=== PATIENT | female | born 1970 | race Caucasian/White ===

== ENCOUNTER 2016-07-08 04:56 | Emergency (ER) | payer OTHER ==
[~2016-07-08 04:56] MED LIST: ABILIFY30 M1 PO; AMBIEN (MONOGRAP5 MG PO; AMMONIUM LACTATE 12% TOP; ANUSOL HC-HEMOR1 SUP RC; ASPIRIN EC325 M2 PO; BUSPIRONE HCL10 M1 PO; BUSPIRONE HCL10 MG PO; CARVEDILOL3.125 MG PO; CARVEDILOL6.25 M1 PO; CARVEDILOL6.25 MG PO; CELEBREX100 M1 PO; CELECOXIB100 MG PO; COLACE100 MG PO; COREG3.125 MG PO; CYCLOBENZAPRINE10 M1 PO; FERROUS SULFAT324 MG PO; FLEXERIL 5MG TAB5 MG PO; FLEXERIL10 MG PO; FLUOXETINE HCL20 M2 PO; FLUOXETINE10 MG PO; FUROSEMIDE40 M1 PO; IBUPROFEN800 M1 PO; ISOSORBIDE MONO30 M1 PO; KEPPRA1000 M1 PO; LEVETIRACETAM250 MG PO; LEVETIRACETAM500 M2 PO; LEVETIRACETAM500 MG PO; LEVOTHYROXINE75 MCG PO; LEVSIN0.125 M1 PO; LINZESS145 MC1 PO; LINZESS145 MCG PO; LISINOPRIL2.5 M1 PO; LOVASTATIN10 MG PO; LOVAZA1 G1 PO; LOVAZA1 GM PO; MECLIZINE HCL25 MG PO; METFORMIN HCL1000 M1 PO; METFORMIN HYD1000 MG PO; MOTRIN 600 MG600 MG PO; MULTI-DAY VITA1 EACH PO; NEXIUM 40MG40 MG PO; NITROGLYCERIN0.4 M1 SL; NYSTOP60 GM TOP; ORPHENADRINE C100 MG PO; PERCOCET 325 MG1 TA2 PO; PERCOCET 5-3251 EACH PO; PLAVIX75 M1 PO; PRAVASTATIN SOD10 M2 PO; PROAIR HFA8.5 GM INH; PROZAC10 MG PO; PYRIDIUM200 MG PO; QUINAPRIL HCL20 MG PO; TOPAMAX50 M1 PO; TRAMADOL50 MG PO; TRIHEXYPHENIDYL5 M2 PO; TYLENOL WITH C1 EACH PO; VESICARE5 M1 PO; VIBRAMYCIN 100100 MG PO; VITAMIN D2000 UNIT PO; VITAMIN D50000 IU PO; WELCHOL 625 MG625 MG PO; WELCHOL625 MG PO; ZOFRAN ODT4 M1 SL
--- NOTE | 2016-07-08 05:12 | ED PSYCHIATRIC COMPLAINT ---
History of Present Illness General Chief Complaint: Psychiatric Related Complaint Stated Complaint: "BIBA PER EMS DEPRESSED" Source: patient, EMS Exam Limitations: clinical condition, schizoaffective disorder Vital Signs & Intake/Output Vital Signs & Intake/Output Vital Signs Date Time Temp Pulse Resp B/P Pulse O2 O2 Flow FiO2 Ox Delivery Rate 07/08 0510 98.6 67 20 140/65 94 Room Air Allergies Coded Allergies: Penicillins (THROAT CLOSURE 11/02/15) ammonia (UNKNOWN 11/02/15) lindane (ALLERGIC TO KWELL SHAMPOO 11/02/15) lorazepam (THROAT CLOSURE 11/02/15) sodium hypochlorite solution (sodium hypochlorite) (ALLERGIC TO BLEACH (UNKNOWN REACTION) 11/02/15) Reconcile Medications Albuterol Sulfate (Proair Hfa) 8.5 GM HFA.AER.AD 1-2 PUFF INH 4 TIMES/DAY PRN WHEEZE (Reported) Aripiprazole (Abilify) 30 MG TABLET 1 TAB PO DAILY MENTAL HEALTH (Reported) Aspirin (Ecotrin*) 325 MG TABLET.DR 1 TAB PO DAILY HEART HEALTH (Reported) Buspirone HCl 10 MG TABLET 1 TAB PO BID MENTAL HEALTH (Reported) Carvedilol (Coreg) 3.125 MG TABLET 1 TAB PO BID HEART/BP (Reported) Cholecalciferol (Vitamin D3) (Vitamin D) 2,000 UNIT CAPSULE 1 CAP PO DAILY SUPPLEMENT (Reported) Clopidogrel Bisulfate (Plavix) 75 MG TABLET 75 MG PO DAILY heart health Colesevelam Hydrochloride (Welchol) 625 MG TABLET 1,875 MG PO QPM CHOLESTEROL (Reported) Docusate Sodium (Colace) 100 MG CAPSULE 1 CAP PO BID CONSTIPATION Ferrous Sulfate 324 MG TABLET.DR 1 TAB PO BID SUPPLEMENT (Reported) Fluoxetine HCl 20 MG CAPSULE 1 CAP PO DAILY MENTAL HEALTH (Reported) Furosemide 40 MG TABLET 1 TAB PO DAILY DIURETIC (Reported) Hyoscyamine (Levsin) 0.125 MG TABLET 1 TAB PO Q4 PRN GI UPSET (Reported) Ibuprofen 800 MG TABLET 1 TAB PO Q6H PRN MODERATE-SEVERE PAIN (Reported) Isosorbide Mononitrate (Isosorbide Mononitrate ER) 30 MG TAB.ER.24H 30 MG PO DAILY ANGINA (Reported) Levetiracetam (Keppra) 1,000 MG TABLET 1,250 MG PO BID SEIZURE DISORDER Levothyroxine Sodium 75 MCG TABLET 1 TAB PO DAILY AC THYROID (Reported) Linaclotide (Linzess) 145 MCG CAPSULE 1 CAP PO DAILY IBS (Reported) Lisinopril 2.5 MG TABLET 1 TAB PO DAILY heart (Reported) Meclizine HCl 25 MG TABLET 1 TAB PO TIDPRN PRN DIZZINESS Metformin HCl 1,000 MG TABLET 1 TAB PO BID DIABETES (Reported) Multivitamin (Multi-Day Vitamins) 1 EACH TABLET 1 TAB PO DAILY SUPPLEMENT ( Reported) Nitroglycerin 0.4 MG TAB.SUBL 1 TAB SL AD PRN CHEST PAIN (Reported) 1st sign of attack; may repeat every 5 minutes until relief; if pain persists after 3 tablets in 15 minutes, prompt medical att Nystatin (Nystop) 100,000 UNIT/GRAM POWDER 1 PILAR TOP BID PRN RASHES (Reported ) [place]-3 Acid Ethyl Esters (Lovaza) 1 GM CAPSULE 2 CAP PO BID SUPPLEMENT ( Reported) Ondansetron (Zofran Odt) 4 MG TAB.RAPDIS 1 TAB SL TID PRN NAUSEA Oxycodone HCl/Acetaminophen (Percocet 5-325 MG Tablet) 5 MG-325 MG TABLET 1 TAB PO 4XDP PRN PAIN TEN...[id number] Pravastatin (Pravastatin Sodium) 10 MG TAB 1 TAB PO DAILY HEART HEALTH ( Reported) Solifenacin Succinate (Vesicare) 5 MG TABLET 1 TAB PO QAM BLADDER HEALTH ( Reported) Topiramate (Topamax) 50 MG TABLET 4 TAB PO QPM MENTAL HEALTH (Reported) Triage Note: ARRIVED ER 15 VIA AMBULANCE FROM HOME, PT STATES SHE IS SCARED AND DEPRESSED DENIES SI OR HI Triage Nurses Notes Reviewed? yes : No Patient currently breastfeeds: No HPI: Patient presents for evaluation of severe and worsening anxiety and depression. Patient states that she is compliant with her medications but she is still feeling anxious and scared this evening. (ANAHI LARSON,KRISTY Lomas) Past History Travel History Traveled to [place] past 21 day No Medical History Any Pertinent Medical History? 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 No (ANAHI LARSON,KRISTY Lomas) Review of Systems Review of Systems Constitutional: Reports: no symptoms. EENTM: Reports: no symptoms. Respiratory: Reports: no symptoms. Cardiovascular: Reports: no symptoms. GI: Reports: no symptoms. Genitourinary: Reports: no symptoms. Musculoskeletal: Reports: no symptoms. Skin: Reports: no symptoms. Neurological/Psychological: Reports: see HPI. Hematologic/Endocrine: Reports: no symptoms. Immunologic/Allergic: Reports: no symptoms. All Other Systems: Reviewed and Negative (ANAHI LARSON,KRISTY Lomas) Physical Exam Physical Exam General Appearance: see below Neurological/Psychiatric: see below Comments: General: Alert, calm, cooperative, morbidly obesity Head: Normocephalic, atraumatic Eyes: Normal inspection, no nystagmus, EOMI Ears: Normal inspection Nose: Normal inspection Throat: Moist mucosa Neck: Supple, no goiter Heart: Regular rate and rhythm, no murmurs rubs or gallops Lungs: Clear to auscultation bilaterally with good air entry Abdomen: Soft nontender nondistended, normal bowel sounds Chest: Nontender Extremities: Normal range of motion grossly, mild tremors present, no cyanosis clubbing or edema of the upper extremities, examination of the feet reveals extensive callouses and corns Neurologic: cranial nerves II through XII grossly intact, speech clear, gait normal Psychiatric: No apparent delusions or hallucinations, no pressured speech or thought blocking Rectal examination: Anal fissure present, no active bleeding (ANAHI LARSON,KRISTY Lomas) SAD PERSONS SAD PERSONS Response Value Depression/Hopelessness? yes 2 Previous Attempts/Psych Care yes 1 Social Support? has no support 1 Total 4 SAD PERSONS Done? yes (KRISTY FELDMAN DO) Progress Differential Diagnosis: drug intoxication, schizoaffective disorder, anxiety, depression, medication noncompliance Plan of Care: Orders Procedure Date/time Status ED CRISIS PSYCH CONSULT 07/08 523 Active URINE DRUG SCREEN FOR ER ONLY 07/08 522 Complete ETHANOL 07/08 522 Complete CBC WITHOUT DIFFERENTIAL 07/08 522 Complete BASIC METABOLIC PANEL 07/08 522 Complete Current Medications Sig/Carla Start time Last Medication Dose Stop Time Status Admin Aripiprazole 30 MG ONCE ONE 07/08 1200 UNVr (Abilify) 07/08 120 Aspirin Buffered 325 MG ONCE ONE 07/08 1200 UNVr (Ecotrin) 07/08 1201 Buspirone HCl 10 MG ONCE ONE 07/08 1200 UNVr (Buspar) 07/08 1201 Carvedilol 3.125 MG ONCE ONE 07/08 1200 UNVr (Coreg) 07/08 1201 Clopidogrel Bisulfate 75 MG ONCE ONE 07/08 1200 UNVr (Plavix) 07/08 1201 Fluoxetine HCl 20 MG ONCE ONE 07/08 1200 UNVr (Prozac) 07/08 1201 Furosemide 20 MG ONCE ONE 07/08 1200 UNVr (Lasix) 07/08 1201 Isosorbide 30 MG ONCE ONE 07/08 1200 UNVr Mononitrate 07/08 1201 (Imdur) Levetiracetam 1,250 MG ONCE ONE 07/08 1200 UNVr (Keppra) 07/08 1201 Levothyroxine Sodium 0.075 MG ONCE ONE 07/08 1200 UNVr (Synthroid) 07/08 1201 Metformin HCl 1,000 MG ONCE ONE 07/08 1200 UNVr (Glucophage) 07/08 1201 Laboratory Tests 07/08/16 07: Serum Alcohol < 10.0 07/08/16 07: Anion Gap 10, Estimated GFR 60, BUN/Creatinine Ratio 18.0, Glucose 104 H, Calcium 9.1, CBC w Diff NO MAN DIFF REQ, RBC 4.40, MCV 87.7, MCH 29.8, RDW 15.7 H, MPV 8.5, Gran % 64.4, Lymphocytes % 26.7, Monocytes % 5.4, Eosinophils % 3.0, Basophils % 0.5, Absolute Granulocytes 4.5, Absolute Lymphocytes 1.9, Absolute Monocytes 0.4, Absolute Eosinophils 0.2, Absolute Basophils 0, PUBS MCHC 34.0, Urine Opiates Screen < 100.00, Methadone Screen < 40, Barbiturate Screen < 60, Ur Phencyclidine Scrn < 6.00, Amphetamines Screen < 100, U Benzodiazepines Scrn < 85, Urine Cocaine Screen < 50, Urine Cannabis Screen < 5.00 Crisis evaluation (ANAHI LARSON,KRISTY Lomas) Comments: PT SIGNED OUT TO DR FELDMAN. (ANAHI LARSON,KRISTY Lomas) Departure Departure Disposition: STILL A PATIENT Condition: Stable Clinical Impression Primary Impression: Schizoaffective disorder Qualifiers: Schizoaffective disorder type: unspecified Qualified Code: F25.9 - Schizoaffective disorder, unspecified Secondary Impressions: Anal fissure, Skin callus Referrals: FUAD MYERS APRN (PCP/Family) Referred to [facility] as new patient No Departure Forms: Customer Survey General Discharge Information (ANAHI LARSON,KRISTY Lomas) Departure Comments 07/08/16 The patient was signed out to me by Dr. pSear. She is pending disposition by crisis. 07/08/16 12 PM The patient has been seen and evaluated and cleared by crisis. Her morning meds were given. (KRISTY FELDMAN DO)
[2016-07-08 07:38] LABS: ABSOLUTE BASOPHIL COUNT 0 /CUMM (0.0-0.2); ABSOLUTE EOSINOPHIL COUNT 0.2 /CUMM (0.0-0.7); ABSOLUTE GRANULOCYTE CT 4.5 /CUMM (1.4-6.5); ABSOLUTE LYMPH COUNT 1.9 /CUMM (1.2-3.4); ABSOLUTE MONOCYTE COUNT 0.4 /CUMM (0.10-0.60); BASOPHIL % 0.5 % (0.0-2.0); GRANULOCYTE % 64.4 % (42.2-75.2); HEMATOCRIT 38.6 % (37-47); MEAN CORPUSCULAR HGB 29.8 PG (27.0-31.0); MEAN CORPUSCULAR VOLUME 87.7 FL (81.0-99.0); MEAN PLATELET VOLUME 8.5 FL (7.4-10.4); PLATELET COUNT 224 /CUMM (130-400); RBC DISTRIBUTION WIDTH 15.7 % (11.5-14.5)
--- NOTE | 2016-07-08 10:10 | ED PSYCH CRISIS CONSULTATION ---
Crisis Consult Basic Assessment Date of Consult: 07/08/16 Responsible Person/Accompanied By: Self Insurance Authorization: Insurance #1: Insurance name: [employer] HMO Phone number: Policy number: [id number] Group number: [id number] Authorization number: ED Provider: Patient's ED Provider: KRISTY CHRISTIAN MD Primary Care Physician: Patient's PCP: FUAD MYERS APRN PCP's Current Psychiatrist: Bhupinder Cruz MD Chief Complaint: Psychiatric Related Complaint Patient's Quote: "Depressed and really nervous, but I didn't feel like hurting myself" Present Illness: Pt is 46 year old single female BIBA. Pt called 911 and said she was feeling depressed and scared at home and the EMS brought her to the ED at 5am this morning. Pt reports "I feel better now". "I don't feel like hurting myself ". Pt's presentation anxious, (rocking back and forth during the interveiw), flat affect, cooperative attitude and talkative. Pt was alert making jokes and asking questions about the time of day. Pt denied SI/HI, no evidence of AH/VH. Pt reports that she is an active pt at [facility] and was last seen on 06/27/16 by Dana Mustafa APRN. No changes to her current medication regime at that time. Pt currently takes the following psychotropic medications: Abilify 30 mgs daily, Prozac 20 mgs daily, Buspar 10mgs 3x daily. Pt has a history of inpatient hospitalization, she was last hospitalized here at [facility] on 11/01-11/07/15, pt was admitted for AH and was discharged with the diagnosis of Schizoaffective Disorder. Pt was also admitted to [facility] on 12/14- for suicidal thoughts without a plan and AH with thoughts to hurting herself with a paperclip. Pt was diagnosed then with Schizoaffective Disorder and Mild Mental Retardation. According to previous hospital reports pt has a history of chronic medical problems including Diabetes, Scoliosis, Hypothyroidism, Hypertension, Seizure Disorder, COPD and CHF. Patient's Address: [address] [place] [address] Other Phone Number: Who Do You Live With? Patient/Self Family/Informants Interviewed: Press Manager left message for pt's aunt Makayla Spring . Allergies - Coded Allergies: Penicillins (THROAT CLOSURE 11/02/15) ammonia (UNKNOWN 11/02/15) lindane (ALLERGIC TO KWELL SHAMPOO 11/02/15) lorazepam (THROAT CLOSURE 11/02/15) sodium hypochlorite solution (sodium hypochlorite) (ALLERGIC TO BLEACH (UNKNOWN REACTION) 11/02/15) Current Medications - Scheduled Medications Aripiprazole (Abilify) 30 MG TABLET 1 TAB PO DAILY MENTAL HEALTH (Reported) Entered as Reported by AMANDO WILLAMS on 12/06/13 2342 Aspirin (Ecotrin*) 325 MG TABLET. 1 TAB PO DAILY HEART HEALTH (Reported) Entered as Reported by FEDERICO EARLY on 10/01/14 1505 Buspirone HCl 10 MG TABLET 1 TAB PO BID MENTAL HEALTH (Reported) Entered as Reported by SANTIAGO WHITMAN on 12/11/15 0258 Carvedilol (Coreg) 3.125 MG TABLET 1 TAB PO BID HEART/BP (Reported) Entered as Reported by FEDERICO EARLY on 04/14/16 2119 Cholecalciferol (Vitamin D3) (Vitamin D) 2,000 UNIT CAPSULE 1 CAP PO DAILY SUPPLEMENT (Reported) Entered as Reported by FEDERICO EARLY on 04/14/16 2112 Clopidogrel Bisulfate (Plavix) 75 MG TABLET 75 MG PO DAILY heart health 30 Days Prescribed by MYRNA GARCIA on 12/15/15 Colesevelam Hydrochloride (Welchol) 625 MG TABLET 1,875 MG PO QPM CHOLESTEROL (Reported) Entered as Reported by SANTIAGO WHITMAN on 12/11/15 0304 Docusate Sodium (Colace) 100 MG CAPSULE 1 CAP PO BID CONSTIPATION #60 CAP Prescribed by ELIDA RUGGIERO MD on 06/12/14 Ferrous Sulfate 324 MG TABLET. 1 TAB PO BID SUPPLEMENT (Reported) Entered as Reported by ZHENG MCDONOUGH on 02/21/16 1245 Fluoxetine HCl 20 MG CAPSULE 1 CAP PO DAILY MENTAL HEALTH (Reported) Entered as Reported by FEDERICO EARLY on 12/14/14 1634 Furosemide 40 MG TABLET 1 TAB PO DAILY DIURETIC (Reported) Entered as Reported by FEDERICO EARLY on 10/01/14 1506 Isosorbide Mononitrate (Isosorbide Mononitrate ER) 30 MG TAB.ER.24H 30 MG PO DAILY ANGINA (Reported) Entered as Reported by FEDERICO EARLY on 04/14/16 2101 Levetiracetam (Keppra) 1,000 MG TABLET 1,250 MG PO BID SEIZURE DISORDER 30 Days Prescribed by CHRISTOPHER ARNETT MD on 04/16/16 Levothyroxine Sodium 75 MCG TABLET 1 TAB PO DAILY AC THYROID #30 (Reported) Entered as Reported by FEDERICO EARLY on 10/01/14 1506 Linaclotide (Linzess) 145 MCG CAPSULE 1 CAP PO DAILY IBS #60 (Reported) Entered as Reported by ZHENG MCDONOUGH on 02/21/16 1240 Lisinopril 2.5 MG TABLET 1 TAB PO DAILY heart #30 (Reported) Entered as Reported by ZHENG MCDONOUGH on 02/21/16 1234 Metformin HCl 1,000 MG TABLET 1 TAB PO BID DIABETES (Reported) Entered as Reported by FEDERICO EARLY on 12/14/14 1631 Multivitamin (Multi-Day Vitamins) 1 EACH TABLET 1 TAB PO DAILY SUPPLEMENT ( Reported) Entered as Reported by FEDERICO EARLY on 04/14/16 2115 [place]-3 Acid Ethyl Esters (Lovaza) 1 GM CAPSULE 2 CAP PO BID SUPPLEMENT ( Reported) Entered as Reported by FEDERICO EARLY on 12/14/14 1653 Pravastatin (Pravastatin Sodium) 10 MG TAB 1 TAB PO DAILY HEART HEALTH #30 ( Reported) Entered as Reported by AMANDO WILLAMS on 12/06/13 2341 Solifenacin Succinate (Vesicare) 5 MG TABLET 1 TAB PO QAM BLADDER HEALTH ( Reported) Entered as Reported by AMANDO WILLAMS on 12/06/13 2343 Topiramate (Topamax) 50 MG TABLET 4 TAB PO QPM MENTAL HEALTH (Reported) Entered as Reported by AMANDO WILLAMS on 12/06/13 2353 Scheduled PRN Medications Albuterol Sulfate (Proair Hfa) 8.5 GM HFA.AER.AD 1-2 PUFF INH 4 TIMES/DAY PRN WHEEZE (Reported) Entered as Reported by FEDERICO EARLY on 10/01/14 1505 Hyoscyamine (Levsin) 0.125 MG TABLET 1 TAB PO Q4 PRN GI UPSET (Reported) Entered as Reported by FEDERICO EARLY on 04/14/16 2059 Ibuprofen 800 MG TABLET 1 TAB PO Q6H PRN MODERATE-SEVERE PAIN (Reported) Entered as Reported by FEDERICO EARLY on 04/14/16 2100 Meclizine HCl 25 MG TABLET 1 TAB PO TIDPRN PRN DIZZINESS #30 TAB Prescribed by DYLLAN MARIE PA-C on 05/09/16 Nitroglycerin 0.4 MG TAB.SUBL 1 TAB SL AD PRN CHEST PAIN (Reported) Entered as Reported by FEDERICO EARLY on 04/14/16 2106 Nystatin (Nystop) 100,000 UNIT/GRAM POWDER 1 PILAR TOP BID PRN RASHES #60 ( Reported) Entered as Reported by FEDERICO EARLY on 10/01/14 1507 Ondansetron (Zofran Odt) 4 MG TAB.RAPDIS 1 TAB SL TID PRN NAUSEA #10 TAB Prescribed by DYLLAN MARIE PA-C on 05/09/16 Oxycodone HCl/Acetaminophen (Percocet 5-325 MG Tablet) 5 MG-325 MG TABLET 1 TAB PO 4XDP PRN PAIN #10 TAB Prescribed by ELIDA RUGGIERO MD on 06/24/16 Laboratory Results: Laboratory Tests 07/08/16723: Serum Alcohol < 10.0 07/08/16 0724: Anion Gap 10, Estimated GFR 60, BUN/Creatinine Ratio 18.0, Glucose 104 H, Calcium 9.1, CBC w Diff NO MAN DIFF REQ, RBC 4.40, MCV 87.7, MCH 29.8, RDW 15.7 H, MPV 8.5, Gran % 64.4, Lymphocytes % 26.7, Monocytes % 5.4, Eosinophils % 3.0, Basophils % 0.5, Absolute Granulocytes 4.5, Absolute Lymphocytes 1.9, Absolute Monocytes 0.4, Absolute Eosinophils 0.2, Absolute Basophils 0, PUBS MCHC 34.0, Urine Opiates Screen < 100.00, Methadone Screen < 40, Barbiturate Screen < 60, Ur Phencyclidine Scrn < 6.00, Amphetamines Screen < 100, U Benzodiazepines Scrn < 85, Urine Cocaine Screen < 50, Urine Cannabis Screen < 5.00 Past History Past Medical History Neurological: seizure EENT: hearing loss Cardiovascular: CAD, CHF, hypertension, hyperlipidemia Respiratory: asthma, obstructive sleep apnea Gastrointestinal: constipation, GERD Hepatic: NONE Renal: NONE Musculoskeletal: SCOLIOSIS Psychiatric: anxiety, depression, schizo affective disorder Endocrine: diabetes, hypothyroidism, obesity Blood Disorders: anemia Cancer(s): endometrial cancer 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 Past Surgical History Surgical History: cholecystectomy, hysterectomy, TONSILLECTOMY, MYRINGOTOMY TUBES Spinal fusion Adan rods age 17 Psychosocial History Strengths/Capabilities: Engaged in outpatient tx, desire to feel better Physical Limitations (Interventions): unsteady on feet Psychiatric Treatment History Psych Treatment Psychiatric Treatment Yes Inpatient Treatment Yes Outpatient Treatment Yes Location of Treatment [facility] Reason for Treatment Schizoaffective Disorder Dates of Treatment October & November 2015 and December, Response to Treatment Pt remains compliant with medication treatment and engages in treatment at [facility] monthly, Pt was seen on 06/27/16 and has a follow up appointment on . Diagnosis by History: Schizoaffective disorder Substance Use/Abuse History Drug Use/Abuse Substances Used/Abused No First Use n/a Last Used n/a How much used/taken n/a How often n/a For how long n/a Route of use n/a Substance Abuse Treatment Substance Abuse Treatment Past Substance Abuse TX No Inpatient Treatment No Outpatient Treatment No Location of Treatment n/a Reason for Treatment n/a Dates of Treatment n/a Response to Treatment n/a Current Mental Status Mental Status Orientation: Current situation Affect: Anxious, Blunted, Depressed, Flat, Lonely Speech: WNL Neuro-vegetative: Concentration Poor, Energy Decreased, Sleep Disturbance Appearance Appearance- Dress/Hygiene: Disheveled, extremely maladorous, overweight, poor hygenie. Behaviors Thought Process: [place] Thought Content: Poverty of thoughts, only saying the same thing over and over again. Memory: Impaired Insight: Poor SI/HI Risk Assessment Past Suicidal Ideation/Attempts Yes Current Suicidal Ideation/Att No Past Homicidal Ideation/Att: No Current Homicidal Ideation/Attempts No Degree of Intent: None Danger To: N/A Gravely Disabled: Inability, Lack of Insight, Poor Judgment Risk Factors: chronic/serious med cond., high anxiety/distress, history of suicide atmpts, SA/MH hospitalized, isolate/no social support, lives alone, limited support Lethality Ratin (mild) PTSD Checklist PTSD Done? 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 Current GAF: 35 Departure Disposition Psych Medical Clearance Date: 07/08/16 Medically Cleared at: 0524 Time Started: 0855 Time Ended: 1015 Psychiatrist Consulted: Bhupinder Cruz MD Date Disposition Established: 07/08/16 Time Disposition Established: 1045 Plan for Disposition - Modality: Outpatient Facility: [facility] Follow-up Appt Date: 07/09/16 Follow-Up Appt Time: 0800 (Left message for [facility] 07/09) Contact: Isi Howard Rationale for Disposition: Pt denies SI/HI, No evidence of psychosis. Pt reports feeling depressed, but I don't want to hurt myself. Pt will be given her AM medication. Pt will be picked up by friend Arcelia , monitor pt for safety at home and will ensure pt see [facility] in the morning 07/09/16 for her medication treatment. Clinician left message with [facility] to reschedule pt's appointment that is scheduled for to an earlier appointment this week. Referrals FUAD MYERS APRN (PCP/Family)
[2016-07-08 12:17] VITALS: BP 157/78
== END 2016-07-08 13:22 ==
LOC: ERH 04:56
PROVIDERS: Emergency Medicine
DX: F25.9 Schizoaffective disorder, unspecified (principal); K60.2 Anal fissure, unspecified; L84 Corns and callosities; I10 Essential (primary) hypertension; I50.9 Heart failure, unspecified
CPT/HCPCS: 80307; G0463; G0480; J1953

== ENCOUNTER 2016-07-11 12:04 | Inpatient (IN) | payer OTHER ==
[~2016-07-11] VITALS: Ht 167.6 cm; Wt 136.1 kg
--- NOTE | 2016-07-11 12:24 | NUR ---
C/O CHEST PAIN X 45 MINUTES, SENT FROM DR. YAÑEZ'S OFFICE. STATES PAIN IS WORSE ON INSPIRATION. ALSO C/O CRAMPS IN ARMS AND LEGS. EKG DONE ON ARRIVAL.
[2016-07-11 14:22] LABS: ABSOLUTE BASOPHIL COUNT 0.1 /CUMM (0.0-0.2); ABSOLUTE EOSINOPHIL COUNT 0.2 /CUMM (0.0-0.7); ABSOLUTE GRANULOCYTE CT 5.1 /CUMM (1.4-6.5); ABSOLUTE LYMPH COUNT 2.1 /CUMM (1.2-3.4); ABSOLUTE MONOCYTE COUNT 0.4 /CUMM (0.10-0.60); BASOPHIL % 0.7 % (0.0-2.0); EOSINOPHIL % 3.1 % (0-5); GRANULOCYTE % 64.6 % (42.2-75.2); HEMATOCRIT 37.8 % (37-47); MEAN CORPUSCULAR HGB 29.6 PG (27.0-31.0); MEAN CORPUSCULAR HGB CONC 33.5 G/DL (33.0-37.0); MEAN CORPUSCULAR VOLUME 88.3 FL (81.0-99.0); MEAN PLATELET VOLUME 8.6 FL (7.4-10.4); PLATELET COUNT 233 /CUMM (130-400); RBC DISTRIBUTION WIDTH 16.3 % (11.5-14.5); RED BLOOD CELL CT 4.28 /CUMM (4.20-5.40); WHITE BLOOD CELL COUNT 7.9 /CUMM (4.8-10.8)
--- NOTE | 2016-07-11 14:56 | NUR ---
APPRECIATE TRIAGE NOTE. PT TO MATTHEW I VIA WHEELCHAIR. RESTING ON STRETCHER AT THIS TIME WITH NO COMPLAINTS.
--- NOTE | 2016-07-11 15:49 | ED CARDIAC/CP/PALPITATIONS ---
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 Exam Limitations: no limitations Vital Signs & Intake/Output Vital Signs & Intake/Output Vital Signs Date Time Temp Pulse Resp B/P Pulse O2 O2 Flow FiO2 Ox Delivery Rate 07/11 1221 99.1 78 18 110/70 100 Room Air Allergies Coded Allergies: Penicillins (THROAT CLOSURE 11/02/15) ammonia (UNKNOWN 11/02/15) lindane (ALLERGIC TO KWELL SHAMPOO 11/02/15) lorazepam (THROAT CLOSURE 11/02/15) sodium hypochlorite solution (sodium hypochlorite) (ALLERGIC TO BLEACH (UNKNOWN REACTION) 11/02/15) Reconcile Medications Albuterol Sulfate (Proair Hfa) 8.5 GM HFA.AER.AD 1-2 PUFF INH 4 TIMES/DAY PRN WHEEZE (Reported) Aripiprazole (Abilify) 30 MG TABLET 1 TAB PO DAILY MENTAL HEALTH (Reported) Aspirin (Ecotrin*) 325 MG TABLET.DR 1 TAB PO DAILY HEART HEALTH (Reported) Buspirone HCl 10 MG TABLET 1 TAB PO BID MENTAL HEALTH (Reported) Carvedilol (Coreg) 3.125 MG TABLET 1 TAB PO BID HEART/BP (Reported) Cholecalciferol (Vitamin D3) (Vitamin D) 2,000 UNIT CAPSULE 1 CAP PO DAILY SUPPLEMENT (Reported) Clopidogrel Bisulfate (Plavix) 75 MG TABLET 75 MG PO DAILY heart health Colesevelam Hydrochloride (Welchol) 625 MG TABLET 1,875 MG PO QPM CHOLESTEROL (Reported) Docusate Sodium (Colace) 100 MG CAPSULE 1 CAP PO BID CONSTIPATION Ferrous Sulfate 324 MG TABLET.DR 1 TAB PO BID SUPPLEMENT (Reported) Fluoxetine HCl 20 MG CAPSULE 1 CAP PO DAILY MENTAL HEALTH (Reported) Furosemide 40 MG TABLET 1 TAB PO DAILY DIURETIC (Reported) Hyoscyamine (Levsin) 0.125 MG TABLET 1 TAB PO Q4 PRN GI UPSET (Reported) Ibuprofen 800 MG TABLET 1 TAB PO Q6H PRN MODERATE-SEVERE PAIN (Reported) Isosorbide Mononitrate (Isosorbide Mononitrate ER) 30 MG TAB.ER.24H 30 MG PO DAILY ANGINA (Reported) Levetiracetam (Keppra) 1,000 MG TABLET 1,250 MG PO BID SEIZURE DISORDER Levothyroxine Sodium 75 MCG TABLET 1 TAB PO DAILY AC THYROID (Reported) Linaclotide (Linzess) 145 MCG CAPSULE 1 CAP PO DAILY IBS (Reported) Lisinopril 2.5 MG TABLET 1 TAB PO DAILY heart (Reported) Meclizine HCl 25 MG TABLET 1 TAB PO TIDPRN PRN DIZZINESS Metformin HCl 1,000 MG TABLET 1 TAB PO BID DIABETES (Reported) Multivitamin (Multi-Day Vitamins) 1 EACH TABLET 1 TAB PO DAILY SUPPLEMENT ( Reported) Nitroglycerin 0.4 MG TAB.SUBL 1 TAB SL AD PRN CHEST PAIN (Reported) 1st sign of attack; may repeat every 5 minutes until relief; if pain persists after 3 tablets in 15 minutes, prompt medical att Nystatin (Nystop) 100,000 UNIT/GRAM POWDER 1 PILAR TOP BID PRN RASHES (Reported ) [place]-3 Acid Ethyl Esters (Lovaza) 1 GM CAPSULE 2 CAP PO BID SUPPLEMENT ( Reported) Ondansetron (Zofran Odt) 4 MG TAB.RAPDIS 1 TAB SL TID PRN NAUSEA Oxycodone HCl/Acetaminophen (Percocet 5-325 MG Tablet) 5 MG-325 MG TABLET 1 TAB PO 4XDP PRN PAIN TEN...[id number] Pravastatin (Pravastatin Sodium) 10 MG TAB 1 TAB PO DAILY HEART HEALTH ( Reported) Solifenacin Succinate (Vesicare) 5 MG TABLET 1 TAB PO QAM BLADDER HEALTH ( Reported) Topiramate (Topamax) 50 MG TABLET 4 TAB PO QPM MENTAL HEALTH (Reported) Triage Note: C/O CHEST PAIN X 45 MINUTES, SENT FROM DR. YAÑEZ'S OFFICE. STATES PAIN IS WORSE ON INSPIRATION. ALSO C/O CRAMPS IN ARMS AND LEGS. EKG DONE ON ARRIVAL. Triage Nurses Notes Reviewed? yes : No Patient currently breastfeeds: No HPI: Patient presents for evaluation of an intermittent chest pain described as a sharp stabbing substernal pain that began at about 1120 this morning. Patient denies any exertion at that time. In addition she has and experiencing right forearm pain over the past few days but also seems to affect both her legs. Patient contacted her stake driver who asked her to be evaluated in the emergency department. Past History Travel History Traveled to [place] past 21 day No Medical History Any Pertinent Medical History? see below for history Neurological: seizure EENT: hearing loss Cardiovascular: CAD, CHF, hypertension, hyperlipidemia Respiratory: asthma, obstructive sleep apnea Gastrointestinal: constipation, GERD Hepatic: NONE Renal: NONE Musculoskeletal: SCOLIOSIS Psychiatric: anxiety, depression, schizo affective disorder Endocrine: diabetes, hypothyroidism, obesity Blood Disorders: anemia Cancer(s): endometrial cancer GRAPE PRUNER/Reproductive: NONE History of MRSA: No History of VRE: No History of CDIFF: No Surgical History Surgical History: cholecystectomy, hysterectomy, TONSILLECTOMY, MYRINGOTOMY TUBES Spinal fusion Adan rods age 17 Psychosocial History Who do you live with Patient/Self Services at Home Home Health Aide (5 days a week), Nursing (7 days a week), a nurse administers her medications daily insuring compliance What is your primary language Albanian Tobacco Use: Never used ETOH Use: denies use Family History Family History, If Any: MOTHER FH: cirrhosis Hepatitis C Relation not specified for: *No pertinent family history Hx Contributory? No Review of Systems Review of Systems Constitutional: Reports: no symptoms. EENTM: Reports: no symptoms. Respiratory: Reports: no symptoms. Cardiovascular: Reports: see HPI. GI: Reports: no symptoms. Genitourinary: Reports: no symptoms. Musculoskeletal: Reports: no symptoms. Skin: Reports: no symptoms. Neurological/Psychological: Reports: no symptoms. Hematologic/Endocrine: Reports: no symptoms. Immunologic/Allergic: Reports: no symptoms. All Other Systems: Reviewed and Negative Physical Exam Physical Exam Cardiovascular: SEE BELOW Comments: Gen.: Well-nourished, well-developed, no acute respiratory distress. Morbidly obese. Head: Normocephalic, atraumatic. Eyes: Normal inspection bilaterally Ears: Normal inspection bilaterally Nose: Normal inspection Throat/mouth : Moist mucosa Neck: Supple, full range of motion, no goiter Heart: Regular rate and rhythm, no murmurs rubs or gallops Lungs: Clear to auscultation bilaterally with normal air entry Chest: Central chest tenderness that reproduces the pain of the chief complaint Back: Normal range of motion Abdomen: Soft, nontender, nondistended, normal bowel sounds Extremities: Normal range of motion grossly, equal radial pulses, no cyanosis clubbing or edema, deep tendon reflexes normal, sensation intact to light touch, no soft tissue swelling or edema. Ovoid ecchymoses of right mid forearm. Neurologic: Cranial nerves grossly intact, speech is clear Skin: warm and dry Psychiatric: Calm, cooperative, no apparent delusions or hallucinations Core Measures ACS in differential dx? Yes Severe Sepsis Present: No Septic Shock Present: No Progress Differential Diagnosis: COSTOCHONDRITIS, CHEST WALL STRAIN, ANGINA/ACUTE CORONARY SYNDROME/mi, ACID REFLUX, ESOPHAGEAL SPASMS, dvt, MUSCLE STRAIN, cva, RADICULOPATHY Plan of Care: Orders Procedure Date/time Status Admit to inpatient 07/11 1913 Active XRY-PORTABLE CHEST XRAY 07/11 1912 Active Patient Data 07/11 1854 Active TROPONIN LEVEL 07/11 1800 Complete EKG 07/11 1800 Active TROPONIN LEVEL 07/11 1400 Complete COMPREHENSIVE METABOLIC PANEL 07/11 1400 Complete CBC WITHOUT DIFFERENTIAL 07/11 1400 Complete EKG 07/11 1206 Active Laboratory Tests 07/11/16 1733: Troponin I < 0.01 07/11/16 1411: Anion Gap 14, Estimated GFR > 60, BUN/Creatinine Ratio 20.0, Glucose 96, Calcium 9.4, Total Bilirubin 0.3, AST 36, ALT 65 H, Alkaline Phosphatase 93, Troponin I < 0.01, Total Protein 6.8, Albumin 4.1, Globulin 2.7, Albumin/Globulin Ratio 1.5 , CBC w Diff NO MAN DIFF REQ, RBC 4.28, MCV 88.3, MCH 29.6, RDW 16.3 H, MPV 8.6 , Gran % 64.6, Lymphocytes % 26.8, Monocytes % 4.8, Eosinophils % 3.1, Basophils % 0.7, Absolute Granulocytes 5.1, Absolute Lymphocytes 2.1, Absolute Monocytes 0.4, Absolute Eosinophils 0.2, Absolute Basophils 0.1, PUBS MCHC 33.5 Initial ED EKG: NSR, rate (75, lvh) Prior EKG: unchanged Repeat EKG: unchanged Comments: 07/11/2016 6:25:47 PM I updated Ayla on her test results after the first troponin. At that point she appeared comfortable. I've now updated her on her EKG. She states that her pain is a 7 out of 10 although she is currently coloring. I'm attempting to contact her stake driver. 07/11/2016 6:34:47 PM patient's repeat troponin is normal. She has not responded to a GI cocktail and ibuprofen. I will order morphine and reevaluate. Awaiting Cardiology. 07/11/2016 6:43:22 PM patient's case discussed with Dr. Dixon who feels patient should be admitted given the ischemia seen on a recent stress test. He suggests Heparin. Departure Departure Disposition: STILL A PATIENT Condition: Stable Clinical Impression Primary Impression: Acute coronary syndrome Referrals: FUAD MYERS APRN (PCP/Family) Departure Forms: Customer Survey General Discharge Information Admission Note Spoke With: MARSHA LARSON PhD,KRISHAN Langford Documentation of Exam: Documentation of any treatments & extenuating circumstances including Concerns Regarding Discharge (functional status, medication knowledge or non-compliance, living conditions, etc.) that warrant an admission rather than observation: pt has a known history of coronary artery disease and ischemic changes on pharmacologic stress testing. She presents with a chest pain syndrome and has persistent pain despite a GI cocktail and ibuprofen. She now requires IV narcotic pain relievers. Dr. Dixon has requested heparin anticoagulation as well. The patient will require continuous cardiac monitoring for the possibility of ischemia induced dysrhythmia serial troponin levels and EKGs and maximization of medical management. Repeat stress testing or cardiac catheterization should be considered. I feel that given the patient's persistent chest pain that she is a poor candidate for outpatient management of the circumstances and would likely return in worse clinical condition given the exertion of outpatient management. Critical Care Note Critical Care Note Critical Care Time: 30-74 min
--- NOTE | 2016-07-11 18:27 | NUR ---
PT MEDICATED PER EMAR. WHEN PT ASSISTED TO SITTING POSITION PT FACE CHANGED TO NOTICABLE GRIMACE AND PT CLUTCHED CHEST DESCRIBING SHARP 7/10 PAIN POINTING TO SUBSTERNAL CHEST. DR. CHRISTIAN TO BEDSIDE TO EVALUATE PT. PT SITTING UP AND COLORING AT THIS TIME BUT CONTINUES TO REPORT SHARP CHEST PAIN.
--- NOTE | 2016-07-11 19:23 | NUR ---
PT MOVED TO ROOM 20 FOR PCXY.
--- NOTE | 2016-07-11 19:41 | NUR ---
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
--- NOTE | 2016-07-11 19:58 | RADIOLOGY REPORT ---
EXAMINATION: XR PORTABLE CHEST CLINICAL INFORMATION: Chest pain. History of CHF. COMPARISON: Chest x-ray 04/14/2016. TECHNIQUE: Portable view of the chest was obtained. FINDINGS: The lungs are hypoinflated but otherwise clear without focal airspace consolidation. No pleural effusions or pneumothoraces are identified. Cardiomediastinal contours are stable. Soft tissues are unremarkable. Redemonstrated is scoliosis of the thoracic spine with mechanical hardware visualized along the thoracic spine. No acute osseous abnormality is identified. IMPRESSION: No acute pulmonary abnormality. No radiographic findings suggestive of congestive heart failure.
--- NOTE | 2016-07-11 20:01 | NUR ---
PT MEDICATED PER EMAR. PT REFUSING LOVENOX. EDUCATION PROVIDED ON IMPORTANCE OF TAKING MEDICATION AND PT CONTINUES TO REFUSE. DR. CHRISTIAN UPDATED, PT IS NOW ADMITTED TO THE TELEMETRY HOUSE STAFF AND AWAITING EVALUATION.
--- NOTE | 2016-07-11 20:14 | History & Physical ---
[address] 07/11/16 2014: General Information and HPI MD Statement: I have seen and personally examined AYLA GREEN and documented this H&P. The patient is a 46 year old F who presented with a patient stated chief complaint of [chest pain, arm and lower extremity cramping]. Source of Information: patient, old records Exam Limitations: no limitations History of Present Illness: Ms Green is a 46-year-old lady with a PMH of HTN, HLD, CAD, stage II diastolic dysfunction, seizure disorder, or say on nocturnal CPAP, asthma, anxiety, depression, schizoaffective disorder, DM, hypothyroidism, obesity and endometrial CA who presents today with complaints of new onset chest pain. She reports the preceding 3 day duration of nonspecific intermittent bilateral upper and lower extremity cramping sensation. She denies any recent changes to her medications, sick contacts or illnesses. During a regular follow-up visit with her desktop architect today she experienced sudden onset of nonradiating diffuse chest discomfort that she describes as a punching/sharp sensation starting around 11:20 AM and resolved after a few hours. She also endorses some shortness of breath earlier today. She denies any recent blurry vision, headache, palpitations, lower extremity swelling, symptoms mimicking orthopnea/PND. ROS: She denies any recent URI symptoms or sick contacts, changes in medication. Allergies/Medications Allergies: Coded Allergies: Penicillins (THROAT CLOSURE 11/02/15) ammonia (UNKNOWN 11/02/15) lindane (ALLERGIC TO KWELL SHAMPOO 11/02/15) lorazepam (THROAT CLOSURE 11/02/15) sodium hypochlorite solution (sodium hypochlorite) (ALLERGIC TO BLEACH (UNKNOWN REACTION) 11/02/15) Home Med list Albuterol Sulfate (Proair Hfa) 8.5 GM HFA.AER.AD 1-2 PUFF INH 4 TIMES/DAY PRN WHEEZE (Reported) Aripiprazole (Abilify) 30 MG TABLET 1 TAB PO DAILY MENTAL HEALTH (Reported) Aspirin (Ecotrin*) 325 MG TABLET.DR 1 TAB PO DAILY HEART HEALTH (Reported) Buspirone HCl 10 MG TABLET 1 TAB PO BID MENTAL HEALTH (Reported) Carvedilol (Coreg) 3.125 MG TABLET 1 TAB PO BID HEART/BP (Reported) Cholecalciferol (Vitamin D3) (Vitamin D) 2,000 UNIT CAPSULE 1 CAP PO DAILY SUPPLEMENT (Reported) Clopidogrel Bisulfate (Plavix) 75 MG TABLET 75 MG PO DAILY heart health Colesevelam Hydrochloride (Welchol) 625 MG TABLET 1,875 MG PO QPM CHOLESTEROL (Reported) Docusate Sodium (Colace) 100 MG CAPSULE 1 CAP PO BID CONSTIPATION Ferrous Sulfate 324 MG TABLET.DR 1 TAB PO BID SUPPLEMENT (Reported) Fluoxetine HCl 20 MG CAPSULE 1 CAP PO DAILY MENTAL HEALTH (Reported) Furosemide 40 MG TABLET 1 TAB PO DAILY DIURETIC (Reported) Hyoscyamine (Levsin) 0.125 MG TABLET 1 TAB PO Q4 PRN GI UPSET (Reported) Ibuprofen 800 MG TABLET 1 TAB PO Q6H PRN MODERATE-SEVERE PAIN (Reported) Isosorbide Mononitrate (Isosorbide Mononitrate ER) 30 MG TAB.ER.24H 30 MG PO DAILY ANGINA (Reported) Levetiracetam (Keppra) 1,000 MG TABLET 1,250 MG PO BID SEIZURE DISORDER Levothyroxine Sodium 75 MCG TABLET 1 TAB PO DAILY AC THYROID (Reported) Linaclotide (Linzess) 145 MCG CAPSULE 1 CAP PO DAILY IBS (Reported) Lisinopril 2.5 MG TABLET 1 TAB PO DAILY heart (Reported) Meclizine HCl 25 MG TABLET 1 TAB PO TIDPRN PRN DIZZINESS Metformin HCl 1,000 MG TABLET 1 TAB PO BID DIABETES (Reported) Multivitamin (Multi-Day Vitamins) 1 EACH TABLET 1 TAB PO DAILY SUPPLEMENT ( Reported) Nitroglycerin 0.4 MG TAB.SUBL 1 TAB SL AD PRN CHEST PAIN (Reported) 1st sign of attack; may repeat every 5 minutes until relief; if pain persists after 3 tablets in 15 minutes, prompt medical att Nystatin (Nystop) 100,000 UNIT/GRAM POWDER 1 PILAR TOP BID PRN RASHES (Reported ) Huntley-3 Acid Ethyl Esters (Lovaza) 1 GM CAPSULE 2 CAP PO BID SUPPLEMENT ( Reported) Ondansetron (Zofran Odt) 4 MG TAB.RAPDIS 1 TAB SL TID PRN NAUSEA Oxycodone HCl/Acetaminophen (Percocet 5-325 MG Tablet) 5 MG-325 MG TABLET 1 TAB PO 4XDP PRN PAIN TEN...[id number] Pravastatin (Pravastatin Sodium) 10 MG TAB 1 TAB PO DAILY HEART HEALTH ( Reported) Solifenacin Succinate (Vesicare) 5 MG TABLET 1 TAB PO QAM BLADDER HEALTH ( Reported) Topiramate (Topamax) 50 MG TABLET 4 TAB PO QPM MENTAL HEALTH (Reported) Past History Travel History Traveled to [place] past 21 day No Medical History Neurological: seizure EENT: hearing loss Cardiovascular: CAD, CHF, hypertension, hyperlipidemia Respiratory: asthma, obstructive sleep apnea Gastrointestinal: constipation, GERD Hepatic: NONE Renal: NONE Musculoskeletal: SCOLIOSIS Psychiatric: anxiety, depression, schizo affective disorder Endocrine: diabetes, hypothyroidism, obesity Blood Disorders: anemia Cancer(s): endometrial cancer HOSPITALITY COORDINATOR/Reproductive: NONE History of MRSA: No History of VRE: No History of CDIFF: No Surgical History Surgical History: cholecystectomy, hysterectomy, TONSILLECTOMY, MYRINGOTOMY TUBES Spinal fusion Adan rods age 17 Past Family/Social History Family History Relations & Conditions if any MOTHER FH: cirrhosis Hepatitis C Relation not specified for: *No pertinent family history Psychosocial History Who Do You Live With? self Services at Home: Home Health Aide (5 days a week), Nursing (7 days a week), a nurse administers her medications daily insuring compliance Primary Language: Polish ETOH Use: denies use Functional Ability ADLs Independent: dressing, eating, toileting, bathing. Ambulation: independent IADLs Independent: shopping, housework, finances, food prep, telephone, transportation , medication admin. Review of Systems Review of Systems Constitutional: Reports: see HPI. Cardiovascular: Reports: see HPI. Respiratory: Reports: see HPI. GI: Reports: constipation, bloody stool. Musculoskeletal: Reports: see HPI. Exam & Diagnostic Data Last 24 Hrs of Vital Signs/I&O Vital Signs Date Time Temp Pulse Resp B/P Pulse O2 O2 Flow FiO2 Ox Delivery Rate 07/11 1924 97.6 67 18 115/78 98 Room Air 07/11 1221 99.1 78 18 110/70 100 Room Air Intake & Output 07/11 1600 07/11 0800 07/11 0000 Intake Total Output Total Balance Patient 300 lb Weight Physical Exam General Appearance Alert, Oriented X3, Cooperative, No Acute Distress Skin No Breakdown HEENT EOMI, Mucous Membr. moist/pink Neck Unable to assess JVD asecondary to body habitus Cardiovascular Regular Rate, Normal S1, Normal S2, No Murmurs Lungs Normal Air Movement, Distant lung sound secondary to body habitus Abdomen Normal Bowel Sounds, Soft, No Tenderness Extremities No Cyanosis, No Edema, Normal Pulses Last 24 Hrs of Labs/Manuel: Laboratory Tests 07/11/16 1733: Troponin I < 0.01 07/11/16 1411: Anion Gap 14, Estimated GFR > 60, BUN/Creatinine Ratio 20.0, Glucose 96, Calcium 9.4, Total Bilirubin 0.3, AST 36, ALT 65 H, Alkaline Phosphatase 93, Troponin I < 0.01, Total Protein 6.8, Albumin 4.1, Globulin 2.7, Albumin/Globulin Ratio 1.5 , 25-OH Vitamin D Total 19.2 L, TSH Pending, Free T4 1.19, CBC w Diff NO MAN DIFF REQ, RBC 4.28, MCV 88.3, MCH 29.6, RDW 16.3 H, MPV 8.6, Gran % 64.6, Lymphocytes % 26.8, Monocytes % 4.8, Eosinophils % 3.1, Basophils % 0.7, Absolute Granulocytes 5.1, Absolute Lymphocytes 2.1, Absolute Monocytes 0.4, Absolute Eosinophils 0.2, Absolute Basophils 0.1, PUBS MCHC 33.5 Diagnostic Data EKG Results Sinus rhythm, HR 65. Nonspecific intraventricular conduction delay. SD interval 176. QTC 467 CXR Results No acute pulmonary abnormality. No radiographic findings suggestive of congestive heart failure. Assessment/Plan Assessment: 46-year-old lady with a PMH of HTN, HLD, CAD, stage II diastolic dysfunction, seizure disorder, or say on nocturnal CPAP, asthma, anxiety, depression, schizoaffective disorder, DM, hypothyroidism, obesity and endometrial CA who presents today with complaints of new onset chest pain. She reports the preceding 3 day duration of nonspecific intermittent bilateral upper and lower extremity cramping sensation. She denies any recent changes to her medications, sick contacts or illnesses. During a regular follow-up visit with her desktop architect today she experienced sudden onset of nonradiating diffuse chest discomfort that she describes as a punching/sharp sensation starting around 11:20 AM and resolved after a few hours. She also endorses some shortness of breath earlier today. VS: BP 110/70, HR 78, RR 18, SPO2 100% on RA, T 99.1 Pertinent labs: H&H 12.6/37.8, platelets 233, BUN/CR 18/0.9, potassium 3.8 Troponin: 0.012 Dipyridamole stress test (April 2016): No ischemic changes during the exam. Echocardiogram (April 2016): Mild concentric LVH. EF greater than 65%. Stage II diastolic dysfunction. Right ventricular systolic pressure 30 mmHg Problem list: 1. Angina: Rule out ACS 2. Exertional dyspnea 3. ??? Recent abnormal stress test 4. Stage II diastolic dysfunction 5. Hypothyroidism 6. Hyperlipidemia 7. Diabetes 8. MOISÉS 9. Daily cigar smoker Plan: * Admit to telemetry for continuous cardiac monitoring, serial EKGs and troponins * Per discussion with Dr. Dixon, we'll start the patient on heparin drip per ACS protocol. Close monitoring for H&H drop with her history of anal fissure * Follow-up TFTs and lipid panel in the a.m. * Dose adjustment of statin based on ASCVD score if warranted * We'll continue the patient with nocturnal CPAP with her home settings of 12 mmHg * AM team: With Dr. Felix for most recent stress test results * Accu-Cheks, initiate patient on low-dose sliding scale * Diabetic diet * Full code As Ranked By This Provider Problem List: 1. Angina pectoris 2. Abnormal stress test 3. Morbid obesity 4. Sleep apnea 5. Smoker 6. Obstructive sleep apnea 7. Hyperlipidemia 8. Hypothyroidism Core Measures/Miscellaneous Acute Coronary Syndrome ACS Diagnosis: No Cerebrovascular Accident CVA/TIA Diagnosis: No Congestive Heart Failure CHF Diagnosis: No Venous Thromboembolism VTE Risk Factors: Age > 40, Cancer/chemo/oth therapy VTE Prophylaxis Ordered Inpt: Pharm- Heparin No Mech VTE prophylaxis d/t: No contraindications No VTE Pharm Prophylaxis d/t: No contraindications VTE Diagnosis: No VTE Type: NONE VTE Confirmed by (Test): NONE Severe Sepsis Severe Sepsis Present: No Septic Shock Septic Shock Present: No Miscellaneous Documentation Attending Case Discussed With: MARSHA LARSON PhD,KRISHAN Langford Primary Care Physician: FUAD MYERS APRN Patient sees these Specialists Dr. Felix Level of Patient Care: Telemetry OTILIO LARSON,ELVIE Langford 07/12/16 1047: Attending Review Statement Attending Statement Attending Statement: examined this patient, discuss w/resident/PA/RESEARCH QUALITY ASSURANCE ANALYST, agreed w/resident/PA/RESEARCH QUALITY ASSURANCE ANALYST, discussed with family, reviewed EMR data (avail), discussed with nursing, discussed with case mgmt, reviewed images, amended to note Attending Assessment/Plan: Ms. Ayla Green is a 46-year-old female with a history of morbid obesity, former long-standing tobacco use, COPD, MOISÉS on CPAP, childhood asthma, hypertension, dyslipidemia, diabetes mellitus with neuropathy, seizure disorder, schizophrenia, a vague history of heart failure, and coronary artery disease who was seen in our office yesterday (07/11/2015) for routine visit and who at that time described complaints of chest discomfort. This was described as "burning" across her anterior chest of "7/10" intensity with some associated discomfort in her right arm and without any other associated symptoms. Of note is the fact that she had contacted our office on Friday (07/08/2015) and related the fact she had been experiencing some "cramping" in both her arms and legs for a couple of days. We recommended some blood work, but she was not able to get a ride to have any laboratory work performed. We then were able to get her set up for a home draw that was to be performed yesterday, but she wound up being able to get a ride for her office visit. She was previously hospitalized at for chest pain (12/10-12/15/2015) and had a pharmacologic stress test on 12/13/2015 that revealed a moderate size region of ischemia in the anterior wall and apex that ultimately led to cardiac catheterization at [facility] that revealed the following: LM-patent, LAD- luminal irregularities, long 50% proximal stenosis followed by aneurysmal dilatation and subsequent 50% mid vessel stenosis, LCx-proximal 50% OM stenosis with diffuse luminal irregularities, RCA-dominant and aneurysmal throughout most of its course with diffuse luminal irregularities and 2 tandem 95% areas of stenosis in the proximal and mid PDA and 60% distal posterolateral branch stenosis, LV gram-not done. She underwent PCI (PATTIE) of the 2 PDA areas of stenosis with 0% residual stenosis and SHANNAN-3 flow. She had further chest discomfort and was observed in the [facility] ED (03/09-2015) and ruled out for myocardial infarction by cardiac enzymes and had no acute electrocardiographic changes observed. She was seen in our office on 04/03/2016 and at that time she was asymptomatic, but we did set her up for a pharmacologic stress test with authorization obtained on 04/08/2016 but are calls were never returned and she never had the outpatient stress test performed. She was again admitted to (04/14-04/18/2016) for chest pain of one hours duration and had a repeat stress test performed on 04/16/2016 that revealed a large mild area of ischemia in the anteroapical, lateral wall segments extending into the posterior base. This led to repeat cardiac catheterization at [facility] on 05/08/2016 that revealed the following: LM-patent, LAD-diffuse luminal irregularities with long 50% proximal stenosis, followed by aneurysmal mid segment, followed by 50% mid stenosis, RI-diffuse luminal irregularities, LCx-50 % proximal marginal stenosis with diffuse luminal irregularities, RCA-large, dominant, aneurysmal vessel throughout most of its course with diffuse luminal irregularities and patency at prior stent sites in PDA, 50% very distal PDA stenosis without flow limitation, 60% distal PLV branch stenosis. Based on these findings it was not felt to be a need for PCI. Physical examination: Morbidly obese, middle-aged female in no acute distress with nasal oxygen in place. Vital signs: See above. HEENT: Normocephalic, atraumatic, EOMI, moist mucous membranes. Neck: No JVD, no bruits. Lungs: Clear to auscultation bilaterally. Heart: S1, S2 with grade 1/6 systolic murmur. PMI fifth ICS at [facility]. Abdomen: Soft, nontender, positive bowel sounds. Extremities: No edema. Peripheral pulses: Symmetrical/intact. Assessment: Prolonged episode of chest discomfort in this middle-aged female with known coronary artery disease, as well as, a risk equivalent and multiple risk factors for the same. Fortunately, there is no evidence of myocardial necrosis by serial troponin I determinations or evidence of acute electrocardiographic abnormalities. Recommendations: * Admit to telemetry, follow-up troponins, follow-up ECGs. * IV heparin has already been started. * Continue the rest of her outpatient cardiac regimen (statin, antiplatelets, long and short acting nitrates, beta josefina, HAMMAD inhibitor, diuretic, etc.). * Schedule for inpatient pharmacologic (dipyridamole) stress test. * I will discuss her history of present illness, initial hospital course, and recommendations for further evaluation/management with her conservator (Makayla Spring [phone]). * Avoid use of NSAID's. * DVT prophylaxis. Further recommendations will follow.
--- NOTE | 2016-07-11 20:45 | NUR ---
HOUSE STAFF TO BEDSIDE FOR EVAL.
--- NOTE | 2016-07-11 21:54 | NUR ---
PT SITTING UP EATING CHICKEN DINNER.
[2016-07-11 22:23] LABS: PT 10.5 SEC (9.4-12.5); PTT 31 SEC (25-37)
--- NOTE | 2016-07-11 23:23 | NUR ---
PT MEDICATED PER EMAR. HEPARIN DRIP INITIATED PER EMAR.
--- NOTE | 2016-07-12 03:55 | NUR ---
UP TO BR AT 0230 REFUSES VTE NO CO OF CP CO ONLY OF DISCOMFORT OF STRETCHER BEING UNCOMF, REMAINS ON HEPARIN GTT AT 20ML/HR. NO OVERT/COVERT S/S OF BLEEDING. WILL CONT TO MONITOR. REMAINS ON B\HOME BIPAP.
[2016-07-12 05:49] LABS: ABSOLUTE BASOPHIL COUNT 0 /CUMM (0.0-0.2); ABSOLUTE EOSINOPHIL COUNT 0.2 /CUMM (0.0-0.7); ABSOLUTE GRANULOCYTE CT 3.5 /CUMM (1.4-6.5); ABSOLUTE LYMPH COUNT 1.6 /CUMM (1.2-3.4); ABSOLUTE MONOCYTE COUNT 0.2 /CUMM (0.10-0.60); BASOPHIL % 0.5 % (0.0-2.0); GRANULOCYTE % 63.4 % (42.2-75.2); MEAN CORPUSCULAR HGB 30.2 PG (27.0-31.0); MEAN CORPUSCULAR HGB CONC 34.4 G/DL (33.0-37.0); MEAN CORPUSCULAR VOLUME 87.9 FL (81.0-99.0); MEAN PLATELET VOLUME 8.6 FL (7.4-10.4); PLATELET COUNT 225 /CUMM (130-400); RBC DISTRIBUTION WIDTH 16.3 % (11.5-14.5); RED BLOOD CELL CT 4.09 /CUMM (4.20-5.40); WHITE BLOOD CELL COUNT 5.6 /CUMM (4.8-10.8)
[2016-07-12 06:25] VITALS: BP 124/59
[2016-07-12 06:57] LABS: PTT 33 SEC (25-37)
--- NOTE | 2016-07-12 07:15 | PN- Housestaff ---
Subjective Follow-up For: 1. Angina: Ruled out ACS 2. Exertional dyspnea 3. Recent abnormal stress test 4. Stage II diastolic dysfunction Complaints: pain scale (0-10) Tele-Events Since Last Visit: no acute events Subjective: Patient was seen and examined this morning. She is alert, awake and oriented to time place and person. No acute events noticed overnight. She denied any kind of chest pain or pressure, racing of heart, shortness of breath at rest, fever or chills. She denied any nausea, vomiting, abdominal pain, change in bladder or bowel habits However she does report dyspnea on exertion. Vitals were stable. Afebrile. Heart rate 58, respiratory rate 22, blood pressure 124/59, saturating 96% on room air. She is nothing by mouth - waiting for her stress test this morning. Review of Systems Constitutional: Denies: see HPI. Objective Last 24 Hrs of Vital Signs/I&O Vital Signs Date Time Temp Pulse Resp B/P Pulse O2 O2 Flow FiO2 Ox Delivery Rate 07/12 1440 98.8 58 20 133/76 98 CPAP 07/12 1045 97.9 62 22 124/59 07/12 1045 97.9 62 22 124/59 07/12 1045 97.9 62 22 124/59 06 0625 97.9 58 22 124/59 96 CPAP 07/12 0502 59 96 07/12 0025 70 97 /05 2322 97.8 64 18 131/62 98 Room Air Room Air 07/11 2316 97.6 64 18 131/62 /05 2232 96 07/11 2230 96 07/11 1924 97.6 67 18 115/78 98 Room Air Physical Exam General Appearance: Alert, Oriented X3, Cooperative, No Acute Distress Skin: No Rashes, No Breakdown HEENT: Atraumatic, Mucous Membr. moist/pink Neck: Supple, No JVD Lymphatic: Cervical nl Cardiovascular: Normal S1, Normal S2, No Murmurs Lungs: Normal Air Movement Abdomen: Normal Bowel Sounds, Soft, No Tenderness Extremities: No Clubbing, No Cyanosis, No Edema Vascular: Normal Pulses Current Medications: Current Medications Sig/Carla Start time Last Medication Dose Route Stop Time Status Admin Acetaminophen 650 MG Q6P PRN 07/11 2114 AC PO Aripiprazole 30 MG DAILY 07/12 1000 AC 07/12 PO 1045 Aspirin Buffered 325 MG DAILY 07/12 1000 AC 07/12 PO 1045 Buspirone HCl 10 MG BID 07/11 2300 AC 07/12 PO 1045 Carvedilol 3.125 MG BID 07/11 2300 AC 07/12 PO 1045 Clopidogrel Bisulfate 75 MG DAILY 07/12 1000 AC 07/12 PO 1045 Dipyridamole 60 MG ONE ONE 07/12 1115 DC Dextrose/Water 28 ML IV 07/12 1514 Docusate Sodium 100 MG BID 07/11 220 AC 07/12 PO 1045 Enoxaparin Sodium 130 MG ONCE ONE 07/11 1845 DC SC 07/11 184 Ferrous Sulfate 325 MG BID 07/11 2300 AC 07/12 PO 1045 Fluoxetine HCl 20 MG DAILY 07/12 1000 AC 07/12 PO 1045 Furosemide 40 MG DAILY 07/12 1000 AC 07/12 PO 1045 Heparin Sodium 0 .STK-MED ONE 07/11 2249 DC (Porcine) .ROUTE Heparin Sodium 5,000 UNIT ONCE ONE 07/11 2199 DC 07/11 (Porcine) IV 07/11 2200 2316 Heparin Sodium 25,000 UNIT Q24H 07/11 2129 AC 07/11 (Porcine) IV 2316 Sodium Chloride 500 ML Hyoscyamine 0.125 MG Q4 HRS NEEDED PRN 07/11 2129 AC PO Ibuprofen 0 .STK-MED ONE 07/11 181 DC PO Ibuprofen 600 MG ONCE ONE 07/11 1730 DC 07/11 PO 07/11 1731 1817 Isosorbide 30 MG DAILY 07/12 1000 AC 07/12 Mononitrate PO 1045 Levetiracetam 1,250 MG BID 07/11 2250 AC 07/12 PO 1045 Levothyroxine Sodium 0.075 MG DAILY AC 07/12 0700 AC 07/12 PO 0800 Linaclotide 145 MCG DAILY 07/12 1000 AC PO Lisinopril 2.5 MG DAILY 07/12 1000 AC 07/12 PO 1045 Morphine Sulfate 0 .STK-MED ONE 07/11 195 DC .ROUTE Morphine Sulfate 4 MG ONCE ONE 07/11 1845 DC 07/11 IV 07/11 184 2000 Non-Formulary 0 SEE ADMIN CRITERIA 07/11 2129 CAN Medication ANY Nystatin 1 PILAR TID PRN 07/11 2129 AC TOP Iaaut-1-Hvtr Ethyl 2 GM BID 07/12 1000 AC 07/12 Esters PO 1045 Oxybutynin Chloride 5 MG DAILY 07/12 1000 AC 07/12 PO 1045 Oxycodone/ 1 TAB Q6P PRN 07/11 2114 AC Acetaminophen PO Oxycodone/ 2 TAB Q6P PRN 07/11 211 AC Acetaminophen PO Pravastatin Sodium 10 MG 1700 07/12 1700 AC PO Topiramate 200 MG QPM 07/11 2245 AC 07/11 PO 2316 Last 24 Hrs of Lab/Manuel Results Last 24 Hrs of Labs/Mics: Laboratory Tests 07/12/16 1511: APTT 30 07/12/16 0527: Anion Gap 12, Estimated GFR 54 L, BUN/Creatinine Ratio 18.2, Triglycerides 597 H, Cholesterol 235 H, LDL Cholesterol, Calc ND, HDL Cholesterol 34 L, Cholesterol/HDL Ratio 7 H, Lipase 494 H, PT 11.0, INR 1.05, APTT 33, CBC w Diff NO MAN DIFF REQ, RBC 4.09 L, MCV 87.9, MCH 30.2, RDW 16.3 H, MPV 8.6, Gran % 63.4, Lymphocytes % 29.0, Monocytes % 4.1, Eosinophils % 3.0, Basophils % 0.5, Absolute Granulocytes 3.5, Absolute Lymphocytes 1.6, Absolute Monocytes 0.2 , Absolute Eosinophils 0.2, Absolute Basophils 0, PUBS MCHC 34.4 07/12/16 0030: Troponin I < 0.01 07/11/16 1733: Phosphorus 4.2, Magnesium 1.8, Troponin I < 0.01 Assessment/Plan Assessment: 46-year-old lady with a PMH of HTN, HLD, CAD, stage II diastolic dysfunction, seizure disorder, MOISÉS on nocturnal CPAP, asthma, anxiety, depression, schizoaffective disorder, DM, hypothyroidism, obesity and endometrial CA who presents with complaints of new onset chest pain. She reports 3 day duration of nonspecific intermittent bilateral upper and lower extremity cramping sensation. She denies any recent changes to her medications, sick contacts or illnesses. During a regular follow-up visit with her earth observations chief scientist on 07/12/2015 she experienced sudden onset of nonradiating diffuse chest discomfort that she describes as a punching/sharp sensation starting around 11:20 AM and resolved after a few hours. She also endorses some shortness of breath earlier today. Advised to go to the ER. VS: BP 110/70, HR 78, RR 18, SPO2 100% on RA, T 99.1 Pertinent labs: H&H 12.6/37.8, platelets 233, BUN/CR 18/0.9, potassium 3.8 Troponin: 0.013 Dipyridamole stress test (April 2016): No ischemic changes during the exam.Hypokinetic apex. Echocardiogram (April 2016): Mild concentric LVH. EF greater than 65%. Stage II diastolic dysfunction. Right ventricular systolic pressure 30 mmHg. CXR- No acute pulmonary abnormality. No radiographic findings suggestive of congestive heart failure. Problem list: 1. Angina: Rule out ACS 2. Exertional dyspnea 3. ??? Recent abnormal stress test 4. Stage II diastolic dysfunction 5. Hypothyroidism 6. Hyperlipidemia 7. Diabetes 8. MOISÉS 9. Daily cigar smoker Chest pain/ruled out ACS Patient presented with diffuse chest pain, nonradiating, sharp, 8 out of 10. Associated with shortness of breath on exertion. Lasted for couple of hours. She was advised to come to the emergency department. * Admitted to telemetry floor for further monitoring * Monitor vitals every shift * Maintain oxygen saturations ABOVE 92% * Provide supplemental oxygen if necessary * Continuous facility maintenance manager for any arrhythmias or EKG changes * Serial EKGs and troponins were negative * Ruled out ACS * Sales Ledger Administrator on board * Patient was started on IV heparin drip in the emergency room * Continued aspirin 325 mg daily * Continue pravastatin 10 mg daily * Continue Imdur and Coreg * % Stress test was done this afternoon * Persentine stress test done this afternoon On this stress only study, the abnormality in the mid anterolateral wall appears more severe when compared to the previous study.This could be due to progressive reversible ischemia or a small infarction at this site. Subsequent rest images are recommended to further evaluate this region. Left ventricular wall motion and ejection fraction are normal. Hypertension Continue lisinopril home dose Hyperlipidemia Continue pravastatin Coronary artery disease Continue aspirin Continue Plavix Continue Coreg and Imdur Stage II diastolic congestive heart failure Continue Lasix 40 mg daily obstructive sleep apnea On CPAP Anxiety Continue buspirone Depression Continue fluoxetine Shizo affective disorder Continue aripiprazole Diabetes mellitus Metformin on hold Accu-Cheks NovoLog sliding scale Hypothyroidism Continue levothyroxine Irritable bowel syndrome Continue linzess Full code DVT prophylaxis-on IV heparin drip Pain pathway Tylenol and oxycodone diabetic diet Problem List: 1. Abnormal stress test 2. Back pain 3. Acute coronary syndrome 4. Chest pain 5. Dyspnea Pain Ratin Pain Location: none Pain Goal: Remain pain free Pain Plan: bart mayer Tomorrow's Labs & Rationales: BEP in the setting of raised creatinine
--- NOTE | 2016-07-12 08:29 | NUR ---
NURSING NOTE PTT CAME BACK AT 33. HEPARIN GTT IS AT MAX. GAVE HEPARIN BOLUS PER PROTICOL. NEXT PTT DUE TO BE DRAWN AT 1400.
--- NOTE | 2016-07-12 09:39 | NUR ---
PT SLEEPING AT THIS TIME.
--- NOTE | 2016-07-12 10:46 | NUR ---
PT MEDICATED WITH 10AM MEDS PER eMAR.
--- NOTE | 2016-07-12 10:56 | NUR ---
Pt refused MD Margy paged and notified
--- NOTE | 2016-07-12 10:57 | NUR ---
Pt medicated with 10am meds. Pt refused 10a Linzess dose, paged and aware.
--- NOTE | 2016-07-12 11:01 | NUR ---
PT AMBLITORY TO BR WITH SLOW AND STEADY GATE.
--- NOTE | 2016-07-12 13:59 | NUR ---
PT ASSIGNED ROOM 185 BED 2
--- NOTE | 2016-07-12 14:40 | NUR ---
PT RETURNED TO ROOM FROM STRESS TEST AND RE-CONNECTED TO CM AND HEPARIN DRIP. ALL V.S.S.
--- NOTE | 2016-07-12 14:52 | Patient Discharge Instructions ---
Discharge Instructions General Discharge Information You were seen/treated for: chest pain ruled out acs You had these procedures: dipyradamole stress test Watch for these problems: chest pain Special Instructions: 1.follow up with your primary care doctor in one week 2. plan is to have Ms. Green undergo rest nuclear imaging this coming Friday (07/15/2015) and will make further recommendations based on those findings . 3. If significant ischemia is found to be present or if any further episodes of chest discomfort, cardiac catheterization will be recommended. 4. Advised her to follow-up with rn relief charge Dr. Fleix, after the procedure within 1 week. Diet Recommended Diet: Heart Healthy Activity Full Activity/No Limits: Yes Acute Coronary Syndrome Inclusion Criteria At DC or during hospital stay patient has or had the following: ACS DIAGNOSIS No Discharge Core Measures Meds if any: Prescribed or Continued at Discharge Meds if any: NOT Prescribed or Continued at Discharge Congestive Heart Failure Inclusion Criteria At DC or during hospital stay patient has or had the following: CHF DIAGNOSIS No Discharge Core Measures Meds if any: Prescribed or Continued at Discharge Meds if any: NOT Prescribed or Continued at Discharge Cerebrovascular accident Inclusion Criteria At DC or during hospital stay patient has or had the following: CVA/TIA Diagnosis No Discharge Core Measures Meds if any: Prescribed or Continued at Discharge Meds if any: NOT Prescribed or Continued at Discharge Venous thromboembolism Inclusion Criteria VTE Diagnosis No VTE Type NONE VTE Confirmed by (Test) NONE Discharge Core Measures - Per Current guidelines, there needs to be overlap - treatment for the first 5 days of Warfarin therapy. - If discharged on Warfarin prior to 5 days of - overlap therapy, the patient will need to be - assessed for post discharge needs including - *Post discharge parental anticoagulation - *Warfarin and/or parental anticoagulation education - *Follow up date to check INR post discharge At least 5 days overlap therapy as Inpatient No Meds if any: Prescribed or Continued at Discharge Note: Overlap Therapy is Warfarin and Anticoagulant Meds if any: NOT Prescribed or Continued at Discharge
[2016-07-12 15:25] LABS: PTT 30 SEC (25-37)
--- NOTE | 2016-07-12 15:46 | NUCLEAR MEDICINE REPORT ---
PERSANTINE STRESS SPECT MYOCARDIAL PERFUSION IMAGING STUDY WITH GATED SPECT IMAGES: CLINICAL INDICATION: Coronary artery disease stage 2, diastolic heart disease. PROCEDURE: Regional myocardial perfusion was assessed using a 1 day protocol. Stress images were obtained on 07/12/2016 following the intravenous administration of 44.6 mCi Tc 99m Myoview. Stress consisted of 60 mg Persantine given intravenously. Following the sestamibi injection no aminophylline was given intravenously. Single photon emission tomographic (SPECT) images were obtained. SPECT images were acquired in a 64 x 64 matrix of 64 projections over 180 degrees. These were reconstructed into standard short axis, horizontal and vertical long axis cardiac projections. , FINDINGS: The post stress images show the left ventricular chamber to be normal in size. There is a small focus of moderately to markedly decreased activity present in the mid anterolateral wall.. The activity in the other berg appears normal. The images were obtained using a gated SPECT technique, which permits visualization of wall motion and calculation of the left ventricular ejection fraction. Left ventricular chamber is normal in size. No left ventricular wall motion abnormalities are present. The calculated left ventricular ejection fraction is 51% on the stress study. Compared to the previous study dated 04/16/2016, the abnormality in the mid anterolateral wall on the current study appears more severe on the current study, particularly on the short axis images. The other berg are not significantly changed. IMPRESSION: On this stress only study, the abnormality in the mid anterolateral wall appears more severe when compared to the previous study. This could be due to progressive reversible ischemia or a small infarction at this site. Subsequent rest images are recommended to further evaluate this region. Left ventricular wall motion and ejection fraction are normal. This Critical Result was discussed with Dr. Yfn Felix at 3:25 PM on 07/12/2016 and it was ascertained that the content and urgency of the report was understood at the time of direct communication.
--- NOTE | 2016-07-12 15:56 | NUR ---
BLOOD DRAWN BY [facility] FOR REPEAT PT/INR/PTT.
--- NOTE | 2016-07-12 16:05 | NUR ---
PT ADMITTED TO ROOM # 185-2. ORAL REPORT FARRUKH DOYLE RN ALL V.S.S. CLINICAL STATUS UNCHANGED. PT READY FOR TRANSFER.
--- NOTE | 2016-07-12 16:13 | NUR ---
DISTRIBUTION CALLED TO TRANSFER PT
[2016-07-12 16:54] VITALS: BP 112/60
--- NOTE | 2016-07-12 18:08 | PN- Cardiology ---
Subjective Subjective: No complaints and specifically denies any further chest discomfort. Objective Vital Signs and I&Os Vital Signs Date Time Temp Pulse Resp B/P Pulse O2 O2 Flow FiO2 Ox Delivery Rate 07/12 1654 98.2 58 20 112/60 96 Room Air 07/12 1440 98.8 58 20 133/76 98 CPAP 07/12 1045 97.9 62 22 124/59 / 1045 97.9 62 22 124/59 07/12 1045 97.9 62 22 124/59 07/12 0625 97.9 58 22 124/59 96 CPAP 07/12 0502 59 96 07/12 0025 70 97 / 2322 97.8 64 18 131/62 98 Room Air Room Air 07/11 2316 97.6 64 18 131/62 07/11 2232 96 07/11 2230 96 07/11 1924 97.6 67 18 115/78 98 Room Air Intake & Output 07/12 1600 07/12 0800 07/12 0000 07/11 1600 07/11 0800 07/11 0000 Intake Total Output Total Balance Patient 300 lb Weight Physical Exam: Morbidly obese, middle-aged female in no acute distress with nasal oxygen in place. Vital signs: See above. HEENT: Normocephalic, atraumatic, EOMI, moist mucous membranes. Neck: No JVD, no bruits. Lungs: Clear to auscultation bilaterally. Heart: S1, S2 with grade 1/6 systolic murmur. PMI fifth ICS at MCL. Abdomen: Soft, nontender, positive bowel sounds. Extremities: No edema. Peripheral pulses: Symmetrical/intact. Current Medications: Current Medications Sig/Carla Start time Last Medication Dose Route Stop Time Status Admin Acetaminophen 650 MG Q6P PRN 07/11 2114 AC PO Aripiprazole 30 MG DAILY 07/12 1000 AC 07/12 PO 1045 Aspirin Buffered 325 MG DAILY 07/12 1000 AC 07/12 PO 1045 Buspirone HCl 10 MG BID 07/11 2300 AC 07/12 PO 1045 Carvedilol 3.125 MG BID 07/11 2300 AC 07/12 PO 1045 Clopidogrel Bisulfate 75 MG DAILY 07/12 1000 AC 07/12 PO 1045 Dipyridamole 60 MG ONE ONE 07/12 1115 DC Dextrose/Water 28 ML IV 07/12 1514 Docusate Sodium 100 MG BID 07/11 220 AC 07/12 PO 1045 Enoxaparin Sodium 130 MG ONCE ONE 07/11 184 DC SC 07/11 184 Ferrous Sulfate 325 MG BID 07/11 2300 AC 07/12 PO 1045 Fluoxetine HCl 20 MG DAILY 07/12 1000 AC 07/12 PO 1045 Furosemide 40 MG DAILY 07/12 1000 AC 07/12 PO 1045 Heparin Sodium 0 .STK-MED ONE 07/11 224 DC (Porcine) .ROUTE Heparin Sodium 5,000 UNIT ONCE ONE 07/11 2199 DC 07/11 (Porcine) IV 07/11 2200 231 Heparin Sodium 25,000 UNIT Q24H 07/11 2129 AC 07/11 (Porcine) IV 231 Sodium Chloride 500 ML Hyoscyamine 0.125 MG Q4 HRS NEEDED PRN 07/11 2129 AC PO Isosorbide 30 MG DAILY 07/12 1000 AC 07/12 Mononitrate PO 104 Levetiracetam 1,250 MG BID 07/11 2250 AC 07/12 PO 1045 Levothyroxine Sodium 0.075 MG DAILY AC 07/12 0700 AC 07/12 PO 0800 Linaclotide 145 MCG DAILY 07/12 1000 AC PO Lisinopril 2.5 MG DAILY 07/12 1000 AC 07/12 PO 1045 Morphine Sulfate 0 .STK-MED ONE 07/11 1954 DC .ROUTE Morphine Sulfate 4 MG ONCE ONE 07/11 1844 DC 07/11 IV 07/11 1845 2000 Non-Formulary 0 SEE ADMIN CRITERIA 07/11 2129 CAN Medication ANY Nystatin 1 PILAR TID PRN 07/11 2129 AC TOP Qxtqs-6-Npyg Ethyl 2 GM BID 07/12 1000 AC 07/12 Esters PO 1045 Oxybutynin Chloride 5 MG DAILY 07/12 1000 AC 07/12 PO 1045 Oxycodone/ 1 TAB Q6P PRN 07/11 2114 AC Acetaminophen PO Oxycodone/ 2 TAB Q6P PRN 07/11 2114 AC Acetaminophen PO Pravastatin Sodium 10 MG 1700 07/12 1700 AC PO Topiramate 200 MG QPM 07/11 2245 AC 07/11 PO 2316 Results Last 48 Hrs of Labs/Mics: Laboratory Tests 07/12/16 1511: APTT 30 07/12/16 0527: Anion Gap 12, Estimated GFR 54 L, BUN/Creatinine Ratio 18.2, Triglycerides 597 H, Cholesterol 235 H, LDL Cholesterol, Calc ND, HDL Cholesterol 34 L, Cholesterol/HDL Ratio 7 H, Lipase 494 H, PT 11.0, INR 1.05, APTT 33, CBC w Diff NO MAN DIFF REQ, RBC 4.09 L, MCV 87.9, MCH 30.2, RDW 16.3 H, MPV 8.6, Gran % 63.4, Lymphocytes % 29.0, Monocytes % 4.1, Eosinophils % 3.0, Basophils % 0.5, Absolute Granulocytes 3.5, Absolute Lymphocytes 1.6, Absolute Monocytes 0.2 , Absolute Eosinophils 0.2, Absolute Basophils 0, PUBS MCHC 34.4 07/12/16 0030: Troponin I < 0.01 07/11/16 1733: Phosphorus 4.2, Magnesium 1.8, Troponin I < 0.01 07/11/16 1411: Anion Gap 14, Estimated GFR > 60, BUN/Creatinine Ratio 20.0, Glucose 96, Calcium 9.4, Total Bilirubin 0.3, AST 36, ALT 65 H, Alkaline Phosphatase 93, Troponin I < 0.01, Total Protein 6.8, Albumin 4.1, Globulin 2.7, Albumin/Globulin Ratio 1.5 , 25-OH Vitamin D Total 19.2 L, TSH 1.990, Free T4 1.19, PT 10.5, INR 1.00, APTT 31, CBC w Diff NO MAN DIFF REQ, RBC 4.28, MCV 88.3, MCH 29.6, RDW 16.3 H, MPV 8.6, Gran % 64.6, Lymphocytes % 26.8, Monocytes % 4.8, Eosinophils % 3.1, Basophils % 0.7, Absolute Granulocytes 5.1, Absolute Lymphocytes 2.1, Absolute Monocytes 0.4, Absolute Eosinophils 0.2, Absolute Basophils 0.1, PUBS MCHC 33.5 Recent Imaging Studies: Nuclear stress test (07/12/2015) On this stress only study, the abnormality in the mid anterolateral wall appears more severe when compared to the previous study. This could be due to progressive reversible ischemia or a small infarction at this site. Subsequent rest images are recommended to further evaluate this region. Left ventricular wall motion and ejection fraction are normal. This Critical Result was discussed with Dr. Yfn Felix at 3:25 PM on 07/12/2016 and it was ascertained that the content and urgency of the report was understood at the time of direct communication. Assessment/Plan Assessment/Plan Prolonged episode of chest discomfort in this middle-aged female with known coronary artery disease, as well as, a risk equivalent and multiple risk factors for the same. Fortunately, there is no evidence of myocardial necrosis by serial troponin I determinations or evidence of acute electrocardiographic abnormalities. Of concern, however, were the results of her stress images that were discussed in detail with Jp Colunga M.D. She has had no further chest discomfort since admission. We will discontinue the IV heparin, ambulate her, and plan for discharge in the morning if she remains asymptomatic. Additionally, we will plan to have Ms. Green undergo rest nuclear imaging this coming Friday (07/15/2015) and make further recommendations based on those findings if she remains asymptomatic. If significant ischemia is found to be present or if she has further episodes of chest discomfort, cardiac catheterization will be recommended. On the other hand, if the area in question appears mainly fixed we may decide to continue with medical management. Naturally, all further evaluation/management decisions will be discussed with her aunt/conservator (Makayla Spring [phone]) prior to proceeding. We will also continue her on the rest of her present cardiac regimen and DVT prophylaxis. Continue telemetry? Yes
--- NOTE | 2016-07-12 18:39 | Discharge Summary ---
Visit Information Visit Dates Admission Date: 07/11/16 Discharge Date: 07/13/16 Hospital Course Course Attending Physician: MARSHA LARSON PhD,KRISHAN Langford Primary Care Physician: FUAD MYERS APRN Other Care Providers: dr. melia munroe Consulting Request: Consulting Specialty: Cardiology Hospital Course: 46-year-old lady with a PMH of HTN, HLD, CAD, stage II diastolic dysfunction, seizure disorder, MOISÉS on nocturnal CPAP, asthma, anxiety, depression, schizoaffective disorder, DM, hypothyroidism, obesity and endometrial CA who presented with complaints of new onset chest pain. She reported 3 day duration of nonspecific intermittent bilateral upper and lower extremity cramping sensation. She denied any recent changes to her medications, sick contacts or illnesses. During a regular follow-up visit with her vice president industrial relations on 07/11/2015 she experienced sudden onset of nonradiating diffuse chest discomfort that she describes as a punching/sharp sensation starting around 11:20 AM and resolved after a few hours. She also endorses some shortness of breath. Advised to go to the ER. VS: BP 110/70, HR 78, RR 18, SPO2 100% on RA, T 99.1 Pertinent labs: H&H 12.6/37.8, platelets 233, BUN/CR 18/0.9, potassium 3.8 Troponin: 0.013 Dipyridamole stress test (April 2016): No ischemic changes during the exam.Hypokinetic apex. Echocardiogram (April 2016): Mild concentric LVH. EF greater than 65%. Stage II diastolic dysfunction. Right ventricular systolic pressure 30 mmHg. CXR- No acute pulmonary abnormality. No radiographic findings suggestive of congestive heart failure. Chest pain/ruled out ACS Patient presented with diffuse chest pain, nonradiating, sharp, 8 out of 10. Associated with shortness of breath on exertion. Lasted for couple of hours. She was advised to come to the emergency department. Admitted to telemetry floor for further monitoring. Serial EKGs and troponins were negative. Ruled out ACS. Utilities Service Investigator Dr.mark munroe on board. Patient was started on IV heparin drip in the emergency room. Continued aspirin 325 mg daily , pravastatin 10 mg daily, Imdur and Coreg. Persentine stress test done - the abnormality in the mid anterolateral wall appears more severe when compared to the previous study.This could be due to progressive reversible ischemia or a small infarction at this site. Subsequent rest images are recommended to further evaluate this region. Left ventricular wall motion and ejection fraction are normal. The plan will be to have Ms. Green undergo rest nuclear imaging this coming Friday (07/15/2015) and make further recommendations based on those findings. Advised to follow-up with Dr. ludwig cárdenas, Utilities Service Investigator after the rest nuclear imaging in his office. If significant ischemia is found to be present, cardiac catheterization will be recommended. Hypertension Continued lisinopril home dose Hyperlipidemia Continued pravastatin Coronary artery disease Continued aspirin Continued Plavix Continued Coreg and Imdur Stage II diastolic congestive heart failure Continued Lasix 40 mg daily obstructive sleep apnea On CPAP Anxiety Continued buspirone Depression Continued fluoxetine Shizo affective disorder Continued aripiprazole Diabetes mellitus Metformin on hold. Accu-Cheks and NovoLog sliding scale. Hypothyroidism Continued levothyroxine Irritable bowel syndrome Continued linzess Full code DVT prophylaxis-on IV heparin drip Pain pathway Tylenol and oxycodone diabetic diet Complications: none Allergies: Coded Allergies: Penicillins (THROAT CLOSURE 11/02/15) ammonia (UNKNOWN 11/02/15) lindane (ALLERGIC TO KWELL SHAMPOO 11/02/15) lorazepam (THROAT CLOSURE 11/02/15) sodium hypochlorite solution (sodium hypochlorite) (ALLERGIC TO BLEACH (UNKNOWN REACTION) 11/02/15) Significant Procedures: PERSANTINE STRESS SPECT MYOCARDIAL PERFUSION IMAGING STUDY WITH GATED SPECT IMAGES: PROCEDURE: Regional myocardial perfusion was assessed using a 1 day protocol. Stress images were obtained on 07/12/2016 following the intravenous administration of 44.6 mCi Tc 99m Myoview. Stress consisted of 60 mg Persantine given intravenously. Following the sestamibi injection no aminophylline was given intravenously. Single photon emission tomographic (SPECT) images were obtained. SPECT images were acquired in a 64 x 64 matrix of 64 projections over 180 degrees. These were reconstructed into standard short axis, horizontal and vertical long axis cardiac projections. , FINDINGS: The post stress images show the left ventricular chamber to be normal in size. There is a small focus of moderately to markedly decreased activity present in the mid anterolateral wall.. The activity in the other ebrg appears normal. The images were obtained using a gated SPECT technique, which permits visualization of wall motion and calculation of the left ventricular ejection fraction. Left ventricular chamber is normal in size. No left ventricular wall motion abnormalities are present. The calculated left ventricular ejection fraction is 51% on the stress study. Compared to the previous study dated 04/16/2016, the abnormality in the mid anterolateral wall on the current study appears more severe on the current study, particularly on the short axis images. The other berg are not significantly changed. IMPRESSION: On this stress only study, the abnormality in the mid anterolateral wall appears more severe when compared to the previous study. This could be due to progressive reversible ischemia or a small infarction at this site. Subsequent rest images are recommended to further evaluate this region. Left ventricular wall motion and ejection fraction are normal Pertinent Lab Results: cxr No acute pulmonary abnormality. No radiographic findings suggestive of congestive heart failure. Disposition Summary Disposition Principal Diagnosis: 1. Angina: Ruled out ACS 2. Exertional dyspnea 3. abnormal stress test 4. Stage II diastolic dysfunction Additional Diagnosis: none Discharge Disposition: home or self care Discharge Instructions General Discharge Information Code Status: Full Code Patient's Diet: As tolerated Patient's Activity: As tolerated Follow-Up Instructions/Appts: 1. Follow-up with primary care doctor in 1 week 2. The plan is to have Ms. Green undergo rest nuclear imaging this coming Friday (07/15/2015) and make further recommendations based on those findings. Advised to follow-up Dr. Ludwig Cárdenas vice president industrial relations after the second part of stress test for further recommendations Medications at Discharge Discharge Medications: Continue taking these medications: Pravastatin (Pravastatin Sodium) 10 MG TAB 1 Tablet ORAL DAILY Qty = 30 Comments: PER [facility] Aripiprazole (Abilify) 30 MG TABLET 1 Tablet ORAL DAILY Comments: Last Taken: 07/13/15 Time: 9AM Solifenacin Succinate (Vesicare) 5 MG TABLET 1 Tablet ORAL Every Morning Comments: PER [facility] Topiramate (Topamax) 50 MG TABLET 4 Tablet ORAL Every night Comments: Last Taken:07/12/15 Time:10PM Docusate Sodium (Colace) 100 MG CAPSULE 1 Capsule ORAL TWICE DAILY Qty = 60 Comments: PREVIOUSLY DOCUMENTED BY CMR Aspirin (Ecotrin*) 325 MG TABLET. 1 Tablet ORAL DAILY Comments: Last Taken:07/13/15 Time:9AM Albuterol Sulfate (Proair Hfa) 8.5 GM HFA.AER.AD 1-2 PUFF Inhale through mouth 4 TIMES A DAY as needed for WHEEZE Comments: PER MED LIST FROM [facility] Furosemide (Furosemide) 40 MG TABLET 1 Tablet ORAL DAILY Comments: Last Taken: 07/13/15 Time: 9AM Levothyroxine Sodium (Levothyroxine Sodium) 75 MCG TABLET 1 Tablet ORAL DAILY BEFORE BREAKFAST Qty = 30 Comments: CONFIRMED BY [facility] Nystatin (Nystop) 100,000 UNIT/GRAM POWDER 1 Application On the skin TWICE DAILY as needed for RASHES Qty = 60 Comments: PER [facility] Metformin HCl (Metformin HCl) 1,000 MG TABLET 1 Tablet ORAL TWICE DAILY Comments: GIVEN INSULIN COVERAGE DURING STATY Fluoxetine HCl (Fluoxetine HCl) 20 MG CAPSULE 1 Capsule ORAL DAILY Comments: Last Taken: 07/13/15 Time: 9AM [place]-3 Acid Ethyl Esters (Lovaza) 1 GM CAPSULE 2 Capsule ORAL TWICE DAILY Comments: Last Taken:07/13/15 Time:9AM Buspirone HCl (Buspirone HCl) 10 MG TABLET 1 Tablet ORAL TWICE DAILY Comments: Last Taken: 07/13/15 Time: 9AM Colesevelam Hydrochloride (Welchol) 625 MG TABLET 1,875 Milligram ORAL Every night Comments: NOT TAKEN Clopidogrel Bisulfate (Plavix) 75 MG TABLET 75 Milligram ORAL DAILY Days = 30 Comments: Last Taken: 07/13/15 Time: 9AM Lisinopril (Lisinopril) 2.5 MG TABLET 1 Tablet ORAL DAILY Qty = 30 Comments: Last Taken:07/13/15 Time:9AM Linaclotide (Linzess) 145 MCG CAPSULE 1 Capsule ORAL DAILY Qty = 60 Comments: NOT TAKEN Ferrous Sulfate (Ferrous Sulfate) 324 MG TABLET.DR 1 Tablet ORAL TWICE DAILY Comments: Last Taken:07/13/15 Time:9AM Hyoscyamine (Levsin) 0.125 MG TABLET 1 Tablet ORAL Every 4 hours as needed for GI UPSET Comments: NOT TAKEN Ibuprofen (Ibuprofen) 800 MG TABLET 1 Tablet ORAL Q6H as needed for MODERATE-SEVERE PAIN Comments: NOT TAKEN Isosorbide Mononitrate (Isosorbide Mononitrate ER) 30 MG TAB.ER.24H 30 Milligram ORAL DAILY Comments: Last Taken:07/13/15 Time:9AM Nitroglycerin (Nitroglycerin) 0.4 MG TAB.SUBL 1 Tablet SUBLINGUAL As Directed as needed for CHEST PAIN Instructions: 1st sign of attack; may repeat every 5 minutes until relief; if pain persists after 3 tablets in 15 minutes, prompt medical att Comments: NOT TAKEN Cholecalciferol (Vitamin D3) (Vitamin D) 2,000 UNIT CAPSULE 1 Capsule ORAL DAILY Comments: NOT TAKEN Multivitamin (Multi-Day Vitamins) 1 EACH TABLET 1 Tablet ORAL DAILY Comments: NOT TAKEN Carvedilol (Coreg) 3.125 MG TABLET 1 Tablet ORAL TWICE DAILY Comments: Last Taken:07/13/15 Time:9AM Levetiracetam (Keppra) 1,000 MG TABLET 1,250 Milligram ORAL TWICE DAILY Days = 30 Comments: Last Taken:07/13/15 Time:9AM Ondansetron (Zofran Odt) 4 MG TAB.RAPDIS 1 Tablet SUBLINGUAL THREE TIMES DAILY as needed for NAUSEA Qty = 10 Meclizine HCl (Meclizine HCl) 25 MG TABLET 1 Tablet ORAL THREE TIMES A DAY NEEDED as needed for DIZZINESS Qty = 30 Oxycodone HCl/Acetaminophen (Percocet 5-325 MG Tablet) 5 MG-325 MG TABLET 1 Tablet ORAL 4 times daily as needed as needed for PAIN Qty = 10 Instructions: BISI...[id number] Copies To: FUAD MYERS APRN
--- NOTE | 2016-07-12 20:24 | NUR ---
PT TRANSFERRED FROM ER AT APPROX 1700, ACCOMPANIED BY TONIO AZEVEDO ON DESIGN ENGINEERING TECHNICIAN WITH HEPARIN GTTS RUNNING. PT ORIENTED TO ROOM, AMBULATED INDEPENDENTLY TO BED, TELE MONITOR PLACED AND VITAL SIGNS TAKEN. PT HAS NO FURTHER QUESITONS OR CONCERNS AT THIS TIME, WILL CONTINUE TO MONITOR.
[2016-07-13 00:16] VITALS: BP 98/60
[2016-07-13 08:19] VITALS: BP 124/78
[2016-07-13 08:51] VITALS: BP 124/78
--- NOTE | 2016-07-13 09:58 | PN- Cardiology ---
Subjective Subjective: The patient is feeling well. She has been ambulatory. She has no complaints of chest pain. Her exercise nuclear scan was abnormal but her rest scan has not yet been done. This is being planned for outpatient. Objective Vital Signs and I&Os Vital Signs Date Time Temp Pulse Resp B/P Pulse O2 O2 Flow FiO2 Ox Delivery Rate 07/13 0751 64 124/78 07/13 0850 64 124/78 07/13 0848 64 124/78 07/13 0819 98.0 64 20 124/78 96 Room Air 07/13 0025 64 94 07/13 0016 97.7 62 20 98/60 95 CPAP 07/13 0000 95 CPAP 07/12 2212 74 / 1654 98.2 58 20 112/60 96 Room Air 07/12 1440 98.8 58 20 133/76 98 CPAP 07/12 1045 97.9 62 22 124/59 07/12 1045 97.9 62 22 124/59 07/12 1045 97.9 62 22 124/59 Intake & Output 07/13 1600 07/13 0800 07/13 0000 07/12 1600 07/12 0800 07/12 0000 Intake Total 480 Output Total Balance 480 Intake, Oral 480 Physical Exam: HEENT exam is normal Chest is clear Heart reveals regular rhythm. Current Medications: Current Medications Sig/Carla Start time Last Medication Dose Route Stop Time Status Admin Acetaminophen 650 MG .STK-MED ONE 07/13 0139 DC PO 07/13 0140 Acetaminophen 650 MG Q6P PRN 07/11 2115 AC 07/13 PO 0141 Aripiprazole 30 MG DAILY 07/12 1000 AC 07/13 PO 0846 Aspirin Buffered 325 MG DAILY 07/12 1000 AC 07/13 PO 0850 Buspirone HCl 10 MG BID 07/11 2300 AC 07/13 PO 0850 Carvedilol 3.125 MG BID 07/11 2300 AC 07/13 PO 0850 Clopidogrel Bisulfate 75 MG DAILY 07/12 1000 AC 07/13 PO 0853 Dipyridamole 60 MG ONE ONE 07/12 1115 DC Dextrose/Water 28 ML IV 07/12 1514 Docusate Sodium 100 MG BID 07/110 AC 07/13 PO 0850 Ferrous Sulfate 325 MG BID 07/11 2300 AC 07/13 PO 0851 Fluoxetine HCl 20 MG DAILY 07/12 1000 AC 07/13 PO 0847 Furosemide 40 MG DAILY 07/12 1000 AC 07/13 PO 0847 Heparin Sodium 25,000 UNIT Q24H 07/11 213 DC 07/11 (Porcine) IV 2316 Sodium Chloride 500 ML Hyoscyamine 0.125 MG Q4 HRS NEEDED PRN 07/11 213 AC PO Isosorbide 30 MG DAILY 07/12 1000 AC 07/13 Mononitrate PO 0848 Levetiracetam 1,250 MG BID 07/11 2250 AC 07/13 PO 0848 Levothyroxine Sodium 0.075 MG DAILY AC 07/12 0700 AC 07/13 PO 0741 Linaclotide 145 MCG DAILY 07/12 1000 AC PO Lisinopril 2.5 MG DAILY 07/12 1000 AC 07/13 PO 0851 Nystatin 1 PILAR TID PRN 07/11 2129 AC TOP Allzs-5-Cdwn Ethyl 2 GM BID 07/12 1000 AC 07/13 Esters PO 0846 Oxybutynin Chloride 5 MG DAILY 07/12 1000 AC 07/13 PO 0847 Oxycodone/ 1 TAB Q6P PRN 07/11 2114 AC Acetaminophen PO Oxycodone/ 2 TAB Q6P PRN 07/11 211 AC Acetaminophen PO Pravastatin Sodium 10 MG 1700 07/12 1700 AC 07/12 PO 1916 Topiramate 200 MG QPM 07/11 2245 AC 07/12 PO 2210 Results Last 48 Hrs of Labs/Mics: Laboratory Tests 07/13/16 0615: Anion Gap 13, Estimated GFR 60, BUN/Creatinine Ratio 18.0 07/12/16 1511: APTT 30 07/12/16 0527: Anion Gap 12, Estimated GFR 54 L, BUN/Creatinine Ratio 18.2, Triglycerides 597 H, Cholesterol 235 H, LDL Cholesterol, Calc ND, HDL Cholesterol 34 L, Cholesterol/HDL Ratio 7 H, Lipase 494 H, PT 11.0, INR 1.05, APTT 33, CBC w Diff NO MAN DIFF REQ, RBC 4.09 L, MCV 87.9, MCH 30.2, RDW 16.3 H, MPV 8.6, Gran % 63.4, Lymphocytes % 29.0, Monocytes % 4.1, Eosinophils % 3.0, Basophils % 0.5, Absolute Granulocytes 3.5, Absolute Lymphocytes 1.6, Absolute Monocytes 0.2 , Absolute Eosinophils 0.2, Absolute Basophils 0, PUBS MCHC 34.4 07/12/16 0030: Troponin I < 0.01 07/11/16 1733: Phosphorus 4.2, Magnesium 1.8, Troponin I < 0.01 07/11/16 1411: Anion Gap 14, Estimated GFR > 60, BUN/Creatinine Ratio 20.0, Glucose 96, Calcium 9.4, Total Bilirubin 0.3, AST 36, ALT 65 H, Alkaline Phosphatase 93, Troponin I < 0.01, Total Protein 6.8, Albumin 4.1, Globulin 2.7, Albumin/Globulin Ratio 1.5 , 25-OH Vitamin D Total 19.2 L, TSH 1.990, Free T4 1.19, PT 10.5, INR 1.00, APTT 31, CBC w Diff NO MAN DIFF REQ, RBC 4.28, MCV 88.3, MCH 29.6, RDW 16.3 H, MPV 8.6, Gran % 64.6, Lymphocytes % 26.8, Monocytes % 4.8, Eosinophils % 3.1, Basophils % 0.7, Absolute Granulocytes 5.1, Absolute Lymphocytes 2.1, Absolute Monocytes 0.4, Absolute Eosinophils 0.2, Absolute Basophils 0.1, PUBS MCHC 33.5 Recent Imaging Studies: PATIENT: DAKOTA ESCOBEDO PRESENT AGE: 46 PATIENT ACCOUNT NO: [id number] : 71 LOCATION: [facility] [place] ORDERING PHYSICIAN: ELVIE YAÑEZ MD SERVICE DATE: 07/12/16 EXAM TYPE: NUC - MYOCARDIAL PERFUSION IMAGING PERSANTINE STRESS SPECT MYOCARDIAL PERFUSION IMAGING STUDY WITH GATED SPECT IMAGES: CLINICAL INDICATION: Coronary artery disease stage 2, diastolic heart disease. PROCEDURE: Regional myocardial perfusion was assessed using a 1 day protocol. Stress images were obtained on 07/12/2016 following the intravenous administration of 44.6 mCi Tc 99m Myoview. Stress consisted of 60 mg Persantine given intravenously. Following the sestamibi injection no aminophylline was given intravenously. Single photon emission tomographic (SPECT) images were obtained. SPECT images were acquired in a 64 x 64 matrix of 64 projections over 180 degrees. These were reconstructed into standard short axis, horizontal and vertical long axis cardiac projections. , FINDINGS: The post stress images show the left ventricular chamber to be normal in size. There is a small focus of moderately to markedly decreased activity present in the mid anterolateral wall.. The activity in the other berg appears normal. The images were obtained using a gated SPECT technique, which permits visualization of wall motion and calculation of the left ventricular ejection fraction. Left ventricular chamber is normal in size. No left ventricular wall motion abnormalities are present. The calculated left ventricular ejection fraction is 51% on the stress study. Compared to the previous study dated 04/16/2016, the abnormality in the mid anterolateral wall on the current study appears more severe on the current study, particularly on the short axis images. The other berg are not significantly changed. IMPRESSION: On this stress only study, the abnormality in the mid anterolateral wall appears more severe when compared to the previous study. This could be due to progressive reversible ischemia or a small infarction at this site. Subsequent rest images are recommended to further evaluate this region. Left ventricular wall motion and ejection fraction are normal. This Critical Result was discussed with Dr. Elvie Yañez at 3:25 PM on 07/12/2016 and it was ascertained that the content and urgency of the report was understood at the time of direct communication. DICTATED BY: SHERI TURNER MD DATE/TIME DICTATED:07/12/161448 PROFESSOR OF VEGETABLE SCIENCE:DAVID DATE/TIME TRANSCRIBED:07/12/161448 CONFIDENTIAL, DO NOT COPY WITHOUT APPROPRIATE AUTHORIZATION. <Electronically signed in Other Vendor System> SIGNED BY: SHERI TURNER MD 1546 Assessment/Plan Assessment/Plan The patient is stable clinically. Her enzymes are negative. Her exercise nuclear scan was abnormal but her rest scan has not yet been done. This is going to be done as an outpatient. Since the patient is clinically stable and asymptomatic she can be discharged to have the scan done as an outpatient. Continue telemetry? Not applicable
--- NOTE | 2016-07-15 10:34 | IV DIPYRIDAMOLE NUCLEAR STRESS ---
Clinical Diagnosis: Chest Pain Referring Physician: Yfn Felix M.D. Show Girl: Mino Pearce Date of Service: 07/12/16 IV DIPYRIDAMOLE INFUSED: 60 mg IV AMINOPHYLLINE INFUSED: 0 mg PATIENT WEIGHT: 297 lbs INTERPRETATION: The patient's baseline EKG revealed sinus rhythm, vertical axis, and minor non diagnostic right precordial T wave abnormalities at 53 BPM. Baseline B/P 120/ 74 mm Hg. The patient received 60 mg of dipyridamole infused intravenously over a 4 minute period. TC-99M or Myoview was injected after dipyridamole infusion. The patient tolerated the infusion well. There were no EKG changes seen following pharmacologic infusion. Arrhythmias: None IMPRESSION: The test was supervised by the interpreting Specialty Finishing Utility Person, who was in attendance during the entire test. No EKG evidence of stress induced myocardial ischemia. See separately dictated Nuclear Report.
== END 2016-07-13 11:35 | DRG 303 ==
LOC: ERH 12:04 → 1NO 19:14 → ERHI 19:14 → 1NO 19:14 → ERHI 20:02 → 1NO 07-12 16:32
PROVIDERS: Emergency Medicine; Internal Medicine; ADMIT Internal Medicine Interventional Cardiology
DX: I25.119 Atherosclerotic heart disease of native coronary artery with unspecified angina pectoris (principal); I11.0 Hypertensive heart disease with heart failure; I50.9 Heart failure, unspecified; R56.9 Unspecified convulsions; E66.01 Morbid (severe) obesity due to excess calories; F25.9 Schizoaffective disorder, unspecified; E78.5 Hyperlipidemia, unspecified; J45.909 Unspecified asthma, uncomplicated; F41.9 Anxiety disorder, unspecified; F32.9 Major depressive disorder, single episode, unspecified; E03.9 Hypothyroidism, unspecified; Z85.89 Personal history of malignant neoplasm of other organs and systems
CPT/HCPCS: 1NSP; ERO; 78452; 82436; 93005; 93010; 93016; 93017; 96374; 99291; A9502; J1245; J1644; J1650

== ENCOUNTER 2016-07-24 10:33 | Emergency (ER) | payer OTHER ==
[~2016-07-24] VITALS: Ht 195.6 cm; Wt 135.6 kg
[2016-07-24 11:09] VITALS: BP 129/84
--- NOTE | 2016-07-24 11:52 | ED UPPER/LOWER EXTREMITY COMPL ---
History of Present Illness General Chief Complaint: Lower Extremity Problems Stated Complaint: R FOOT PAIN RAIDIATING UP LEG X 2 DAYS Source: patient Exam Limitations: no limitations Vital Signs & Intake/Output Vital Signs & Intake/Output Vital Signs Date Time Temp Pulse Resp B/P Pulse O2 O2 Flow FiO2 Ox Delivery Rate 07/24 1109 97.2 78 20 129/84 99 Room Air Allergies Coded Allergies: Penicillins (THROAT CLOSURE 11/02/15) ammonia (UNKNOWN 11/02/15) lindane (ALLERGIC TO [place]WELL SHAMPOO 11/02/15) lorazepam (THROAT CLOSURE 11/02/15) sodium hypochlorite solution (sodium hypochlorite) (ALLERGIC TO BLEACH (UNKNOWN REACTION) 11/02/15) Reconcile Medications Albuterol Sulfate (Proair Hfa) 8.5 GM HFA.AER.AD 1-2 PUFF INH 4 TIMES/DAY PRN WHEEZE (Reported) Aripiprazole (Abilify) 30 MG TABLET 1 TAB PO DAILY MENTAL HEALTH (Reported) Aspirin (Ecotrin*) 325 MG TABLET.DR 1 TAB PO DAILY HEART HEALTH (Reported) Buspirone HCl 10 MG TABLET 1 TAB PO BID MENTAL HEALTH (Reported) Carvedilol (Coreg) 3.125 MG TABLET 1 TAB PO BID HEART/BP (Reported) Cholecalciferol (Vitamin D3) (Vitamin D) 2,000 UNIT CAPSULE 1 CAP PO DAILY SUPPLEMENT (Reported) Clopidogrel Bisulfate (Plavix) 75 MG TABLET 75 MG PO DAILY heart health Colesevelam Hydrochloride (Welchol) 625 MG TABLET 1,875 MG PO QPM CHOLESTEROL (Reported) Docusate Sodium (Colace) 100 MG CAPSULE 1 CAP PO BID CONSTIPATION Ferrous Sulfate 324 MG TABLET.DR 1 TAB PO BID SUPPLEMENT (Reported) Fluoxetine HCl 20 MG CAPSULE 1 CAP PO DAILY MENTAL HEALTH (Reported) Furosemide 40 MG TABLET 1 TAB PO DAILY DIURETIC (Reported) Hyoscyamine (Levsin) 0.125 MG TABLET 1 TAB PO Q4 PRN GI UPSET (Reported) Ibuprofen 800 MG TABLET 1 TAB PO Q6H PRN MODERATE-SEVERE PAIN (Reported) Isosorbide Mononitrate (Isosorbide Mononitrate ER) 30 MG TAB.ER.24H 30 MG PO DAILY ANGINA (Reported) Levetiracetam (Keppra) 1,000 MG TABLET 1,250 MG PO BID SEIZURE DISORDER Levothyroxine Sodium 75 MCG TABLET 1 TAB PO DAILY AC THYROID (Reported) Linaclotide (Linzess) 145 MCG CAPSULE 1 CAP PO DAILY IBS (Reported) Lisinopril 2.5 MG TABLET 1 TAB PO DAILY heart (Reported) Meclizine HCl 25 MG TABLET 1 TAB PO TIDPRN PRN DIZZINESS Metformin HCl 1,000 MG TABLET 1 TAB PO BID DIABETES (Reported) Multivitamin (Multi-Day Vitamins) 1 EACH TABLET 1 TAB PO DAILY SUPPLEMENT ( Reported) Nitroglycerin 0.4 MG TAB.SUBL 1 TAB SL AD PRN CHEST PAIN (Reported) 1st sign of attack; may repeat every 5 minutes until relief; if pain persists after 3 tablets in 15 minutes, prompt medical att Nystatin (Nystop) 100,000 UNIT/GRAM POWDER 1 PILAR TOP BID PRN RASHES (Reported ) [place]-3 Acid Ethyl Esters (Lovaza) 1 GM CAPSULE 2 CAP PO BID SUPPLEMENT ( Reported) Ondansetron (Zofran Odt) 4 MG TAB.RAPDIS 1 TAB SL TID PRN NAUSEA Oxycodone HCl/Acetaminophen (Percocet 5-325 MG Tablet) 5 MG-325 MG TABLET 1 TAB PO 4XDP PRN PAIN TEN...[id number] Pravastatin (Pravastatin Sodium) 10 MG TAB 1 TAB PO DAILY HEART HEALTH ( Reported) Solifenacin Succinate (Vesicare) 5 MG TABLET 1 TAB PO QAM BLADDER HEALTH ( Reported) Topiramate (Topamax) 50 MG TABLET 4 TAB PO QPM MENTAL HEALTH (Reported) Tramadol HCl 50 MG TABLET 1 TAB PO BIDP PRN PAIN Triage Note: C/O PAIN IN R FOOT RADIATING TO MID TIBIAL, CALF AREA X 2 DAYS, DENIES FALL OR INJURY. PAIN IS INTERMITTATN AND WORSE BEARING WEIGHT. Triage Nurses Notes Reviewed? yes : No Patient currently breastfeeds: No HPI: This patient is a 46-year-old female who presented to the emergency department today for evaluation of pain in her left lower leg. She reported the pain began approximately 2 days ago and gets up to a 10 out of 10 with weightbearing. It is a 7 out of 10 when she is resting still. The pain is sharp and throbbing. The pain starts in her left ankle and goes up to her mid calf. The patient reported she noticed some swelling in the area. She denied any numbness or tingling in her lower extremity. She denied any trauma or falls. No knee or hip pain. The patient denied any fevers, chills, chest pain, shortness of breath, or abdominal pain. (KEYSHA SONI PA-C) Past History Travel History Traveled to [place] past 21 day No Medical History Any Pertinent Medical History? see below for history Neurological: seizure EENT: hearing loss Cardiovascular: CAD, CHF, hypertension, hyperlipidemia Respiratory: asthma, obstructive sleep apnea Gastrointestinal: constipation, GERD Hepatic: NONE Renal: NONE Musculoskeletal: SCOLIOSIS Psychiatric: anxiety, depression, schizo affective disorder Endocrine: diabetes, hypothyroidism, obesity Blood Disorders: anemia Cancer(s): endometrial cancer WHOLESALE REPRESENTATIVE/Reproductive: NONE History of MRSA: No History of VRE: No History of CDIFF: No Surgical History Surgical History: cholecystectomy, hysterectomy, TONSILLECTOMY, MYRINGOTOMY TUBES Spinal fusion Adan rods age 17 Psychosocial History Who do you live with Patient/Self Services at Home Home Health Aide (5 days a week), Nursing (7 days a week), a nurse administers her medications daily insuring compliance What is your primary language Citizen [place] Tobacco Use: Never used ETOH Use: denies use Family History Family History, If Any: MOTHER FH: cirrhosis Hepatitis C Relation not specified for: *No pertinent family history Hx Contributory? No (KEYSHA SONI PA-C) Review of Systems Review of Systems Constitutional: Reports: no symptoms. EENTM: Reports: no symptoms. Respiratory: Reports: no symptoms. Cardiovascular: Reports: no symptoms. Gastrointestinal/Abdominal: Reports: no symptoms. Genitourinary: Reports: no symptoms. Musculoskeletal: Reports: see HPI. Skin: Reports: no symptoms. Neurological/Psychological: Reports: no symptoms. All Other Systems: Reviewed and Negative (KEYSHA SONI PA-C) Physical Exam Physical Exam General Appearance: well developed/nourished, no apparent distress, alert, awake Comments: Well-developed well-nourished person in no acute distress HEENT: Head normocephalic, moist mucous membranes Neck: Supple, no lymphadenopathy Back: Antalgic gait Respiratory: No respiratory distress. Speaking in full sentences Left lower extremity: No effusions or overlying erythema or ecchymosis to the joint spaces. Mild nonpitting edema to the calf. No erythema. Full range of motion at the ankle and knee. Tenderness to palpation over the calf. Negative Homans sign. Dorsalis pedis and posterior tibialis pulses 2+ and strong. Capillary refill less than 2 seconds Neuro: Alert and oriented x3 Psych: Mood affect normal, normal memory normal judgment. Skin: Warm and dry, no rash on exposed skin (NAE [place],KEYSHA) Progress Differential Diagnosis: arterial insufficiency, cellulitis, CHF, compartment syndrome, contusion, dislocation, DVT, fracture, gout, septic arthritis, sprain, tendon injury Plan of Care: Current Medications Sig/Carla Start time Last Medication Dose Stop Time Status Admin Ibuprofen 600 MG ONCE ONE 07/24 1314 UNVr (Motrin) 07/24 1315 Diagnostic Imaging: Viewed by Me: Radiology Read, Ultrasound. Discussed w/RAD: Radiology Read, Ultrasound. Radiology Impression: PATIENT: DAKOTA ESCOBEDO PRESENT AGE: 46 PATIENT ACCOUNT NO: [id number] : 71 LOCATION: [facility] ORDERING PHYSICIAN: KEYSHA SONI PA-C SERVICE DATE: 07/24/16 EXAM TYPE: RAD - XRY-ANKLE 3 OR MORE VIEWS R EXAMINATION: XR ANKLE, RIGHT CLINICAL INFORMATION: Pain. COMPARISON: None TECHNIQUE: AP, lateral, and mortise views of the right ankle. FINDINGS: No visible acute fracture or dislocation seen. Mild soft tissue swelling lateral malleolus. The ankle mortise and subtalar joints are normal. A small calcaneal and a moderate-sized retrocalcaneal spurs are seen. IMPRESSION: Mild soft tissue swelling lateral malleolus. No visible acute fracture or dislocation seen. Small calcaneal and a moderate-sized retrocalcaneal spurs are noted. DICTATED BY: CONRADO NEGRON MD DATE/TIME DICTATED: 07/24/161219 MARINE SERVICE [employer]ATION ATTENDANT:DAVID DATE/TIME TRANSCRIBED:07/24/161219 CONFIDENTIAL, DO NOT COPY WITHOUT APPROPRIATE AUTHORIZATION. <Electronically signed in Other Vendor System> SIGNED BY: CONRADO NEGRON MD 07/24/161229, PATIENT: DAKOTA ESCOBEDO PRESENT AGE: 46 PATIENT ACCOUNT NO: [id number] : 71 LOCATION: [facility] ORDERING PHYSICIAN: KEYSHA SONI PA-C SERVICE DATE: 07/24/16 EXAM TYPE: US - US-UNILATERAL VENOUS DOPPLER EXAMINATION: US TRIPLEX LOWER EXTREMITY, RIGHT CLINICAL INFORMATION: Right lower extremity pain. COMPARISON: None. TECHNIQUE: Color-flow triplex imaging with spectral analysis and compression Doppler were performed on the right lower extremity. FINDINGS: Respiratory variation, normal compression and augmented flow are noted throughout the lower extremity. The visualized common femoral vein, proximal greater saphenous vein, femoral vein, profunda femoral vein, popliteal vein and visualized mid calf venous segments show no evidence of deep venous thrombosis. There is no Perez's cyst. IMPRESSION: Normal triplex scan without evidence of deep venous thrombosis involving the right lower extremity. DICTATED BY: KARYN HO MD DATE/TIME DICTATED:07/24/161311 MARINE SERVICE STATION ATTENDANT:DAVID DATE/TIME TRANSCRIBED:07/24/161311 CONFIDENTIAL, DO NOT COPY WITHOUT APPROPRIATE AUTHORIZATION. <Electronically signed in Other Vendor System> SIGNED BY: KARYN HO MD 07/24/16 1323 Comments: 07/24/2016 1:26:45 PM: I updated the patient on the results of her imaging. Bone spurs likely cause of this shooting pain. This patient will be given an orthopedist to follow-up with as well as outpatient pain management. Stable for discharge home at this time. (KEYSHA SONI PA-C) Departure Departure Disposition: HOME OR SELF CARE Condition: Stable Clinical Impression Primary Impression: Bone spur Referrals: FUAD MYERS APRN (PCP/Family) ROSIO ARREDONDO MD Additional Instructions: Take medication for pain as prescribed. Please call the orthopedic physician whose information has been provided to you in this packet. Weightbearing as tolerated. Return to the emergency department for any worsening symptoms or concerns. Departure Forms: Customer Survey General Discharge Information Prescriptions: Current Visit Scripts Tramadol HCl 1 TAB PO BIDP PRN PAIN #10 TAB (KEYSHA SONI PA-C) PA/POLICE SUPERINTENDENT Co-Sign Statement Statement: ED Attending supervision documentation- [] I saw and evaluated the patient. I have also reviewed all the pertinent lab results and diagnostic results. I agree with the findings and the plan of care as documented in the PA's/POLICE SUPERINTENDENT's documentation. x I have reviewed the ED Record and agree with the PA's/POLICE SUPERINTENDENT's documentation. [] Additions or exceptions (if any) to the PAs/POLICE SUPERINTENDENT's note and plan are summarized below: [] (LEILA LARSON,LILLIAN)
--- NOTE | 2016-07-24 12:30 | RADIOLOGY REPORT ---
EXAMINATION: XR ANKLE, RIGHT CLINICAL INFORMATION: Pain. COMPARISON: None TECHNIQUE: AP, lateral, and mortise views of the right ankle. FINDINGS: No visible acute fracture or dislocation seen. Mild soft tissue swelling lateral malleolus. The ankle mortise and subtalar joints are normal. A small calcaneal and a moderate-sized retrocalcaneal spurs are seen. IMPRESSION: Mild soft tissue swelling lateral malleolus. No visible acute fracture or dislocation seen. Small calcaneal and a moderate-sized retrocalcaneal spurs are noted.
--- NOTE | 2016-07-24 13:23 | ULTRASOUND REPORT ---
EXAMINATION: US TRIPLEX LOWER EXTREMITY, RIGHT CLINICAL INFORMATION: Right lower extremity pain. COMPARISON: None. TECHNIQUE: Color-flow triplex imaging with spectral analysis and compression Doppler were performed on the right lower extremity. FINDINGS: Respiratory variation, normal compression and augmented flow are noted throughout the lower extremity. The visualized common femoral vein, proximal greater saphenous vein, femoral vein, profunda femoral vein, popliteal vein and visualized mid calf venous segments show no evidence of deep venous thrombosis. There is no Perez's cyst. IMPRESSION: Normal triplex scan without evidence of deep venous thrombosis involving the right lower extremity.
[2016-07-24] MEDS ORDERED: TRAMADOL HCL50 M1 PO (13:28)
== END 2016-07-24 13:42 ==
LOC: ERH 10:33
DX: M77.32 Calcaneal spur, left foot (principal)
CPT/HCPCS: 73610-RT; J1885

== ENCOUNTER 2016-08-12 11:36 | Emergency (ER) | payer OTHER ==
[~2016-08-12 11:36] MED LIST changes: +TRAMADOL HCL50 M1 PO
--- NOTE | 2016-08-12 11:47 | ED GENERAL ADULT ---
History of Present Illness General Chief Complaint: Psychiatric Related Complaint Stated Complaint: +AH Source: patient Exam Limitations: clinical condition, poor historian, physical impairment Vital Signs & Intake/Output Vital Signs & Intake/Output Vital Signs Date Time Temp Pulse Resp B/P Pulse O2 O2 Flow FiO2 Ox Delivery Rate 08/12 1739 96.4 70 16 132/61 91 Room Air 08/12 1551 98.5 70 18 127/74 95 Room Air 08/12 1341 Room Air 08/12 1137 98.2 79 16 119/61 92 Room Air Allergies Coded Allergies: Penicillins (THROAT CLOSURE 11/02/15) ammonia (UNKNOWN 11/02/15) lindane (ALLERGIC TO KWELL SHAMPOO 11/02/15) lorazepam (THROAT CLOSURE 11/02/15) sodium hypochlorite solution (sodium hypochlorite) (ALLERGIC TO BLEACH (UNKNOWN REACTION) 11/02/15) Reconcile Medications Albuterol Sulfate (Proair Hfa) 8.5 GM HFA.AER.AD 1-2 PUFF INH 4 TIMES/DAY PRN WHEEZE (Reported) Aripiprazole (Abilify) 30 MG TABLET 1 TAB PO DAILY MENTAL HEALTH (Reported) Aspirin (Ecotrin*) 325 MG TABLET.DR 1 TAB PO DAILY HEART HEALTH (Reported) Buspirone HCl 10 MG TABLET 1 TAB PO BID MENTAL HEALTH (Reported) Carvedilol (Coreg) 3.125 MG TABLET 1 TAB PO BID HEART/BP (Reported) Cholecalciferol (Vitamin D3) (Vitamin D) 2,000 UNIT CAPSULE 1 CAP PO DAILY SUPPLEMENT (Reported) Clopidogrel Bisulfate (Plavix) 75 MG TABLET 75 MG PO DAILY heart health Colesevelam Hydrochloride (Welchol) 625 MG TABLET 1,875 MG PO QPM CHOLESTEROL (Reported) Docusate Sodium (Colace) 100 MG CAPSULE 1 CAP PO BID CONSTIPATION Ferrous Sulfate 324 MG TABLET.DR 1 TAB PO BID SUPPLEMENT (Reported) Fluoxetine HCl 20 MG CAPSULE 1 CAP PO DAILY MENTAL HEALTH (Reported) Furosemide 40 MG TABLET 1 TAB PO DAILY DIURETIC (Reported) Ibuprofen 800 MG TABLET 1 TAB PO Q6H PRN MODERATE-SEVERE PAIN (Reported) Isosorbide Dinitrate 30 MG TABLET 1 TAB PO BID ANGINA (Reported) Levetiracetam (Keppra) 250 MG TABLET 250 MG PO BID SEIZURES (Reported) Levetiracetam (Keppra) 1,000 MG TABLET 1,000 MG PO BID SEIZURES (Reported) Levothyroxine Sodium 75 MCG TABLET 1 TAB PO DAILY AC THYROID (Reported) Linaclotide (Linzess) 145 MCG CAPSULE 1 CAP PO DAILY IBS (Reported) Lisinopril 2.5 MG TABLET 1 TAB PO DAILY heart (Reported) Metformin HCl 1,000 MG TABLET 1 TAB PO BID DIABETES (Reported) Multivitamin (Multi-Day Vitamins) 1 EACH TABLET 1 TAB PO DAILY SUPPLEMENT ( Reported) Nitroglycerin 0.4 MG TAB.SUBL 1 TAB SL AD PRN CHEST PAIN (Reported) 1st sign of attack; may repeat every 5 minutes until relief; if pain persists after 3 tablets in 15 minutes, prompt medical att Nystatin (Nystop) 100,000 UNIT/GRAM POWDER 1 PILAR TOP BID PRN RASHES (Reported ) [place]-3 Acid Ethyl Esters (Lovaza) 1 GM CAPSULE 2 CAP PO BID SUPPLEMENT ( Reported) Pravastatin Sodium 10 MG TABLET 1 TAB PO QPM CHOLESTEROL (Reported) Solifenacin Succinate (Vesicare) 5 MG TABLET 1 TAB PO QAM BLADDER HEALTH ( Reported) Topiramate (Topamax) 200 MG TABLET 1 TAB PO QPM MENTAL HEALTH (Reported) Triage Nurses Notes Reviewed? yes Onset: Abrupt Duration: unknown duration Timing: unknown HPI: 08/12/16 This is a 46-year-old female presents to the emergency department for hallucinations. The patient was referred here from behavioral health today. She has a history of schizophrenia. She says that she's having auditory hallucinations. She also admits to some mild depression but denies suicidal ideation. The patient is essentially minimally verbal on my interview. She denies significant complaints other than the auditory hallucinations at this time. The onset of the symptoms were unclear, the duration is unclear, the severity is significant; the patient is an extremely poor historian. Labs have been ordered the patient was placed on a close monitor and a crisis consultation was requested. Past History Medical History Any Pertinent Medical History? 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 No Review of Systems Review of Systems Constitutional: Denies: fever. EENTM: Denies: visual changes. Respiratory: Denies: short of breath. Cardiovascular: Denies: chest pain. GI: Denies: abdominal pain. Genitourinary: Reports: no symptoms. Musculoskeletal: Reports: no symptoms. Skin: Reports: no symptoms. Neurological/Psychological: Reports: no symptoms. Hematologic/Endocrine: Reports: no symptoms. Physical Exam Physical Exam General Appearance: alert, awake, anxious, mild distress Head: atraumatic, normal appearance Eyes: Bilateral: normal appearance, PERRL, EOMI. Ears, Nose, Throat: normal pharynx, normal ENT inspection Neck: normal inspection, supple Respiratory: normal breath sounds, chest non-tender, no respiratory distress Cardiovascular: regular rate/rhythm Peripheral Pulses: 4+ radial (R), 4+ radial (L) Gastrointestinal: non-tender Back: decreased range of motion Extremities: pedal edema Neurologic/Psych: awake, oriented x 3 Skin: intact Core Measures ACS in differential dx? No CVA/TIA Diagnosis: No Severe Sepsis Present: No Septic Shock Present: No Progress Differential Diagnoses I considered the following diagnoses in my evaluation of the patient: [ Schizoaffective disorder, depression,] Plan of Care: Orders Procedure Date/time Status Continuous Observation Monitor 08/12 120 Active URINE DRUG SCREEN FOR ER ONLY 08/12 120 Active ETHANOL 08/12 1203 Complete COMPREHENSIVE METABOLIC PANEL 08/12 1203 Complete CBC WITHOUT DIFFERENTIAL 08/12 1203 Complete ED CRISIS PSYCH CONSULT 08/12 120 Active Laboratory Tests 08/12/16 1505: Anion Gap 8, Estimated GFR 60, BUN/Creatinine Ratio 13.0, Glucose 95, Calcium 9.1, Total Bilirubin 0.2, AST 30, ALT 66 H, Alkaline Phosphatase 95, Total Protein 6.2 L, Albumin 3.7, Globulin 2.5, Albumin/Globulin Ratio 1.5, CBC w Diff NO MAN DIFF REQ, RBC 3.96 L, MCV 88.5, MCH 29.7, RDW 16.7 H, MPV 8.5, Gran % 66.4, Lymphocytes % 25.8, Monocytes % 4.2, Eosinophils % 3.1, Basophils % 0.5, Absolute Granulocytes 5.0, Absolute Lymphocytes 1.9, Absolute Monocytes 0.3 , Absolute Eosinophils 0.2, Absolute Basophils 0, PUBS MCHC 33.6, Serum Alcohol < 10.0 Initial ED EKG: none Departure Departure Disposition: HOME OR SELF CARE Condition: Stable Clinical Impression Primary Impression: Schizoaffective disorder Referrals: FUAD MYERS APRN (PCP/Family) Departure Forms: Customer Survey General Discharge Information Comments 08/12/16 6:11 pm The patient was seen evaluated and cleared by crisis. On reevaluation she is awake alert oriented 3 and has no complaints. She was comfortable with the plan and will follow-up as instructed by crisis. Critical Care Note Critical Care Note Critical Care Time: 30-74 min
--- NOTE | 2016-08-12 14:17 | ED PSY CRISIS COLLATERAL NOTE ---
Collateral Note Collateral Note Family/Inform/Kat Contacts: Natty from care referred the patient to ER stating pt at baseline struggles with voices, but while meeting today patient could not use coping skills to manage or decrease severity of voices, and their intensity. And chose to come to ER for evaluation. Contact Care reagrding disposition.
[2016-08-12 15:19] LABS: ABSOLUTE BASOPHIL COUNT 0 /CUMM (0.0-0.2); ABSOLUTE EOSINOPHIL COUNT 0.2 /CUMM (0.0-0.7); ABSOLUTE LYMPH COUNT 1.9 /CUMM (1.2-3.4); ABSOLUTE MONOCYTE COUNT 0.3 /CUMM (0.10-0.60); BASOPHIL % 0.5 % (0.0-2.0); EOSINOPHIL % 3.1 % (0-5); GRANULOCYTE % 66.4 % (42.2-75.2); MEAN CORPUSCULAR HGB 29.7 PG (27.0-31.0); MEAN CORPUSCULAR HGB CONC 33.6 G/DL (33.0-37.0); MEAN CORPUSCULAR VOLUME 88.5 FL (81.0-99.0); MEAN PLATELET VOLUME 8.5 FL (7.4-10.4); PLATELET COUNT 221 /CUMM (130-400); RBC DISTRIBUTION WIDTH 16.7 % (11.5-14.5); RED BLOOD CELL CT 3.96 /CUMM (4.20-5.40); WHITE BLOOD CELL COUNT 7.5 /CUMM (4.8-10.8)
[2016-08-12] MEDS ORDERED: TOPAMAX200 M1 PO (16:47)
[2016-08-12] MEDS ORDERED: KEPPRA250 M1 PO (16:52)
[2016-08-12] MEDS ORDERED: KEPPRA1000 M1 PO (16:53)
[2016-08-12] MEDS ORDERED: ISOSORBIDE DINI30 M1 PO (16:56)
--- NOTE | 2016-08-12 17:16 | ED PSYCH CRISIS CONSULTATION ---
Crisis Consult Basic Assessment Date of Consult: 08/12/16 Responsible Person/Accompanied By: Self Insurance Authorization: Insurance #1: Insurance name: FR[employer]Y FREGOSO HMO Phone number: Policy number: [id number] Group number: [id number] Authorization number: ED Provider: Patient's ED Provider: KRISTY FELDMAN DO Primary Care Physician: Patient's PCP: FUAD MYERS APRN PCP's Current Psychiatrist: Dr. John Rai Chief Complaint: Psychiatric Related Complaint Patient's Quote: "Nothing Now. The voices stopped." Present Illness: The patient is a 46 year old single female BIBA to ED with a complaint of command auditory hallucinations telling her to hurt herself. The patient presented as alert, oriented, maintained eye contact and rocked back and forth at times during the assessment. The patient reports she was hearing a male voice telling her to hurt herself this morning and that the voice had stopped now. She states she had told her tire trimmer hand at care of the voice and was sent to the ED for this assessment. The patient denies current SI, HI and visual hallucinations. She denies any history of prior suicide attempts. She states that she has scratched herself in the past. She reports normal energy, mood and appetite. She reports that she sleeps too much being over 8 hours per day. She reports a history of depression and anxiety, but reports not currently feeling depressed or anxious. The patient reports a history of multiple inpatient hospitalizations, with her most recent being at [facility] in November 2015. She reports currently being under the care of [facility], seeing Selina 1x per week and Natty for crisis. She reports having a visiting nurse administer her medication daily. The patient denies any substance or alcohol use. The patient reports the voice telling her to hurt herself this morning has stopped. The patient reports feeling safe and that she just wants to go home. This report prepared by NAZARIO Dykes Materials And Processes Manager and signed off by Chip Patterson LCSW Patient's Address: [address] [place] [address] Other Phone Number: Who Do You Live With? Patient/Self Family/Informants Interviewed: Natty from [facility]- Allergies - Coded Allergies: Penicillins (THROAT CLOSURE 11/02/15) ammonia (UNKNOWN 11/02/15) lindane (ALLERGIC TO KWELL SHAMPOO 11/02/15) lorazepam (THROAT CLOSURE 11/02/15) sodium hypochlorite solution (sodium hypochlorite) (ALLERGIC TO BLEACH (UNKNOWN REACTION) 11/02/15) Current Medications - Scheduled Medications Aripiprazole (Abilify) 30 MG TABLET 1 TAB PO DAILY MENTAL HEALTH (Reported) Entered as Reported by AMANDO WILLAMS on 12/06/13 2342 Aspirin (Ecotrin*) 325 MG TABLET. 1 TAB PO DAILY HEART HEALTH (Reported) Entered as Reported by FEDERICO EARLY on 10/01/14 1505 Buspirone HCl 10 MG TABLET 1 TAB PO BID MENTAL HEALTH (Reported) Entered as Reported by SANTIAGO HWITMAN on 12/11/15 0258 Carvedilol (Coreg) 3.125 MG TABLET 1 TAB PO BID HEART/BP (Reported) Entered as Reported by FEDERICO EARLY on 04/14/16 2119 Cholecalciferol (Vitamin D3) (Vitamin D) 2,000 UNIT CAPSULE 1 CAP PO DAILY SUPPLEMENT (Reported) Entered as Reported by FEDERICO EARLY on 04/14/16 2112 Clopidogrel Bisulfate (Plavix) 75 MG TABLET 75 MG PO DAILY heart health 30 Days Prescribed by MYRNA GARCIA on 12/15/15 Colesevelam Hydrochloride (Welchol) 625 MG TABLET 1,875 MG PO QPM CHOLESTEROL (Reported) Entered as Reported by SANTIAGO WHITMAN on 12/11/15 0304 Docusate Sodium (Colace) 100 MG CAPSULE 1 CAP PO BID CONSTIPATION #60 CAP Prescribed by ELIDA RUGGIERO MD on 06/12/14 Ferrous Sulfate 324 MG TABLET. 1 TAB PO BID SUPPLEMENT (Reported) Entered as Reported by ZHENG MCDONOUGH on 02/21/16 1245 Fluoxetine HCl 20 MG CAPSULE 1 CAP PO DAILY MENTAL HEALTH (Reported) Entered as Reported by FEDERICO EARLY on 12/14/14 1634 Furosemide 40 MG TABLET 1 TAB PO DAILY DIURETIC (Reported) Entered as Reported by FEDERICO EARLY on 10/01/14 1506 Isosorbide Dinitrate 30 MG TABLET 1 TAB PO BID ANGINA (Reported) Entered as Reported by FEDERICO EARLY on 08/12/16 1656 Levetiracetam (Keppra) 250 MG TABLET 250 MG PO BID SEIZURES (Reported) Entered as Reported by FEDERICO EARLY on 08/12/16 1652 Levetiracetam (Keppra) 1,000 MG TABLET 1,000 MG PO BID SEIZURES (Reported) Entered as Reported by FEDERICO EARLY on 08/12/16 1653 Levothyroxine Sodium 75 MCG TABLET 1 TAB PO DAILY AC THYROID #30 (Reported) Entered as Reported by FEDERICO EARLY on 10/01/14 1506 Linaclotide (Linzess) 145 MCG CAPSULE 1 CAP PO DAILY IBS #60 (Reported) Entered as Reported by ZHENG MCDONOUGH on 02/21/16 1240 Lisinopril 2.5 MG TABLET 1 TAB PO DAILY heart #30 (Reported) Entered as Reported by ZHENG MCDONOUGH on 02/21/16 1234 Metformin HCl 1,000 MG TABLET 1 TAB PO BID DIABETES (Reported) Entered as Reported by FEDERICO EARLY on 12/14/14 1631 Multivitamin (Multi-Day Vitamins) 1 EACH TABLET 1 TAB PO DAILY SUPPLEMENT ( Reported) Entered as Reported by FEDERICO EARLY on 04/14/16 2115 [place]-3 Acid Ethyl Esters (Lovaza) 1 GM CAPSULE 2 CAP PO BID SUPPLEMENT ( Reported) Entered as Reported by FEDERICO EARLY on 12/14/14 1653 Pravastatin Sodium 10 MG TABLET 1 TAB PO QPM CHOLESTEROL (Reported) Entered as Reported by AMANDO WILLAMS on 12/06/13 2341 Solifenacin Succinate (Vesicare) 5 MG TABLET 1 TAB PO QAM BLADDER HEALTH ( Reported) Entered as Reported by AMANDO WILLAMS on 12/06/13 2343 Topiramate (Topamax) 200 MG TABLET 1 TAB PO QPM MENTAL HEALTH (Reported) Entered as Reported by FEDERICO EARLY on 08/12/16 1647 Scheduled PRN Medications Albuterol Sulfate (Proair Hfa) 8.5 GM HFA.AER.AD 1-2 PUFF INH 4 TIMES/DAY PRN WHEEZE (Reported) Entered as Reported by FEDERICO EARLY on 10/01/14 1505 Ibuprofen 800 MG TABLET 1 TAB PO Q6H PRN MODERATE-SEVERE PAIN (Reported) Entered as Reported by FEDERICO EARLY on 04/14/16 2100 Nitroglycerin 0.4 MG TAB.SUBL 1 TAB SL AD PRN CHEST PAIN (Reported) Entered as Reported by FEDERICO EARLY on 04/14/162105 Nystatin (Nystop) 100,000 UNIT/GRAM POWDER 1 PILAR TOP BID PRN RASHES #60 ( Reported) Entered as Reported by FEDERICO EARLY on 10/01/14 1507 Laboratory Results: Laboratory Tests 08/12/16 1505: Anion Gap 8, Estimated GFR 60, BUN/Creatinine Ratio 13.0, Glucose 95, Calcium 9.1, Total Bilirubin 0.2, AST 30, ALT 66 H, Alkaline Phosphatase 95, Total Protein 6.2 L, Albumin 3.7, Globulin 2.5, Albumin/Globulin Ratio 1.5, CBC w Diff NO MAN DIFF REQ, RBC 3.96 L, MCV 88.5, MCH 29.7, RDW 16.7 H, MPV 8.5, Gran % 66.4, Lymphocytes % 25.8, Monocytes % 4.2, Eosinophils % 3.1, Basophils % 0.5, Absolute Granulocytes 5.0, Absolute Lymphocytes 1.9, Absolute Monocytes 0.3 , Absolute Eosinophils 0.2, Absolute Basophils 0, PUBS MCHC 33.6, Serum Alcohol < 10.0 Past History Past Medical History Neurological: seizure EENT: hearing loss Cardiovascular: CAD, CHF, hypertension, hyperlipidemia Respiratory: asthma, obstructive sleep apnea Gastrointestinal: constipation, GERD Hepatic: NONE Renal: NONE Musculoskeletal: SCOLIOSIS Psychiatric: anxiety, depression, schizo affective disorder Endocrine: diabetes, hypothyroidism, obesity Blood Disorders: anemia Cancer(s): endometrial cancer 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 Past Surgical History Surgical History: cholecystectomy, hysterectomy, TONSILLECTOMY, MYRINGOTOMY TUBES Spinal fusion Adan rods age 17 Psychosocial History Strengths/Capabilities: Engaged in outpatient tx, desire to feel better Physical Limitations (Interventions): unsteady on feet Psychiatric Treatment History Psych Treatment Psychiatric Treatment Yes Inpatient Treatment Yes Outpatient Treatment Yes Location of Treatment [facility]11/2105 & [facility] Reason for Treatment Schizoaffective Disorder Dates of [place]; [facility]-Current Response to Treatment Patient has weekly appointment with [facility] andf has visiting nurse administer medication daily. Patient reports thet command voice occurs at times. Diagnosis by History: Schizoaffective disorder Substance Use/Abuse History Drug Use/Abuse Substances Used/Abused No First Use N/A Last Used N/A How much used/taken N/A How often N/A For how long N/A Route of use N/A Substance Abuse Treatment Substance Abuse Treatment Past Substance Abuse [place] No Inpatient Treatment No Outpatient Treatment No Location of Treatment N/A Reason for Treatment N/A Dates of Treatment N/A Response to Treatment N/A Comments: None Current Mental Status Mental Status Orientation: Person, Place, Situation Affect: Appropriate, Flat Speech: WNL Neuro-vegetative: Hypersomnia Appearance Appearance- Dress/Hygiene: Patient was dressed in hospital scrubs and hygenic. Patient maintained eye contact thoughout assessment and rocked back and forth at times. Behaviors Thought Process: WNL Thought Content: Auditory Hallucinations Memory: WNL Insight: WNL SI/HI Risk Assessment Past Suicidal Ideation/Attempts Yes Current Suicidal Ideation/Att No Past Homicidal Ideation/Att: No Current Homicidal Ideation/Attempts No Degree of Intent: None Danger To: N/A Gravely Disabled: N/A Risk Factors: chronic/serious med cond., SA/MH hospitalized, lives alone Lethality Ratin (mild) PTSD Checklist PTSD Done? patient declined ED Management Sitter: Yes Restraints: No DSM5/PS Stressors/Medical Prob Diagnosis' (DSM 5, Stressors, Medical): F25.1 Schizoaffective Disorder Current GAF: 35 Comments: None Departure Disposition Psych Medical Clearance Date: 08/12/16 Medically Cleared at: 1600 Time Started: 1600 Time Ended: 1630 Psychiatrist Consulted: Dr. John Rai Date Disposition Established: 08/12/16 Time Disposition Established: 1630 Plan for Disposition - Modality: Outpatient Facility: [facility] Follow-up Appt Date: 08/13/16 Contact: Ana Salguero Rationale for Disposition: patient reports that the voice that was telling her to hurt herself has stopped. the patient reports she feels safe and :just wants windy go home". Dr. Rai agreed the patient does not pose a danger to herself or others. The patient is monitored weekly by [facility] and has a visiting nurse medicate her daily. Additional Instructions: None Referrals FUAD MYERS APRN (PCP/Family)
[2016-08-12 17:39] VITALS: BP 132/61
== END 2016-08-12 18:10 ==
LOC: ERH 11:36
PROVIDERS: Emergency Medicine
DX: F25.9 Schizoaffective disorder, unspecified (principal)
CPT/HCPCS: 80307; G0463; G0480

== ENCOUNTER 2016-09-06 13:21 | Emergency (ER) | payer OTHER ==
[~2016-09-06] VITALS: Ht 167.6 cm; Wt 137.4 kg
[~2016-09-06 13:21] MED LIST changes: +ISOSORBIDE DINI30 M1 PO; +KEPPRA250 M1 PO; +TOPAMAX200 M1 PO
--- NOTE | 2016-09-06 13:31 | NUR ---
46 YEAR OLD FEMALE WITH HISTORY OF SEIZURES STATES THAT SHE WAS AT [facility] WHEN SHE STARTED TO GET A HEADACHE , PAIN IS ON THE TOP OF HER HEAD AND CONSTANT, PT ALSO STATES THAT HER BILATERAL EYES ARE TWITCHING AND SHE IS AFRAID SHE IS GOING TO HAVE A SEIZURE . PT TAKES KEPRA BID AND STATES THAT SHE TAKES IT PRESCRIBED. PT ALERT AND ORIENTED AT THIS TIME. SEIZURE PADS PLACED.
--- NOTE | 2016-09-06 13:49 | ED HEADACHE COMPLAINT ---
History of Present Illness General Chief Complaint: Headache Stated Complaint: BIBA WITH A HEADACHE Source: patient Exam Limitations: poor historian Vital Signs & Intake/Output Vital Signs & Intake/Output Vital Signs Date Time Temp Pulse Resp B/P Pulse O2 O2 Flow FiO2 Ox Delivery Rate 09/06 1326 97.6 86 18 144/67 95 Room Air Allergies Coded Allergies: Penicillins (THROAT CLOSURE 11/02/15) ammonia (UNKNOWN 11/02/15) lindane (ALLERGIC TO KWELL SHAMPOO 11/02/15) lorazepam (THROAT CLOSURE 11/02/15) sodium hypochlorite solution (sodium hypochlorite) (ALLERGIC TO BLEACH (UNKNOWN REACTION) 11/02/15) Reconcile Medications Albuterol Sulfate (Proair Hfa) 8.5 GM HFA.AER.AD 1-2 PUFF INH 4 TIMES/DAY PRN WHEEZE (Reported) Aripiprazole (Abilify) 30 MG TABLET 1 TAB PO DAILY MENTAL HEALTH (Reported) Aspirin (Ecotrin*) 325 MG TABLET.DR 1 TAB PO DAILY HEART HEALTH (Reported) Buspirone HCl 10 MG TABLET 1 TAB PO BID MENTAL HEALTH (Reported) Carvedilol (Coreg) 3.125 MG TABLET 1 TAB PO BID HEART/BP (Reported) Cholecalciferol (Vitamin D3) (Vitamin D) 2,000 UNIT CAPSULE 1 CAP PO DAILY SUPPLEMENT (Reported) Clopidogrel Bisulfate (Plavix) 75 MG TABLET 75 MG PO DAILY heart health Colesevelam Hydrochloride (Welchol) 625 MG TABLET 1,875 MG PO QPM CHOLESTEROL (Reported) Docusate Sodium (Colace) 100 MG CAPSULE 1 CAP PO BID CONSTIPATION Ferrous Sulfate 324 MG TABLET.DR 1 TAB PO BID SUPPLEMENT (Reported) Fluoxetine HCl 20 MG CAPSULE 1 CAP PO DAILY MENTAL HEALTH (Reported) Furosemide 40 MG TABLET 1 TAB PO DAILY DIURETIC (Reported) Ibuprofen 800 MG TABLET 1 TAB PO Q6H PRN MODERATE-SEVERE PAIN (Reported) Isosorbide Dinitrate 30 MG TABLET 1 TAB PO BID ANGINA (Reported) Levetiracetam (Keppra) 250 MG TABLET 250 MG PO BID SEIZURES (Reported) Levetiracetam (Keppra) 1,000 MG TABLET 1,000 MG PO BID SEIZURES (Reported) Levothyroxine Sodium 75 MCG TABLET 1 TAB PO DAILY AC THYROID (Reported) Linaclotide (Linzess) 145 MCG CAPSULE 1 CAP PO DAILY IBS (Reported) Lisinopril 2.5 MG TABLET 1 TAB PO DAILY heart (Reported) Metformin HCl 1,000 MG TABLET 1 TAB PO BID DIABETES (Reported) Multivitamin (Multi-Day Vitamins) 1 EACH TABLET 1 TAB PO DAILY SUPPLEMENT ( Reported) Nitroglycerin 0.4 MG TAB.SUBL 1 TAB SL AD PRN CHEST PAIN (Reported) 1st sign of attack; may repeat every 5 minutes until relief; if pain persists after 3 tablets in 15 minutes, prompt medical att Nystatin (Nystop) 100,000 UNIT/GRAM POWDER 1 PILAR TOP BID PRN RASHES (Reported ) [place]-3 Acid Ethyl Esters (Lovaza) 1 GM CAPSULE 2 CAP PO BID SUPPLEMENT ( Reported) Pravastatin Sodium 10 MG TABLET 1 TAB PO QPM CHOLESTEROL (Reported) Solifenacin Succinate (Vesicare) 5 MG TABLET 1 TAB PO QAM BLADDER HEALTH ( Reported) Topiramate (Topamax) 200 MG TABLET 1 TAB PO QPM MENTAL HEALTH (Reported) Triage Note: 46 YEAR OLD FEMALE WITH HISTORY OF SEIZURES STATES THAT SHE WAS AT [facility] WHEN SHE STARTED TO GET A HEADACHE , PAIN IS ON THE TOP OF HER HEAD AND CONSTANT, PT ALSO STATES THAT HER BILATERAL EYES ARE TWITCHING AND SHE IS AFRAID SHE IS GOING TO HAVE A SEIZURE . PT TAKES KEPRA BID AND STATES THAT SHE TAKES IT PRESCRIBED. PT ALERT AND ORIENTED AT THIS TIME. SEIZURE PADS PLACED. Triage Nurses Notes Reviewed? yes : No Patient currently breastfeeds: No HPI: This is a 46-year-old female with past medical history significant for seizure disorder, diabetes, CHF, MOISÉS on CPAP, depression, anxiety, uterine cancer, the chief complaint of headache, eye twitching and fear of having a seizure. Patient states the headache is a 7 out of 10 in the occipital area. She states that her last seizure was in April. Per patient she normally has Seizures That Last Anywhere from 2-4 Minutes. Her Usual Aura Consists of Headache and Eye Twitches Which She Endorses at This Moment. Pt states she takes Keppra and is compliant with her regimen. She Does Smoke Half Pack of Filtered Cigars a Day but denies Alcohol or Drug Use. Review of Systems positive for headache, eye twitches, shortness of breath when laying flat, but denies any change in vision, change in hearing, chest pain, shortness of breath, abdominal pain, nausea, vomiting, fever, chills, (JACKSON LARSON,DALIA) Past History Travel History Traveled to [place] past 21 day No Medical History Any Pertinent Medical History? 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 History of MRSA: No History of VRE: No History of CDIFF: No Isolation History: Standard Surgical History Surgical History: cholecystectomy, hysterectomy, TONSILLECTOMY, MYRINGOTOMY TUBES Spinal fusion Adan rods age 17 Psychosocial History Who do you live with Patient/Self Services at Home Home Health Aide (5 days a week), Nursing (7 days a week), a nurse administers her medications daily insuring compliance What is your primary language Wolof Tobacco Use: Current Daily Use Daily Tobacco Use Amount/Type: => 5 Cigarettes daily ETOH Use: denies use Illicit Drug Use: denies illicit drug use Family History Family History, If Any: MOTHER FH: cirrhosis Hepatitis C Relation not specified for: *No pertinent family history Hx Contributory? No (JACKSON LARSON,DALIA) Review of Systems Review of Systems Constitutional: Denies: chills, diaphoresis, fever, malaise, weakness. Eyes: Denies: blurred vision, decreased acuity, pain, tunnel vision, vision change. Ears, Nose, Throat, Mouth: Denies: no symptoms. Respiratory: Denies: orthopnea, short of breath. Cardiovascular: Denies: chest pain, palpitations, peripheral edema, syncope. Gastrointestinal/Abdominal: Denies: abdominal pain, constipation, diarrhea, nausea, vomiting. Genitourinary: Reports: no symptoms. Musculoskeletal: Reports: back pain, muscle pain. Skin: Reports: no symptoms. Neurological/Psychological: Denies: anxiety, depressed, headache. (JACKSON LARSON,DALIA) Physical Exam Physical Exam General Appearance: well developed/nourished, no apparent distress, comfortable Head: atraumatic, normal appearance Eyes: Bilateral: normal appearance, PERRL, EOMI. Ears, Nose, Throat: normal pharynx Neck: supple, full range of motion Respiratory: normal breath sounds, chest non-tender Cardiovascular: regular rate/rhythm, distant heart sounds Gastrointestinal: normal bowel sounds, soft, non-tender Cranial Nerves: normal hearing, normal speech, PERRL Core Measures Severe Sepsis Present: No Septic Shock Present: No (DALIA PAZ MD) Progress Differential Diagnosis: cluster AGUILAR, migraine AGUILAR, subarach. Hem. (DALIA PAZ MD) Plan of Care: Orders Procedure Date/time Status COMPREHENSIVE METABOLIC PANEL 09/06 1353 Complete Intake & Output 09/06 1325 Active Current Medications Sig/Carla Start time Last Medication Dose Stop Time Status Admin Levetiracetam 1,000 MG ONCE ONE 09/06 1415 CAN (Keppra) 09/06 1800 Levetiracetam 1,000 MG ONCE ONE 09/06 1415 CAN (Keppra) 09/06 1800 Laboratory Tests 09/06/16 1409: Anion Gap 9, Estimated GFR 60, BUN/Creatinine Ratio 16.0, Glucose 164 H, Calcium 9.4, Total Bilirubin 0.3, AST 39 H, ALT 60 H, Alkaline Phosphatase 84, Total Protein 6.2 L, Albumin 3.6, Globulin 2.6, Albumin/Globulin Ratio 1.4 Per patient, she was seen by her regular neurologist at [facility], Dr. Chaparro, yesterday and had a Keppra level drawn. I called her neurologist and spoke directly with him, informing him of his patient's visit to [place] ED. Per neurologist, he is aware of pt's history of complex partial seizures and stated that he was concerned that patient's dose may not be adequate for her BMI. The Keppra level drawn yesterday at patient's visit was still pending. also endorses that patient is a poor historian and her symptoms often seem vague and nondescript. He suggested a 1 g dose of Keppra by mouth at this time. If patient continued to feel her seizure aura then we could add 1-2 mg of Ativan to her treatment. At this time, we will continue to monitor patient after her dose of Keppra. We will not redraw a Keppra level. And stated that she is feeling much better after her dose of Keppra. She was resting comfortably when I saw her. I informed her that she could follow-up with her outpatient neurologist regarding her Keppra dosing. He is in agreement with plan. If her symptoms were to worsen or if she were to have a witnessed seizure, she is aware that she should return to ED. (DALIA PAZ MD) Departure Departure Disposition: HOME OR SELF CARE Condition: Stable Clinical Impression Primary Impression: Headache Referrals: FUAD MYERS APRN (PCP/Family) Additional Instructions: Follow-up with your neurologist, Dr. Chaparro regarding your Keppra dosing with the next one week. If your symptoms return or have witnessed seizure return to ED. Departure Forms: Customer Survey General Discharge Information (DALIA PAZ MD) Resident Co-Sign Statement Statement: ED Attending supervision documentation- [X] I saw and evaluated the patient. I have also reviewed all the pertinent lab results and diagnostic results. I agree with the findings and the plan of care as documented in the Resident's documentation. [X] I have reviewed the ED Record and agree with the Resident's documentation. [] Additions or exceptions (if any) to the Resident's note and plan are summarized below: [] (ARIANNA LARSON,SE)
--- NOTE | 2016-09-06 14:17 | NUR ---
BLOOD DRAWN AND SENT TO THE LAB. (1 SST,1 LAV)
--- NOTE | 2016-09-06 14:42 | NUR ---
MED WITH KEPPRA 1,000MG PO, TOLERATED WELL, LIGHTS OFF. PT NAPPING AT THIS TIME.
[2016-09-06 16:20] VITALS: BP 108/60
--- NOTE | 2016-09-06 16:21 | NUR ---
PT SLEPT WELL, PT DENIES HEADACHE, "NO MORE PAIN". DC HOME, PT VERBALIZES UNDERSTANDING OF DC INSTRUCTIONS.
== END 2016-09-06 16:24 ==
LOC: ERH 13:21 → ERHI 14:08 → ERH 14:16 → ERHI 14:16 → ERH 16:24
DX: R51 Headache (principal)

== ENCOUNTER 2016-09-15 22:18 | Emergency (ER) | payer OTHER ==
[~2016-09-15] VITALS: Ht 167.6 cm; Wt 136.1 kg
--- NOTE | 2016-09-15 22:21 | ED MVC/FALL/TRAUMA COMPLAINT ---
History of Present Illness General Chief Complaint: Fall Stated Complaint: BIBA FOR R BACK/KNEE/FOOT PAIN S/P FALL Source: patient Exam Limitations: no limitations Vital Signs & Intake/Output Vital Signs & Intake/Output Vital Signs Date Time Temp Pulse Resp B/P Pulse O2 O2 Flow FiO2 Ox Delivery Rate 09/152 97.2 72 18 137/84 99 Room Air ED Intake and Output 09/16 0000 09/15 1200 Intake Total Output Total Balance Patient 300 lb Weight Allergies Coded Allergies: Penicillins (THROAT CLOSURE 11/02/15) ammonia (UNKNOWN 11/02/15) lindane (ALLERGIC TO KWELL SHAMPOO 11/02/15) lorazepam (THROAT CLOSURE 11/02/15) sodium hypochlorite solution (sodium hypochlorite) (ALLERGIC TO BLEACH (UNKNOWN REACTION) 11/02/15) Reconcile Medications Albuterol Sulfate (Proair Hfa) 8.5 GM HFA.AER.AD 1-2 PUFF INH 4 TIMES/DAY PRN WHEEZE (Reported) Aripiprazole (Abilify) 30 MG TABLET 1 TAB PO DAILY MENTAL HEALTH (Reported) Aspirin (Ecotrin*) 325 MG TABLET.DR 1 TAB PO DAILY HEART HEALTH (Reported) Buspirone HCl 10 MG TABLET 1 TAB PO BID MENTAL HEALTH (Reported) Carvedilol (Coreg) 3.125 MG TABLET 1 TAB PO BID HEART/BP (Reported) Cholecalciferol (Vitamin D3) (Vitamin D) 2,000 UNIT CAPSULE 1 CAP PO DAILY SUPPLEMENT (Reported) Clopidogrel Bisulfate (Plavix) 75 MG TABLET 75 MG PO DAILY heart health Colesevelam Hydrochloride (Welchol) 625 MG TABLET 1,875 MG PO QPM CHOLESTEROL (Reported) Docusate Sodium (Colace) 100 MG CAPSULE 1 CAP PO BID CONSTIPATION Ferrous Sulfate 324 MG TABLET.DR 1 TAB PO BID SUPPLEMENT (Reported) Fluoxetine HCl 20 MG CAPSULE 1 CAP PO DAILY MENTAL HEALTH (Reported) Furosemide 40 MG TABLET 1 TAB PO DAILY DIURETIC (Reported) Ibuprofen 800 MG TABLET 1 TAB PO Q6H PRN MODERATE-SEVERE PAIN (Reported) Ibuprofen 600 MG TABLET 1 TAB PO TID PRN PAIN with food Isosorbide Dinitrate 30 MG TABLET 1 TAB PO BID ANGINA (Reported) Levetiracetam (Keppra) 250 MG TABLET 250 MG PO BID SEIZURES (Reported) Levetiracetam (Keppra) 1,000 MG TABLET 1,000 MG PO BID SEIZURES (Reported) Levothyroxine Sodium 75 MCG TABLET 1 TAB PO DAILY AC THYROID (Reported) Linaclotide (Linzess) 145 MCG CAPSULE 1 CAP PO DAILY IBS (Reported) Lisinopril 2.5 MG TABLET 1 TAB PO DAILY heart (Reported) Metformin HCl 1,000 MG TABLET 1 TAB PO BID DIABETES (Reported) Multivitamin (Multi-Day Vitamins) 1 EACH TABLET 1 TAB PO DAILY SUPPLEMENT ( Reported) Nitroglycerin 0.4 MG TAB.SUBL 1 TAB SL AD PRN CHEST PAIN (Reported) 1st sign of attack; may repeat every 5 minutes until relief; if pain persists after 3 tablets in 15 minutes, prompt medical att Nystatin (Nystop) 100,000 UNIT/GRAM POWDER 1 PILAR TOP BID PRN RASHES (Reported ) [place]-3 Acid Ethyl Esters (Lovaza) 1 GM CAPSULE 2 CAP PO BID SUPPLEMENT ( Reported) Pravastatin Sodium 10 MG TABLET 1 TAB PO QPM CHOLESTEROL (Reported) Solifenacin Succinate (Vesicare) 5 MG TABLET 1 TAB PO QAM BLADDER HEALTH ( Reported) Topiramate (Topamax) 200 MG TABLET 1 TAB PO QPM MENTAL HEALTH (Reported) Triage Nurses Notes Reviewed? yes Onset: Abrupt Duration: minute(s): Timing: single episode today Severity: mild, moderate Injuries/Fall Location: lower extremity Method of Injury: fall Loss of Consciousness: no loss of consciousness Modifying Factors: Improves With: rest. Worsens With: movement, palpation. Associated Symptoms: right ankle swelling HPI: 46 yo woman presents after a fall. She shares that she was walking to the bathroom when she tripped. She states, "I rolled my ankle." She notes also that she has foot and knee and lower back pain. She is able to bear weight. She notes no other injury. She had no sacral symptoms. She is otherwise well and is normal concerns. Past History Travel History Traveled to [place] past 21 day No Medical History Any Pertinent Medical History? 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 No Review of Systems Review of Systems Constitutional: Reports: no symptoms. Eyes: Reports: no symptoms. Ears, Nose, Throat, Mouth: Reports: no symptoms. Respiratory: Reports: no symptoms. Cardiovascular: Reports: no symptoms. Gastrointestinal/Abdominal: Reports: no symptoms. Genitourinary: Reports: no symptoms. Musculoskeletal: Reports: no symptoms. Skin: Reports: no symptoms. Neurological/Psychological: Reports: no symptoms. All Other Systems: Reviewed and Negative Physical Exam Physical Exam General Appearance: well developed/nourished, mild distress Head: atraumatic, normal appearance Eyes: Bilateral: normal appearance. Ears, Nose, Throat, Mouth: hearing grossly normal Neck: normal inspection, supple, full range of motion, normal alignment Respiratory: normal breath sounds, chest non-tender, no respiratory distress, quiet respiration, lungs clear Cardiovascular: regular rate/rhythm Gastrointestinal: normal bowel sounds, soft, non-tender, no organomegaly Back: normal inspection, muscle spasm, no vertebral tenderness Extremities: right knee with diffuse tenderness. ligaments intact, no significant effusion, right ankle with diffuse tenderness around right lateral malleolus, mild. no deformity... light touch, distal pulses are intact. Core Measures ACS in differential dx? No Severe Sepsis Present: No Septic Shock Present: No Progress Differential Diagnosis: C/T/L spine injury Plan of Care: ibuprofen given.... advocated supportive measures. close follow up advised. Diagnostic Imaging: Viewed by Me: Radiology Read. Discussed w/RAD: Radiology Read. Radiology Impression: FULL REPORTS BELOW ls xray... no fx, right knee/ankle/ foot... no fx... Hand-Off Endorsed To: LILLIAN DEE MD Comments: PATIENT: DAKOTA ESCOBEDO PRESENT AGE: 46 PATIENT ACCOUNT NO: [id number] : 71 LOCATION: [facility] ORDERING PHYSICIAN: GUSTAVO RUGGIERO MD SERVICE DATE: 09/15/16 EXAM TYPE: RAD - XRY-ANKLE 3 OR MORE VIEWS R; XRY-FOOT COMPLETE, R; XRY-KNEE COMPLETE RIGHT EXAMINATION: XR KNEE, RIGHT XR ANKLE, RIGHT XR FOOT, RIGHT CLINICAL INFORMATION: Pain, fall. COMPARISON: Right ankle radiographs 07/24/2016 TECHNIQUE: Four views of the right knee. 3 views of the right ankle. 3 views of the right foot. FINDINGS: Right knee: No acute fracture or subluxation. Small tricompartmental marginal osteophytes are present. No joint effusion. The soft tissues are unremarkable. Right ankle: No acute fracture or dislocation. The ankle mortise is maintained. Mild diffuse soft tissue swelling. No ankle joint effusion. Hypertrophic spurring of the plantar aponeurosis and Achilles insertion to the calcaneus. Right foot: No acute fracture or dislocation. Hallux valgus with mild degenerative changes at the first metatarsophalangeal joint. There is joint space narrowing with small osteophytes. The soft tissues are unremarkable. IMPRESSION: No acute fracture or malalignment. Mild degenerative changes at the knee and foot. Prominent heel spurs. DICTATED BY: DELPHINE CHANEY MD DATE/TIME DICTATED:09/15/162299 FUEL TANK SEALER AND TESTER:DAVID DATE/TIME TRANSCRIBED:09/15/162299 CONFIDENTIAL, DO NOT COPY WITHOUT APPROPRIATE AUTHORIZATION. <Electronically signed in Other Vendor System> SIGNED BY: DELPHINE CHANEY MD 09/15 PATIENT: DAKOTA ESCOBEDO PRESENT AGE: 46 PATIENT ACCOUNT NO: [id number] : 71 LOCATION: [facility] ORDERING PHYSICIAN: GUSTAVO RUGGIERO MD SERVICE DATE: 09/15/16 EXAM TYPE: RAD - XRY-LUMBOSACRAL SPINE AP & LAT EXAMINATION: XR LUMBOSACRAL SPINE CLINICAL INFORMATION: Pain, fall. COMPARISON: CT from 06/24/2016 TECHNIQUE: AP and lateral views of the lumbosacral spine were obtained. FINDINGS: Partial visualization of posterior fusion hardware extending to the level of L3. The visualized hardware is intact. 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 No acute fracture or subluxation. Vertebral bodies and posterior elements are anatomically aligned. Vertebral body heights are maintained. Disc spaces are otherwise maintained. Small endplate osteophytes at L3-L4, L4-L5, and L5-S1. The sacroiliac joints are intact. The visualized sacrum is intact. The bowel gas pattern is unremarkable. IMPRESSION: No acute fracture or malalignment. The visualized portion of the fusion hardware appears intact. Mild degenerative changes. DICTATED BY: DELPHINE CHANEY MD DATE/TIME DICTATED:09/15/162303 FUEL TANK SEALER AND TESTER:DAVID DATE/TIME TRANSCRIBED:09/15/162303 CONFIDENTIAL, DO NOT COPY WITHOUT APPROPRIATE AUTHORIZATION. <Electronically signed in Other Vendor System> SIGNED BY: DELPHINE CHANEY MD 09/15 Departure Departure Disposition: HOME OR SELF CARE Condition: Stable Clinical Impression Primary Impression: Right ankle sprain Secondary Impressions: Contusion Referrals: FUAD MYERS APRN (PCP/Family) Departure Forms: Customer Survey General Discharge Information Prescriptions: Current Visit Scripts Ibuprofen 1 TAB PO TID PRN PAIN #30 TAB with food Comments right ankle sprain silke wrapped by nursing team.... pt with benign xrays... pt is stable for discharge. ... home with [employer].
[2016-09-15] MEDS ORDERED: IBUPROFEN600 M1 PO (22:22)
--- NOTE | 2016-09-15 23:07 | RADIOLOGY REPORT ---
EXAMINATION: XR KNEE, RIGHT XR ANKLE, RIGHT XR FOOT, RIGHT CLINICAL INFORMATION: Pain, fall. COMPARISON: Right ankle radiographs 07/24/2016 TECHNIQUE: Four views of the right knee. 3 views of the right ankle. 3 views of the right foot. FINDINGS: Right knee: No acute fracture or subluxation. Small tricompartmental marginal osteophytes are present. No joint effusion. The soft tissues are unremarkable. Right ankle: No acute fracture or dislocation. The ankle mortise is maintained. Mild diffuse soft tissue swelling. No ankle joint effusion. Hypertrophic spurring of the plantar aponeurosis and Achilles insertion to the calcaneus. Right foot: No acute fracture or dislocation. Hallux valgus with mild degenerative changes at the first metatarsophalangeal joint. There is joint space narrowing with small osteophytes. The soft tissues are unremarkable. IMPRESSION: No acute fracture or malalignment. Mild degenerative changes at the knee and foot. Prominent heel spurs.
--- NOTE | 2016-09-15 23:08 | RADIOLOGY REPORT ---
EXAMINATION: XR LUMBOSACRAL SPINE CLINICAL INFORMATION: Pain, fall. COMPARISON: CT from 06/24/2016 TECHNIQUE: AP and lateral views of the lumbosacral spine were obtained. FINDINGS: Partial visualization of posterior fusion hardware extending to the level of L3. The visualized hardware is intact. 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 No acute fracture or subluxation. Vertebral bodies and posterior elements are anatomically aligned. Vertebral body heights are maintained. Disc spaces are otherwise maintained. Small endplate osteophytes at L3-L4, L4-L5, and L5-S1. The sacroiliac joints are intact. The visualized sacrum is intact. The bowel gas pattern is unremarkable. IMPRESSION: No acute fracture or malalignment. The visualized portion of the fusion hardware appears intact. Mild degenerative changes.
[2016-09-16 05:38] VITALS: BP 129/66
== END 2016-09-16 05:52 ==
LOC: ERH 22:18
DX: S93.401A Sprain of unspecified ligament of right ankle, initial encounter (principal); T14.8 Other injury of unspecified body region; M25.561 Pain in right knee; W18.09XA Striking against other object with subsequent fall, initial encounter; Y93.01 Activity, walking, marching and hiking; Y92.89 Other specified places as the place of occurrence of the external cause
CPT/HCPCS: 72100; 73562-RT; 73610-RT; 73630-RT

== ENCOUNTER 2016-09-28 22:03 | Emergency (ER) | payer OTHER ==
[~2016-09-28] VITALS: Ht 160 cm; Wt 147.4 kg
[~2016-09-28 22:03] MED LIST changes: +IBUPROFEN600 M1 PO
--- NOTE | 2016-09-28 22:52 | ED CARDIAC/CP/PALPITATIONS ---
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 Exam Limitations: no limitations Vital Signs & Intake/Output Vital Signs & Intake/Output Vital Signs Date Time Temp Pulse Resp B/P Pulse O2 O2 Flow FiO2 Ox Delivery Rate 09/29 0246 96.6 60 16 110/58 98 Nasal 2.0L Cannula 09/287 99.3 76 16 149/71 99 Nasal 2.0L Cannula ED Intake and Output 09/29 0000 09/28 1200 Intake Total Output Total Balance Patient 325 lb Weight Allergies Coded Allergies: Penicillins (THROAT CLOSURE 11/02/15) ammonia (UNKNOWN 11/02/15) lindane (ALLERGIC TO KWELL SHAMPOO 11/02/15) lorazepam (THROAT CLOSURE 11/02/15) sodium hypochlorite solution (sodium hypochlorite) (ALLERGIC TO BLEACH (UNKNOWN REACTION) 11/02/15) Reconcile Medications Albuterol Sulfate (Proair Hfa) 8.5 GM HFA.AER.AD 1-2 PUFF INH 4 TIMES/DAY PRN WHEEZE (Reported) Aripiprazole (Abilify) 30 MG TABLET 1 TAB PO DAILY MENTAL HEALTH (Reported) Aspirin (Ecotrin*) 325 MG TABLET.DR 1 TAB PO DAILY HEART HEALTH (Reported) Buspirone HCl 10 MG TABLET 1 TAB PO BID MENTAL HEALTH (Reported) Carvedilol (Coreg) 3.125 MG TABLET 1 TAB PO BID HEART/BP (Reported) Cholecalciferol (Vitamin D3) (Vitamin D) 2,000 UNIT CAPSULE 1 CAP PO DAILY SUPPLEMENT (Reported) Clopidogrel Bisulfate (Plavix) 75 MG TABLET 75 MG PO DAILY heart health Colesevelam Hydrochloride (Welchol) 625 MG TABLET 1,875 MG PO QPM CHOLESTEROL (Reported) Docusate Sodium (Colace) 100 MG CAPSULE 1 CAP PO BID CONSTIPATION Ferrous Sulfate 324 MG TABLET.DR 1 TAB PO BID SUPPLEMENT (Reported) Fluoxetine HCl 20 MG CAPSULE 1 CAP PO DAILY MENTAL HEALTH (Reported) Furosemide 40 MG TABLET 1 TAB PO DAILY DIURETIC (Reported) Ibuprofen 800 MG TABLET 1 TAB PO Q6H PRN MODERATE-SEVERE PAIN (Reported) Ibuprofen 600 MG TABLET 1 TAB PO TID PRN PAIN with food Isosorbide Dinitrate 30 MG TABLET 1 TAB PO BID ANGINA (Reported) Levetiracetam (Keppra) 250 MG TABLET 250 MG PO BID SEIZURES (Reported) Levetiracetam (Keppra) 1,000 MG TABLET 1,000 MG PO BID SEIZURES (Reported) Levothyroxine Sodium 75 MCG TABLET 1 TAB PO DAILY AC THYROID (Reported) Linaclotide (Linzess) 145 MCG CAPSULE 1 CAP PO DAILY IBS (Reported) Lisinopril 2.5 MG TABLET 1 TAB PO DAILY heart (Reported) Metformin HCl 1,000 MG TABLET 1 TAB PO BID DIABETES (Reported) Multivitamin (Multi-Day Vitamins) 1 EACH TABLET 1 TAB PO DAILY SUPPLEMENT ( Reported) Nitroglycerin 0.4 MG TAB.SUBL 1 TAB SL AD PRN CHEST PAIN (Reported) 1st sign of attack; may repeat every 5 minutes until relief; if pain persists after 3 tablets in 15 minutes, prompt medical att Nystatin (Nystop) 100,000 UNIT/GRAM POWDER 1 PILAR TOP BID PRN RASHES (Reported ) [place]-3 Acid Ethyl Esters (Lovaza) 1 GM CAPSULE 2 CAP PO BID SUPPLEMENT ( Reported) Pravastatin Sodium 10 MG TABLET 1 TAB PO QPM CHOLESTEROL (Reported) Solifenacin Succinate (Vesicare) 5 MG TABLET 1 TAB PO QAM BLADDER HEALTH ( Reported) Topiramate (Topamax) 200 MG TABLET 1 TAB PO QPM MENTAL HEALTH (Reported) Core Measure Meds Pre-Hospital aspirin Triage Note: PT BIBA C/O CHEST PAIN THAT RADIATES TO LEFT BREAST, BACK, AND DOWN LEFT ARM. PT HAS HX OF TN, PER EMS PT STATED PAIN WAS SIMILAR TO [place] PAIN. PT REFUSED IV BY EMS, PT RECIEVED 324MG ASPIRIN AND TOOK 2 NITRO'S AT HOME. Triage Nurses Notes Reviewed? yes Onset: Just prior to arrival Duration: minute(s):, constant, continues in ED Timing: recent history Quality/Severity: moderate, pressure Location: central Radiation: back Activities at Onset: rest Prior Chest Pain/Card Workup: cardiac cath, echocardiography, heart attack, stress test Modifying Factors: Improves With: nitroglycerin, rest. Nitro Today/Relief: 0.4 mg x 2, provided at home Aspirin Today: 325 mg x 1, provided by EMS Associated Symptoms: shortness of breath, anxiety LMP (ages 10-50): unknown : No Patient currently breastfeeds: No HPI: One hour prior to admission while at rest patient complains of substernal chest pain described as heavy moderate to severe radiating to her back associated with shortness of breath and anxiety constant similar to [place] pain in February. She took 2 sublingual nitroglycerin and was given 325 mg of aspirin. She has fever chills nausea vomiting diarrhea abdominal pain headache dysuria rash bleeding. Past History Travel History Traveled to [place] past 21 day No Medical History Any Pertinent Medical History? see below for history Neurological: seizure EENT: hearing loss Cardiovascular: CAD, CHF, hypertension, hyperlipidemia Respiratory: asthma, obstructive sleep apnea Gastrointestinal: constipation, GERD Hepatic: NONE Renal: NONE Musculoskeletal: SCOLIOSIS Psychiatric: anxiety, depression, schizo affective disorder Endocrine: diabetes, hypothyroidism, obesity Blood Disorders: anemia Cancer(s): endometrial cancer RN ANESTHESIOLOGY/Reproductive: NONE History of MRSA: No History of VRE: No History of CDIFF: No Surgical History Surgical History: cholecystectomy, hysterectomy, TONSILLECTOMY, MYRINGOTOMY TUBES Spinal fusion Adan rods age 17 Psychosocial History Who do you live with Patient/Self Services at Home Home Health Aide (5 days a week), Nursing (7 days a week), a nurse administers her medications daily insuring compliance What is your primary language Yi Tobacco Use: Current Not Daily Family History Family History, If Any: MOTHER FH: cirrhosis Hepatitis C Relation not specified for: *No pertinent family history Hx Contributory? No Review of Systems Review of Systems Constitutional: Reports: no symptoms. EENTM: Reports: no symptoms. Respiratory: Reports: see HPI, short of breath. Cardiovascular: Reports: see HPI, chest pain. GI: Reports: no symptoms. Genitourinary: Reports: no symptoms. Musculoskeletal: Reports: no symptoms. Skin: Reports: no symptoms. Neurological/Psychological: Reports: see HPI, anxiety. Hematologic/Endocrine: Reports: no symptoms. Immunologic/Allergic: Reports: no symptoms. All Other Systems: Reviewed and Negative Physical Exam Physical Exam General Appearance: well developed/nourished, alert, awake, anxious, mild distress, obese Head: atraumatic, normal appearance Eyes: Bilateral: normal appearance, PERRL, EOMI. Ears, Nose, Throat: normal pharynx, normal ENT inspection, moist mucus membranes Neck: normal inspection, supple, full range of motion, no midline tenderness Respiratory: normal breath sounds, chest non-tender, no respiratory distress, quiet respiration, lungs clear Cardiovascular: regular rate/rhythm, normal peripheral pulses, norml femoral pulses equa Peripheral Pulses: 4+ carotid (R), 4+ carotid (L) Gastrointestinal: normal bowel sounds, soft, non-tender, no organomegaly Back: normal inspection, normal range of motion Extremities: normal inspection, normal capillary refill, normal range of motion, no edema Neurologic/Psych: no motor/sensory deficits, awake, alert, oriented x 3, 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 Skin: intact, normal color, warm/dry Lymphatic: no anterior cervical krissy Core Measures ACS in differential dx? Yes ASA ordered for poss ACS? No-other contraindication (already given) Severe Sepsis Present: No Septic Shock Present: No Progress Differential Diagnosis: AMI, CHF/pulm edema, hyperkalemia, hypovolemia, pneumonia Plan of Care: Orders Procedure Date/time Status TROPONIN LEVEL 09/29 0240 Complete TROPONIN LEVEL 09/28 2222 Complete MAGNESIUM 09/28 2222 Complete COMPREHENSIVE METABOLIC PANEL 09/28 222 Complete CBC WITHOUT DIFFERENTIAL 09/28 2221 Complete EKG 09/28 222 Active Laboratory Tests 09/29/16 0237: Troponin I < 0.01 09/28/16 2240: Anion Gap 11, Estimated GFR 54 L, BUN/Creatinine Ratio 18.2, Glucose 115 H, Calcium 9.7, Magnesium 1.9, Total Bilirubin 0.3, AST 24, ALT 62 H, Alkaline Phosphatase 87, Troponin I < 0.01, Total Protein 6.6, Albumin 4.1, Globulin 2.5, Albumin/Globulin Ratio 1.6, CBC w Diff NO MAN DIFF REQ, RBC 4.19 L, MCV 88.7, MCH 29.5, RDW 16.8 H, MPV 8.7, Gran % 64.0, Lymphocytes % 27.2, Monocytes % 5.2 , Eosinophils % 3.2, Basophils % 0.4, Absolute Granulocytes 5.9, Absolute Lymphocytes 2.5, Absolute Monocytes 0.5, Absolute Eosinophils 0.3, Absolute Basophils 0, PUBS MCHC 33.3 Diagnostic Imaging: Viewed by Me: Radiology Read. Discussed w/RAD: Radiology Read. Initial ED EKG: normal axis, normal intervals, normal p-waves, normal QRS complex, normal sinus rhythm, nonspecific ST T wave chg Prior EKG: unchanged Rhythm Strip: normal sinus rhythm Departure Departure Time of Disposition: 328 Disposition: HOME OR SELF CARE Condition: Stable Clinical Impression Primary Impression: Chest pain syndrome Referrals: FUAD MYERS APRN (PCP/Family) OTILIO LARSON,ELVIE Langford Departure Forms: Customer Survey General Discharge Information Critical Care Note Critical Care Note Critical Care Time: non-applicable
[2016-09-28 23:06] LABS: ABSOLUTE BASOPHIL COUNT 0 /CUMM (0.0-0.2); ABSOLUTE EOSINOPHIL COUNT 0.3 /CUMM (0.0-0.7); ABSOLUTE GRANULOCYTE CT 5.9 /CUMM (1.4-6.5); ABSOLUTE LYMPH COUNT 2.5 /CUMM (1.2-3.4); ABSOLUTE MONOCYTE COUNT 0.5 /CUMM (0.10-0.60); BASOPHIL % 0.4 % (0.0-2.0); EOSINOPHIL % 3.2 % (0-5); HEMATOCRIT 37.1 % (37-47); MEAN CORPUSCULAR HGB 29.5 PG (27.0-31.0); MEAN CORPUSCULAR HGB CONC 33.3 G/DL (33.0-37.0); MEAN CORPUSCULAR VOLUME 88.7 FL (81.0-99.0); MEAN PLATELET VOLUME 8.7 FL (7.4-10.4); PLATELET COUNT 237 /CUMM (130-400); RBC DISTRIBUTION WIDTH 16.8 % (11.5-14.5); RED BLOOD CELL CT 4.19 /CUMM (4.20-5.40); WHITE BLOOD CELL COUNT 9.2 /CUMM (4.8-10.8)
--- NOTE | 2016-09-28 23:48 | RADIOLOGY REPORT ---
EXAMINATION: XR PORTABLE CHEST CLINICAL INFORMATION: Chest pain. COMPARISON: Portable chest x-ray 07/11/2016. TECHNIQUE: Portable AP view of the chest was obtained. FINDINGS: The lungs are well-expanded and clear without focal airspace consolidation. No pleural effusions or pneumothoraces are identified. Cardiomediastinal contours are stable. Soft tissues are unremarkable. No acute osseous abnormality is identified. Redemonstrated is dextroscoliosis of the imaged thoracic spine. Bilateral longitudinal rods are identified along the thoracic spine. IMPRESSION: No acute pulmonary process.
[2016-09-29 06:31] VITALS: BP 109/55
== END 2016-09-29 06:53 ==
LOC: ERH 22:03
PROVIDERS: Emergency Medicine
DX: R07.2 Precordial pain (principal)
CPT/HCPCS: 93005; 93010

== ENCOUNTER 2016-09-30 12:21 | Inpatient (IN) | payer OTHER ==
[~2016-09-30] VITALS: Ht 165.1 cm; Wt 158.8 kg
--- NOTE | 2016-09-30 12:31 | NUR ---
PT TO [facility] FROM CARE FOR +SI. HX OF ANXIETY,DEPRESSION,SCHIZO AFFECTIVE DISORDER,HTN,CHF,CAD,DIABETES,SEIZURES,GERD. PT ARRIVED AAOx3, PT ADMITS SHE WANT TO HURT HERSELF AND HAS A PLAN, BUT NOT GOING TO TELL ANYONE ABOUT SI PLAN. DENEIS HI, DENIES ETOH, DENIES ILLICIT DRUG USE. VSS.
--- NOTE | 2016-09-30 12:47 | NUR ---
PT WANDED BY SECURITY, CHANGED INTO BLUE SCRUBS, 1 BELONGINGS BAG IN CLOSET, 1 VALUABLES BAG IN ER SAFE.
--- NOTE | 2016-09-30 14:11 | NUR ---
PT AWARE OF URINE SAPMLE, UNABLE TO PROVIDE ONE AT THIS TIME. WILL TRY LATER.
--- NOTE | 2016-09-30 15:02 | NUR ---
FOOD TRAY ORDERED
--- NOTE | 2016-09-30 15:08 | ED PSYCHIATRIC COMPLAINT ---
See Addendum History of Present Illness General Chief Complaint: Psychiatric Related Complaint Stated Complaint: +SI Source: patient, old records Exam Limitations: SCHIZOAFFECTIVE DISORDER Vital Signs & Intake/Output Vital Signs & Intake/Output Vital Signs Date Time Temp Pulse Resp B/P Pulse O2 O2 Flow FiO2 Ox Delivery Rate 09/30 2002 97.6 64 20 125/60 98 09/30 1231 97.8 72 18 151/76 96 Room Air Allergies Coded Allergies: Penicillins (THROAT CLOSURE 11/02/15) ammonia (UNKNOWN 11/02/15) lindane (ALLERGIC TO KWELL SHAMPOO 11/02/15) lorazepam (THROAT CLOSURE 11/02/15) sodium hypochlorite solution (sodium hypochlorite) (ALLERGIC TO BLEACH (UNKNOWN REACTION) 11/02/15) Reconcile Medications Albuterol Sulfate (Proair Hfa) 8.5 GM HFA.AER.AD 1-2 PUFF INH 4 TIMES/DAY PRN WHEEZE (Reported) Aripiprazole (Abilify) 30 MG TABLET 1 TAB PO DAILY MENTAL HEALTH (Reported) Aspirin (Ecotrin*) 325 MG TABLET.DR 1 TAB PO DAILY HEART HEALTH (Reported) Buspirone HCl 10 MG TABLET 1 TAB PO BID MENTAL HEALTH (Reported) Carvedilol (Coreg) 3.125 MG TABLET 1 TAB PO BID HEART/BP (Reported) Cholecalciferol (Vitamin D3) (Vitamin D) 2,000 UNIT CAPSULE 1 CAP PO DAILY SUPPLEMENT (Reported) Clopidogrel Bisulfate (Plavix) 75 MG TABLET 75 MG PO DAILY heart health Colesevelam Hydrochloride (Welchol) 625 MG TABLET 1,875 MG PO QPM CHOLESTEROL (Reported) Ferrous Sulfate 324 MG TABLET.DR 1 TAB PO BID SUPPLEMENT (Reported) Fluoxetine HCl 20 MG CAPSULE 1 CAP PO DAILY MENTAL HEALTH (Reported) Furosemide 40 MG TABLET 1 TAB PO DAILY DIURETIC (Reported) Ibuprofen 600 MG TABLET 1 TAB PO TID PRN PAIN with food Isosorbide Dinitrate 30 MG TABLET 1 TAB PO BID ANGINA (Reported) Levetiracetam (Keppra) 250 MG TABLET 250 MG PO BID SEIZURES (Reported) Levetiracetam (Keppra) 1,000 MG TABLET 1,000 MG PO BID SEIZURES (Reported) Levothyroxine Sodium 75 MCG TABLET 1 TAB PO DAILY AC THYROID (Reported) Linaclotide (Linzess) 145 MCG CAPSULE 1 CAP PO DAILY IBS (Reported) Lisinopril 2.5 MG TABLET 1 TAB PO DAILY heart (Reported) Metformin HCl 1,000 MG TABLET 1 TAB PO BID DIABETES (Reported) Multivitamin (Multi-Day Vitamins) 1 EACH TABLET 1 TAB PO DAILY SUPPLEMENT ( Reported) Nitroglycerin 0.4 MG TAB.SUBL 1 TAB SL AD PRN CHEST PAIN (Reported) 1st sign of attack; may repeat every 5 minutes until relief; if pain persists after 3 tablets in 15 minutes, prompt medical att Nystatin (Nystop) 100,000 UNIT/GRAM POWDER 1 PILAR TOP BID PRN RASHES (Reported ) [place]-3 Acid Ethyl Esters (Lovaza) 1 GM CAPSULE 2 CAP PO BID SUPPLEMENT ( Reported) Pravastatin Sodium 10 MG TABLET 1 TAB PO QPM CHOLESTEROL (Reported) Solifenacin Succinate (Vesicare) 5 MG TABLET 1 TAB PO QAM BLADDER HEALTH ( Reported) Topiramate (Topamax) 200 MG TABLET 1 TAB PO QPM MENTAL HEALTH (Reported) Triage Note: PT TO [facility] FROM CARE FOR +SI. HX OF ANXIETY,DEPRESSION,SCHIZO AFFECTIVE DISORDER,HTN,CHF,CAD,DIABETES,SEIZURES,GERD. PT ARRIVED AAOx3, PT ADMITS SHE WANT TO HURT HERSELF AND HAS A PLAN, BUT NOT GOING TO TELL ANYONE ABOUT SI PLAN. DENEIS HI, DENIES ETOH, DENIES ILLICIT DRUG USE. VSS. Triage Nurses Notes Reviewed? yes : No Patient currently breastfeeds: No HPI: Patient presents for evaluation of worsening suicide ideation. Patient states she has felt suicidal for "a while" but it seems to have gotten worse over the past 24 hours or so. She denies any associated alcohol or drug use. She states she has tried to cut herself in the past but denies having done this currently. She was recently evaluated here in the emergency department for chest pains. Past History Travel History Traveled to [place] past 21 day No Medical History Any Pertinent Medical History? 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 History of MRSA: No History of VRE: No History of CDIFF: No Surgical History Surgical History: cholecystectomy, hysterectomy, TONSILLECTOMY, MYRINGOTOMY TUBES Spinal fusion Adan rods age 17 Psychosocial History Who do you live with Patient/Self Services at Home Home Health Aide (5 days a week), Nursing (7 days a week), a nurse administers her medications daily insuring compliance What is your primary language [place] Citizen Tobacco Use: Current Daily Use Daily Tobacco Use Amount/Type: => 5 Cigarettes daily Family History Family History, If Any: MOTHER FH: cirrhosis Hepatitis C Relation not specified for: *No pertinent family history Hx Contributory? No Review of Systems Review of Systems Constitutional: Reports: no symptoms. EENTM: Reports: no symptoms. Respiratory: Reports: no symptoms. Cardiovascular: Reports: no symptoms. GI: Reports: no symptoms. Genitourinary: Reports: no symptoms. Musculoskeletal: Reports: no symptoms. Skin: Reports: no symptoms. Neurological/Psychological: Reports: see HPI. Hematologic/Endocrine: Reports: no symptoms. Immunologic/Allergic: Reports: no symptoms. All Other Systems: Reviewed and Negative Physical Exam Physical Exam General Appearance: SEE BELOW Neurological/Psychiatric: SEE BELOW Comments: General: Alert, calm, cooperative Head: Normocephalic, atraumatic Eyes: Normal inspection, no nystagmus, EOMI Ears: Normal inspection Nose: Normal inspection Throat: Moist mucosa Neck: Supple, no goiter Heart: Regular rate and rhythm, no murmurs rubs or gallops Lungs: Clear to auscultation bilaterally with good air entry Abdomen: Soft nontender nondistended, normal bowel sounds Chest: Nontender Extremities: Normal range of motion grossly, no tremors present, no cyanosis clubbing or edema of the upper extremities Neurologic: cranial nerves II through XII grossly intact, speech clear, gait normal Psychiatric: No apparent delusions or hallucinations, no pressured speech or thought blocking SAD PERSONS Done? deferred to crisis Progress Differential Diagnosis: DEPRESSION, ANXIETY, SCHIZOAFFECTIVE DISORDER, BIPOLAR DISORDER Plan of Care: Orders Procedure Date/time Status CBC WITHOUT DIFFERENTIAL 09/30 1733 Complete BASIC METABOLIC PANEL 09/30 1734 Active ED CRISIS PSYCH CONSULT 09/30 1508 Active URINE DRUG SCREEN FOR ER ONLY 09/30 1507 Complete Laboratory Tests 09/30/16 1948: Sodium Pending, Potassium Pending, Chloride Pending, Carbon Dioxide Pending, Anion Gap Pending, BUN Pending, Creatinine Pending, BUN/Creatinine Ratio Pending , Glucose Pending, Calcium Pending, CBC w Diff NO MAN DIFF REQ, RBC 4.41, MCV 89.6, MCH 29.5, RDW 16.4 H, MPV 8.7, Gran % 62.8, Lymphocytes % 29.1, Monocytes % 4.6, Eosinophils % 3.1, Basophils % 0.4, Absolute Granulocytes 4.2, Absolute Lymphocytes 1.9, Absolute Monocytes 0.3, Absolute Eosinophils 0.2, Absolute Basophils 0, PUBS MCHC 32.9 L 09/30/16 1620: Urine Opiates Screen < 100.00, Methadone Screen < 40, Barbiturate Screen < 60, Ur Phencyclidine Scrn < 6.00, Amphetamines Screen < 100, U Benzodiazepines Scrn < 85, Urine Cocaine Screen < 50, Urine Cannabis Screen < 5.00 Hand-Off Endorsed To: TRENTON LARSON,FABY Díaz Endorsed Time: 2014 Pending: consult (crisis) Departure Departure Disposition: STILL A PATIENT Condition: Stable Clinical Impression Primary Impression: Schizoaffective disorder Qualifiers: Schizoaffective disorder type: unspecified Qualified Code: F25.9 - Schizoaffective disorder, unspecified Referrals: FUAD MYERS APRN (PCP/Family) Departure Forms: Customer Survey General Discharge Information
--- NOTE | 2016-09-30 16:22 | NUR ---
PT AWAKEN FOR URINE SAMPLE, URINE TRIO COLLECTED AND SENT TO LAB. PT DENIES COMPLAINTS OR NEEDS AT THIS TIME. SITTER AT BEDSIDE.
--- NOTE | 2016-09-30 16:46 | NUR ---
PT URINE SENT TO THE LAB TRIO
--- NOTE | 2016-09-30 19:10 | ED PSYCH CRISIS CONSULTATION ---
See Addendum Crisis Consult Basic Assessment Date of Consult: 09/30/16 Responsible Person/Accompanied By: Brought in by ambulance Insurance Authorization: Insurance #1: Insurance name: [employer] HMO Phone number: Policy number: [id number] Group number: [id number] Authorization number: ED Provider: Patient's ED Provider: KRISTY CHRISTIAN MD Primary Care Physician: Patient's PCP: FUAD MYERS APRN PCP's Current Psychiatrist: Dana Mustafa APRN, BC at [facility] in [place], [place] Chief Complaint: Psychiatric (Suicidal ideation / depression) Patient's Quote: "I'm the crazy person in hell...I wanna ..I'm a waste of space." Present Illness: Patient is a 45 year old woman who presents to the emergency department today by ambulance from a psychiatry appointment at the suggestion of her CUSTOMER SERVICES COORDINATOR at [facility] who was concerned about her expressed suicidal ideation w/ plan. Patient endorsed current suicidal ideation to this newswriter but did not specify the exact plan. Patient states she is experiencing auditory hallucinations of her father's voice telling her she is "a waste of space." Patient has been evaluated at the emergency department 3 times previously this month for somatic complaints. Her last crisis evaluation was in Aug 2016. Patient has long-standing mental health concerns including several inpatient psychiatric admissions. Patient was admitted to [facility]'s psychiatric unit [facility] in December 2008, February 2009, September 2009, September 2011, December 2012, March 2014, December 2014, and October 2015. Patient was also admitted to [facility], [facility], and [facility]. Patient's historical diagnosis is schizoaffective disorder. Patient indicates she recently was started on a new antipsychotic medication (Seroquel) which has not been effective at managing her hallucinations. On a scale of 1-10, patient reports she is ~7 with regards to likelihood to harm herself if discharged from the emergency department. Patient cites hallucinations, declining health of her father, and her own recent medical issues (chest pain, headaches) as triggers to her depressive thoughts. Patient has support of a best friend and her aunt who lives in [place] (*see collateral note below.) Patient lives independently by herself with the support of a visiting nurse through [facility]. Patient also has a case fitter through [facility]. Patient's toxicology screening is negative for all substances (several UA tests over the past years have consistently shown negative results.) Patient denies using any substances in the past. Patient presents with depressed mood and flat affect. Patient's speech is articulate and there is no observed significant indication of psychosis in her overall presentation. Patient's Address: [address] [place] [address] Other Phone Number: Who Do You Live With? Patient/Self Family/Informants Interviewed: Aunt - Makayla Spring [phone] Best - Friend Hoa Fox Allergies - Coded Allergies: Penicillins (THROAT CLOSURE 11/02/15) ammonia (UNKNOWN 11/02/15) lindane (ALLERGIC TO KWELL SHAMPOO 11/02/15) lorazepam (THROAT CLOSURE 11/02/15) sodium hypochlorite solution (sodium hypochlorite) (ALLERGIC TO BLEACH (UNKNOWN REACTION) 11/02/15) Current Medications - Scheduled Medications Aripiprazole (Abilify) 30 MG TABLET 1 TAB PO DAILY MENTAL HEALTH (Reported) Entered as Reported by AMANDO WILLAMS on 12/06/13 2342 Aspirin (Ecotrin*) 325 MG TABLET.DR 1 TAB PO DAILY HEART HEALTH (Reported) Entered as Reported by FEDERICO EARLY on 10/01/14 1505 Buspirone HCl 10 MG TABLET 1 TAB PO BID MENTAL HEALTH (Reported) Entered as Reported by SANTIAGO WHITMAN on 12/11/15 0258 Carvedilol (Coreg) 3.125 MG TABLET 1 TAB PO BID HEART/BP (Reported) Entered as Reported by FEDERICO EARLY on 04/14/162118 Cholecalciferol (Vitamin D3) (Vitamin D) 2,000 UNIT CAPSULE 1 CAP PO DAILY SUPPLEMENT (Reported) Entered as Reported by FEDERICO EARLY on 04/14/16 211 Clopidogrel Bisulfate (Plavix) 75 MG TABLET 75 MG PO DAILY heart health 30 Days Prescribed by MYRNA GARCIA on 12/15/15 Colesevelam Hydrochloride (Welchol) 625 MG TABLET 1,875 MG PO QPM CHOLESTEROL (Reported) Entered as Reported by SANTIAGO WHITMAN on 12/11/15 0304 Ferrous Sulfate 324 MG TABLET.DR 1 TAB PO BID SUPPLEMENT (Reported) Entered as Reported by ZHENG MCDONOUGH on 02/21/16 1245 Fluoxetine HCl 20 MG CAPSULE 1 CAP PO DAILY MENTAL HEALTH (Reported) Entered as Reported by FEDERICO EARLY on 12/14/14 1634 Furosemide 40 MG TABLET 1 TAB PO DAILY DIURETIC (Reported) Entered as Reported by FEDERICO EARLY on 10/01/14 1506 Isosorbide Dinitrate 30 MG TABLET 1 TAB PO BID ANGINA (Reported) Entered as Reported by FEDERICO EARLY on 08/12/16 1656 Levetiracetam (Keppra) 250 MG TABLET 250 MG PO BID SEIZURES (Reported) Entered as Reported by FEDERICO EARLY on 08/12/16 1652 Levetiracetam (Keppra) 1,000 MG TABLET 1,000 MG PO BID SEIZURES (Reported) Entered as Reported by FEDERICO EARLY on 08/12/16 1653 Levothyroxine Sodium 75 MCG TABLET 1 TAB PO DAILY AC THYROID (Reported) Entered as Reported by FEDERICO EARLY on 10/01/14 1506 Linaclotide (Linzess) 145 MCG CAPSULE 1 CAP PO DAILY IBS #60 (Reported) Entered as Reported by ZHENG MCDONOUGH on 02/21/16 1240 Lisinopril 2.5 MG TABLET 1 TAB PO DAILY heart #30 (Reported) Entered as Reported by ZHENG MCDONOUGH on 02/21/16 1234 Metformin HCl 1,000 MG TABLET 1 TAB PO BID DIABETES (Reported) Entered as Reported by FEDERICO EARLY on 12/14/14 1631 Multivitamin (Multi-Day Vitamins) 1 EACH TABLET 1 TAB PO DAILY SUPPLEMENT ( Reported) Entered as Reported by FEDERICO EARLY on 04/14/16 2115 [place]-3 Acid Ethyl Esters (Lovaza) 1 GM CAPSULE 2 CAP PO BID SUPPLEMENT ( Reported) Entered as Reported by FEDERICO EARLY on 12/14/14 1653 Pravastatin Sodium 10 MG TABLET 1 TAB PO QPM CHOLESTEROL (Reported) Entered as Reported by AMANDO WILLAMS on 12/06/13 2341 Solifenacin Succinate (Vesicare) 5 MG TABLET 1 TAB PO QAM BLADDER HEALTH ( Reported) Entered as Reported by AMANDO WILLAMS on 12/06/13 2343 Topiramate (Topamax) 200 MG TABLET 1 TAB PO QPM MENTAL HEALTH (Reported) Entered as Reported by FEDERICO EARLY on 08/12/16 1647 Scheduled PRN Medications Albuterol Sulfate (Proair Hfa) 8.5 GM HFA.AER.AD 1-2 PUFF INH 4 TIMES/DAY PRN WHEEZE (Reported) Entered as Reported by FEDERICO EARLY on 10/01/14 1505 Ibuprofen 600 MG TABLET 1 TAB PO TID PRN PAIN #30 TAB Prescribed by ELIDA RUGGIERO MD on 09/15/16 Nitroglycerin 0.4 MG TAB.SUBL 1 TAB SL AD PRN CHEST PAIN (Reported) Entered as Reported by FEDERICO EARLY on 04/14/16 2106 Nystatin (Nystop) 100,000 UNIT/GRAM POWDER 1 PILAR TOP BID PRN RASHES (Reported ) Entered as Reported by FEDERICO EARLY on 10/01/14 1507 Laboratory Results: Laboratory Tests 09/30/16 1620: Urine Opiates Screen < 100.00, Methadone Screen < 40, Barbiturate Screen < 60, Ur Phencyclidine Scrn < 6.00, Amphetamines Screen < 100, U Benzodiazepines Scrn < 85, Urine Cocaine Screen < 50, Urine Cannabis Screen < 5.00 Past History Past Medical History Any Pertinent Medical History? unobtainable Neurological: seizure EENT: hearing loss Cardiovascular: CAD, CHF, hypertension, hyperlipidemia Respiratory: asthma, obstructive sleep apnea Gastrointestinal: constipation, GERD Hepatic: NONE Renal: NONE Musculoskeletal: SCOLIOSIS Psychiatric: anxiety, depression, schizo affective disorder Endocrine: diabetes, hypothyroidism, obesity Blood Disorders: anemia Cancer(s): endometrial cancer PLACEMENT SPECIALIST/Reproductive: NONE Past Surgical History Surgical History: cholecystectomy, hysterectomy, TONSILLECTOMY, MYRINGOTOMY TUBES Spinal fusion Adan rods age 17 Psychosocial History Strengths/Capabilities: Engaged in outpatient tx, desire to feel better Physical Limitations (Interventions): unsteady on feet Psychiatric Treatment History Psych Treatment Psychiatric Treatment Yes Inpatient Treatment Yes Outpatient Treatment Yes Location of Treatment [facility] in [place], [place] / [facility] Reason for Treatment Schizoaffective Disorder Dates of Treatment 2008, 2009, 2011, 2012, 2013, 2015, 2016 Response to Treatment varied Diagnosis by History: Schizoaffective disorder Substance Use/Abuse History Drug Use/Abuse Substances Used/Abused No First Use Denies Last Used Denies How much used/taken - How often - For how long - Route of use - Substance Abuse Treatment Substance Abuse Treatment Past Substance Abuse TX No Inpatient Treatment No Outpatient Treatment No Location of Treatment - Reason for Treatment - Dates of Treatment - Response to Treatment - Comments: - Current Mental Status Mental Status Orientation: Person, Place, Situation Affect: Depressed, Flat, Sad Speech: Mumbled, Soft Neuro-vegetative: Anhedonia, Loss of Interest Appearance Appearance- Dress/Hygiene: Patient is dressed in hospital attire. She is obese. No other remarkable features. Behaviors Thought Process: WNL Thought Content: Auditory Hallucinations Memory: WNL Insight: Poor SI/HI Risk Assessment Past Suicidal Ideation/Attempts Yes (Past attempts) Current Suicidal Ideation/Att Yes (Patient reports SI w/ plan) Past Homicidal Ideation/Att: No (Patient denies) Current Homicidal Ideation/Attempts No (Patient denies) Degree of Intent: Plan, States Intent Danger To: Self Gravely Disabled: Lack of Insight Risk Factors: access to lethal means, chronic/serious med cond., high anxiety/ distress, history of suicide atmpts, SA/MH hospitalized, lives alone, limited support Lethality Ratin PTSD Checklist PTSD Done? patient declined ED Management Sitter: Yes (Patient is calm & cooperative) Restraints: No (Not required) DSM5/PS Stressors/Medical Prob Diagnosis' (DSM 5, Stressors, Medical): F25.1 Schizoaffective disorder, Depressive type Current GAF: 30 Comments: Limited family support Departure Disposition Psych Medical Clearance Date: 09/30/16 Medically Cleared at: 1830 Time Started: 1829 Time Ended: 1929 Psychiatrist Consulted: Kevin LARSON,Edward Date Disposition Established: 09/30/16 Time Disposition Established: 1929 Plan for Disposition - Modality: Hold - over for reevaluation in the AM Rationale for Disposition: Patient is assessed with current suicidal ideation, intent and plan (unspecified ). Patient has recent stressors which include chronic medical conditions, anxiety of parent's declining health, and active auditory hallucinations. Although collateral information is obtained from an aunt and a friend, it would be helpful to further observe patient overnight, receive collateral information from patient's CUSTOMER SERVICES COORDINATOR at [facility] and re-assess patient's mental status in the morning. Patient to be held-overnight in the emergency department. Referrals FUAD MYERS APRN (PCP/Family)
[2016-09-30 20:03] LABS: ABSOLUTE BASOPHIL COUNT 0 /CUMM (0.0-0.2); ABSOLUTE EOSINOPHIL COUNT 0.2 /CUMM (0.0-0.7); ABSOLUTE GRANULOCYTE CT 4.2 /CUMM (1.4-6.5); ABSOLUTE LYMPH COUNT 1.9 /CUMM (1.2-3.4); ABSOLUTE MONOCYTE COUNT 0.3 /CUMM (0.10-0.60); BASOPHIL % 0.4 % (0.0-2.0); EOSINOPHIL % 3.1 % (0-5); GRANULOCYTE % 62.8 % (42.2-75.2); HEMATOCRIT 39.5 % (37-47); MEAN CORPUSCULAR HGB 29.5 PG (27.0-31.0); MEAN CORPUSCULAR HGB CONC 32.9 G/DL (33.0-37.0); MEAN CORPUSCULAR VOLUME 89.6 FL (81.0-99.0); MEAN PLATELET VOLUME 8.7 FL (7.4-10.4); PLATELET COUNT 217 /CUMM (130-400); RBC DISTRIBUTION WIDTH 16.4 % (11.5-14.5); RED BLOOD CELL CT 4.41 /CUMM (4.20-5.40); WHITE BLOOD CELL COUNT 6.7 /CUMM (4.8-10.8)
--- NOTE | 2016-09-30 20:04 | NUR ---
LABS SENT BY THIS [facility].
--- NOTE | 2016-09-30 20:10 | NUR ---
Patient's crisis evaluation completed. Consultation reviewed with on-call psychiatrist Dr. Brown. Patient will be held over-night for further observation and re-evaluated in the morning by crisis for final disposition.
--- NOTE | 2016-09-30 20:10 | ED PSY CRISIS COLLATERAL NOTE ---
Collateral Note Collateral Note Family/Inform/Kat Contacts: Dana Mustafa APRN, BC at [facility] [phone] Patient's psychiatric medication management provider was not able to be contacted at 19:00 as it was past the agency's business hours. Aunt Cindy Spring [phone] or Cell # [phone] Aunt resides in [place] - Patient's aunt last spoke with her yesterday and observed patient's tone to be somewhat depressed. Aunt assessed patient as "not feeling the greatest." Aunt believes patient is depressed over her father's deteriorating health although he is currently in fair condition. Aunt is supportive of patient and talks by phone frequently. Pt.'s aunt intends to visit her next month which patient is looking forward to. Aunt believes patient's new hospice case manager who took over 6 months ago has not been as effecting in managing patient's needs. Aunt also is concerned about patient's report of her recent health issues such as chest pains and believes this may be another trigger to depressed mood. Aunt would like to be updated on patient's disposition and contacted by phone. Friend - Hoa Fox This handbook writer answered a phone call in the [place] phone line from patient's friend. Ms. Fox reports she is patient's "best-friend" and is calling because she was concerned patient missed an invitation to dinner tonight. Friend took care of patient's pet cat and requested this handbook writer convey a message to patient that the pet is taken care of and that the friend would like to speak with her. Patient indicated she would contact this friend later in the evening.
--- NOTE | 2016-09-30 22:24 | NUR ---
PT MOVED TO HALLWAY, REMAINS ASLEEP AT THIS TIME. REGULAR AND EQUAL RESPIRATIONS NOTED. SITTER REMAINS IN PLACE FOR SAFETY. OFFERING NO COMPLAINTS AT THIS TIME. WILL CTM.
--- NOTE | 2016-10-01 00:08 | NUR ---
PT REMAINS ASLEEP AT THIS TIME. EQUAL AND REGULAR RESPIRATIONS NOTED. NO COMPLAINTS AT THIS TIME. SITTER IN PLACE FOR SAFETY. WILL CTM.
--- NOTE | 2016-10-01 01:56 | NUR ---
PT REMAINS ASLEEP AT THIS TIME, REGULAR RESPIRATIONS NOTED, NAD. SITTER IN PLACE FOR SAFETY, WILL CTM.
--- NOTE | 2016-10-01 03:59 | NUR ---
PT REMAINS ASLEEP AT THIS TIME W/ RR NOTED AND NAD. SITTER IN PLACE FOR SAFETY, WILL CTM.
--- NOTE | 2016-10-01 05:16 | NUR ---
PT REMAINS ASLEEP AT THIS TIME. BILATERAL CHEST RISE AND FALL NOTED, NAD. OFFERING NO COMPLAINTS AT THIS TIME. SITTER IN PLACE FOR SAFETY, WILL CTM.
--- NOTE | 2016-10-01 07:24 | NUR ---
ASSUMED PRIMARY CARE OF PT. PT SLEEPING SOUNDLY, EVEN NONLABORED RESPIRATIONS NOTED. SITTER IN HALLWAY TO MONITOR.
--- NOTE | 2016-10-01 07:45 | NUR ---
finger food tray ordered for pt
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
--- NOTE | 2016-10-01 11:19 | NUR ---
RESTING COMFORTABLY ON STRETCHER, OFFERS NO COMPLAINTS AT THIS TIME.
--- NOTE | 2016-10-01 12:10 | NUR ---
SITTING UP ON STRETCHER EATCHING LUNCH TRAY. INFORMED WAITING REGARDING ADMISSION PROCESS PROVIDED. PT AGREEABLE TO POC, OFFERS NO COMPLAINTS
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
--- NOTE | 2016-10-01 13:32 | NUR ---
REPORT TO CPS RN
--- NOTE | 2016-10-01 13:54 | NUR ---
CALL AUNT СЕРГЕЙ [phone] WITH ANY UPDATES.
[2016-10-01 14:12] VITALS: BP 130/80
[2016-10-01 16:05] VITALS: BP 130/80
[2016-10-01 19:29] VITALS: BP 147/83
[2016-10-01] MEDS ORDERED: PLAVIX75 M1 PO (20:05)
[2016-10-01] MEDS ORDERED: SEROQUEL50 M1 PO (20:07)
[2016-10-01] MEDS ORDERED: COLACE100 M1 PO (20:07)
--- NOTE | 2016-10-01 20:15 | NUR ---
admitted from ED on voluntary for schizoaffective d/o +AH +SI. Patient reports voices telling her she is a waste of space in her fathers voice. Medical hx of HTN, GERD, hypothyroid, hypercholesterolemia, obstructive sleep apnea. Uses a CPAP at home at night. Med reconciliation done based on limited ability of patient and faxed med list from [facility] that administers her meds. Patient also had shorter list from [facility] that she claims to have written a week ago. Both lists will be in outside documents tab of paper chart.
--- NOTE | 2016-10-02 05:41 | NUR ---
HOSPITAL CPAP PUT IN PLACE FOR PATIENT. SHE APPEARED MUCH CALMER AFTER THAT. PT APPEARED TO SLEEP WELL.
[2016-10-02 09:53] VITALS: BP 145/79
--- NOTE | 2016-10-02 11:02 | SOCIAL WORKER PROG NOTE PSYCH ---
Social Work Progress Note Progress Note Ayla was looking upset sitting out in the community. Tried to engage her in conversation. She said she was "fine". I clearly pointed out the discrepancy between what she was saying and what her body language was saying. She then reported that she didn't want to be here. "I want to go home", "I don't belong here". I informed her of her right to sign a 3 day paper to terminate voluntary status and explained that we would have until Friday to decide if she signed it today. She chose not to sign it. I asked if she was feeling depressed at home? She initially denied it. I asked why [facility] sent her in? She then disclosed that she was feeling depressed and made a statement to Janet Huitron APRN that she wanted to . She denied feeling suicidal though and stated she really doesn't want to . She sees Araceli Ellis (therapist) and Selina for a residential case manager. She is hoping Selina will visit her. She receives visiting nurse services and a home health aid from [facility]. She also disclosed that she has a conservator- her Aunt Makayla who lives in [place]. She gave me her cell number [phone]. I will need to confirm the details and see if I can get a decree. Encouraged Ayla to go to group. Talked about her humor that I remembered from the last time she was here. She was able to crack some jokes with me. Called her Aunt (Makayla Spring) she confirmed conservator of person and will be faxing the decree from court. She said she hasn't been able to talk to Ayla in a couple of days and that her and Ayla usually talk 2x's a day. She thought it would be good for her to know that she is planning to visit Ayla in October. Ayla saw me later and seemed to be in brighter spirits. She gave me a colored picture.
--- NOTE | 2016-10-02 11:06 | SOCIAL WORKER TX PLAN PSYCH ---
Treatment Plan - Please Document: - Evidence that there is ongoing collaboration between - the patient and the interdisciplinary team, - including the patient's active participation and - responsibility for engaging in the treatment regimen, - and that the treatment plan is individualized and - relevant to the patient's conditions. - Treatment plan should reflect documentation indicating - that all active therapeutic efforts are included. Strengths/Capabilities: Engaged in outpatient tx, desire to feel better Physical Limitations (Interventions): unsteady on feet Patient Identified Trmt Goals: "I want to go home" Discharge Plan: Return to [facility] and home Problem/Goals #1 Problem #1: depression Goal (Short Term): Patient will explore medication changes to help with her depressive symptoms. Goal (Milk Driver): Patient will identify strengths and resources to make life worth living. Interventions: Patient will be offered medication management with the psychiatrist. Patient will be offered groups on symptom management, coping skills, art therapy, goals group, focus group and other therapeutic activities to engage in. Contract Manager will help patient identify ways to feel less lonely in her apartment. Contract Manager will coordinate with family and clinical provider and assist with aftercare plan. DSM5/PS Stressors/Medical Prob Diagnosis' (DSM 5, Stressors, Medical): F25.1 Schizoaffective disorder, Depressive type Current GAF: 25 Treatment Team - Responsibilities of members of the treatment team include: - Medication Management- MD or COREROOM FOUNDRY LABORER - Medication Administration and Monitoring- Nurse - Group Therapy- Occupational Therapist - 1:1 Therapy,Disch Planning,family involvement-Contract Manager
--- NOTE | 2016-10-02 11:32 | Cons- Medical ---
General Information and HPI Consulting Request Date of Consult: 10/01/16 Requested By: ANNIE SERRANO MD Reason for Consult: Medical H&P Source of Information: patient, old records History of Present Illness: 46-year-old female multiple medical problems including obesity, COPD, obstructive sleep apnea, diabetes, coronary artery disease, severe hyperlipidemia and hypertriglyceridemia and psychiatric disorder schizoaffective disorder. She is here for suicidality and psychotic symptoms. She is not a very reliable informant. She tells me that she needs her Linzess to have bowel movements. She denies chest pain shortness of breath cough or sputum. She says her back is bothering her but that's chronic and she takes Motrin at home for it. No other complaints. Allergies/Medications Allergies: Coded Allergies: Penicillins (THROAT CLOSURE 11/02/15) ammonia (UNKNOWN 11/02/15) lindane (ALLERGIC TO KWELL SHAMPOO 11/02/15) lorazepam (THROAT CLOSURE 11/02/15) sodium hypochlorite solution (sodium hypochlorite) (ALLERGIC TO BLEACH (UNKNOWN REACTION) 11/02/15) Home Med List: Albuterol Sulfate (Proair Hfa) 8.5 GM HFA.AER.AD 1-2 PUFF INH 4 TIMES/DAY PRN WHEEZE (Reported) Aripiprazole (Abilify) 30 MG TABLET 1 TAB PO DAILY MENTAL HEALTH (Reported) Aspirin (Ecotrin*) 325 MG TABLET.DR 1 TAB PO DAILY HEART HEALTH (Reported) Buspirone HCl 10 MG TABLET 1 TAB PO BID MENTAL HEALTH (Reported) Carvedilol (Coreg) 3.125 MG TABLET 1 TAB PO BID HEART/BP (Reported) Cholecalciferol (Vitamin D3) (Vitamin D) 2,000 UNIT CAPSULE 1 CAP PO DAILY SUPPLEMENT (Reported) Clopidogrel Bisulfate (Plavix) 75 MG TABLET 1 TAB PO DAILY heart health ( Reported) Colesevelam Hydrochloride (Welchol) 625 MG TABLET 1,875 MG PO QPM CHOLESTEROL (Reported) Docusate Sodium (Colace) 100 MG CAPSULE 1 CAP PO BID bowel (Reported) Ferrous Sulfate 324 MG TABLET.DR 1 TAB PO BID SUPPLEMENT (Reported) Fluoxetine HCl 20 MG CAPSULE 1 CAP PO DAILY MENTAL HEALTH (Reported) Furosemide 40 MG TABLET 1 TAB PO DAILY DIURETIC (Reported) Ibuprofen 600 MG TABLET 1 TAB PO TID PRN PAIN with food Isosorbide Dinitrate 30 MG TABLET 1 TAB PO BID ANGINA (Reported) Levetiracetam (Keppra) 250 MG TABLET 500 MG PO BID SEIZURES (Reported) Levetiracetam (Keppra) 1,000 MG TABLET 1,000 MG PO BID SEIZURES (Reported) Levothyroxine Sodium 75 MCG TABLET 1 TAB PO DAILY AC THYROID (Reported) Lisinopril 2.5 MG TABLET 1 TAB PO DAILY heart (Reported) Metformin HCl 1,000 MG TABLET 1 TAB PO BID DIABETES (Reported) Nystatin (Nystop) 100,000 UNIT/GRAM POWDER 1 PILAR TOP BID PRN RASHES (Reported ) Sandy-3 Acid Ethyl Esters (Lovaza) 1 GM CAPSULE 2 CAP PO BID SUPPLEMENT ( Reported) Pravastatin Sodium 10 MG TABLET 1 TAB PO QPM CHOLESTEROL (Reported) Solifenacin Succinate (Vesicare) 5 MG TABLET 1 TAB PO QAM BLADDER HEALTH ( Reported) Topiramate (Topamax) 200 MG TABLET 1 TAB PO QPM MENTAL HEALTH (Reported) Current Medications: Current Medications Sig/Carla Start time Last Medication Dose Route Stop Time Status Admin Albuterol Sulfate 2 PUF 4 TIMES/DAY PRN 10/01 2030 AC INH Aripiprazole 30 MG DAILY 10/02 1000 AC PO Aspirin Buffered 325 MG DAILY 10/02 1000 AC PO Buspirone HCl 10 MG BID 10/01 2200 AC 10/01 PO 2250 Fish Oil 2,100 MG BID 10/01 2200 AC 10/01 PO 2252 Fluoxetine HCl 20 MG DAILY 10/02 1000 AC PO Levetiracetam 1,500 MG BID 10/01 2200 AC 10/01 PO 2252 Levetiracetam 500 MG BID 10/01 2200 CAN PO Levothyroxine Sodium 0.075 MG DAILY AC 10/02 0700 AC 10/02 PO 0655 Lisinopril 2.5 MG DAILY 10/02 1000 AC PO Metformin HCl 1,000 MG BID 10/01 2200 AC 10/01 PO 2251 Nicotine 14 MG DAILY 10/02 1000 AC TOP Nicotine 2 MG Q2P PRN 10/01 2130 AC PO Nystatin 1 PILAR BID PRN 10/01 2045 AC TOP Oxybutynin Chloride 5 MG QAM 10/02 1000 AC PO Pravastatin Sodium 10 MG QPM 10/01 2200 AC 10/01 PO 2253 Topiramate 200 MG QPM 10/01 220 AC 10/01 PO 2253 Review of Systems Review of Systems Constitutional: Denies: no symptoms, chills, diaphoresis, fever. Cardiovascular: Denies: no symptoms, chest pain, edema, orthopena. Respiratory: Denies: no symptoms, cough, hemoptysis, orthopnea. GI: Reports: no symptoms, bloating, constipation. Genitourinary: Denies: no symptoms, discharge, dysuria. 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 Home Who Do You Live With? self Services at Home: Home Health Aide (5 days a week), Nursing (7 days a week), a nurse administers her medications daily insuring compliance Primary Language: Persian Smoking Status: Current Everyday Smoker ETOH Use: denies use Illicit Drug Use: denies illicit drug use Other Social History: He lives in an apartment by herself. She is unemployed and on Social Security. Functional Ability ADLs Independent: dressing, eating, toileting, bathing. Ambulation: independent IADLs Independent: shopping, housework, finances, food prep, telephone, transportation , medication admin. Employment History Employment: Disability Exam & Diagnostic Data Last 24 Hrs of Vital Signs/I&O Vital Signs Date Time Temp Pulse Resp B/P Pulse O2 O2 Flow FiO2 Ox Delivery Rate 10/02 0953 97.9 62 145/79 10/02 0011 58 95 10/01 1929 98.1 73 147/83 10/01 1605 64 130/80 10/01 1412 64 130/80 Physical Exam General Appearance: well developed/nourished, no apparent distress, alert, awake Head: atraumatic, normal appearance Eyes: Bilateral: normal appearance, PERRL, EOMI. Ears, Nose, Throat: normal pharynx, normal ENT inspection Neck: normal inspection, supple Respiratory: decreased breath sounds Cardiovascular: regular rate/rhythm Gastrointestinal: normal bowel sounds, soft, non-tender, no organomegaly Neurologic/Psych: no motor/sensory deficits, awake, alert, oriented x 3, normal gait, structural rigger II-XII nml as tested Other Physical Findings: She has severe obesity, and appears to have some virilization of her facial features. Last 24 Hrs of Labs/Manuel: Laboratory Tests 10/01 1620 Chemistry Sodium (137 - 145 mmol/L) 142 Potassium (3.5 - 5.1 mmol/L) 4.0 Chloride (98 - 107 mmol/L) 106 Carbon Dioxide (22 - 30 mmol/L) 28 Anion Gap (5 - 16) 9 BUN (7 - 17 mg/dL) 22 H Creatinine (0.5 - 1.0 mg/dL) 1.1 H Estimated GFR (>60 ml/min) 54 L BUN/Creatinine Ratio (7 - 25 %) 20.0 Glucose (65 - 99 mg/dL) 97 Calcium (8.4 - 10.2 mg/dL) 9.7 TSH (0.270 - 4.200 uIU/mL) Pending Free T4 (0.64 - 1.79 ng/dL) Cancelled Pending Thyroxine (T4) (4.5 - 10.9 ug/dL) Pending Hematology CBC w Diff NO MAN DIFF REQ WBC (4.8 - 10.8 /CUMM) 6.7 RBC (4.20 - 5.40 /CUMM) 4.41 Hgb (12.0 - 16.0 G/DL) 13.0 Hct (37 - 47 %) 39.5 MCV (81.0 - 99.0 FL) 89.6 MCH (27.0 - 31.0 PG) 29.5 RDW (11.5 - 14.5 %) 16.4 H Plt Count (130 - 400 /CUMM) 217 MPV (7.4 - 10.4 FL) 8.7 Gran % (42.2 - 75.2 %) 62.8 Lymphocytes % (20.5 - 51.1 %) 29.1 Monocytes % (1.7 - 9.3 %) 4.6 Eosinophils % (0 - 5 %) 3.1 Basophils % (0.0 - 2.0 %) 0.4 Absolute Granulocytes (1.4 - 6.5 /CUMM) 4.2 Absolute Lymphocytes (1.2 - 3.4 /CUMM) 1.9 Absolute Monocytes (0.10 - 0.60 /CUMM) 0.3 Absolute Eosinophils (0.0 - 0.7 /CUMM) 0.2 Absolute Basophils (0.0 - 0.2 /CUMM) 0 PUBS MCHC (33.0 - 37.0 G/DL) 32.9 L Toxicology Urine Opiates Screen (>2000 NG/ML) < 100.00 Methadone Screen (>300 NG/ML) < 40 Barbiturate Screen (>200 NG/ML) < 60 Ur Phencyclidine Scrn (>25 NG/ML) < 6.00 Amphetamines Screen (>1000 NG/ML) < 100 U Benzodiazepines Scrn (>200 NG/ML) < 85 Urine Cocaine Screen (>300 NG/ML) < 50 Urine Cannabis Screen (>50 NG/ML) < 5.00 Laboratory Tests 10/01/16 2045: Free T4 Cancelled Assessment/Plan Assessment/Plan This is a 46-year-old she has quite a lot of chronic medical problems including diabetes, COPD and obstructive sleep apnea, active tobacco use, severe obesity with hypertriglyceridemia and coronary artery disease and she is on multiple medications. It's hard to get the most accurate list of her medications. I restarted her beta josefina with her nitrate and her HAMMAD inhibitor and her Lasix. She is on her metformin. She is on a statin ,aspirin and Plavix. The linzess is nonformulary as is the WelChol and I will have to talk to pharmacy for suitable alternatives. The labs are all essentially okay so I'm giving her a low dose NSAID for her back pain and will follow closely. Problem List: 1. COPD 2. Diabetes mellitus 3. History of - hypertension 4. Morbid obesity 5. Sleep apnea 6. Smoker Consult Acknowledgment - Thank you for your consult request.
[2016-10-02 12:44] VITALS: BP 148/84
--- NOTE | 2016-10-02 13:26 | NUR ---
PT HAS BEEN ABSENT FROM ALL GROUPS THIS MORNING. SPENDS MOST TIME IN BED. WHEN PT IS IN THE [place] SHE TALKS TO STAFF/ FIELD HAND. NOT ALWAYS COMPLIANT WHEN VITALS ARE NEEDED, OR FOOD ARRIVES. TAKES SOME ENCOURAGEMENT TO GET HER GOING AND PARTICIPATE WITH DAILY TASKS. PT HAS SOME DISORGANIZATION WITH SPEECH AND FOLLOWING THOUGHT PROCESS. PT DENIES SI AT THIS TIME.
[2016-10-02 16:27] VITALS: BP 141/78
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
[2016-10-02 19:50] VITALS: BP 142/81
--- NOTE | 2016-10-02 22:00 | NUR ---
PT IS VISIBLE ON UNIT, MOSTLY COLORING IN KITCHEN AND SOCIALIZING WITH PEERS. PLEASANT AND COOPERATIVE WITH STAFF. ATTENDED WRAP UP MEETING BUT WAS PASSIVE WHEN SHARING. NO COMPLAINTS OR SI REPORTED. PT HAS A STABLE MOOD AND CONSTRICTED AFFECT.
--- NOTE | 2016-10-03 05:52 | NUR ---
PATIENT SLEPT ALL NIGHT.
[2016-10-03 07:52] VITALS: BP 129/68
--- NOTE | 2016-10-03 11:03 | SOCIAL WORKER PROG NOTE PSYCH ---
Social Work Progress Note Progress Note Ayla presented nicely dressed, but somewhat odorous today. She was sitting in her room and not in group. She talked about being upset last night that her bracelet was too tight on her wrist and she ripped it off. She doesn't believe that she is a fall risk and doesn't feel she needs the bracelet. She got upset with one of the nursing staff about the incident. We talked about her schedule when she is home and what she does during the week. She seemed to indicate that she felt a little lonely. She is usually involved with Bingo at [facility] on Fridays, but stated she hadn't been going. She said she can also go to Bingo on Tuesdays there and that there is Bingo on Wednesdays at a [facility]olic. She really enjoys [employer]. She also has a relaxation group on Mondays at [facility] she can go to. she usually sees her nurse case manager and does some housework. I asked her if there was anything else she would like to be doing? She couldn't say. She shared with me that she is not thinking of hurting herself anymore. I asked if it was okay for me to schedule a phone conference with her Aunt? She said yes. She said that she was able to talk to her yesterday for a few minutes. I encouraged her to go to group today. She said that she has had enough groups over 14 years. Cloth Cutting Machine Operator Selina from [facility] came by today to visit Ayla. Insurance review done with [employer]. Authorized through 10/09/16.
--- NOTE | 2016-10-03 13:53 | NUR ---
PT IS ISOLATIVE AND REFUSING GROUPS.WHEN ASKED WHY SHE IS NOT ATTENDING GROUPS SHE STATED "I'VE BEEN GOING TO GROUPS FOR 15 YEARS AND I AM SICK OF THEM" PT DENIES ANY THOUGHTS OF SUICIDE OR SELF HARM AND SHE IS TAKING HER MEDS
[2016-10-03 15:56] VITALS: BP 132/67
--- NOTE | 2016-10-03 16:34 | CP SOUTH PROGRESS NOTE PSYCH ---
Psych (Inpt) Progress Note Progress Note Include the following elements, when applicable: Involvement in the active treatment of the patient with behavioral observations of the patient and the patient's response to the treatment. Review of the ongoing treatment process in the context of the treatment plan. Indication of how multi-disciplinary staff members are carrying out the treatment plan. Plans for future interventions and recommendations for revision of the treatment plan. Liaison with other physicians/providers. Progress Note: PSYCHIATRIST NOTE, 10/03/2016: I discussed this patient's progress thus far, current mental status, treatment and discharge planning with staff team today in the daily morning ITTM and met with her again myself in individual session. Patient reported feeling "much better" today, no longer depressed and denied any "voices" bothering her since we met together yesterday. She also asserted she had slept well last night and was enjoying visiting with patients and staff in the milieu today but feels she is "well enough to go home." I noted that the parkinsonian-like resting tremor of her left arm was significantly better today (just a day after starting on Cogentin, 0.5mg 2x/day) and spasmodic left leg movement is also much reduced; patient noticed this herself as well and appreciates the improvement. Current dose of Abilify of 30mg/night is as high as I would titrate that medication; I have left a low dose PRN of Seroquel for any recrudescence of auditory hallucinations; patient might in future be switched over from Abilify to Seroquel but the risks vs. benefits ratio of each must be evaluated. Patient is tolerating the 50% increase in Prozac well with no resurgence of hallucinosis /agitation and wishes to continue on the high dose (30mg/day).
[2016-10-03 19:34] VITALS: BP 135/77
--- NOTE | 2016-10-03 21:40 | NUR ---
PT IS VISIBLE ON UNIT, COLORING IN KITCHEN AND MOSTLY STAYING TO HERSELF. REFUSED WRAP UP MEETING THIS EVENING. NOT VERY SOCIAL BUT WILL INTERACT ON OCCASSION. NO COMPLAINTS OR SI REPORTED. PT HAS A STABLE MOOD AND FULL RANGE AFFECT.
--- NOTE | 2016-10-04 04:45 | NUR ---
SLEPT WELL OVERNIGHT, WITH CPAP IN USE. C/O ANXIETY X1 BECAUSE SHE MAY GO HOME TODAY..ENC TO GO BACK TO SLEEP AND SHE DID.
[2016-10-04 08:04] VITALS: BP 146/80
--- NOTE | 2016-10-04 10:50 | SOCIAL WORKER PROG NOTE PSYCH ---
Social Work Progress Note Progress Note Talked to Ana Velazquez at [facility] and got Ayla's follow up appt.'s. She will see her clinician Araceli Ellis on 10/10 at 10:00am and Janet Huitron APRN on 10/07 12:30pm. Called [facility] and let them know that Ayla will need to resume services this evening for med administration. Called and left a message with Makayla Aguila's conservator stating she was discharging today. Dr. Brown and I met with Ayla. Ayla was smiling and making jokes. Encouraged her to get out and go to [facility]. Reminded her of her appt. Friday with Janet Huitron APRN. Ayla called her friend Calli to come and pick her up.
--- NOTE | 2016-10-04 11:19 | NUR ---
PT IS SCHEDUL[place] [facility] [place] SHE REPORTS AND DEMONSTRATES IMPROVEMENT IN HER MOOD AND ABILITY TO FUNCTION. SHE DENIES ANY THOUGHTS OF SUICIDE OR SELF HARM. SHE DENIES AH. SHE IS LOOKING FORWARD TO GOING HOME. SHE HAS VISITING NURSES TO ASSIST WITH MED MANAGEMENT AND AGREES TO FOLLOW UP WITH CARE. 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
[2016-10-04] MEDS ORDERED: NICOTINE PATCH1 EAC2 TOP (12:02)
[2016-10-04] MEDS ORDERED: NICORELIEF2 MG PO (12:02)
[2016-10-04] MEDS ORDERED: BENZTROPINE ME0.5 M1 PO (12:02)
[2016-10-04] MEDS ORDERED: ABILIFY30 M1 PO (12:02)
[2016-10-04] MEDS ORDERED: FLUOXETINE HCL10 M2 PO ×2 (12:02→13:12)
[2016-10-04] MEDS ORDERED: ABILIFY15 M1 PO (12:02)
[2016-10-04 12:24] VITALS: BP 134/68
[2016-10-04] MEDS ORDERED: KEPPRA500 M1 PO (13:50)
--- NOTE | 2016-10-04 15:59 | CP SOUTH PROGRESS NOTE PSYCH ---
Psych (Inpt) Progress Note Progress Note Include the following elements, when applicable: Involvement in the active treatment of the patient with behavioral observations of the patient and the patient's response to the treatment. Review of the ongoing treatment process in the context of the treatment plan. Indication of how multi-disciplinary staff members are carrying out the treatment plan. Plans for future interventions and recommendations for revision of the treatment plan. Liaison with other physicians/providers. Progress Note: PSYCHIATRIST NOTE (DISCHARGE), 10/04/2016: I discussed this patient's rapid progress to date, current mental status, treatment and discharge planning with staff team today in the daily morning ITTM and also met with her again along with Elaine Kirkland LCSW, prior to discharging her to resume her nursing home ongoing outpatient treatment with [facility] in [facility], where she will see prescriber, Lana Aragon APRN, next on 10/07/2016 at 2:30pm and her therapist, Araceli Ellis LCSW, on 10/10/2016 at 10am and will continue having daily home visits from the visiting nurses of [facility], beginning on afternoon of discharge, 10/04/2016, as well as frequent contacts with her case advocate Selina (who visited patient here on [facility] yesterday). Patient was in good spirits, happy to be going home but clearly not hypomanic and without evidence of psychotic features, suicidal or homicidal ideation, plans, intent or impulses at this time. 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 Dose of Prozac was increased from 20mg to 30mg/day during this admission without evidence of hypomanic surging, overactivation, etc., but again, the risk/benefit ratio of increase in SSRI needs to be considered going forward. I have called into [facility] in [facility], on day of discharge for pick-up by the nurse from [facility] prior to initial home visit in the late afternoon: Prozac, 10mg; i daily in AM to be taken with 20mg Prozac tab (total of 30mg/day) ; #14, no refill; patient has a supply of 20mg Prozac at home (anti-depressant) Cogentin, 0.5mg: i 2x/day (1mg daily); #28 with no refill (reduce parkinsonian symptoms) patient has also been urged to utilize the nicotine patch or nicotine gum both available at her pharmacy without prescription (to aid with smoking cessation) and given an appointment card for the next [facility] on 10/09/2016 at 4pm, facilitated by Lana Castelan LCSW Patient is also taking: Abilify, 30mg/day (improve clarity of thinking) BuSpar, 10mg 2x/day (reduce anxiety) and: metformin, 1,000mg 2x/day (manage diabetes) levothyroxine, 75mcg/day (manage hypothyroism) lisinopril, 2.5mg/day (manage hypertension) carvedilol, 3.125mg 2x/day (manage hypertension) furosemide, 40mg/day (diuretic) clopidogrel bisulfate, 75mg/day (cardiovascular health) oxybutynin, 5mg/day (improve urinary flow) aspirin (enteric coated), 325mg/day (heart health) pravastatin, 10mg/night (manage lipids) fish oil, 2,100mg 2x/day (heart health) levetiracetam (Keppra), 1,500mg 2x/day (seizure control) Albuterol sulfate, 2 puffs 4x/day (improve breathing) isosorbide monitrate, 30mg/day (heart health) docusate sodium, 100mg 2x/day (improve constipation)
--- NOTE | 2016-10-04 16:00 | DISCHARGE SUMMARY REPORT-PSYCH ---
Visit Information Visit Dates/Diagnosis' Admission Date: 10/01/16 Discharge Date: 10/04/16 Reason for Admission: "I'm the crazy person in [place]...I wanna ...I'm a waste of space." Psy Discharge Primary Diag: schizoaffective Disorder with psychotic features ( including auditory type hallucinations) Hospital Course Significant Lab Findings: glucose = 115; BUN = 20, creatinine = 1.1, GFR = 54; ALT = 62; WBC = 6.7; urine for drugs of abuse--negative (for further details of all normal range laboratory data from this admission, see the electronic medical record) Course Complications: none Consultations: patient was seen for an admission medical H&P by Ivone Rick M.D., and followed medically throughout this admission by the hospitalist staff/[facility] medical attending physicians Allergies: Coded Allergies: Penicillins (THROAT CLOSURE 11/02/15) ammonia (UNKNOWN 11/02/15) lindane (ALLERGIC TO KWELL SHAMPOO 11/02/15) lorazepam (THROAT CLOSURE 11/02/15) sodium hypochlorite solution (sodium hypochlorite) (ALLERGIC TO BLEACH (UNKNOWN REACTION) 11/02/15) Hospital Course/TX Response: (see also detailed daily M.D., RN DIABETES and FILM MAKER progress notes in the electronic medical record) Patient appeared to be experiencing a depressive shift in mood despite recent onset of auditory hallucinations (which may be depressive in origin). We made a slight increase in SSRI dose, contacting patient's conservator to discuss this proposed change. We maintained current dose of anti-psychotic medication. Patient's mental status rapidly improved; she became less labile, less depressed and was able to joke more (telling jokes being one of her usual most pleasurable pastimes). Elaine Kirkland, FILM MAKER, and I made together with patient prior to discharging her to resume her ongoing longtime outpatient treatment with [facility]. At that time, patient was in good spirits, happy to be going home but clearly not hypomanic and without evidence of destin psychotic features, suicidal or homicidal ideation, plans, intent or impulses and was well aware of her safety plan should she in future come to believe herself at risk to harm herself or others. Patient had a prominent parkinsonian tremor of left arm upon presentation; low dose Cogentin was started and within 24 hours there was clear improvement in tremor; the value, risks vs. benefits of continuing the Cogentin going forward will have to be assessed over time. Discharge HBIPS - Tobacco Use Treatment Offered Post DC Medications Offered: Script Given-See Med List Post DC Tobacco Treatment Plan: [facility] Appt Date: 10/09/16 - EtOH/Drug Use D/O Treatment Offered Post DC Medications Offered: NA-No EtOH/Drug Use D/O Post DC EtOH/SubAbuse TX Plan: NA-No EtOH/Drug Use D/O Metabolic Screening - Screen if on a Neuroleptic Medication - Metabolic screening should include: - Blood Pressure, BMI, Glucose or Hgb A1c, & a - Lipid profile from within the past 365 days. Metabolic Screening () Not Applicable, patient not on a neuroleptic. OR ([X]) Patient on a neuroleptic(s) . Enter below results for Glucose or Hemoglobin A1C, and lipid panel if obtained during the last 365 days. BMI: 58.200 Blood Pressure: 134/68 Laboratory Results (If applicable): glucose = 115 (on 09/28/2016) glycos hgb A1c = 6.1 (on 09/30/2016) cholesterol = 203 (all drawn 09/30/2016) triglycerides = 460 HDL = 29 LDL = 92 (direct LDL = 124.06) Discharge Instructions General Discharge Information Discharge Medications: Discharge Medications (dose, route, frequency, indications): I have called into [facility] in [place], [place] on day of discharge for pick-up by the nurse from [facility] prior to initial home visit in the late afternoon: Prozac, 10mg; i daily in AM to be taken with 20mg Prozac tab (total of 30mg/day) ; #14, no refill; patient has a supply of 20mg Prozac at home (anti-depressant) Cogentin, 0.5mg: i 2x/day (1mg daily); #28 with no refill (reduce parkinsonian symptoms) patient has also been urged to utilize the nicotine patch or nicotine gum both available at her pharmacy without prescription (to aid with smoking cessation) and given an appointment card for the next [facility] on 10/09/2016 at 4pm, facilitated by Lana Castelan LCSW Patient is also taking: Abilify, 30mg/day (improve clarity of thinking) BuSpar, 10mg 2x/day (reduce anxiety) and: metformin, 1,000mg 2x/day (manage diabetes) levothyroxine, 75mcg/day (manage hypothyroism) lisinopril, 2.5mg/day (manage hypertension) carvedilol, 3.125mg 2x/day (manage hypertension) furosemide, 40mg/day (diuretic) clopidogrel bisulfate, 75mg/day (cardiovascular health) oxybutynin, 5mg/day (improve urinary flow) aspirin (enteric coated), 325mg/day (heart health) pravastatin, 10mg/night (manage lipids) fish oil, 2,100mg 2x/day (heart health) levetiracetam (Keppra), 1,500mg 2x/day (seizure control) Albuterol sulfate, 2 puffs 4x/day (improve breathing) isosorbide monitrate, 30mg/day (heart health) docusate sodium, 100mg 2x/day (improve constipation) Multiple Neuroleptics: ([X]) Not Applicable OR Document below three failed attempts at monotherapy, or a plan to taper to monotherapy, or augmentation of Clozapine. () Patient's Diet: consistent carbohydrates #3 Patient's Activity: without restrictions DC Disposition: to home Recommendations: I would advise close monitoring of patient's mental status on currently increased dose of Prozac, particularly for any re-emergence of auditory hallucinations. I would also recommend ongoing evaluation of the benefits of current Cogentin trial going forward; while addition of Cogentin to the medication regimen was associated with marked improvement/diminution in left arm tremor the potential side effects and alf risks of Cogentin should also be considered. Referred To: Patient was referred to resume her ongoing longstanding outpatient treatment with [facility] in [place], [place] where she will meet with her prescriber, Lana Huitron APRN, next on 10/07/2016 at 2:30pm and her clinician Araceli Ellis LCSW, on 10/10/2016 at 10am and will continue to have frequent contact with her rn case manager, Selina, who visited her during this admission as well. Patient will continue to have daily home visits from the nurses of [facility] , beginning on the afternoon of discharge. She was also given an appointment card for the [facility] scheduled to meet next on 10/09/2016 at 4pm, which is facilitated by Lana Castelan LCSW. Copies To: KARIN BYRD APRN
== END 2016-10-04 15:49 | DRG 885 ==
LOC: ERH 12:21 → CP SOUTH 10-01 10:18 → ERHI 10-01 10:18 → ENTRNSPT 10-01 13:36 → EDTRNSPTSTS 10-01 14:01 → EDTRNSPT 10-01 14:01 → CP SOUTH 10-01 14:14 → CMPTRNSPT 10-01 14:36 → CP SOUTH 10-03 11:20
PROVIDERS: Emergency Medicine; ADMIT Psychiatry & Neurology Addiction Medicine
DX: F25.8 Other schizoaffective disorders (principal)
CPT/HCPCS: 80307; G0463; J1953; J3490

== ENCOUNTER 2016-12-17 12:03 | Emergency (ER) | payer OTHER ==
[~2016-12-17] VITALS: Ht 167.6 cm; Wt 113.4 kg
[~2016-12-17 12:03] MED LIST changes: +ABILIFY15 M1 PO; +BENZTROPINE ME0.5 M1 PO; +COLACE100 M1 PO; +FLUOXETINE HCL10 M2 PO; +KEPPRA500 M1 PO; +NICORELIEF2 MG PO; +NICOTINE PATCH1 EAC2 TOP; +SEROQUEL50 M1 PO
--- NOTE | 2016-12-17 12:31 | ED NECK/BACK PAIN COMPLAINT ---
History of Present Illness General Chief Complaint: General Adult Stated Complaint: LEG PAIN Source: patient Exam Limitations: no limitations Vital Signs & Intake/Output Vital Signs & Intake/Output Vital Signs Date Time Temp Pulse Resp B/P B/P Pulse O2 O2 Flow FiO2 Mean Ox Delivery Rate 12/17 1423 97.3 61 20 107/62 98 Room Air 12/17 1216 98.4 74 18 150/76 100 Room Air Allergies Coded Allergies: Penicillins (THROAT CLOSURE 11/02/15) ammonia (UNKNOWN 11/02/15) lindane (ALLERGIC TO KWELL SHAMPOO 11/02/15) lorazepam (THROAT CLOSURE 11/02/15) sodium hypochlorite solution (sodium hypochlorite) (ALLERGIC TO BLEACH (UNKNOWN REACTION) 11/02/15) Reconcile Medications Albuterol Sulfate (Proair Hfa) 8.5 GM HFA.AER.AD 1-2 PUFF INH 4 TIMES/DAY PRN WHEEZE (Reported) Aripiprazole (Abilify) 15 MG TABLET 30 MG PO DAILY reduce/control hallucinations Aspirin (Ecotrin*) 325 MG TABLET.DR 1 TAB PO DAILY HEART HEALTH (Reported) Benztropine Mesylate 0.5 MG TABLET 0.5 MG PO 0800,2200 parkinsonian symptoms Buspirone HCl 10 MG TABLET 1 TAB PO BID MENTAL HEALTH (Reported) Carvedilol (Coreg) 3.125 MG TABLET 1 TAB PO BID HEART/BP (Reported) Cholecalciferol (Vitamin D3) (Vitamin D) 2,000 UNIT CAPSULE 1 CAP PO DAILY SUPPLEMENT (Reported) Clopidogrel Bisulfate (Plavix) 75 MG TABLET 1 TAB PO DAILY heart health ( Reported) Colesevelam Hydrochloride (Welchol) 625 MG TABLET 1,875 MG PO QPM CHOLESTEROL (Reported) Docusate Sodium (Colace) 100 MG CAPSULE 1 CAP PO BID bowel (Reported) Ferrous Sulfate 324 MG TABLET.DR 1 TAB PO BID SUPPLEMENT (Reported) Fluoxetine HCl 10 MG CAPSULE 10 MG PO DAILY anti-depressant Fluoxetine HCl 10 MG CAPSULE 30 MG PO DAILY anti-depressant Furosemide 40 MG TABLET 1 TAB PO DAILY DIURETIC (Reported) Isosorbide Dinitrate 30 MG TABLET 1 TAB PO BID ANGINA (Reported) Levetiracetam (Keppra) 500 MG TABLET 1,500 MG PO BID seizure control Levothyroxine Sodium 75 MCG TABLET 1 TAB PO DAILY AC THYROID (Reported) Lisinopril 2.5 MG TABLET 1 TAB PO DAILY heart (Reported) Metformin HCl 1,000 MG TABLET 1 TAB PO BID DIABETES (Reported) Methylprednisolone. (Medrol) 4 MG TAB.DS.PK 1 DP PO AD BACK PAIN 6 on day 1 then reduce by one tablet daily until gone Nicotine (Nicotine Patch) 14 MG/24 HOUR PATCH.TD24 14 MG TOP DAILY smoking cessation Nicotine (Nicorelief) 2 MG GUM 2 MG PO Q2P PRN SMOKING CESSATION Nystatin (Nystop) 100,000 UNIT/GRAM POWDER 1 PILAR TOP BID PRN RASHES (Reported ) [place]-3 Acid Ethyl Esters (Lovaza) 1 GM CAPSULE 2 CAP PO BID SUPPLEMENT ( Reported) Oxycodone HCl/Acetaminophen (Percocet 5-325 MG Tablet) 5 MG-325 MG TABLET 1 TAB PO BID pain Pravastatin Sodium 10 MG TABLET 1 TAB PO QPM CHOLESTEROL (Reported) Solifenacin Succinate (Vesicare) 5 MG TABLET 1 TAB PO QAM BLADDER HEALTH ( Reported) Topiramate (Topamax) 200 MG TABLET 1 TAB PO QPM MENTAL HEALTH (Reported) Triage Note: SNOWA FROM [facility], C/O BILATERAL HIP, LEG AND LEFT ELBOW PAIN X 4 DAYS. DENIES RECENT FALL OR INJURY, SMALL BRUISE NOTED N LEFT UPPER ARM, R CHEST. Triage Nurses Notes Reviewed? yes Onset: Abrupt Duration: day(s):, constant, continues in ED Timing: recent history Location: lumbar spine Radiation: none Loss of Consciousness: no loss of consciousness : No Patient currently breastfeeds: No HPI: 46-year-old female comes into emergency room with complaints of low back pain that radiates down both legs. History of back pain with chronic back issues. Pain is sharp. Continuous. Patient denies any chest pain shortness of breath abdominal pain. Denies any fever or chills or recent falls or trauma. Denies any other associated symptoms. (FERMIN SAENZ) Past History Travel History Traveled to [place] past 21 day No Medical History Any Pertinent Medical History? see below for history Neurological: restless leg syndrome, seizure EENT: hearing loss Cardiovascular: CAD, CHF, hypertension, hyperlipidemia Respiratory: asthma, COPD, obstructive sleep apnea Gastrointestinal: constipation, GERD Hepatic: NONE Renal: NONE Musculoskeletal: SCOLIOSIS Psychiatric: anxiety, depression, schizo affective disorder Endocrine: diabetes, hypothyroidism, obesity Blood Disorders: anemia Cancer(s): endometrial cancer FERN CUTTER/Reproductive: NONE History of MRSA: No History of VRE: No History of CDIFF: No Surgical History Surgical History: cholecystectomy, hysterectomy, TONSILLECTOMY, MYRINGOTOMY TUBES Spinal fusion Adan rods age 17 Psychosocial History Who do you live with Patient/Self Services at Home Home Health Aide (5 days a week), Nursing (7 days a week), a nurse administers her medications daily insuring compliance What is your primary language Spanish Tobacco Use: Never used ETOH Use: denies use Family History Family History, If Any: MOTHER FH: cirrhosis Hepatitis C Relation not specified for: *No pertinent family history Hx Contributory? No (FERMIN SAENZ) Review of Systems Review of Systems Constitutional: Reports: no symptoms. Eyes: Reports: no symptoms. Ears, Nose, Throat, Mouth: Reports: no symptoms. Respiratory: Reports: no symptoms. Cardiovascular: Reports: no symptoms. Gastrointestinal/Abdominal: Reports: no symptoms. Musculoskeletal: Reports: see HPI. Skin: Reports: no symptoms. Neurological/Psychological: Reports: no symptoms. All Other Systems: Reviewed and Negative (FERMIN SAENZ) Physical Exam Physical Exam General Appearance: well developed/nourished, mild distress Head: atraumatic Eyes: Bilateral: normal appearance. Ears, Nose, Throat, Mouth: hearing grossly normal, moist mucous membrane Neck: normal inspection Respiratory: no respiratory distress Cardiovascular: regular rate/rhythm Back: normal inspection, pARASPINAL TENDERNESS Extremities: normal range of motion Motor: Deficit L4 Right: No Deficit L4 Left: No Deficit L5 Right: No Deficit L5 Left: No Deficit S1 Right: No Deficit S1 Right: No Neurologic/Psych: no motor/sensory deficits, awake, alert, oriented x 3, normal mood/affect, ABLE TO AMBULATE WITH NO DIFFICULTY Skin: intact, normal color, warm/dry (FERMIN SAENZ) Progress Differential Diagnosis: aortic dissection, carotid dissection, cauda equina syn, herniated disc, myofascial strain, pyelo/UTI, sciatica, spinal cord inj, thoracic outlet syn, T/L spine injury, ureterolithiasis Plan of Care: Orders Procedure Date/time Status XRY-LUMBOSACRAL SPINE 4 VIEWS 12/17 1232 Active Current Medications Sig/Carla Start time Last Medication Dose Stop Time Status Admin Oxycodone/ 2 TAB ONCE ONE 12/17 1245 UNVr Acetaminophen 12/17 1246 (Percocet) Diagnostic Imaging: Viewed by Me: Radiology Read. Discussed w/RAD: Radiology Read. Radiology Impression: SERVICE DATE: 12/17/16 EXAM TYPE: RAD - XRY- LUMBOSACRAL SPINE 4 VIEWS EXAMINATION: XR LUMBOSACRAL SPINE CLINICAL INFORMATION : Lower back pain. COMPARISON: 09/15/2016 TECHNIQUE: 4 views of the lumbosacral spine FINDINGS: There is posterior karey fixation hardware extending from the thoracic spine and terminating at the level of L3 posterior elements. The visualized portion of the hardware appears intact. There is no evidence of acute fracture or subluxation. Vertebral body height and alignment is maintained. There is disc space narrowing at L5-S1. Endplate osteophyte formation is seen at L3-L4, L4-L5, and L5-S1. The sacroiliac joints are intact. The sacrum is intact. IMPRESSION: Visualized spinal hardware appears intact. Mild degenerative changes at the lower lumbar spine. DICTATED BY: SHIV LARSON,DELPHINE DATE/TIME DICTATED :12/17/161306 CONSULTING UTILITY FORESTER:DAVID (FERMIN SAENZ) Departure Departure Disposition: HOME OR SELF CARE Condition: Stable Clinical Impression Primary Impression: Acute exacerbation of chronic low back pain Referrals: FUDA MYERS APRN (PCP/Family) Additional Instructions: Take Percocet and Medrol Dosepak as prescribed. Follow-up with primary care doctor. Return if any concerns worsening symptoms. Please go over all results of today's visit with your primary care doctor. Contact your primary care doctor to let them know you were here in the emergency room. There may be nonspecific findings which may not be related to your visit today here in the emergency room but may require further evaluation and chronic monitoring by your primary care doctor. If you had a laceration today the chance of foreign body always remains. You should follow-up with your primary care doctor for recheck in 3-5 days for a wound check. If you had an x-ray done there is a chance that a fracture could have been missed on initial read and you should follow-up with your primary care doctor for repeat x-rays if symptoms persist. If your blood pressure was elevated here in the emergency room please have rechecked by her primary care doctor within the next 48 hours by your primary care doctor. If you were prescribed a narcotic here in the emergency room or any type of controlled substances you're not allowed to drive while taking this medication or operate any type of heavy machinery. Narcotics can make you feel lightheaded dizziness nausea and can cause constipation. You may need to pick up attendant a stool softener. Thank you for choosing [facility] emergency room. Please return to the emergency room immediately if you have any other concerns worsening of symptoms. Departure Forms: Customer Survey General Discharge Information Prescriptions: Current Visit Scripts Methylprednisolone. (Medrol) 1 DP PO AD #1 DP 6 on day 1 then reduce by one tablet daily until gone Oxycodone HCl/Acetaminophen (Percocet 5-325 MG Tablet) 1 TAB PO BID #10 TAB Comments 12/17/2016 2:47:34 PM Patient clinically looks well. In no apparent distress. Nontoxic appearing. Resting comfortably in room. Follow-up with primary care doctor. Return if any concerns worsening symptoms. Understands and agrees with plan of care. (FERMIN SAENZ) PA/RESEARCH ADMINISTRATOR Co-Sign Statement Statement: ED Attending supervision documentation- [] I saw and evaluated the patient. I have also reviewed all the pertinent lab results and diagnostic results. I agree with the findings and the plan of care as documented in the PA's/RESEARCH ADMINISTRATOR's documentation. [X] I have reviewed the ED Record and agree with the PA's/RESEARCH ADMINISTRATOR's documentation. [] Additions or exceptions (if any) to the PAs/RESEARCH ADMINISTRATOR's note and plan are summarized below: [] (ARIANNA LARSON,SE)
--- NOTE | 2016-12-17 13:15 | RADIOLOGY REPORT ---
EXAMINATION: XR LUMBOSACRAL SPINE CLINICAL INFORMATION: Lower back pain. COMPARISON: 09/15/2016 TECHNIQUE: 4 views of the lumbosacral spine FINDINGS: There is posterior karey fixation hardware extending from the thoracic spine and terminating at the level of L3 posterior elements. The visualized portion of the hardware appears intact. There is no evidence of acute fracture or subluxation. Vertebral body height and alignment is maintained. There is disc space narrowing at L5-S1. Endplate osteophyte formation is seen at L3-L4, L4-L5, and L5-S1. The sacroiliac joints are intact. The sacrum is intact. IMPRESSION: Visualized spinal hardware appears intact. Mild degenerative changes at the lower lumbar spine.
[2016-12-17 14:23] VITALS: BP 107/62
[2016-12-17] MEDS ORDERED: MEDROL4 M2 PO (14:41)
[2016-12-17] MEDS ORDERED: PERCOCET 5-3251 EACH PO (14:41)
== END 2016-12-17 15:00 ==
LOC: ERH 12:03
DX: M54.5 Low back pain (principal)
CPT/HCPCS: 72110

== ENCOUNTER 2017-08-20 14:17 | Inpatient (IN) | payer OTHER ==
[~2017-08-20] VITALS: Ht 162.6 cm; Wt 124.5 kg
[~2017-08-20 14:17] MED LIST changes: +ATORVASTATIN CA40 M1 PO; -BUSPIRONE HCL10 M1 PO; +BUSPIRONE HCL15 M1 PO; +GEMFIBROZIL600 M1 PO; +HYDROXYZINE HCL50 M1 PO; +LEVOCETIRIZINE D5 M1 PO; +MEDROL4 M2 PO; +NAPROXEN500 M2 PO; +PERMETHRIN60 GM TOP; +POLYETHYLENE G255 GM PO
[2017-08-20 14:40] LABS: ABSOLUTE BASOPHIL COUNT 0 /CUMM (0.0-0.2); ABSOLUTE EOSINOPHIL COUNT 0.3 /CUMM (0.0-0.7); ABSOLUTE GRANULOCYTE CT 4.6 /CUMM (1.4-6.5); ABSOLUTE LYMPH COUNT 2.3 /CUMM (1.2-3.4); ABSOLUTE MONOCYTE COUNT 0.4 /CUMM (0.10-0.60); BASOPHIL % 0.6 % (0.0-2.0); EOSINOPHIL % 3.9 % (0-5); GRANULOCYTE % 59.6 % (42.2-75.2); HEMATOCRIT 33.4 % (37-47); MEAN CORPUSCULAR HGB 29.1 PG (27.0-31.0); MEAN CORPUSCULAR HGB CONC 33.1 G/DL (33.0-37.0); MEAN CORPUSCULAR VOLUME 87.9 FL (81.0-99.0); MEAN PLATELET VOLUME 8.7 FL (7.4-10.4); PLATELET COUNT 270 /CUMM (130-400); RBC DISTRIBUTION WIDTH 16.7 % (11.5-14.5); WHITE BLOOD CELL COUNT 7.7 /CUMM (4.8-10.8)
--- NOTE | 2017-08-20 15:01 | ED PSYCHIATRIC COMPLAINT ---
See Addendum History of Present Illness General Chief Complaint: Psychiatric Related Complaint Stated Complaint: + SI Source: patient, old records Exam Limitations: no limitations Vital Signs & Intake/Output Vital Signs & Intake/Output Vital Signs Date Time Temp Pulse Resp B/P B/P Pulse O2 O2 Flow FiO2 Mean Ox Delivery Rate 08/20 1653 Room Air 08/20 1423 99.0 77 20 123/75 98 Room Air Allergies Coded Allergies: santoro (Intermediate, RASH 03/31/17) Penicillins (THROAT CLOSURE 03/31/17) ammonia (UNKNOWN 03/31/17) lindane (ALLERGIC TO KWELL SHAMPOO 03/31/17) lorazepam (THROAT CLOSURE 03/31/17) sodium hypochlorite solution (sodium hypochlorite) (ALLERGIC TO BLEACH (UNKNOWN REACTION) 03/31/17) Reconcile Medications Albuterol Sulfate (Proair Hfa) 8.5 GM HFA.AER.AD 1-2 PUFF INH 4 TIMES/DAY PRN WHEEZE (Reported) Aripiprazole (Abilify) 15 MG TABLET 30 MG PO DAILY reduce/control hallucinations Aspirin (Ecotrin*) 325 MG TABLET.DR 1 TAB PO DAILY HEART HEALTH (Reported) Atorvastatin Calcium 40 MG TABLET 1 TAB PO DAILY CHOLESTEROL (Reported) Benztropine Mesylate 0.5 MG TABLET 0.5 MG PO 0800,2200 parkinsonian symptoms Buspirone HCl 15 MG TABLET 1 TAB PO BID MENTAL HEALTH (Reported) Carvedilol (Coreg) 3.125 MG TABLET 1 TAB PO BID HEART/BP (Reported) Cholecalciferol (Vitamin D3) (Vitamin D) 2,000 UNIT CAPSULE 1 CAP PO DAILY SUPPLEMENT (Reported) Clopidogrel Bisulfate (Plavix) 75 MG TABLET 1 TAB PO DAILY heart health ( Reported) Colesevelam Hydrochloride (Welchol) 625 MG TABLET 1,875 MG PO QPM CHOLESTEROL (Reported) Docusate Sodium (Colace) 100 MG CAPSULE 1 CAP PO BID bowel (Reported) Ferrous Sulfate 324 MG TABLET.DR 1 TAB PO BID SUPPLEMENT (Reported) Fluoxetine HCl 10 MG CAPSULE 10 MG PO DAILY anti-depressant Fluoxetine HCl 10 MG CAPSULE 30 MG PO DAILY anti-depressant Furosemide 40 MG TABLET 1 TAB PO DAILY DIURETIC (Reported) Gemfibrozil 600 MG TABLET 1 TAB PO BID CHOLESTEROL (Reported) Hydroxyzine Hydrochloride (Atarax) 50 MG TAB 1 TAB PO TID ITCHING Ibuprofen 600 MG TABLET 1 TAB PO TID PRN HEADACHE with food Isosorbide Dinitrate 30 MG TABLET 1 TAB PO BID ANGINA (Reported) Levetiracetam (Keppra) 500 MG TABLET 1,500 MG PO BID seizure control Levocetirizine Dihydrochloride 5 MG TABLET 1 TAB PO DAILY ALLERGIES (Reported ) Levothyroxine Sodium 75 MCG TABLET 1 TAB PO DAILY AC THYROID (Reported) Lisinopril 2.5 MG TABLET 1 TAB PO DAILY heart (Reported) Metformin HCl 1,000 MG TABLET 1 TAB PO BID DIABETES (Reported) Methylprednisolone. (Medrol) 4 MG TAB.DS.PK 1 DP PO AD BACK PAIN 6 on day 1 then reduce by one tablet daily until gone Naproxen 500 MG TABLET 1 TAB PO BID PAIN Nicotine (Nicotine Patch) 14 MG/24 HOUR PATCH.TD24 14 MG TOP DAILY smoking cessation Nicotine (Nicorelief) 2 MG GUM 2 MG PO Q2P PRN SMOKING CESSATION Nystatin (Nystop) 100,000 UNIT/GRAM POWDER 1 PILAR TOP BID PRN RASHES (Reported ) [place]-3 Acid Ethyl Esters (Lovaza) 1 GM CAPSULE 2 CAP PO BID SUPPLEMENT ( Reported) Oxycodone HCl/Acetaminophen (Percocet 5-325 MG Tablet) 5 MG-325 MG TABLET 1 TAB PO BID pain Permethrin 5 % CREAM..G. 1 PILAR TOP ONCE RASH massage into skin from head to soles of feet one time, leave on for 8-14 hours then remove by thorough washing Polyethylene Glycol 3350 17 GRAM/DOSE POWDER 17 GM PO DAILY GI (Reported) Pravastatin Sodium 10 MG TABLET 1 TAB PO QPM CHOLESTEROL (Reported) Solifenacin Succinate (Vesicare) 5 MG TABLET 1 TAB PO QAM BLADDER HEALTH ( Reported) Topiramate (Topamax) 200 MG TABLET 1 TAB PO QPM MENTAL HEALTH (Reported) Triage Note: PT BIBA TO ED FROM CARE FOR +SI. "I JUST WANT TO ". 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 H/O SI ATTEMPTS IN THE PAST PER PT. DENIES HI. DENIES ETOH OR DRUG USE. PT VOLUNTARILY HERE. CALM/COOPERATIVE/FLAT AFFECT. Triage Nurses Notes Reviewed? yes Onset: Abrupt Duration: day(s): (2), constant, continues in ED Timing: single episode today Severity: moderate, severe Severity Numbers: 8 Associated Symptoms: suicidal ideation LMP (ages 10-50): unknown : No Patient currently breastfeeds: No HPI: 47-year-old female past medical history of anxiety, depression, coronary artery disease, hypertension presents for evaluation of suicidal ideation. Patient states that over the past 1-2 days she's been having suicidal thoughts. She states that she's had these multiple times in the past. She states that she hears voices in her head telling her to find the glass to cut herself with. She states she denies actually act on these thoughts. She denies any drug or alcohol use. She denies any chest pain shortness of breath nausea vomiting diarrhea. No visual hallucinations. Patient HAS BEEN HERE multiple times with similar symptoms. (Harry Payton) Past History Travel History Traveled to [place] past 21 day No Medical History Any Pertinent Medical History? see below for history Neurological: restless leg syndrome, seizure EENT: hearing loss Cardiovascular: CAD, CHF, hypertension, hyperlipidemia Respiratory: asthma, COPD, obstructive sleep apnea Gastrointestinal: constipation, GERD Hepatic: NONE Renal: NONE Musculoskeletal: SCOLIOSIS Psychiatric: anxiety, depression, schizo affective disorder Endocrine: diabetes, hypothyroidism, obesity Blood Disorders: anemia Cancer(s): endometrial cancer BOX OFFICE AGENT/Reproductive: NONE History of MRSA: No History of VRE: No History of CDIFF: No Surgical History Surgical History: cholecystectomy, hysterectomy Psychosocial History Who do you live with Patient/Self Services at Home Home Health Aide (5 days a week), Nursing (7 days a week), a nurse administers her medications daily insuring compliance What is your primary language Afghan Tobacco Use: Current Daily Use Daily Tobacco Use Amount/Type: => 5 Cigarettes daily ETOH Use: denies use Illicit Drug Use: denies illicit drug use Family History Family History, If Any: MOTHER FH: cirrhosis Hepatitis C Relation not specified for: *No pertinent family history Hx Contributory? No (Harry Payton) Review of Systems Review of Systems Constitutional: Reports: no symptoms. EENTM: Reports: no symptoms. Respiratory: Reports: no symptoms. Cardiovascular: Reports: no symptoms. GI: Reports: no symptoms. Genitourinary: Reports: no symptoms. Musculoskeletal: Reports: no symptoms. Skin: Reports: no symptoms. Neurological/Psychological: Reports: see HPI (AUDITORY HALLUCINATIONS), depressed, emotional problems. Hematologic/Endocrine: Reports: no symptoms. Immunologic/Allergic: Reports: no symptoms. All Other Systems: Reviewed and Negative (Harry Payton) Physical Exam Physical Exam General Appearance: well developed/nourished, no apparent distress, alert, awake , anxious, obese Head: atraumatic, normal appearance Eyes: Bilateral: normal appearance, PERRL, EOMI. Ears, Nose, Throat: normal pharynx, normal ENT inspection, hearing grossly normal Neck: normal inspection, supple, full range of motion Respiratory: normal breath sounds, chest non-tender, no respiratory distress, lungs clear Cardiovascular: regular rate/rhythm, normal peripheral pulses Gastrointestinal: normal bowel sounds, soft, non-tender, no organomegaly Extremities: normal range of motion Neurological/Psychiatric: no motor/sensory deficits, awake, alert, normal mood/ affect, calm Appearance/Memory/Insight: appropriate appearance Behavoir/Eye Contact/Speech: cooperative, normal speech, good eye contact Thoughts/Hallucinations: auditory hallucinations Skin: intact, normal color, warm/dry Cleared? (statement below) Yes SAD PERSONS SAD PERSONS Response Value Age <19 or >45 years? yes 1 Depression/Hopelessness? yes 2 Previous Attempts/Psych Care yes 1 Rational Thinking Loss? yes 2 Single//? yes 1 Organized/Serious Attempt yes 2 Social Support? has no support 1 Stated Future Intent? yes 2 Total 12 SAD PERSONS Done? yes (Harry Payton) Progress Differential Diagnosis: dementia, drug intoxication, drug overdose, drug withdrawal, electrolyte abnormality Plan of Care: Orders Procedure Date/time Status Regular Diet 08/21 B Active Admit to inpatient psych 08/20 2012 Active Lab Misc 08/20 2002 Active Add-on Test (ER Only) 08/20 2000 Active URINALYSIS 08/20 1459 Complete Continuous Observation Monitor 08/20 1433 Active URINE DRUG SCREEN FOR ER ONLY 08/20 1433 Complete TSH REFLEX 08/20 1433 Active ED CRISIS PSYCH CONSULT 08/20 1433 Active ETHANOL 08/20 1432 Active COMPREHENSIVE METABOLIC PANEL 08/20 1432 Active CBC WITHOUT DIFFERENTIAL 08/20 1432 Complete Laboratory Tests 08/20/17 1811: Urine Opiates Screen < 100.00, Methadone Screen < 40, Barbiturate Screen < 60, Ur Phencyclidine Scrn < 6.00, Amphetamines Screen < 100, U Benzodiazepines Scrn < 85, Urine Cocaine Screen < 50, Urine Cannabis Screen < 5.00, Urine Color YEL, Urine Clarity CLEAR, Urine pH 6.0, Ur Specific [place] 1.020, Urine Protein NEG, Urine Ketones NEG, Urine Nitrite NEG, Urine Bilirubin NEG, Urine Urobilinogen 0.2, Ur Leukocyte Esterase NEG, Ur Microscopic EXAM NOT REQUIRED, Urine Hemoglobin NEG, Urine Glucose NEG 08/20/17 1433: Anion Gap 12, Estimated GFR 53 L, BUN/Creatinine Ratio 16.4, Glucose 110 H, Calcium 9.6, Total Bilirubin 0.2, AST 49 H, ALT 61 H, Alkaline Phosphatase 84, Total Protein 6.8, Albumin 4.3, Globulin 2.5, Albumin/Globulin Ratio 1.7, TSH & T3 &Free T4 Intrp Pending, CBC w Diff NO MAN DIFF REQ, RBC 3.80 L, MCV 87.9, MCH 29.1, MCHC 33.1, RDW 16.7 H, MPV 8.7, Gran % 59.6, Lymphocytes % 30.2, Monocytes % 5.7, Eosinophils % 3.9, Basophils % 0.6, Absolute Granulocytes 4.6, Absolute Lymphocytes 2.3, Absolute Monocytes 0.4, Absolute Eosinophils 0.3, Absolute Basophils 0, Serum Alcohol < 10.0 Patient seen and evaluated. She reports auditory hallucinations telling her to cut herself with glass. She's been seen here before. We'll check basic labs patient WILL SEE crisis. All blood work is unchanged. Patient cleared to see crisis. Patient signout to Dr. Garcia pending crisis evaluation. Hand-Off Endorsed To: Joesph Garcia MD Endorsed Time: 1931 Pending: consult (CRISIS) (Harry Patyon) Departure Departure Disposition: STILL A PATIENT Condition: Stable Clinical Impression Primary Impression: Auditory hallucinations Referrals: Milly Ortega APRN (PCP/Family) Departure Forms: Customer Survey General Discharge Information (Harry Payton) Psych Admission Note Psychiatric Admission: I have seen and evaluated DAKOTA ESCOBEDO. I have also reviewed all the pertinent lab results and diagnostic results. DAKOTA ESCOBEDO will be admitted to our inpatient Psychiatric unit for treatment and care. PA/HULL GRINDER Co-Sign Statement Statement: ED Attending supervision documentation- [X] I saw and evaluated the patient. I have also reviewed all the pertinent lab results and diagnostic results. I agree with the findings and the plan of care as documented in the PA's/HULL GRINDER's documentation. [X] I have reviewed the ED Record and agree with the PA's/HULL GRINDER's documentation. [] Additions or exceptions (if any) to the PAs/HULL GRINDER's note and plan are summarized below: [] (Radha LARSON,Joesph Díaz)
[2017-08-20] MEDS ORDERED: ABILIFY30 M1 PO (20:17)
[2017-08-20] MEDS ORDERED: BUSPIRONE HCL10 M1 PO (20:18)
[2017-08-20] MEDS ORDERED: BENZTROPINE ME0.5 M1 PO (20:18)
[2017-08-20] MEDS ORDERED: IBUPROFEN800 M1 PO (20:20)
[2017-08-20] MEDS ORDERED: METFORMIN HCL500 M3 PO (20:25)
[2017-08-20] MEDS ORDERED: LINZESS145 MC1 PO (20:25)
[2017-08-20] MEDS ORDERED: MULTIVITAMINS1 EAC9 PO (20:26)
[2017-08-20] MEDS ORDERED: NITROGLYCERIN0.4 M1 SL (20:27)
[2017-08-20] MEDS ORDERED: VESICARE10 MG PO (20:28)
--- NOTE | 2017-08-20 20:33 | ED PSYCH CRISIS CONSULTATION ---
See Addendum Crisis Consult Basic Assessment Date of Consult: 08/20/17 Responsible Person/Accompanied By: Referred by [facility]/ alone Insurance Authorization: Insurance #1: Insurance name: FREDY FREGOSO HMO Phone number: Policy number: [id number] Group number: [id number] Authorization number: ED Provider: Patient's ED Provider: Harry Payton Primary Care Physician: Patient's PCP: Milly Ortega APRN PCP's Current Psychiatrist: Janet Palacios Chief Complaint: Psychiatric Related Complaint Patient's Quote: "i got sick" Present Illness: Pt is a 47 year old female arriving to ER by recommendation of the long haul truck driver Natty at [facility], pt states "I got sick, the voices started telling me to grab a piece of glass and cut myself". Pt is child like in her demeanor, she states she has been hiding her feelings and pretending to be happy when she sees her visiting nurse, through [facility] [place]. She lives alone with her cat, and plays game on her phone and chats with friends she has a supportive network and this past weekend spent time with friend in [place] so they could attend the [facility]. She has be admitted since 2008 to [facility] 1 or 2 times per year, she reports only comfortable with [facility]. Pt is seen at [facility] ( please see med list) her prescriber is Janet Steven, and she is med compliant, per pts recall, there has;t been any med changes recently. She is also seen at [facility] She states most of the time the voices are invasive or entirely not there, today they startled her and she doesn't feel safe at this time. Pt states as she becomes tearful, "I just want to lately". Pt can not tolerate a lengthy conversation, and offers "i think I need to come in to the hospital", she sleeps with a CPAP machine, and has several medical conditions see further notes). Pt denies drug and etoh use, and will sign in voluntarily. Patient's Address: [address] [place] [address] Other Phone Number: Who Do You Live With? Patient/Self Family/Informants Interviewed: [facility] sent pt in for evaluation "not a baseline " Allergies - Coded Allergies: santoro (Intermediate, RASH 03/31/17) Penicillins (THROAT CLOSURE 03/31/17) ammonia (UNKNOWN 03/31/17) lindane (ALLERGIC TO KWELL SHAMPOO 03/31/17) lorazepam (THROAT CLOSURE 03/31/17) sodium hypochlorite solution (sodium hypochlorite) (ALLERGIC TO BLEACH (UNKNOWN REACTION) 03/31/17) Current Medications - Scheduled Medications Aripiprazole (Abilify) 30 MG TABLET 1 TAB PO QAM MENTAL HEALTH (Reported) Entered as Reported by Gina Black on 08/20/17 2017 Aspirin (Ecotrin*) 325 MG TABLET. 1 TAB PO DAILY HEART HEALTH (Reported) Entered as Reported by Gina Black on 10/01/14 1505 Atorvastatin Calcium 40 MG TABLET 1 TAB PO DAILY CHOLESTEROL #90 (Reported) Entered as Reported by Ari Arriola on 03/31/17 1513 Buspirone HCl 10 MG TABLET 1 TAB PO BID MENTAL HEALTH (Reported) Entered as Reported by Gina Black on 08/20/17 2018 Carvedilol (Coreg) 3.125 MG TABLET 1 TAB PO BID HEART/BP (Reported) Entered as Reported by Gina Black on 04/14/162118 Cholecalciferol (Vitamin D3) (Vitamin D) 2,000 UNIT CAPSULE 1 CAP PO DAILY SUPPLEMENT (Reported) Entered as Reported by Gina Black on 04/14/16 211 Clopidogrel Bisulfate (Plavix) 75 MG TABLET 1 TAB PO DAILY heart health ( Reported) Entered as Reported by Jong Sanchez on 10/01/162004 Colesevelam Hydrochloride (Welchol) 625 MG TABLET 1,875 MG PO QPM CHOLESTEROL (Reported) Entered as Reported by SANTIAGO WHITMAN on 12/11/15 0304 Docusate Sodium (Colace) 100 MG CAPSULE 1 CAP PO BID bowel (Reported) Entered as Reported by Jong Sanchez on 10/01/16 2007 Ferrous Sulfate 324 MG TABLET. 1 TAB PO BID SUPPLEMENT (Reported) Entered as Reported by Ari Arriola on 02/21/16 1245 Fluoxetine HCl 10 MG CAPSULE 30 MG PO DAILY anti-depressant #42 TAB Prescribed by Jong Brown MD on 10/04/16 Furosemide 40 MG TABLET 1 TAB PO DAILY DIURETIC (Reported) Entered as Reported by Gina Black on 10/01/14 1506 Gemfibrozil 600 MG TABLET 1 TAB PO BID CHOLESTEROL #60 (Reported) Entered as Reported by Ari Arriola on 03/31/17 1513 Isosorbide Dinitrate 30 MG TABLET 1 TAB PO DAILY ANGINA (Reported) Entered as Reported by Gina Black on 08/12/16 1656 Levocetirizine Dihydrochloride 5 MG TABLET 1 TAB PO QHS ALLERGIES #30 ( Reported) Entered as Reported by Ari Arriola on 03/31/17 1515 Levothyroxine Sodium 75 MCG TABLET 1 TAB PO DAILY AC THYROID (Reported) Entered as Reported by Gina Black on 10/01/14 1506 Lisinopril 2.5 MG TABLET 1 TAB PO DAILY heart #30 (Reported) Entered as Reported by Ari Arriola on 02/21/16 1234 Metformin HCl 500 MG TABLET 1 TAB PO BID DM (Reported) Entered as Reported by Gina Black on 08/20/172024 Multiple Vitamin (Multivitamins) 1 EACH TABLET 1 TAB PO DAILY SUPPLEMENT ( Reported) Entered as Reported by Gina Black on 08/20/172025 Solifenacin Succinate (Vesicare) 10 MG TABLET 1 TAB PO DAILY BLADDER ( Reported) Entered as Reported by Gina Black on 08/20/172027 Topiramate (Topamax) 200 MG TABLET 1 TAB PO QPM MENTAL HEALTH (Reported) Entered as Reported by Gina Black on 08/12/16 1647 Scheduled PRN Medications Albuterol Sulfate (Proair Hfa) 8.5 GM HFA.AER.AD 1-2 PUFF INH 4 TIMES/DAY PRN WHEEZE (Reported) Entered as Reported by Gina Black on 10/01/14 1505 Benztropine Mesylate 0.5 MG TABLET 1 TAB PO BID PRN EPS (Reported) Entered as Reported by Gina Black on 08/20/172017 Ibuprofen 800 MG TABLET 1 TAB PO 4XDAILY PRN PAIN/INFLAMMATION (Reported) Entered as Reported by Gina Black on 08/20/172019 Linaclotide (Linzess) 145 MCG CAPSULE 1 CAP PO DAILY PRN CONSTIPATION ( Reported) Entered as Reported by Gina Black on 08/20/172024 Nitroglycerin 0.4 MG TAB.SUBL 1 TAB SL AD PRN CHEST PAIN (Reported) Entered as Reported by Gina Black on 08/20/172026 Nystatin (Nystop) 100,000 UNIT/GRAM POWDER 1 PILAR TOP BID PRN RASHES (Reported ) Entered as Reported by Gina Black on 10/01/14 1507 Polyethylene Glycol 3350 17 GRAM/DOSE POWDER 17 GM PO PRN CONSTIPATION #527 ( Reported) Entered as Reported by Ari Arriola on 03/31/17 1516 Laboratory Results: Laboratory Tests 08/20/17 1811: Urine Opiates Screen < 100.00, Methadone Screen < 40, Barbiturate Screen < 60, Ur Phencyclidine Scrn < 6.00, Amphetamines Screen < 100, U Benzodiazepines Scrn < 85, Urine Cocaine Screen < 50, Urine Cannabis Screen < 5.00, Urine Color YEL, Urine Clarity CLEAR, Urine pH 6.0, Ur Specific [place] 1.020, Urine Protein NEG, Urine Ketones NEG, Urine Nitrite NEG, Urine Bilirubin NEG, Urine Urobilinogen 0.2, Ur Leukocyte Esterase NEG, Ur Microscopic EXAM NOT REQUIRED, Urine Hemoglobin NEG, Urine Glucose NEG 08/20/17 1433: Anion Gap 12, Estimated GFR 53 L, BUN/Creatinine Ratio 16.4, Glucose 110 H, Calcium 9.6, Total Bilirubin 0.2, AST 49 H, ALT 61 H, Alkaline Phosphatase 84, Total Protein 6.8, Albumin 4.3, Globulin 2.5, Albumin/Globulin Ratio 1.7, TSH & T3 &Free T4 Intrp Pending, CBC w Diff NO MAN DIFF REQ, RBC 3.80 L, MCV 87.9, MCH 29.1, MCHC 33.1, RDW 16.7 H, MPV 8.7, Gran % 59.6, Lymphocytes % 30.2, Monocytes % 5.7, Eosinophils % 3.9, Basophils % 0.6, Absolute Granulocytes 4.6, Absolute Lymphocytes 2.3, Absolute Monocytes 0.4, Absolute Eosinophils 0.3, Absolute Basophils 0, Serum Alcohol < 10.0 Past History Past Medical History Neurological: restless leg syndrome, seizure EENT: hearing loss Cardiovascular: CAD, CHF, hypertension, hyperlipidemia Respiratory: asthma, COPD, obstructive sleep apnea Gastrointestinal: constipation, GERD Hepatic: NONE Renal: NONE Musculoskeletal: SCOLIOSIS Psychiatric: anxiety, depression, schizo affective disorder Endocrine: diabetes, hypothyroidism, obesity Blood Disorders: anemia Cancer(s): endometrial cancer PUTTY MIXER/Reproductive: NONE Past Surgical History Surgical History: cholecystectomy, hysterectomy Psychosocial History Strengths/Capabilities: Engaged in outpatient tx, desire to feel better Physical Limitations (Interventions): unsteady on feet Psychiatric Treatment History Psych Treatment Psychiatric Treatment Yes Inpatient Treatment Yes Outpatient Treatment Yes Location of Treatment [facility] CARE Reason for Treatment Schizoaffective D/O Dates of Treatment 2008-current Response to Treatment does well, and is compliant [facility] treatment Diagnosis by History: Schizoaffective disorder Substance Use/Abuse History Drug Use/Abuse Substances Used/Abused No Substance Abuse Treatment Substance Abuse Treatment Past Substance Abuse [place] No Current Mental Status Mental Status Orientation: Person, Place, Situation Affect: Sad Speech: Mumbled Neuro-vegetative: Energy Increased, Sleep Disturbance Appearance Appearance- Dress/Hygiene: Unkempt/obese Behaviors Thought Process: Disorganized Thought Content: Auditory Hallucinations, Somatic Memory: Short term memory Insight: Fair SI/HI Risk Assessment Past Suicidal Ideation/Attempts Yes Current Suicidal Ideation/Att Yes Past Homicidal Ideation/Att: No Current Homicidal Ideation/Attempts No Degree of Intent: Thoughts/No Intent Danger To: Self Gravely Disabled: Lack of Insight Risk Factors: chronic/serious med cond., history of suicide atmpts, SA/MH hospitalized, poor impulse control, lives alone Lethality Ratin PTSD Checklist PTSD Done? patient declined ED Management Sitter: Yes Restraints: No DSM5/PS Stressors/Medical Prob Diagnosis' (DSM 5, Stressors, Medical): Schizoaffective D/O F25.9 seizure hearing loss CAD, CHF, hypertension, hyperlipidemia asthma, obstructive sleep apnea constipation, GERD SCOLIOSIS diabetes, hypothyroidism, obesity anemia endometrial cancer lack of family support Current GAF: 28 Departure Disposition Psych Medical Clearance Date: 08/20/17 Medically Cleared at: 193 Time Started: 1930 Time Ended: 2030 Psychiatrist Consulted: Gillian Date Disposition Established: 08/20/17 Time Disposition Established: 2030 Plan for Disposition - Modality: Inpatient Psychiatry Facility: [facility] Follow-up Appt Date: 08/20/17 Follow-Up Appt Time: 2030 Contact: CPS Telephone: [phone] Rationale for Disposition: Pt is not feeling safe, and hearing voices urging her to hurt herself. Dr. French to admit pt to [facility]PS Type of IP Admission: Voluntary Referrals Milly Ortega APRN (PCP/Family) Contact: CPS Telephone: [phone] Rationale for Disposition: Pt is not feeling safe, and hearing voices urging her to hurt herself. Dr. French to admit pt to [facility]PS Type of IP Admission: Voluntary Referrals Milly Ortega APRN (PCP/Family)
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
[2017-08-20 22:52] VITALS: BP 121/74
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
--- NOTE | 2017-08-21 11:29 | History & Physical ---
General Information and HPI MD Statement: I have seen and personally examined DAKOTA ESCOBEDO and documented this H&P. The patient is a 47 year old F who presented with a patient stated chief complaint of ""I just want to ". "I got sick"]. Source of Information: patient, old records Exam Limitations: unable to give history History of Present Illness: 47-year-old white obese female with many comorbidities stated that for the last day or 2 has had suicidal thoughts, hearing voices telling her to get glass and cut herself and also telling her that she is a bad person patient has been seen in the hospital multiple times with similar symptoms urine he was brought in by ambulance to the emergency room from [facility] Allergies/Medications Allergies: Coded Allergies: santoro (Intermediate, RASH 03/31/17) Penicillins (THROAT CLOSURE 03/31/17) ammonia (UNKNOWN 03/31/17) lindane (ALLERGIC TO KWELL SHAMPOO 03/31/17) lorazepam (THROAT CLOSURE 03/31/17) sodium hypochlorite solution (sodium hypochlorite) (ALLERGIC TO BLEACH (UNKNOWN REACTION) 03/31/17) Home Med list Albuterol Sulfate (Proair Hfa) 8.5 GM HFA.AER.AD 1-2 PUFF INH 4 TIMES/DAY PRN WHEEZE (Reported) Aripiprazole (Abilify) 30 MG TABLET 1 TAB PO QAM MENTAL HEALTH (Reported) Aspirin (Ecotrin*) 325 MG TABLET.DR 1 TAB PO DAILY HEART HEALTH (Reported) Atorvastatin Calcium 40 MG TABLET 1 TAB PO DAILY CHOLESTEROL (Reported) Benztropine Mesylate 0.5 MG TABLET 1 TAB PO BID PRN EPS (Reported) Buspirone HCl 10 MG TABLET 1 TAB PO BID MENTAL HEALTH (Reported) Carvedilol (Coreg) 3.125 MG TABLET 1 TAB PO BID HEART/BP (Reported) Cholecalciferol (Vitamin D3) (Vitamin D) 2,000 UNIT CAPSULE 1 CAP PO DAILY SUPPLEMENT (Reported) Clopidogrel Bisulfate (Plavix) 75 MG TABLET 1 TAB PO DAILY heart health ( Reported) Colesevelam Hydrochloride (Welchol) 625 MG TABLET 1,875 MG PO QPM CHOLESTEROL (Reported) Docusate Sodium (Colace) 100 MG CAPSULE 1 CAP PO BID bowel (Reported) Ferrous Sulfate 324 MG TABLET.DR 1 TAB PO BID SUPPLEMENT (Reported) Fluoxetine HCl 10 MG CAPSULE 30 MG PO DAILY anti-depressant Furosemide 40 MG TABLET 1 TAB PO DAILY DIURETIC (Reported) Gemfibrozil 600 MG TABLET 1 TAB PO BID CHOLESTEROL (Reported) Ibuprofen 800 MG TABLET 1 TAB PO 4XDAILY PRN PAIN/INFLAMMATION (Reported) Isosorbide Dinitrate 30 MG TABLET 1 TAB PO DAILY ANGINA (Reported) Levocetirizine Dihydrochloride 5 MG TABLET 1 TAB PO QHS ALLERGIES (Reported) Levothyroxine Sodium 75 MCG TABLET 1 TAB PO DAILY AC THYROID (Reported) Linaclotide (Linzess) 145 MCG CAPSULE 1 CAP PO DAILY PRN CONSTIPATION ( Reported) Lisinopril 2.5 MG TABLET 1 TAB PO DAILY heart (Reported) Metformin HCl 500 MG TABLET 1 TAB PO BID DM (Reported) Multiple Vitamin (Multivitamins) 1 EACH TABLET 1 TAB PO DAILY SUPPLEMENT ( Reported) Nitroglycerin 0.4 MG TAB.SUBL 1 TAB SL AD PRN CHEST PAIN (Reported) 1st sign of attack; may repeat every 5 minutes until relief; if pain persists after 3 tablets in 15 minutes, prompt medical att Nystatin (Nystop) 100,000 UNIT/GRAM POWDER 1 PILAR TOP BID PRN RASHES (Reported ) Polyethylene Glycol 3350 17 GRAM/DOSE POWDER 17 GM PO PRN CONSTIPATION ( Reported) Solifenacin Succinate (Vesicare) 10 MG TABLET 1 TAB PO DAILY BLADDER ( Reported) Topiramate (Topamax) 200 MG TABLET 1 TAB PO QPM MENTAL HEALTH (Reported) Compliance With Home Meds: UNKNOWN Past History Travel History Traveled to [place] past 21 day No Medical History Neurological: restless leg syndrome, seizure EENT: hearing loss Cardiovascular: CAD, CHF, hypertension, hyperlipidemia Respiratory: asthma, COPD, obstructive sleep apnea Gastrointestinal: constipation, GERD Hepatic: NONE Renal: NONE Musculoskeletal: SCOLIOSIS Psychiatric: anxiety, depression, schizo affective disorder Endocrine: diabetes, hypothyroidism, obesity Blood Disorders: anemia Cancer(s): endometrial cancer EP TECHNOLOGIST/Reproductive: NONE History of MRSA: No History of VRE: No History of CDIFF: No Isolation History: Standard Surgical History Surgical History: cholecystectomy, hysterectomy Past Family/Social History Family History Relations & Conditions if any MOTHER FH: cirrhosis Hepatitis C Relation not specified for: *No pertinent family history Psychosocial History Who Do You Live With? self Services at Home: Home Health Aide (5 days a week), Nursing (7 days a week), a nurse administers her medications daily insuring compliance Primary Language: Pashto ETOH Use: denies use Illicit Drug Use: denies illicit drug use Functional Ability ADLs Independent: dressing, eating, toileting, bathing. Ambulation: independent IADLs Independent: shopping, housework, finances, food prep, telephone, transportation , medication admin. Review of Systems Review of Systems Constitutional: Reports: see HPI. Exam & Diagnostic Data Last 24 Hrs of Vital Signs/I&O Vital Signs Date Time Temp Pulse Resp B/P B/P Pulse O2 O2 Flow FiO2 Mean Ox Delivery Rate 08/21 1107 97.0 79 18 12174 08/21 0939 97.0 79 18 08/21 0939 97.0 79 18 08/21 0008 79 99 08/20 2303 68 98 08/20 2252 97.0 69 12174 08/20 2030 96.1 65 18 134/63 98 Room Air 08/20 1653 Room Air 08/20 1423 99.0 77 20 123/75 98 Room Air Intake & Output 08/21 1600 08/21 0800 08/21 0000 Intake Total 240 Output Total Balance 240 Intake, Oral 240 Patient 274 lb Weight Physical Exam General Appearance Alert, Oriented X3, Cooperative, No Acute Distress Skin No Rashes HEENT PERRLA, EOMI Neck Supple, No JVD Lymphatic Axillary nl, Cervical nl Cardiovascular Regular Rate, No Murmurs Lungs decreased breath sounds Abdomen obese, soft, nontender, no apparent organomegaly. Neurological Exam Findings: Normal Gait, Normal Speech, Strength at 5/5 X4 Ext, Normal Tone, Sensation Intact, Cranial Nerves 3-12 NL, Reflexes 2+ Cranial Nerves II through XII: Intact Extremities No Edema Vascular decreased pulses Last 24 Hrs of Labs/Manuel: Laboratory Tests 08/20/172026: Levetiracetam Pending 08/20/17 181: Urine Opiates Screen < 100.00, Methadone Screen < 40, Barbiturate Screen < 60, Ur Phencyclidine Scrn < 6.00, Amphetamines Screen < 100, U Benzodiazepines Scrn < 85, Urine Cocaine Screen < 50, Urine Cannabis Screen < 5.00, Urine Color YEL, Urine Clarity CLEAR, Urine pH 6.0, Ur Specific [place] 1.020, Urine Protein NEG, Urine Ketones NEG, Urine Nitrite NEG, Urine Bilirubin NEG, Urine Urobilinogen 0.2, Ur Leukocyte Esterase NEG, Ur Microscopic EXAM NOT REQUIRED, Urine Hemoglobin NEG, Urine Glucose NEG 08/20/17 1433: Anion Gap 12, Estimated GFR 53 L, BUN/Creatinine Ratio 16.4, Glucose 110 H, Calcium 9.6, Total Bilirubin 0.2, AST 49 H, ALT 61 H, Alkaline Phosphatase 84, Total Protein 6.8, Albumin 4.3, Globulin 2.5, Albumin/Globulin Ratio 1.7, TSH & T3 &Free T4 Intrp 2.380, CBC w Diff NO MAN DIFF REQ, RBC 3.80 L, MCV 87.9, MCH 29.1, MCHC 33.1, RDW 16.7 H, MPV 8.7, Gran % 59.6, Lymphocytes % 30.2, Monocytes % 5.7, Eosinophils % 3.9, Basophils % 0.6, Absolute Granulocytes 4.6, Absolute Lymphocytes 2.3, Absolute Monocytes 0.4, Absolute Eosinophils 0.3, Absolute Basophils 0, Serum Alcohol < 10.0 Diagnostic Data ITS Data Unobtainable at this time Assessment/Plan As Ranked By This Provider Problem List: 1. Auditory hallucinations 2. Schizoaffective disorder Miscellaneous Miscellaneous Documentation Attending Case Discussed With: Mer Blair MD Primary Care Physician: Milly Ortega APRN Patient sees these Specialists Psychiatry Level of Patient Care: [facility] Consults Needed: Consulting Specialty: Psychiatry Consulting Physician: LIDIA Hinton Reason for Consult: SCHIZOAFFECTIVE DISORDER SUICIDAL IDEATIONS
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
[2017-08-21 12:01] VITALS: BP 118/69
--- NOTE | 2017-08-21 12:05 | SOCIAL WORKER PROG NOTE PSYCH ---
Social Work Progress Note Progress Note The patient was sitting in the chair, in hospital attire, disheveled and somewhat unkempt. She presents somewhat childlike and answered " I don't know," to the majority of the questions asked. She states that she is not sure how her mood is. She continues to have auditory hallucinations telling her to "bead picker glass off the street and cut herself." She continues to state that she would harm herself and answers " I don't know," when I ask her is if she can be safe on the unit (ARNAUD Paniagua notified). She denies any thoughts to harm anyone else and states that she is not having any visual hallucinations. She is not able to state what her stressors are, or what brought her to the ED. She is on disability and does have a conservator. She is already connected to a visiting nurse agency and [facility] and plans to return to those services, upon discharge.
[2017-08-21 16:09] VITALS: BP 125/59
[2017-08-21 19:50] VITALS: BP 137/65
[2017-08-22 07:57] VITALS: BP 114/43
--- NOTE | 2017-08-22 09:00 | CP SOUTH PROGRESS NOTE PSYCH ---
Psych (Inpt) Progress Note Progress Note Vital Signs Date Time Temp Pulse Resp B/P Pulse FiO2 Ox 08/22 0806 97.6 64 18 114/43 08/22 0805 97.6 64 18 114/43 08/22 0805 97.6 64 18 114/43 16 0757 97.6 64 114/43 08/21 2200 60 97 08/21 2136 98.5 75 18 137/65 08/21 1950 98.5 75 137/65 08/21 1609 73 125/59 08/21 1201 67 118/69 08/21 1107 97.0 79 18 121/74 08/21 0939 97.0 79 18 121/74 Mental Status Examination Independently mobile, steady gait Morbidly obese She was calm and cooperative, Normal psychomotor activity, some rocking movements noted She was engaged in long conversations today, she did not mind providing detailed history Constricted affect Reported feeling "much better"/asking about discharge Denied thoughts of suicide /denied command to cut self denied homicidal ideation denied hallucinations in the past 24 hours Denied feeling paranoid, there were no delusions during the interview Some difficulties with thought organization Improved insight and judgment, Oriented to place and person mild intellectual impairment No impairment in short-term memory Impression and Plan: 47-year-old single white female with mildly rigid intellectual impairment and schizoaffective disorder comes to the inpatient psychiatric unit because of auditory hallucinations telling her to break a glass and cut herself with DSM 5 Diagnosis(es): Schizoaffective disorder Mild intellectual impairment in Seizure disorder Treatment Plan: Add provigil 100 mg QAM (she says she sleeps too much and has been for several months despite CPAP) Inpatient psychiatric care Safety checks every 15 minutes Milieu therapy and group therapy Continue Abilify 20 mg daily Continue Prozac 40 mg daily Nursing assessments vital signs and nurse's nursing education by the nursing staff to Aftercare planning collateral information by social work The psychiatrist will evaluate the patient's mental status and medications daily
[2017-08-22 11:47] VITALS: BP 117/63
[2017-08-22 15:38] VITALS: BP 125/62
--- NOTE | 2017-08-22 18:08 | SOCIAL WORKER PROG NOTE PSYCH ---
Social Work Progress Note Progress Note 1:25pm This mortgage underwriter met with patient. She stated that she had been hearing her ( ) mother's voice commanding her to "break a glass and cut myself with it " leading her to the current inpatient admission. Patient identified this voice as scarey and distressing. Patient denied any SI/AH today. She denied VH/HI. Patient stated that she had been attending group therapy, case management and medication management through [facility], where she would like to return. Patient was unable to identify any supports who could attend a family meeting. Patient informed this mortgage underwriter that her aunt, Cindy Spring, is her conservator. This mortgage underwriter contacted her aunt, by phone. She was unable to provide a decree regarding conservatorship and stated that it is out of the [place] court. Court will be contacted on Friday to request the decree. Cindy provided a cell phone number where she can be reached if needed: [phone]. Her home number is listed in the patient's contact list in the electronic medical record. This information was relayed to nursing, Dr. Rai, Dr. Cruz and Echo Moreno all of [facility].
--- NOTE | 2017-08-22 18:15 | SOCIAL WORKER PROG NOTE PSYCH ---
Social Work Progress Note Progress Note This rewriter left with clinical for Leonor ([phone]) at 1:57pm requesting continued authorization for inpatient stay.
[2017-08-22 19:54] VITALS: BP 135/73
[2017-08-23 08:22] VITALS: BP 127/69
--- NOTE | 2017-08-23 11:18 | CP SOUTH PROGRESS NOTE PSYCH ---
Psych (Inpt) Progress Note Progress Note Include the following elements, when applicable: Involvement in the active treatment of the patient with behavioral observations of the patient and the patient's response to the treatment. Review of the ongoing treatment process in the context of the treatment plan. Indication of how multi-disciplinary staff members are carrying out the treatment plan. Plans for future interventions and recommendations for revision of the treatment plan. Liaison with other physicians/providers. Progress Note: Pt reports that still struggling with AHs especially that are distrubing. She is trying to cope via distraction and has been coloring. She notes good sleep with increased wakefulness since starting modafinil. In the past took trilafon with good effect. AMenable to restarting and tapering abilify. Pt denies SI or HI. Very interactive and jovial at times. Current Medications Sig/Carla Start time Last Medication Dose Route Stop Time Status Admin Albuterol Sulfate 2 PUF Q4P PRN 08/21 0130 AC 08/22 INH 2216 Aripiprazole 20 MG DAILY 08/22 1000 AC 08/23 PO 0822 Aspirin Buffered 325 MG DAILY 08/21 1000 AC 08/23 PO 0824 Atorvastatin Calcium 40 MG 1700 08/21 1700 AC 08/22 PO 1641 Carvedilol 3.125 MG BID 08/21 1000 AC 08/23 PO 0824 Cholecalciferol 2,000 IU DAILY 08/21 1000 AC 08/23 PO 0825 Clopidogrel Bisulfate 75 MG DAILY 08/21 1000 AC 08/23 PO 0824 Docusate Sodium 100 MG BID 08/21 1000 AC 08/23 PO 0823 Ferrous Sulfate 325 MG BID 08/21 1000 AC 08/23 PO 0824 Fluoxetine HCl 40 MG DAILY 08/21 1000 AC 08/23 PO 0825 Furosemide 40 MG DAILY 08/21 1000 AC 08/23 PO 0824 Gemfibrozil 600 MG BID 08/21 1000 AC 08/23 PO 0824 Isosorbide 30 MG DAILY 08/21 1000 AC 08/23 Mononitrate PO 0823 Levothyroxine Sodium 0.075 MG DAILY AC 08/21 0700 AC 08/23 PO 0648 Lisinopril 2.5 MG DAILY 08/21 1000 AC 08/23 PO 0824 Metformin HCl 500 MG 0800,1700 08/21 0800 AC 08/23 PO 0821 Modafinil 100 MG 8AM 08/23 0800 AC 08/23 PO 0822 Multivitamins 1 TAB DAILY 08/21 1000 AC 08/23 PO 0825 Nicotine 14 MG DAILY 08/22 1700 AC 08/23 TOP 0824 Nystatin 1 PILAR TID 08/23 1109 UNVr TOP Perphenazine 4 MG BID 08/23 1110 UNVr PO Polyethylene Glycol 17 GM DAILY 08/21 1000 AC 08/23 PO 0824 Solifenacin 10 MG DAILY 08/21 1000 AC 08/23 PO 0827 Topiramate 100 MG BID 08/21 1314 AC 08/23 PO 0825 Zinc Oxide 1 PILAR Q8P PRN 08/21 0845 AC TOP Laboratory Tests 08/20 181 Toxicology Urine Opiates Screen (>2000 NG/ML) < 100.00 Methadone Screen (>300 NG/ML) < 40 Barbiturate Screen (>200 NG/ML) < 60 Levetiracetam Pending Ur Phencyclidine Scrn (>25 NG/ML) < 6.00 Amphetamines Screen (>1000 NG/ML) < 100 U Benzodiazepines Scrn (>200 NG/ML) < 85 Urine Cocaine Screen (>300 NG/ML) < 50 Urine Cannabis Screen (>50 NG/ML) < 5.00 Urines Urine Color (YEL,AMB,STR) YEL Urine Clarity (CLEAR) CLEAR Urine pH (5.0 - 8.0) 6.0 Ur Specific [place] (1.001 - 1.035) 1.020 Urine Protein (NEG,<30 MG/DL) NEG Urine Ketones (NEG) NEG Urine Nitrite (NEG) NEG Urine Bilirubin (NEG) NEG Urine Urobilinogen (0.1 - 1.0 EU/dl) 0.2 Ur Leukocyte Esterase (NEG) NEG Ur Microscopic EXAM NOT REQUIRED Urine Hemoglobin (NEG) NEG Urine Glucose (N MG/DL) NEG 08/20 1433 Chemistry Sodium (137 - 145 mmol/L) 143 Potassium (3.5 - 5.1 mmol/L) 4.1 Chloride (98 - 107 mmol/L) 106 Carbon Dioxide (22 - 30 mmol/L) 25 Anion Gap (5 - 16) 12 BUN (7 - 17 mg/dL) 18 H Creatinine (0.5 - 1.0 mg/dL) 1.1 H Estimated GFR (>60 ml/min) 53 L BUN/Creatinine Ratio (7 - 25 %) 16.4 Glucose (65 - 99 mg/dL) 110 H Calcium (8.4 - 10.2 mg/dL) 9.6 Total Bilirubin (0.2 - 1.3 mg/dL) 0.2 AST (14 - 36 U/L) 49 H ALT (9 - 52 U/L) 61 H Alkaline Phosphatase (<127 U/L) 84 Total Protein (6.3 - 8.2 g/dL) 6.8 Albumin (3.5 - 5.0 g/dL) 4.3 Globulin (1.9 - 4.2 gm/dL) 2.5 Albumin/Globulin Ratio (1.1 - 2.2 %) 1.7 TSH &T3 &Free T4 Intrp (0.270 - 4.20 uIU/mL) 2.380 Hematology CBC w Diff NO MAN DIFF REQ WBC (4.8 - 10.8 /CUMM) 7.7 RBC (4.20 - 5.40 /CUMM) 3.80 L Hgb (12.0 - 16.0 G/DL) 11.1 L Hct (37 - 47 %) 33.4 L MCV (81.0 - 99.0 FL) 87.9 MCH (27.0 - 31.0 PG) 29.1 MCHC (33.0 - 37.0 G/DL) 33.1 RDW (11.5 - 14.5 %) 16.7 H Plt Count (130 - 400 /CUMM) 270 MPV (7.4 - 10.4 FL) 8.7 Gran % (42.2 - 75.2 %) 59.6 Lymphocytes % (20.5 - 51.1 %) 30.2 Monocytes % (1.7 - 9.3 %) 5.7 Eosinophils % (0 - 5 %) 3.9 Basophils % (0.0 - 2.0 %) 0.6 Absolute Granulocytes (1.4 - 6.5 /CUMM) 4.6 Absolute Lymphocytes (1.2 - 3.4 /CUMM) 2.3 Absolute Monocytes (0.10 - 0.60 /CUMM) 0.4 Absolute Eosinophils (0.0 - 0.7 /CUMM) 0.3 Absolute Basophils (0.0 - 0.2 /CUMM) 0 Toxicology Serum Alcohol (<10 MG/DL) < 10.0 Vital Signs Date Time Temp Pulse Resp B/P B/P Pulse O2 O2 Flow FiO2 Mean Ox Delivery Rate 08/23 823 59 127/69 08/23 823 59 127/69 08/23 822 59 127/69 08/23 821 97.0 59 127/69 08/22 2134 98.5 69 18 135/73 08/22 1954 98.5 69 135/73 08/22 1538 70 125/62 08/22 1147 69 117/63 MSE General appearance: fair hygiene and grooming, obese; Attitude: cooperative; Eye contact: appropriate; Movement: no psychomotor agitation or slowing; Speech: nl fluency, nl rate/rhythm, nl volume, nl prosody; Mood: "OK" Affect: jovail but irritable, flat, appropriate, constricted, non-labile, congruent; Thought process: linear and goal-directed; Thought content: denied SI or HI, no paranoid ideation; Perception: ++ hallucinations- auditory,does not appear to be responding to internal stimuli; I/J: limited A/P: Pt wiht schizoaffective disorder with continued AHs that are distressing. - Start trialfon 4mg BID - Continue abilify today, to initate taper tomorrow - Start nystatin powder -Continue current medication regimen -Encourage integration into the milieu
[2017-08-23 12:15] VITALS: BP 126/60
[2017-08-23 15:38] VITALS: BP 149/75
[2017-08-23 19:36] VITALS: BP 142/71
[2017-08-24 08:39] VITALS: BP 133/61
[2017-08-24 12:05] VITALS: BP 128/65
--- NOTE | 2017-08-24 13:11 | CP SOUTH PROGRESS NOTE PSYCH ---
Psych (Inpt) Progress Note Progress Note Include the following elements, when applicable: Involvement in the active treatment of the patient with behavioral observations of the patient and the patient's response to the treatment. Review of the ongoing treatment process in the context of the treatment plan. Indication of how multi-disciplinary staff members are carrying out the treatment plan. Plans for future interventions and recommendations for revision of the treatment plan. Liaison with other physicians/providers. Progress Note: Pt notes that she slept well but still difficulty with sedation at AM. She notes that AHs have decreased to "Whispers" but last night was very paranoid around meds but did end up taking them. Told a lot jokes and was quite interactive and funny. Denies SI or HI. Current Medications Sig/Carla Start time Last Medication Dose Route Stop Time Status Admin Albuterol Sulfate 2 PUF Q4P PRN 08/21 0130 AC 08/22 INH 2216 Aripiprazole 15 MG DAILY 08/25 1000 AC PO Aripiprazole 20 MG DAILY 08/22 1000 DC 08/24 PO 0920 Aspirin Buffered 325 MG DAILY 08/21 1000 AC 08/24 PO 0920 Atorvastatin Calcium 40 MG 1700 08/21 1700 AC 08/23 PO 1704 Carvedilol 3.125 MG BID 08/21 1000 AC 08/24 PO 0920 Cholecalciferol 2,000 IU DAILY 08/21 1000 AC 08/24 PO 0919 Clopidogrel Bisulfate 75 MG DAILY 08/21 1000 AC 08/24 PO 0920 Docusate Sodium 100 MG BID 08/21 1000 AC 08/24 PO 0920 Ferrous Sulfate 325 MG BID 08/21 1000 AC 08/24 PO 0919 Fluoxetine HCl 40 MG DAILY 08/21 1000 AC 08/24 PO 0920 Furosemide 40 MG DAILY 08/21 1000 AC 08/24 PO 0919 Gemfibrozil 600 MG BID 08/21 1000 AC 08/24 PO 0919 Isosorbide 30 MG DAILY 08/21 1000 AC 08/24 Mononitrate PO 0921 Levothyroxine Sodium 0.075 MG DAILY AC 08/21 0700 AC 08/24 PO 0638 Lisinopril 2.5 MG DAILY 08/21 1000 AC 08/24 PO 0919 Metformin HCl 500 MG 0800,1700 08/21 0800 AC 08/24 PO 0920 Modafinil 100 MG 8AM 08/23 0800 AC 02/18 PO 0920 Multivitamins 1 TAB DAILY 08/21 1000 AC 08/24 PO 0920 Nicotine 14 MG DAILY 08/22 1700 AC 08/24 TOP 0924 Nystatin 1 PILAR TID 08/23 1109 AC 08/23 TOP 2203 Perphenazine 4 MG DAILY 08/25 1000 AC PO Perphenazine 8 MG AT BEDTIME 08/24 2200 AC PO Perphenazine 4 MG BID 08/23 1110 DC 08/24 PO 0926 Polyethylene Glycol 17 GM DAILY 08/21 1000 AC 08/24 PO 0919 Solifenacin 10 MG DAILY 08/21 1000 AC 08/24 PO 0921 Topiramate 100 MG BID 08/21 1314 AC 08/24 PO 0926 Zinc Oxide 1 PILAR Q8P PRN 08/21 0845 AC TOP Vital Signs Date Time Temp Pulse Resp B/P B/P Pulse O2 O2 Flow FiO2 Mean Ox Delivery Rate 08/24 1205 73 128/65 08/24 0921 66 133/61 08/24 0920 66 133/61 08/24 0919 66 133/61 08/24 0839 96.9 66 133/61 08/23 2312 87 97 08/23 2203 99.2 70 18 142/71 08/23 1936 99.2 70 142/71 08/23 1538 72 149/75 MSE General appearance: fair hygiene and grooming, obese; Attitude: cooperative; Eye contact: appropriate; Movement: no psychomotor agitation or slowing; Speech: nl fluency, nl rate/rhythm, nl volume, nl prosody; Mood: "OK" Affect: jovail but irritable, flat, appropriate, constricted, non-labile, congruent; Thought process: linear and goal-directed; Thought content: denied SI or HI, + paranoid ideation last PM around meds; Perception: ++ hallucinations- auditory, though now whispers,does not appear to be responding to internal stimuli; I/J: limited A/P: Pt wiht schizoaffective disorder with continued AHs that are distressing with some relief from trilafon. - Increase trialfon 4mg BID to 4mg in the AM and 8pm qhs -Continue current medication regimen -Encourage integration into the milieu
[2017-08-24 15:38] VITALS: BP 134/66
[2017-08-24 20:05] VITALS: BP 133/70
[2017-08-25 08:16] VITALS: BP 123/70
[2017-08-25 11:54] VITALS: BP 121/62
--- NOTE | 2017-08-25 13:31 | CP SOUTH PROGRESS NOTE PSYCH ---
Psych (Inpt) Progress Note Progress Note Vital Signs Date Time Temp Pulse Resp B/P B/P Pulse O2 O2 Flow FiO2 Mean Ox Delivery Rate 08/25 1154 70 121/62 08/25 0843 96.9 62 18 123/70 08/25 0842 96.9 62 18 123/70 08/25 0842 96.9 62 18 123/70 08/25 0816 96.9 62 123/70 08/25 0017 72 94 08/24 2225 57 97 08/249 68 131/68 08/24 2004 99.3 71 133/70 08/24 1538 81 134/66 I reviewed the notes of Dr. Gant for the weekend I listen to the morning reports which included nursing staff, and social work staff, group therapy staff, and psychiatrist Ayla was started on Trilafon over the weekend Mental Status Examination Ayla was in good spirits today, her gait was steady, she is morbidly obese; she was calm and cooperative, normal psychomotor activity, some rocking movements noted She was engaged in long conversations today, she did not mind providing detailed history She reported feeling "much better she had AH on Friday but not since Denied thoughts of suicide /denied command to cut self, denied homicidal ideation denied hallucinations in the past 24 hours, Denied feeling paranoid, there were no delusions during the interview , some difficulties with thought organization, oriented to place and person, mild intellectual impairment, No impairment in short-term memory Impression and Plan: 47-year-old single white female with mildly rigid intellectual impairment and schizoaffective disorder comes to the inpatient psychiatric unit because of auditory hallucinations telling her to break a glass and cut herself with DSM 5 Diagnosis(es): Schizoaffective disorder Mild intellectual impairment in Seizure disorder Treatment Plan: Increase Provigil to 200 mg QAM (daytime somnolence despite CPAP) Inpatient psychiatric care Safety checks every 15 minutes Milieu therapy and group therapy Reduce Abilify to 15 mg daily Reduce Trilafon to 8mg at bedtime Continue Prozac 40 mg daily Nursing assessments vital signs and nurse's nursing education by the nursing staff to Aftercare planning collateral information by social work The psychiatrist will evaluate the patient's mental status and medications daily
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
[2017-08-25 15:49] VITALS: BP 122/58
--- NOTE | 2017-08-25 16:43 | SOCIAL WORKER PROG NOTE PSYCH ---
Social Work Progress Note Progress Note 4:30pm This typewriter assembly and parts inspector and patient contacted Cindy Clementine, patient's aunt and conservator. Treatment was reviewed, including MARK's for [facility] and [facility]. Ana Spring gave verbal permission for this typewriter assembly and parts inspector to contact [facility] and [facility] regarding treatment and discharge plans. Patient and Cindy were informed that a vm was left by Selina at [facility] case management in interest of meeting with the patient tomorrow. Both were agreeable to this typewriter assembly and parts inspector contacting Selina to schedule this. Cindy inquired about patient's interest in discharging on and was informed that patient had expressed this interest to this typewriter assembly and parts inspector as well. 4:34pm This typewriter assembly and parts inspector left vm for Selina at [facility] with call back number ([phone]).
[2017-08-25 19:53] VITALS: BP 127/70
[2017-08-26 08:39] VITALS: BP 109/69
[2017-08-26 11:53] VITALS: BP 101/50
--- NOTE | 2017-08-26 13:28 | CP SOUTH PROGRESS NOTE PSYCH ---
Psych (Inpt) Progress Note Progress Note Vital Signs Date Time Temp Pulse Resp B/P Pulse O2 Flow FiO2 Ox Rate 08/26 1153 72 101/50 08/26 0841 98.5 65 18 127/70 08/26 0840 98.5 65 18 127/70 08/26 0839 98.5 65 18 127/70 08/26 0839 96.4 67 109/69 08/25 2245 65 98 08/25 2142 98.5 72 18 [id number] nursing staff, social work staff, group therapy staff, and psychiatrist reviewed Ayla's progress and treatment plan. Mental Status Examination Ayla was alert & oriented to place and person. She was in good spirits, calm, and cooperative. Ayla has some stereotypic rocking movements. She reported feeling "much better Ayla denied hearing her mother's voice since Friday. She denied thoughts of suicide /denied command to cut self, denied homicidal ideation. 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
[2017-08-26 15:24] VITALS: BP 125/56
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
[2017-08-26 19:55] VITALS: BP 136/62
[2017-08-26 22:10] VITALS: BP 137/84
[2017-08-27 07:34] VITALS: BP 123/66
--- NOTE | 2017-08-27 10:35 | CP SOUTH PROGRESS NOTE PSYCH ---
Psych (Inpt) Progress Note Progress Note Laboratory Tests 08/26 2227 Troponin I (< 0.11 ng/ml) < 0.01 Vital Signs Date Time Temp Pulse B/P 08/27 0836 64 123/66 08/27 0836 64 123/66 08/27 0835 64 123/66 08/27 0734 97.1 64 123/66 08/26 2303 64 08/26 2210 78 137/84 08/26 2120 79 136/62 Nursing staff, STRIKER OUT, group therapy staff, and psychiatrist reviewed Ayla's progress and treatment plan. Mental Status Examination: Ayla reported that she is feeling very well and was asking whether she can leave today instead orf tomorrow. She was alert & oriented to time, place, and person. She was in good spirits, calm, and cooperative. Ayla displayed mild stereotypic (rocking) movements and mild dyskinesia. She denied hearing her mother's voice since Friday. She denied thoughts of suicide. She denied command to cut self, and denied homicidal ideation. Ayla denied feeling paranoid, there were no delusions during the interview, some difficulties with thought organization, mild intellectual impairment, no impairment in short-term memory Assessment: Ayla is a 47-year-old single White female with mild intellectual impairment and Schizoaffective disorder admitted to the inpatient psychiatric unit because of auditory hallucinations telling her to break a glass and cut self. Since admission on 08/20/2017, Ayla has shown significant improvement in mood and has denied thoughts of suicide. Likely Diagnoses: Schizoaffective Disorder Mild Intellectual impairment. Seizure disorder Treatment Plan: Continue Provigil 200 mg QAM (for daytime somnolence, despite CPAP) Continue Abilify 15 mg daily Continue Trilafon 8mg at bedtime Continue Prozac 40 mg daily Nursing assessments vital signs and nurse's nursing education by the nursing staff to Aftercare planning collateral information by social work The psychiatrist will evaluate the patient's mental status and medications daily
[2017-08-27 12:17] VITALS: BP 124/62
--- NOTE | 2017-08-27 14:57 | SOCIAL WORKER PROG NOTE PSYCH ---
See Addendum Social Work Progress Note Progress Note A vm with clinical was left for Queenie ([phone]) and informed of the plan to discharge tomorrow, 08/28/17. 11:25AM This ad writer met with patient. She stated, "I'm feeling pretty happy today." She stated that she met with Dr. Rai and discussed discharge date, identifying tomorrow, 08/28/17. Patient stated that she would like to return to [facility] and services through [facility]. She stated that she is interested in a waiver program and will discuss this with Selina at [facility] when they meet. She asked this ad writer to inform Selina of her interest in the program. Patient stated that she has the following medical appointments scheduled: - [facility]: primary care provider, 09/11/17 - Boxer Operator: November 2017 - Regulatory Product Manager: patient stated that she has an appointment with Dr. Felix and will call the doctor's office when she gets home This ad writer spoke with Ana at [facility] and the following appointments have been scheduled at their clinic: - Individual therapy with Araceli on 09/19/17 at 9am, 09/16/17 at 2pm, 09/23/17 at 10am - Outpatient group: [facility]" on 09/03/17 at 1pm - Medication appointment with Janet Aragon, [facility]: 09/12/17 at 12:30pm - Casemanagement: this ad writer spoke with Selina who will meet with the patient on 08/28/17 or 08/29/17. Selina stated that there is a case management group on 08/29/17 at 1pm that the patient is welcome to attend, but has not bee attending. In addition, Selina will discuss the waiver program with the patient when they meet This ad writer also spoke with Beverly at [facility] who requested that Lisset at [facility] is called tomorrow to confirm the discharge. The number is [phone].
[2017-08-27 15:52] VITALS: BP 111/59
[2017-08-27 19:51] VITALS: BP 130/70
[2017-08-28 07:35] VITALS: BP 121/61
[2017-08-28] MEDS ORDERED: LOPID600 MG PO (11:00)
[2017-08-28] MEDS ORDERED: PLAVIX75 M1 PO (11:00)
[2017-08-28] MEDS ORDERED: PERPHENAZINE8 M1 PO (11:00)
[2017-08-28] MEDS ORDERED: ABILIFY15 M1 PO (11:00)
[2017-08-28] MEDS ORDERED: TOPIRAMATE100 M2 PO (11:00)
[2017-08-28] MEDS ORDERED: VENTOLIN HFA18 GM INH ×2 (11:00→12:08)
[2017-08-28] MEDS ORDERED: FLUOXETINE HCL20 M2 PO (11:00)
[2017-08-28] MEDS ORDERED: MODAFINIL100 M1 PO (11:00)
[2017-08-28] MEDS ORDERED: ATORVASTATIN CA40 M1 PO (11:00)
[2017-08-28] MEDS ORDERED: FERROUS SULFAT325 M2 PO (11:00)
--- NOTE | 2017-08-28 11:04 | Patient Discharge Instructions ---
Psych Discharge Inst General Discharge Information Reason for Admission: hallucinations/thoughts of suicide Psy Discharge Primary Diag+ schizoaffective Disorder Mild Intellectual Disabil Summary Tests/Major Procedures no significant abnormalities Studies Pending at DC: none Patient Instructions Contact Information Your Psychiatrist on [facility] was John Rai MD * If you are experiencing an emergency related to this hospitalization, please call [phone] to contact the treating psychiatrist or the psychiatrist-on- call. * To Request a copy of your medical records, please contact the Medical Records Department at [phone]. * To request results of studies pending at the time of discharge, please call [phone]. * Continue your Medications until directed to stop by your Healthcare provider. General Medication Information Please continue to take your new medications and your continued home medications , unless otherwise indicated on your discharge medication list, or unless directed by your MD or DATA MANAGEMENT MANAGER to stop them. Special Instructions Diet Diabetic Activity As Tolerated - Tobacco Use Treatment Offered Post DC Medications Offered: Refused Tob Medication Tx Post DC Tobacco Treatment Plan: Refused Tobacco Tx Pgm - EtOH/Drug Use D/O Treatment Offered Post DC Medications Offered: NA-No EtOH/Drug Use D/O Post DC EtOH/SubAbuse TX Plan: NA-No EtOH/Drug Use D/O Metabolic Screening Patient on a neuroleptic(s) . Enter below results for Hemoglobin A1C, and lipid panel if obtained during the last 365 days. BMI: 47.100 Blood Pressure: 121/61 Laboratory Results From [facility] (If applicable): Lab Cholesterol 171 MG/DL 06/04/17 UNK Cholesterol/HDL Ratio 4 % 06/04/17 UNK HDL Cholesterol 43 mg/dL 06/04/17 UNK Hemoglobin A1c 6.2 % H 06/04/17 UNK LDL Cholesterol, Calc 77 mg/dL 06/04/17 UNK Triglycerides 256 mg/dL H 06/04/17 UNK Advance Directives Does the Patient have Medical Advance Directives No/Refused further info Does Pt have Psychiatric Advance Directives? No/Refused further info Does Patient have a Designated Surrogate Decision Maker: Yes Information About Psychiatric Advance Directives Provided? Refused Discharge Plan Post Hospital Treatment Plan: Home, Care f/u
[2017-08-28] MEDS ORDERED: VITAMIN D31000 UNI2 PO (12:08)
[2017-08-28 12:18] VITALS: BP 132/59
--- NOTE | 2017-08-28 12:47 | CP SOUTH PROGRESS NOTE PSYCH ---
Psych (Inpt) Progress Note Progress Note Vital Signs Date Time Temp Pulse B/P Pulse Ox 08/28 1218 74 132/59 08/28 0922 57 121/61 08/28 0922 57 121/61 08/28 0922 57 121/61 08/28 0735 96.3 57 121/61 08/27 2255 77 98 08/272 79 130/70 08/27 1951 99.2 79 130/70 RN, BIG DATA HADOOP DEVELOPER, Group and Activity therapy staff, and psychiatrist reviewed Ayla's progress and treatment plan/discharge plan. Mental Status Examination: Ayla reported that she is feeling ready to go home. She was alert & oriented to time, place, and person. She was in good spirits, calm, and cooperative. Ayla displayed mild stereotypic (rocking) movements and mild dyskinesia. She denied hearing her mother's voice for several days now. She denied thoughts of suicide, denied command hallucinations to cut self, and denied homicidal ideation. Ayla denied feeling paranoid; there were no delusions during the interview, some difficulties with thought organization, mild intellectual impairment, no impairment in short-term memory Assessment: Ayla is a 47-year-old single White female with mild intellectual impairment and Schizoaffective disorder admitted to the inpatient psychiatric unit on 2017 because of auditory hallucinations telling her to break a glass and cut self. Since then, Ayla has shown significant improvement in mood and has denied thoughts of suicide. Discharge Diagnoses: Schizoaffective Disorder Mild Intellectual Disability Seizure disorder DM Obesity HTN Discharge Plan: Discharge Home with plans to follow up with -[facility] Psychotropic medication on discharge Provigil 200 mg QAM (for daytime somnolence, despite CPAP) Abilify 15 mg daily Trilafon 8mg at bedtime Prozac 40 mg daily Other medications: see Discharge Instructions and Summary
--- NOTE | 2017-08-28 13:00 | DISCHARGE SUMMARY REPORT-PSYCH ---
Visit Information Visit Dates/Diagnosis' Admission Date: 08/20/17 Discharge Date: 08/28/17 Reason for Admission: hallucinations/thoughts of suicide Psy Discharge Primary Diag: schizoaffective Disorder Mild Intellectual Disabil Psy Discharge Secondary Diag: Mild Intellectual Disability Hospital Course Significant Lab Findings: Lab BUN 18 mg/dL H 08/20/17 1433 Cholesterol 171 MG/DL 06/04/17 UNK Cholesterol/HDL Ratio 4 % 06/04/17 UNK Creatinine 1.1 mg/dL H 08/20/17 1433 Estimated GFR 53 ml/min L 08/20/17 1433 HDL Cholesterol 43 mg/dL 06/04/17 UNK Hemoglobin A1c 6.2 % H 06/04/17 UNK LDL Cholesterol, Calc 77 mg/dL 06/04/17 UNK Triglycerides 256 mg/dL H 06/04/17 UNK Hct 33.4 % L 08/20/17 1433 Hgb 11.1 G/DL L 08/20/17 1433 Course Complications: And did not have any complications while she was in Inpatient Psychiatry Consultations: The patient had a history and physical examination while she was in Inpatient Psychiatry Allergies: Coded Allergies: santoro (Intermediate, RASH 03/31/17) Penicillins (THROAT CLOSURE 03/31/17) ammonia (UNKNOWN 03/31/17) lindane (ALLERGIC TO KWELL SHAMPOO 03/31/17) lorazepam (THROAT CLOSURE 03/31/17) sodium hypochlorite solution (sodium hypochlorite) (ALLERGIC TO BLEACH (UNKNOWN REACTION) 03/31/17) Hospital Course/TX Response: The patient ended up staying relatively short period of time. Her last symptomatic today was Wednesday, August 23, 2017, after that she was free of hallucinations and free of thoughts of suicide Discharge HBIPS - Tobacco Use Treatment Offered Post DC Medications Offered: Script Given-See Med List Post DC Tobacco Treatment Plan: Refused Tobacco Tx Pgm - EtOH/Drug Use D/O Treatment Offered Post DC Medications Offered: NA-No EtOH/Drug Use D/O Post DC EtOH/SubAbuse TX Plan: NA-No EtOH/Drug Use D/O Metabolic Screening - Screen if on a Neuroleptic Medication - Metabolic screening should include: - Blood Pressure, BMI, Glucose or Hgb A1c, & a - Lipid profile from within the past 365 days. Metabolic Screening Patient on a neuroleptic(s) . Enter below results for Hemoglobin A1C, and lipid panel if obtained during the last 365 days. BMI: 47.100 Blood Pressure: 132/59 Laboratory Results From [facility] (If applicable): Lab Cholesterol 171 MG/DL 06/04/17 UNK Cholesterol/HDL Ratio 4 % 06/04/17 UNK HDL Cholesterol 43 mg/dL 06/04/17 UNK Hemoglobin A1c 6.2 % H 06/04/17 UNK LDL Cholesterol, Calc 77 mg/dL 06/04/17 UNK Triglycerides 256 mg/dL H 06/04/17 UNK Discharge Instructions General Discharge Information Multiple Neuroleptics: The patient will be very slowly titrated off Abilify and will likely stay on Trilafon which was just started on 08/23/2017 Discharge Diet Diabetic Discharge Activity As Tolerated DC Disposition: Home, [facility] Referrals Ordered Referrals Provider Referral 09/02/17 For Groups: [[facility] Individual Therapy] [address] [phone] Appointment with Natty: 09/02/17 at 12pm Appointments with Araceli: 09/09/17 at 9am 09/16/17 at 2pm 09/23/17 at 10am Provider Referral 09/12/17 For Groups: [[facility] Medication Appointment] [address] [phone] Medication Appointment with Janet Aragon APRN: 09/12/17 at 12:30pm Provider Referral 08/28/17 For Groups: [[facility] Case Management] [address] [phone] Selina will meet with patient on 08/28/17 or 08/29/17. She will also discuss the waiver program with Selina. Patient may attend the case management group on 08/29/17 at 1pm if she is interested in it. Provider Referral 09/03/17 For Groups: [[facility] Outpatient Group] [address] [phone] Outpatient Group - "Steps Group": 09/03/17 at 1pm Provider Referral For Groups: [[facility] Care] [facility] Visiting Nurse [phone] Prescriptions Stop taking the following medications: Cholecalciferol (Vitamin D3) (Vitamin D) 2,000 UNIT CAPSULE ORAL DAILY Topiramate (Topamax) 200 MG TABLET ORAL Every night Fluoxetine HCl (Fluoxetine HCl) 10 MG CAPSULE ORAL DAILY Qty = 42 Levocetirizine Dihydrochloride (Levocetirizine Dihydrochloride) 5 MG TABLET ORAL TAKE AT BEDTIME Qty = 30 Aripiprazole (Abilify) 30 MG TABLET ORAL Every Morning Benztropine Mesylate (Benztropine Mesylate) 0.5 MG TABLET ORAL TWICE DAILY as needed for EPS Buspirone HCl (Buspirone HCl) 10 MG TABLET ORAL TWICE DAILY Continue taking these medications: Aspirin (Ecotrin*) 325 MG TABLET. 1 Tablet ORAL DAILY Comments: Last Taken: 08/28/17 Time: 09 Furosemide (Furosemide) 40 MG TABLET 1 Tablet ORAL DAILY Comments: Last Taken: 08/28/17 Time: 09 Levothyroxine Sodium (Levothyroxine Sodium) 75 MCG TABLET 1 Tablet ORAL DAILY BEFORE BREAKFAST Comments: Last Taken: 08/28/17 Time: 0700 Nystatin (Nystop) 100,000 UNIT/GRAM POWDER 1 Application On the skin TWICE DAILY as needed for RASHES Comments: Last Taken: 08/27/17 Time: 1635 Colesevelam Hydrochloride (Welchol) 625 MG TABLET 1,875 Milligram ORAL Every night Comments: NOT GIVEN IN THE HOSPITAL ON THIS ADMISSION. Lisinopril (Lisinopril) 2.5 MG TABLET 1 Tablet ORAL DAILY Qty = 30 Comments: Last Taken: 08/28/17 Time: 09 Ferrous Sulfate (Ferrous Sulfate) 324 MG TABLET.DR 1 Tablet ORAL TWICE DAILY Comments: Last Taken:07/13/15 Time:9AM Carvedilol (Coreg) 3.125 MG TABLET 1 Tablet ORAL TWICE DAILY Comments: Last Taken: 08/28/17 Time: 09 Isosorbide Dinitrate (Isosorbide Dinitrate) 30 MG TABLET 1 Tablet ORAL DAILY Comments: Last Taken: 08/28/17 Time: 09 Clopidogrel Bisulfate (Plavix) 75 MG TABLET 1 Tablet ORAL DAILY Comments: Last Taken: 08/28/17 Time: 09 Docusate Sodium (Colace) 100 MG CAPSULE 1 Capsule ORAL TWICE DAILY Comments: Last Taken: 08/28/17 Time: 09 Atorvastatin Calcium (Atorvastatin Calcium) 40 MG TABLET 1 Tablet ORAL DAILY Qty = 90 Comments: Last Taken: 08/27/17 Time: 1634 Gemfibrozil (Gemfibrozil) 600 MG TABLET 1 Tablet ORAL TWICE DAILY Qty = 60 Comments: Last Taken: 08/28/17 Time: 922 Polyethylene Glycol 3350 (Polyethylene Glycol 3350) 17 GRAM/DOSE POWDER 17 Gram ORAL as needed for CONSTIPATION Qty = 527 Comments: Last Taken: 08/28/17 Time: 919 Ibuprofen (Ibuprofen) 800 MG TABLET 1 Tablet ORAL 4XDAILY as needed for PAIN/INFLAMMATION Comments: NOT GIVEN IN THE HOSPITAL DURING THIS ADMISSION. Linaclotide (Linzess) 145 MCG CAPSULE 1 Capsule ORAL DAILY as needed for CONSTIPATION Comments: NOT GIVEN DURING THIS HOSPITAL ADMISSION. Metformin HCl (Metformin HCl) 500 MG TABLET 1 Tablet ORAL TWICE DAILY Comments: Last Taken: 08/28/17 Time: 922 Multiple Vitamin (Multivitamins) 1 EACH TABLET 1 Tablet ORAL DAILY Comments: Last Taken: 08/28/17 Time: 922 Nitroglycerin (Nitroglycerin) 0.4 MG TAB.SUBL 1 Tablet SUBLINGUAL As Directed as needed for CHEST PAIN Instructions: 1st sign of attack; may repeat every 5 minutes until relief; if pain persists after 3 tablets in 15 minutes, prompt medical att Comments: NOT GIVEN IN THE HOSPITAL ON THIS ADMISSION. Solifenacin Succinate (Vesicare) 10 MG TABLET 1 Tablet ORAL DAILY Comments: Last Taken: 08/28/17 Time: 921 Start taking the following new medications: Topiramate (Topiramate) 100 MG TABLET 100 Milligram ORAL 0800,2200 Qty = 30 No Refills Comments: Last Taken: 08/28/17 Time: 922 Fluoxetine HCl (Fluoxetine HCl) 20 MG CAPSULE 40 Milligram ORAL DAILY Qty = 30 No Refills Comments: Last Taken: 08/28/17 Time: 921 Aripiprazole (Abilify) 15 MG TABLET 15 Milligram ORAL DAILY Qty = 14 No Refills Comments: Last Taken: 08/28/17 Time: 921 Perphenazine (Perphenazine) 8 MG TABLET 8 Milligram ORAL AT BEDTIME Qty = 14 No Refills Comments: Last Taken: 08/27/17 Time: 2151 Modafinil (Modafinil) 100 MG TABLET 200 Milligram ORAL DAILY @8AM Qty = 30 No Refills Comments: Last Taken: 08/28/17 Time: 923 Albuterol Sulfate (Ventolin Hfa) 90 MCG HFA.AER.AD 2 Puff Inhale through mouth EVERY 4 HOURS NEEDED as needed for SHORTNESS OF BREATH Qty = 1 No Refills Comments: Last Taken: 08/26/17 Time: 2215 Cholecalciferol (Vitamin D3) 1,000 UNIT TABLET 2,000 International Unit ORAL DAILY Qty = 30 No Refills Comments: Last Taken: 08/28/17 Time: 921 Studies Pending at Discharge none Copies To: Sonya
--- NOTE | 2017-08-28 17:31 | SOCIAL WORKER PROG NOTE PSYCH ---
Social Work Progress Note Progress Note 11:15am: This database report writer met with patient. She described her mood as "good" and is excited to discharge home today. Patient denied SI/HI/AH/VH and denied any thoughts to self injure. A safety plan was developed: "I will call the warm line or I will call the crisis line. I do have people to call." Patient stated that she has a list of friends' phone numbers at home. Discharge plans were reviewed, and patient accepted the appointments with [facility] as well as the plan to re-engage with [facility] services. This database report writer spoke with Ana at [facility] to confirm the outpatient appointments. Ana stated that the patient will also see Natty on 09/02/17 at 12pm as her individual therapist does not have any availability next week. 10:31am: This database report writer spoke with patient's aunt and conservator, Cindy Spring, by phone. Discharge plans were reviewed. Ana Spring stated that she did not have any questions regarding medication and was informed that she could contact nursing should she have questions. She did not identify any concerns about discharge. This database report writer spoke with Lory with [facility], who ultimately agreed to begin services this evening with the patient at her home. W10 and Patient Health Summary were faxed to [facility] upon discharge by [facility] erinn (Nae Melgar, TONIO). 12:50pm: At patient's request, this database report writer and patient called Cindy Spring, to follow up prior to discharge. Patient stated that she did not need to schedule [place] for a ride as she can call a friend, which she discussed and agreed upon with Ana Spring. Faxed Referral(s) 1 Referred To: [facility] Transition of Care Documents sent: Health Summary, W10 Faxed to: [facility] Fax #: [phone] Faxed by: FABY Briseno Date faxed: 08/28/17 Time Faxed: 1300 Comment: faxed by nursing station (Nae Melgar RN) Faxed Referral(s) 2 Referred To: [facility] Transition of Care Documents sent: Health Summary Faxed to: [facility], attn: Ana Fax #: [phone] Faxed by: Felisa Santacruz LCSW Date faxed: 08/28/17 Time Faxed: [phone]
--- NOTE | 2017-08-29 13:59 | SOCIAL WORKER PROG NOTE PSYCH ---
Social Work Progress Note Progress Note This typewriter assembly and parts inspector left with discharge clinical for [facility] ([phone]).
== END 2017-08-28 13:29 | DRG 885 ==
LOC: ERH 14:17 → CP SOUTH 20:12 → ERHI 20:12 → ENTRNSPT 21:21 → CP SOUTH 21:36 → CMPTRNSPT 21:40 → ENRESERV 23:59 → CP SOUTH 08-21 15:22
PROVIDERS: Emergency Medicine
DX: F25.9 Schizoaffective disorder, unspecified (principal); F70 Mild intellectual disabilities
CPT/HCPCS: 80307; 81003; 93005; 93010; G0480; J0401; J3490

== ENCOUNTER 2017-09-13 20:40 | Inpatient (IN) | payer OTHER ==
[~2017-09-13] VITALS: Ht 165.1 cm; Wt 123.4 kg
[~2017-09-13 20:40] MED LIST changes: +BUSPIRONE HCL10 M1 PO; +FERROUS SULFAT325 M2 PO; +LOPID600 MG PO; +METFORMIN HCL500 M3 PO; +MODAFINIL100 M1 PO; +MULTIVITAMINS1 EAC9 PO; +PERPHENAZINE8 M1 PO; +TOPIRAMATE100 M2 PO; +VENTOLIN HFA18 GM INH; +VESICARE10 MG PO; +VITAMIN D31000 UNI2 PO
--- NOTE | 2017-09-13 21:15 | ED PSYCHIATRIC COMPLAINT ---
History of Present Illness General Chief Complaint: Psychiatric Related Complaint Stated Complaint: BIBA FOR +SI, AUDITORY HALLUCINATIONS Source: patient, old records, EMS Exam Limitations: AUDITORY HALLUCINATIONS Vital Signs & Intake/Output Vital Signs & Intake/Output Vital Signs Date Time Temp Pulse Resp B/P B/P Pulse O2 O2 Flow FiO2 Mean Ox Delivery Rate 09/14 0616 98.0 61 16 118/68 94 Room Air 09/14 0419 98.4 65 16 122/60 96 Room Air 09/14 0021 98.4 62 20 136/84 96 Room Air 09/13 2259 98.7 74 18 115/60 96 Room Air 09/13 2128 98.9 72 18 113/56 95 Room Air ED Intake and Output 09/14 0000 09/13 1200 Intake Total 0 Output Total 0 Balance 0 Intake, Oral 0 Output, Urine 0 Allergies Coded Allergies: santoro (Intermediate, RASH 03/31/17) Penicillins (THROAT CLOSURE 03/31/17) ammonia (UNKNOWN 03/31/17) lindane (ALLERGIC TO KWELL SHAMPOO 03/31/17) lorazepam (THROAT CLOSURE 03/31/17) sodium hypochlorite solution (sodium hypochlorite) (ALLERGIC TO BLEACH (UNKNOWN REACTION) 03/31/17) Reconcile Medications Albuterol Sulfate (Ventolin Hfa) 90 MCG HFA.AER.AD 2 PUF INH Q4P PRN SHORTNESS OF BREATH Aripiprazole (Abilify) 15 MG TABLET 15 MG PO DAILY@0800 schizoaffective Aspirin (Ecotrin*) 325 MG TABLET.DR 1 TAB PO DAILY HEART HEALTH (Reported) Atorvastatin Calcium 40 MG TABLET 1 TAB PO DAILY CHOLESTEROL (Reported) Carvedilol (Coreg) 3.125 MG TABLET 1 TAB PO BID HEART/BP (Reported) Cholecalciferol (Vitamin D3) 1,000 UNIT TABLET 2,000 IU PO DAILY@0800 supplement Clopidogrel Bisulfate (Plavix) 75 MG TABLET 1 TAB PO DAILY heart health ( Reported) Colesevelam Hydrochloride (Welchol) 625 MG TABLET 1,875 MG PO QPM CHOLESTEROL (Reported) Docusate Sodium (Colace) 100 MG CAPSULE 1 CAP PO BID bowel (Reported) Ferrous Sulfate 324 MG TABLET.DR 1 TAB PO BID SUPPLEMENT (Reported) Fluoxetine HCl 20 MG CAPSULE 40 MG PO DAILY@0800 depression and anxiety Furosemide 40 MG TABLET 1 TAB PO DAILY DIURETIC (Reported) Gemfibrozil 600 MG TABLET 1 TAB PO BID CHOLESTEROL (Reported) Ibuprofen 800 MG TABLET 1 TAB PO 4XDAILY PRN PAIN/INFLAMMATION (Reported) Isosorbide Dinitrate 30 MG TABLET 1 TAB PO DAILY ANGINA (Reported) Levothyroxine Sodium 75 MCG TABLET 1 TAB PO DAILY AC THYROID (Reported) Linaclotide (Linzess) 145 MCG CAPSULE 1 CAP PO DAILY PRN CONSTIPATION ( Reported) Lisinopril 2.5 MG TABLET 1 TAB PO DAILY heart (Reported) Metformin HCl 500 MG TABLET 1 TAB PO BID DM (Reported) Modafinil 100 MG TABLET 200 MG PO 8AM daytime-sleepiness Multiple Vitamin (Multivitamins) 1 EACH TABLET 1 TAB PO DAILY SUPPLEMENT ( Reported) Nitroglycerin 0.4 MG TAB.SUBL 1 TAB SL AD PRN CHEST PAIN (Reported) 1st sign of attack; may repeat every 5 minutes until relief; if pain persists after 3 tablets in 15 minutes, prompt medical att Nystatin (Nystop) 100,000 UNIT/GRAM POWDER 1 PILAR TOP BID PRN RASHES (Reported ) Perphenazine 8 MG TABLET 8 MG PO AT BEDTIME hallucinations Polyethylene Glycol 3350 17 GRAM/DOSE POWDER 17 GM PO PRN CONSTIPATION ( Reported) Solifenacin Succinate (Vesicare) 10 MG TABLET 1 TAB PO DAILY BLADDER ( Reported) Topiramate 100 MG TABLET 100 MG PO 0800,2200 weight loss Triage Note: PATIENT BIBA AFTER HEARING VOICES AND WISHES TO HARM HERSELF. SHE RECENTLY HAD A CHANGE MADE TO HER MEDICATIONS. HX SCHIZOPHRENIA. PATIENT IS AWAKE, ALERT, CALM, AND COOPERATIVE. Triage Nurses Notes Reviewed? yes HPI: Patient presents for evaluation of worsening and severe auditory hallucinations telling her to cut herself despite compliance with her current psychiatric medications. Patient denies any alcohol or drug use. (Beatris LARSON,Haider Herzog) Past History Travel History Traveled to [place] past 21 day No Medical History Any Pertinent Medical History? 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 No (Beatris LARSON,Haider Herzog) Review of Systems Review of Systems Constitutional: Reports: no symptoms. EENTM: Reports: no symptoms. Respiratory: Reports: no symptoms. Cardiovascular: Reports: no symptoms. GI: Reports: no symptoms. Genitourinary: Reports: no symptoms. Musculoskeletal: Reports: no symptoms. Skin: Reports: no symptoms. Neurological/Psychological: Reports: see HPI. Hematologic/Endocrine: Reports: no symptoms. Immunologic/Allergic: Reports: no symptoms. All Other Systems: Reviewed and Negative (Beatris LAROSN,Haider Herzog) Physical Exam Physical Exam General Appearance: SEE BELOW Neurological/Psychiatric: SEE BELOW Comments: General: Alert, calm, cooperative Head: Normocephalic, atraumatic Eyes: Normal inspection, no nystagmus, EOMI Ears: Normal inspection Nose: Normal inspection Throat: Moist mucosa Neck: Supple, no goiter Heart: Regular rate and rhythm, no murmurs rubs or gallops Lungs: Clear to auscultation bilaterally with good air entry Abdomen: Soft nontender nondistended, normal bowel sounds Chest: Nontender Extremities: Normal range of motion grossly, no tremors present, no cyanosis clubbing or edema of the upper extremities Neurologic: cranial nerves II through XII grossly intact, speech clear, gait normal Psychiatric: No apparent delusions or hallucinations (although patient states she is hearing the voices currently), no pressured speech or thought blocking SAD PERSONS Done? DEFERRED TO CRISIS (Beatris LARSON,Haider Herzog) Progress Differential Diagnosis: SCHIZOPHRENIA, BIPOLAR DISORDER, DEPRESSION WITH PSYCHOTIC FEATURES, HYPERTHYROIDISM Plan of Care: Orders Procedure Date/time Status Consistent Carbohydrate 1 09/14 B Active Continuous Observation Monitor 09/13 2114 Active URINE DRUG SCREEN FOR ER ONLY 09/13 2114 Complete TSH REFLEX 09/13 2114 Complete ETHANOL 09/13 2114 Complete CBC WITHOUT DIFFERENTIAL 09/13 2114 Complete BASIC METABOLIC PANEL 09/13 2114 Complete ED CRISIS PSYCH CONSULT 09/13 2114 Active Current Medications Sig/Carla Start time Last Medication Dose Stop Time Status Admin Perphenazine 8 MG AT BEDTIME 09/14 2200 UNVr (Trilafon) Aspirin Buffered 325 MG DAILY 09/14 1000 UNVr (Ecotrin) Atorvastatin Calcium 40 MG DAILY 09/14 1000 UNVr (Lipitor) Carvedilol 3.125 MG BID 09/14 1000 UNVr (Coreg) Clopidogrel Bisulfate 75 MG DAILY 09/14 1000 UNVr (Plavix) Ferrous Sulfate 324 MG BID 09/14 1000 UNVr Furosemide 40 MG DAILY 09/14 1000 UNVr (Lasix) Gemfibrozil 600 MG BID 09/14 1000 UNVr (Lopid 600 MG Tab) Isosorbide Dinitrate 30 MG DAILY 09/14 1000 UNVr (Isordil) Lisinopril 2.5 MG DAILY 09/14 1000 UNVr (Prinivil) Metformin HCl 500 MG BID 09/14 1000 UNVr (Glucophage) Oxybutynin Chloride 5 MG BID 09/14 1000 UNVr (Ditropan) Aripiprazole 15 MG DAILY@0800 09/14 0800 UNVr (Abilify) Fluoxetine HCl 40 MG DAILY@0800 09/14 0800 UNVr (Prozac) Modafinil 200 MG 8AM 09/14 0800 UNVr (Provigil) Topiramate 100 MG 0800,2200 09/14 0800 UNVr (Topamax) Levothyroxine Sodium 0.075 MG DAILY AC 09/14 0748 UNVr (Synthroid) Laboratory Tests 09/13/172: Anion Gap 11, Estimated GFR 48 L, BUN/Creatinine Ratio 18.3, Glucose 113 H, Calcium 10.4 H, TSH &T3 &Free T4 Intrp 2.520, CBC w Diff NO MAN DIFF REQ, RBC 3.81 L, MCV 87.4, MCH 29.3, MCHC 33.5, RDW 16.8 H, MPV 8.5, Gran % 69.4, Lymphocytes % 22.1, Monocytes % 5.1, Eosinophils % 2.7, Basophils % 0.7, Absolute Granulocytes 5.6, Absolute Lymphocytes 1.8, Absolute Monocytes 0.4, Absolute Eosinophils 0.2, Absolute Basophils 0.1, Serum Alcohol < 10.0 09/13/17 2227: Urine Opiates Screen < 100, Methadone Screen < 40, Barbiturate Screen < 60, Ur Phencyclidine Scrn < 6.00, Amphetamines Screen < 100, U Benzodiazepines Scrn < 85, Urine Cocaine Screen < 50, Urine Cannabis Screen < 5.00 09/13/17 2122: TSH &T3 &Free T4 Intrp Cancelled Comments: 09/14/2017 7:14:29 AM patient 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 (Beatris LARSON,Haider Herzog) Departure Departure Disposition: STILL A PATIENT Condition: Stable Referrals: Milly Ortega APRN (PCP/Family) Departure Forms: Customer Survey General Discharge Information (Beatris LARSON,Haider Herzog) Departure Clinical Impression Primary Impression: Schizoaffective disorder Secondary Impressions: Auditory hallucinations Psych Admission Note Psychiatric Admission: I have seen and evaluated DAKOTA ESCOBEDO. I have also reviewed all the pertinent lab results and diagnostic results. DAKOTA ESCOBEDO will be admitted to our inpatient Psychiatric unit for treatment and care. (Radha LARSON,Joesph Díaz)
[2017-09-13 22:50] LABS: ABSOLUTE BASOPHIL COUNT 0.1 /CUMM (0.0-0.2); ABSOLUTE EOSINOPHIL COUNT 0.2 /CUMM (0.0-0.7); ABSOLUTE GRANULOCYTE CT 5.6 /CUMM (1.4-6.5); ABSOLUTE LYMPH COUNT 1.8 /CUMM (1.2-3.4); ABSOLUTE MONOCYTE COUNT 0.4 /CUMM (0.10-0.60); BASOPHIL % 0.7 % (0.0-2.0); EOSINOPHIL % 2.7 % (0-5); GRANULOCYTE % 69.4 % (42.2-75.2); HEMATOCRIT 33.3 % (37-47); MEAN CORPUSCULAR HGB 29.3 PG (27.0-31.0); MEAN CORPUSCULAR HGB CONC 33.5 G/DL (33.0-37.0); MEAN CORPUSCULAR VOLUME 87.4 FL (81.0-99.0); MEAN PLATELET VOLUME 8.5 FL (7.4-10.4); PLATELET COUNT 287 /CUMM (130-400); RBC DISTRIBUTION WIDTH 16.8 % (11.5-14.5); RED BLOOD CELL CT 3.81 /CUMM (4.20-5.40)
--- NOTE | 2017-09-14 08:08 | ED PSYCH CRISIS CONSULTATION ---
Crisis Consult Basic Assessment Date of Consult: 09/14/17 Responsible Person/Accompanied By: self Insurance Authorization: Insurance #1: Insurance name: FREDY FREGOSO HMO Phone number: Policy number: [id number] Group number: [id number] Authorization number: ED Provider: Patient's ED Provider: Haider Spear MD Primary Care Physician: Patient's PCP: Milly Ortega APRN PCP's Current Psychiatrist: Janet Aragon APRN [facility] [phone] Chief Complaint: Psychiatric Related Complaint Patient's Quote: I'm hearing voices telling me to cut myself Present Illness: Pt is a 47 yo female presenting to [place] [facility] ED last night reporting hearing voices telling her to kill herself. Pt has a chronic history of mental health issues and is diagnosed Schizoaffective depressed type. She has had multiple yearly admissions to [facility] since 2008 with her last admission August 2017 for AH/SI. The CSSRS was completed with the patient. Patient identified risk factors include: prior suicide attempts, suicidal thoughts; feelings of hopelessness, helplessness and depression with patient identified protective factors including : identifies reasons for living, supportive social network and engageged/ compliant with her treatment. Pt reports not wanting to harm self but is unsure she can keep herself safe. Pt has a long hx of engagement with [facility] and is also currently receiving in-home nursing visits by [facility]. Pt is unable to identify any recent triggers or significant events to explain the recent increase of ED visits (3X) this past month. Pt reports feeling safe at home and thinks recent medications changes have been helpful. Pt denies HI; VH and has no access to guns. Pt presents as calm, cooperative and OX3 with flat affect. Case reviewed with Dr Demarco with recommendation for inpatient psychiatric treatment. Pt agrees with plan and has signed voluntary admission form for admission to [facility]. Patient's Address: [address] [place] [address] Other Phone Number: Who Do You Live With? Patient/Self Family/Informants Interviewed: message left with Conservator [place] Allergies - Coded Allergies: santoro (Intermediate, RASH 03/31/17) Penicillins (THROAT CLOSURE 03/31/17) ammonia (UNKNOWN 03/31/17) lindane (ALLERGIC TO KWELL SHAMPOO 03/31/17) lorazepam (THROAT CLOSURE 03/31/17) sodium hypochlorite solution (sodium hypochlorite) (ALLERGIC TO BLEACH (UNKNOWN REACTION) 03/31/17) Current Medications - Scheduled Medications Aripiprazole (Abilify) 15 MG TABLET 15 MG PO DAILY@0800 schizoaffective #14 TAB Prescribed by John Rai MD on 08/28/17 Aspirin (Ecotrin*) 325 MG TABLET. 1 TAB PO DAILY HEART HEALTH (Reported) Entered as Reported by Gina Black on 10/01/14 1505 Atorvastatin Calcium 40 MG TABLET 1 TAB PO DAILY CHOLESTEROL #90 (Reported) Entered as Reported by Ari Arriola on 03/31/17 1513 Carvedilol (Coreg) 3.125 MG TABLET 1 TAB PO BID HEART/BP (Reported) Entered as Reported by Gina Black on 04/14/16 2119 Cholecalciferol (Vitamin D3) 1,000 UNIT TABLET 2,000 IU PO DAILY@0800 supplement #30 TAB Prescribed by John Rai MD on 08/28/17 Clopidogrel Bisulfate (Plavix) 75 MG TABLET 1 TAB PO DAILY heart health ( Reported) Entered as Reported by Jong Sanchez on 10/01/162004 Colesevelam Hydrochloride (Welchol) 625 MG TABLET 1,875 MG PO QPM CHOLESTEROL (Reported) Entered as Reported by SANTIAGO WHITMAN on 12/11/15 0304 Docusate Sodium (Colace) 100 MG CAPSULE 1 CAP PO BID bowel (Reported) Entered as Reported by Jong Sanchez on 10/01/162006 Ferrous Sulfate 324 MG TABLET. 1 TAB PO BID SUPPLEMENT (Reported) Entered as Reported by Ari Arriola on 02/21/16 1245 Fluoxetine HCl 20 MG CAPSULE 40 MG PO DAILY@0800 depression and anxiety #30 CAP Prescribed by John Rai MD on 08/28/17 Furosemide 40 MG TABLET 1 TAB PO DAILY DIURETIC (Reported) Entered as Reported by Gina Black on 10/01/14 1506 Gemfibrozil 600 MG TABLET 1 TAB PO BID CHOLESTEROL #60 (Reported) Entered as Reported by Ari Arriola on 03/31/17 1513 Isosorbide Dinitrate 30 MG TABLET 1 TAB PO DAILY ANGINA (Reported) Entered as Reported by Gina Black on 08/12/16 1656 Levothyroxine Sodium 75 MCG TABLET 1 TAB PO DAILY AC THYROID (Reported) Entered as Reported by Gina Black on 10/01/14 1506 Lisinopril 2.5 MG TABLET 1 TAB PO DAILY heart #30 (Reported) Entered as Reported by Ari Arriola on 02/21/16 1234 Metformin HCl 500 MG TABLET 1 TAB PO BID DM (Reported) Entered as Reported by Gina Black on 08/20/172024 Modafinil 100 MG TABLET 200 MG PO 8AM daytime-sleepiness #30 TAB Prescribed by John Rai MD on 08/28/17 Multiple Vitamin (Multivitamins) 1 EACH TABLET 1 TAB PO DAILY SUPPLEMENT ( Reported) Entered as Reported by Gina Black on 08/20/172025 Perphenazine 8 MG TABLET 8 MG PO AT BEDTIME hallucinations #14 TAB Prescribed by John Rai MD on 08/28/17 Solifenacin Succinate (Vesicare) 10 MG TABLET 1 TAB PO DAILY BLADDER ( Reported) Entered as Reported by Gina Black on 08/20/172027 Topiramate 100 MG TABLET 100 MG PO 0800,2200 weight loss #30 TAB Prescribed by John Rai MD on 08/28/17 Scheduled PRN Medications Albuterol Sulfate (Ventolin Hfa) 90 MCG HFA.AER.AD 2 PUF INH Q4P PRN SHORTNESS OF BREATH #1 INH Prescribed by John Rai MD on 08/28/17 Ibuprofen 800 MG TABLET 1 TAB PO 4XDAILY PRN PAIN/INFLAMMATION (Reported) Entered as Reported by Gnia Black on 08/20/172019 Linaclotide (Linzess) 145 MCG CAPSULE 1 CAP PO DAILY PRN CONSTIPATION ( Reported) Entered as Reported by Gina Black on 08/20/172024 Nitroglycerin 0.4 MG TAB.SUBL 1 TAB SL AD PRN CHEST PAIN (Reported) Entered as Reported by Gina Black on 08/20/172026 Nystatin (Nystop) 100,000 UNIT/GRAM POWDER 1 PILAR TOP BID PRN RASHES (Reported ) Entered as Reported by Gina Black on 10/01/14 1507 Polyethylene Glycol 3350 17 GRAM/DOSE POWDER 17 GM PO PRN CONSTIPATION #527 ( Reported) Entered as Reported by Ari Arriola on 03/31/17 1516 Laboratory Results: Laboratory Tests 09/13/17 2242: Anion Gap 11, Estimated GFR 48 L, BUN/Creatinine Ratio 18.3, Glucose 113 H, Calcium 10.4 H, TSH &T3 &Free T4 Intrp 2.520, CBC w Diff NO MAN DIFF REQ, RBC 3.81 L, MCV 87.4, MCH 29.3, MCHC 33.5, RDW 16.8 H, MPV 8.5, Gran % 69.4, Lymphocytes % 22.1, Monocytes % 5.1, Eosinophils % 2.7, Basophils % 0.7, Absolute Granulocytes 5.6, Absolute Lymphocytes 1.8, Absolute Monocytes 0.4, Absolute Eosinophils 0.2, Absolute Basophils 0.1, Serum Alcohol < 10.0 09/13/177: Urine Opiates Screen < 100, Methadone Screen < 40, Barbiturate Screen < 60, Ur Phencyclidine Scrn < 6.00, Amphetamines Screen < 100, U Benzodiazepines Scrn < 85, Urine Cocaine Screen < 50, Urine Cannabis Screen < 5.00 09/13/172: TSH &T3 &Free T4 Intrp Cancelled Past History Past Medical History Neurological: restless leg syndrome, seizure EENT: hearing loss Cardiovascular: CAD, CHF, hypertension, hyperlipidemia Respiratory: asthma, COPD, obstructive sleep apnea Gastrointestinal: constipation, GERD Hepatic: NONE Renal: NONE Musculoskeletal: SCOLIOSIS Psychiatric: anxiety, depression, schizo affective disorder Endocrine: diabetes, hypothyroidism, obesity Blood Disorders: anemia Cancer(s): endometrial cancer 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 She is conserved Physical Limitations (Interventions): She does appear to be overweight. Psychiatric Treatment History Psych Treatment Psychiatric Treatment Yes Inpatient Treatment Yes Outpatient Treatment Yes Location of Treatment [facility]; [facility] Reason for Treatment Auditory hallucinations to self-harm Dates of Treatment chronic, multiple Har[facility] CPS seen 2008, last Aug 2017- outpatient Care Response to Treatment pt is engaged and compliant with treatment/medications Diagnosis by History: Schizoaffective disorder Substance Use/Abuse History Drug Use/Abuse Substances Used/Abused No Substance Abuse Treatment Substance Abuse Treatment Past Substance Abuse [place] No Inpatient Treatment No Outpatient Treatment No Comments: pt reports no recent etoh or substance use Current Mental Status Mental Status Orientation: Person, Place, Situation Affect: Anxious, Depressed, Flat, Sad Speech: WNL Neuro-vegetative: Concentration Poor, Energy Decreased, Helpless, Sleep Disturbance Appearance Appearance- Dress/Hygiene: hospital scrubs; [id number] 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 patient declined ED Management Sitter: Yes Restraints: No DSM5/PS Stressors/Medical Prob Diagnosis' (DSM 5, Stressors, Medical): Schizoaffective d/o depressed F25.1 seizure hearing loss CAD, CHF, hypertension, hyperlipidemia asthma, obstructive sleep apnea constipation, GERD SCOLIOSIS diabetes, hypothyroidism, obesity anemia endometrial cancer Current GAF: 25 Comments: pt reports experiencing fearful AH yesterday tell her to cut her self. Pt reports a hx of suicide attempt and concern she may act on it. Pt denies awareness of any recent triggers/changes or significant events. Departure Disposition Psych Medical Clearance Date: 09/14/17 Medically Cleared at: 0715 Time Started: 0715 Time Ended: 08 Date Disposition Established: 09/14/17 Time Disposition Established: 814 Plan for Disposition - Modality: Inpatient Psychiatry Facility: [facility] Rationale for Disposition: Pt requires inpatient psychiatric treatment for medication assessment, mood stabilization and decrease AH/SI Type of IP Admission: Voluntary Referrals Milly Ortega APRN (PCP/Family)
[2017-09-14 09:35] VITALS: BP 128/77
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
[2017-09-14 11:57] VITALS: BP 123/67
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
[2017-09-14 15:55] VITALS: BP 123/61
--- NOTE | 2017-09-14 19:48 | PN- Gen Med ---
Assessment/Plan Medical Assessment: 46-year-old lady, with PMHX of HTN, HLD, CAD s/p Stent, HFpEF, ? seizure disorder,MOISÉS nocturnal CPAP, asthma/ COPD, anxiety/depression, schizoaffective disorder, DM (not on insulin), hypothyroidism, obesity and endometrial CA s/p hysterectomy presented in ER for auditory hallucinations and subsequently admitted in [facility]. She states that she injured her left foot by bumping it while getting out of bed and complains of left foot pain. Other than the foot pain, no complains of Headache/ vision changes / CP / SOB/ palpitations / Cough / expectoration / N / V / D / urinary complains. She get on and off abdo pain and constipation secondary to IBS. currently denies any abdo pain, but is constipated, does not remember her last BM. Problem List: 1. Foot pain 2. CONGESTIVE HEART FAILURE 3. COPD 4. Sleep apnea 5. Irritable bowel syndrome Plan: # HTN : continue Lisinopril, Coreg, Imdur # HLD : continue atorvastatin # CAD s/p Stent : continue aspirin, Plavix, Coreg # HFpEF : Continue Lasix, Coreg, Imdur, Lisinopril # Sz disorder : patient states that Keppra was discontinued : need to reconfirm # MOISÉS : Night time CPAP # Asthma/ COPD : PRN nebs # DM : continue Metformin # Hypothyroidism : continue Levothyroxine # IBS-C : Continue scheduled Miralax daily, Linzess if constipation not resolved # anxiety/ depression/ Schizoaffective disorder: agree with Psych plan # left foot pain : trauma, obatin xray I personally didn't reconcile patient's meds: Patient has home health nurse visiting twice daily who refills her med-box. Nurse from [facility] confirmed meds with the visiting nurse. Only keppra needs to readdressed : according to patient she is not taking keppra. DVT/Prophylaxis: early ambulation low risk Subjective Follow-up For: Medical evaluation, Admitted in [facility] for auditory hallucinations and multiple comorbities Complaints: left foot pain Review of Systems Constitutional: Reports: no symptoms. Objective Last 24 Hrs of Vital Signs/I&O Vital Signs Date Time Temp Pulse Resp B/P B/P Pulse O2 O2 Flow FiO2 Mean Ox Delivery Rate 09/14 2012 Room Air 03/11 1954 99.9 79 133/80 09/14 1555 75 123/61 09/14 1157 82 123/67 09/14 0935 98.9 68 128/77 09/14 0915 97.8 69 18 110/71 09/14 0915 97.8 69 18 110/71 09/14 0915 97.8 69 18 110/71 09/14 0843 97.8 69 18 110/71 98 Room Air 09/14 0616 98.0 61 16 118/68 94 Room Air 09/14 0419 98.4 65 16 122/60 96 Room Air 09/14 0021 98.4 62 20 136/84 96 Room Air 09/13 2259 98.7 74 18 115/60 96 Room Air 09/13 2128 98.9 72 18 113/56 95 Room Air Intake & Output 09/14 0000 09/14 0800 09/14 1600 Intake Total 0 Output Total 0 Balance 0 Intake, Oral 0 Output, Urine 0 Patient 123.377 kg Weight Physical Exam General Appearance: Alert, Oriented X3, Cooperative, No Acute Distress Skin: No Rashes, No Breakdown Skin Temp/Moisture Exam: Warm/Dry HEENT: Atraumatic, PERRLA, EOMI Neck: Supple, No JVD, No thryomegaly, +2 Carotid Pulse wo Bruit Lymphatic: Cervical nl Cardiovascular: Regular Rate, Normal S1, Normal S2, No Murmurs Lungs: Clear to Auscultation, Normal Air Movement Abdomen: Normal Bowel Sounds, Soft, No Tenderness Neurological: Normal Gait, Normal Speech, Strength at 5/5 X4 Ext, Normal Tone, Sensation Intact, Cranial Nerves 3-12 NL, Reflexes 2+ Extremities: No Clubbing, No Cyanosis, No Edema, Normal Pulses Other Physical Findings: Left foot : mild tender to touch. no swelling. no redness. no open wounds Current Medications: Current Medications Sig/Carla Start time Last Medication Dose Route Stop Time Status Admin Albuterol Sulfate 2 PUF Q4 PRN 09/14 1300 AC INH Aripiprazole 15 MG DAILY@0800 09/14 0800 AC 09/14 PO 0915 Aspirin Buffered 325 MG DAILY 09/14 1000 AC 09/14 PO 0915 Atorvastatin Calcium 40 MG DAILY 09/14 1000 AC 09/14 PO 0915 Carvedilol 3.125 MG BID 09/14 1000 AC 09/14 PO 0915 Cholecalciferol 2,000 IU DAILY 09/15 1000 AC PO Clopidogrel Bisulfate 75 MG DAILY 09/14 1000 AC 09/14 PO 0915 Docusate Sodium 100 MG BID 09/14 2200 AC PO Ferrous Sulfate 325 MG BID 09/14 1000 AC 09/14 PO 0915 Fluoxetine HCl 40 MG DAILY@0800 09/14 0800 AC 09/14 PO 0915 Furosemide 40 MG DAILY 09/14 1000 AC 09/14 PO 0915 Gemfibrozil 600 MG BID 09/14 1000 AC 09/14 PO 0915 Ibuprofen 400 MG Q6P PRN 09/14 1600 AC PO Isosorbide 30 MG DAILY 09/14 1000 AC 09/14 Mononitrate PO 0915 Levothyroxine Sodium 0.075 MG DAILY AC 09/14 0748 AC 09/14 PO 0915 Lisinopril 2.5 MG DAILY 09/14 1000 AC 09/14 PO 0915 Metformin HCl 500 MG 0800,1700 09/14 0854 AC 09/14 PO 1716 Modafinil 200 MG 8AM 09/14 0800 AC 09/14 PO 0915 Multivitamins 1 TAB DAILY 09/15 1000 AC PO Nicotine 21 MG DAILY 09/14 1206 AC 09/14 TOP 1220 Oxybutynin Chloride 5 MG BID 09/14 1000 AC 09/14 PO 0915 Perphenazine 8 MG AT BEDTIME 09/14 2200 AC PO Polyethylene Glycol 17 GM DAILY 09/14 1957 AC PO Topiramate 100 MG 0800,2200 09/14 0800 AC 09/14 PO 0915 Last 24 Hrs of Labs/Mics: Laboratory Tests 09/13/172: Anion Gap 11, Estimated GFR 48 L, BUN/Creatinine Ratio 18.3, Glucose 113 H, Calcium 10.4 H, TSH &T3 &Free T4 Intrp 2.520, CBC w Diff NO MAN DIFF REQ, RBC 3.81 L, MCV 87.4, MCH 29.3, MCHC 33.5, RDW 16.8 H, MPV 8.5, Gran % 69.4, Lymphocytes % 22.1, Monocytes % 5.1, Eosinophils % 2.7, Basophils % 0.7, Absolute Granulocytes 5.6, Absolute Lymphocytes 1.8, Absolute Monocytes 0.4, Absolute Eosinophils 0.2, Absolute Basophils 0.1, Serum Alcohol < 10.0 03/10/18 2227: Urine Opiates Screen < 100, Methadone Screen < 40, Barbiturate Screen < 60, Ur Phencyclidine Scrn < 6.00, Amphetamines Screen < 100, U Benzodiazepines Scrn < 85, Urine Cocaine Screen < 50, Urine Cannabis Screen < 5.00 09/13/172121: TSH &T3 &Free T4 Intrp Cancelled
[2017-09-14 19:54] VITALS: BP 133/80
--- NOTE | 2017-09-15 07:11 | RADIOLOGY REPORT ---
EXAMINATION: XR FOOT, LEFT CLINICAL INFORMATION: Pain COMPARISON: 04/09/2014 TECHNIQUE: AP, lateral, and oblique views of the left foot. FINDINGS: Was again, there is exaggeration of the plantar arch. There is degenerative disease posteriorly at the talocalcaneal joint. There are calcaneal spurs redemonstrated along with spurring along the dorsal surface of the mid tarsal region. Mild hallux valgus deformity. No definite acute fracture. IMPRESSION: Chronic findings similar to previous exam. No definite acute abnormality.
[2017-09-15 08:38] VITALS: BP 139/75
[2017-09-15 09:50] VITALS: BP 134/60
--- NOTE | 2017-09-15 10:53 | CP SOUTH PROGRESS NOTE PSYCH ---
Psych (Inpt) Progress Note Progress Note Include the following elements, when applicable: Involvement in the active treatment of the patient with behavioral observations of the patient and the patient's response to the treatment. Review of the ongoing treatment process in the context of the treatment plan. Indication of how multi-disciplinary staff members are carrying out the treatment plan. Plans for future interventions and recommendations for revision of the treatment plan. Liaison with other physicians/providers. Progress Note: I discussed this patient's progress to date, current mental status, treatment process in the context of the treatment plan, and discharge planning with staff/ team in the daily morning inpatient team meeting. I also met with the patient myself in individual session. A total of 25 minutes was spent with the patient with more than 50% spent in counseling and/or coordination of care. SUBJECTIVE: "I am up and down." OBJECTIVE: Vital Signs Current Medications Sig/Carla Start time Last Medication Dose Route Stop Time Status Admin Albuterol Sulfate 2 PUF Q4 PRN 09/14 1300 AC INH Aripiprazole 15 MG DAILY@00 09/14 0800 DC 09/15 PO 0843 Aspirin Buffered 325 MG DAILY 09/14 1000 AC 09/15 PO 0954 Atorvastatin Calcium 40 MG DAILY 09/14 1000 AC 09/15 PO 0953 Benztropine Mesylate 0.5 MG 0800,0 09/15 2200 AC PO Carvedilol 3.125 MG BID 09/14 1000 AC 09/15 PO 0954 Cholecalciferol 2,000 IU DAILY 09/15 1000 AC 09/15 PO 0953 Clopidogrel Bisulfate 75 MG DAILY 09/14 1000 AC 09/15 PO 0955 Docusate Sodium 100 MG BID 09/14 2200 AC 09/15 PO 0954 Ferrous Sulfate 325 MG BID 09/14 1000 AC 09/15 PO 0956 Fluoxetine HCl 40 MG DAILY@0800 09/14 0800 AC 09/15 PO 0844 Furosemide 40 MG DAILY 09/14 1000 AC 09/15 PO 0952 Gemfibrozil 600 MG BID 09/14 1000 AC 09/15 PO 0952 Ibuprofen 400 MG Q6P PRN 09/14 1600 AC 09/15 PO 0956 Isosorbide 30 MG DAILY 09/14 1000 AC 09/15 Mononitrate PO 0952 Levothyroxine Sodium 0.075 MG DAILY AC 09/14 0748 AC 09/15 PO 0653 Lisinopril 2.5 MG DAILY 09/14 1000 AC 09/15 PO 0955 Metformin HCl 500 MG 0800,1700 09/14 0854 AC 09/15 PO 0844 Modafinil 200 MG 8AM 09/14 0800 AC 09/15 PO 0845 Multivitamins 1 TAB DAILY 09/15 1000 AC 09/15 PO 0955 Nicotine 21 MG DAILY 09/14 1206 AC 09/15 TOP 0951 Oxybutynin Chloride 5 MG BID 09/14 1000 AC 09/15 PO 0954 Perphenazine 12 MG AT BEDTIME 09/15 2200 AC PO Perphenazine 8 MG AT BEDTIME 09/14 2200 DC 09/14 PO 211 Polyethylene Glycol 17 GM DAILY 09/14 1957 AC 09/15 PO 0952 Topiramate 100 MG 0800,0 09/14 0800 AC 09/15 PO 0844 Date Time Temp Pulse Resp B/P B/P Pulse O2 O2 Flow FiO2 Mean Ox Delivery Rate 09/15 0950 70 20 134/60 09/15 0838 97.6 70 139/75 09/14 2200 78 98 09/14 2114 79 133/80 09/14 2012 Room Air 09/14 1953 99.9 79 133/80 09/14 1555 75 123/61 09/14 1157 82 123/67 ASSESSMENT: Patient presents calm, cooperative. Likes to tell puns, and silly, children's jokes. She reports increased depression and anxiety. She reports having "a little bit" of suicidal ideation. States that she scraped herself with a paper clip yesterday, in order to hurt herself. Patient states, and also believes that she will not kill herself. She reports auditory hallucinations, voices telling her to hurt herself. States that she has paranoid thoughts "people are out after me, that is why I stay in my room." Says that she sleeps too much, all day long and all night long. Reports that her appetite is fine. Her concentration, she says, is poor. Depression:8/10; Anxiety:/ (with 10 the worst.) Denies homicidal ideation, visual hallucinations. Speech is well articulated, goal-directed, average in rate, volume and tone. The patient understands the risks/benefits/side effects of the medication and is agreeable to continue taking them. PLAN: Patient is currently on 2 antipsychotic medications, and continues to have high levels of depression, anxiety, auditory hallucinations and paranoid ideation. She is amenable to changing her medications, and agrees to discontinue Abilify and increase the dose of perphenazine. 1. Discontinue Abilify. 2. Increased dose of perphenazine to 12 mg at bedtime. 3. Add Cogentin. Continue to provide support and encouragement.
[2017-09-15 11:48] VITALS: BP 115/55
[2017-09-15 16:00] VITALS: BP 130/65
--- NOTE | 2017-09-15 16:36 | SOCIAL WORKER PROG NOTE PSYCH ---
Social Work Progress Note Progress Note 12:57pm This typewriters functional tester spoke with Karina [place] [address] requesting a copy of the conservator decree. This typewriters functional tester also informed the court that the patient signed into the hospital voluntary. Karina asked that this typewriters functional tester speak with Razia Navarrete tomorrow to follow up on this matter. A document was faxed over, however, it did not include the name of the conservator. 4:25pm This typewriters functional tester called the court and again spoke with Karina who requested that this typewriters functional tester call tomorrow and speak with Razia Navarrete, who is not in the office today. 3:08pm This typewriters functional tester met with patient. She stated that she came to the hospital due to experiencing command AH to scratch herself, which she continues to experience. Patient denied HI/AH/VH. Patient and this typewriters functional tester included Arcelia ([facility] RN) in the discussion. Arcelia stated that patient's report of symptoms have been relayed to the [facility]. A plan was developed for the afternoon in which the patient will utilizing distraction techniques. Patient identified coloring as an activity she enjoys. This typewriters functional tester accompanied the patient to the nurse's station to choose a coloring page.
[2017-09-15 19:56] VITALS: BP 138/84
[2017-09-16 08:33] VITALS: BP 141/72
--- NOTE | 2017-09-16 09:04 | CP SOUTH PROGRESS NOTE PSYCH ---
Psych (Inpt) Progress Note Progress Note Include the following elements, when applicable: Involvement in the active treatment of the patient with behavioral observations of the patient and the patient's response to the treatment. Review of the ongoing treatment process in the context of the treatment plan. Indication of how multi-disciplinary staff members are carrying out the treatment plan. Plans for future interventions and recommendations for revision of the treatment plan. Liaison with other physicians/providers. Progress Note: I discussed this patient's progress to date, current mental status, treatment process in the context of the treatment plan, and discharge planning with staff/ team in the daily morning inpatient team meeting. I also met with the patient myself in individual session. A total of 25 minutes was spent with the patient with more than 50% spent in counseling and/or coordination of care. SUBJECTIVE: "The voices tell me to hurt myself, to scratch myself, they tell me what the plan is but I am not telling you." OBJECTIVE: Current Medications Sig/Carla Start time Last Medication Dose Route Stop Time Status Admin Albuterol Sulfate 2 PUF Q4 PRN 09/14 1300 AC INH Aripiprazole 15 MG DAILY@09/14 0800 DC 09/15 PO 0843 Aspirin Buffered 325 MG DAILY 09/14 1000 AC 09/16 PO 0836 Atorvastatin Calcium 40 MG DAILY 09/14 1000 AC 09/16 PO 0836 Benztropine Mesylate 0.5 MG 0800,0 09/15 2200 AC 09/16 PO 0834 Carvedilol 3.125 MG BID 09/14 1000 AC 09/16 PO 0836 Cholecalciferol 2,000 IU DAILY 09/15 1000 AC 09/16 PO 0836 Clopidogrel Bisulfate 75 MG DAILY 09/14 1000 AC 09/16 PO 0836 Docusate Sodium 100 MG BID 09/14 2200 AC 09/16 PO 0835 Ferrous Sulfate 325 MG BID 09/14 1000 AC 09/16 PO 0836 Fluoxetine HCl 40 MG DAILY@0800 09/14 0800 AC 09/16 PO 0838 Furosemide 40 MG DAILY 09/14 1000 AC 09/16 PO 0836 Gemfibrozil 600 MG BID 09/14 1000 AC 09/16 PO 0839 Ibuprofen 400 MG .STK-MED ONE 09/15 1014 DC PO 09/15 1015 Ibuprofen 400 MG Q6P PRN 09/14 1600 AC 09/15 PO 0956 Isosorbide 30 MG DAILY 09/14 1000 AC 09/16 Mononitrate PO 0835 Levothyroxine Sodium 0.075 MG DAILY AC 09/14 0748 AC 09/16 PO 0702 Lisinopril 2.5 MG DAILY 09/14 1000 AC 09/16 PO 0834 Metformin HCl 500 MG 0800,1700 09/14 0854 AC 09/16 PO 0834 Modafinil 200 MG 8AM 09/14 0800 AC 09/16 PO 0840 Multivitamins 1 TAB DAILY 09/15 1000 AC 09/16 PO 0836 Nicotine 21 MG DAILY 09/14 1206 AC 09/16 TOP 0839 Oxybutynin Chloride 5 MG BID 09/14 1000 AC 09/16 PO 0835 Perphenazine 12 MG AT BEDTIME 09/15 2200 AC 09/15 PO 2115 Perphenazine 4 MG Q4 HRS NEEDED PRN 09/15 1700 AC 09/15 PO 1703 Perphenazine 8 MG AT BEDTIME 09/14 2200 DC 09/14 PO 2116 Polyethylene Glycol 17 GM DAILY 09/14 1957 AC 09/16 PO 0835 Topiramate 100 MG 0800,2200 09/14 0800 AC 09/16 PO 0835 Vital Signs Date Time Temp Pulse Resp B/P B/P Pulse O2 O2 Flow FiO2 Mean Ox Delivery Rate 09/16 0836 60 141/72 09/16 0835 60 141/72 09/16 0834 60 141/72 09/16 0833 98.6 60 141/72 09/15 2215 64 97 09/15 2115 79 138/84 09/15 195 99.3 79 138/84 09/15 1600 74 130/65 09/15 1148 71 115/55 09/15 0950 70 20 134/60 ASSESSMENT: Patient awakened from bed this morning just before 830 this morning. Reports continuing high levels of depression and anxiety. Auditory hallucinations of voices telling her to hurt herself. "I feel that people are after me. "My head feels all scrambled. Yesterday I did not have a plan, but today I do." She reports sleeping well last night, after Abilify was discontinued and perphenazine at night was increased to 12 mg QHS. She was also given 4 mg of perphenazine as prn medications yesterday afternoon, which she said was helpful for her anxiety. Patient also stated that she felt afraid, and TONIO Null sat in during our visit today for the patient's comfort. "I feel that people are after me." Today I spoke with patient's visiting nurse, Roni Avilez cell phone [phone], who told me that the patient usually seems okay and upbeat when he sees her, he is surprised that she is back in the hospital. I spoke with her conservator Cindy lCementine cell [phone] who is agreeable to medication changes. Depression:9/10; Anxiety:9/10 (with 10 the worst.) Denies homicidal ideation, visual hallucinations. Speech is well articulated, goal-directed, average in rate, volume and tone. Flat affect. The patient understands the risks/benefits/side effects of the medication and is agreeable to continue taking them. PLAN: 1. Increase perphenazine to 16 mg at bedtime, in addition to prn perphenazine. 2. Continue other medication management. Continue to provide support and encouragement.
[2017-09-16 12:15] VITALS: BP 132/61
[2017-09-16 15:37] VITALS: BP 131/76
--- NOTE | 2017-09-16 15:59 | SOCIAL WORKER PROG NOTE PSYCH ---
Social Work Progress Note Progress Note 11:05am This sports book writer met with patient. She stated, "I'm feeling mushy. I feel like I'm stuck." She reported ongoing urges to "scrape. It calms me down." Patient reported SI with a plan, "But I'm not gonna tell you the plan." Patient was ultimately willing to disclose part of her plan: "It has to do with my bra, but I'm not gonna tell you more." This eventually led to the patient sharing the plan to hang herself with her bra. Patient reported AH commanding her to "find something to scrape with." She denied HI/VH. Patient was informed that this sports book writer would relay her SI with plan to the treatment team, including nursing. Patient was not opposed to this. This sports book writer informed Srinath Payan APRN as well as the nursing staff. Tennille ( South RN) informed this sports book writer that the patient gave her bra to nursing staff. She was moved to a room close to the nursing station and worked with staff to identify coping skills. In addition to coloring (her primary coping skill as identified by the patient), patient was given a list of additional coping skills and also worked individually with the OT regarding coping skills. 2:06pm This sports book writer spoke with Juan Dempsey, ) to provide clinical requesting additional authorization for inpatient level of care. Additional days were authorized with the next review due on 09/22/17, at 1:30pm. This sports book writer attempted to follow up with Razia Navarrete at the [place] [facility], however, did not receive an answer, possibly due to the weather.
[2017-09-16 20:21] VITALS: BP 132/64
[2017-09-17 07:45] VITALS: BP 132/54
--- NOTE | 2017-09-17 11:11 | CP SOUTH PROGRESS NOTE PSYCH ---
Psych (Inpt) Progress Note Progress Note Include the following elements, when applicable: Involvement in the active treatment of the patient with behavioral observations of the patient and the patient's response to the treatment. Review of the ongoing treatment process in the context of the treatment plan. Indication of how multi-disciplinary staff members are carrying out the treatment plan. Plans for future interventions and recommendations for revision of the treatment plan. Liaison with other physicians/providers. Progress Note: I discussed this patient's progress to date, current mental status, treatment process in the context of the treatment plan, and discharge planning with staff/ team in the daily morning inpatient team meeting. I also met with the patient myself in individual session. A total of 15 minutes was spent with the patient with more than 50% spent in counseling and/or coordination of care. SUBJECTIVE: "I slept real good. I got up twice to use the bathroom, but went right back to sleep." OBJECTIVE: Current Medications Sig/Caral Start time Last Medication Dose Route Stop Time Status Admin Albuterol Sulfate 2 PUF Q4 PRN 09/14 1300 AC INH Aspirin Buffered 325 MG DAILY 09/14 1000 AC 09/17 PO 0832 Atorvastatin Calcium 40 MG DAILY 09/14 1000 AC 09/17 PO 0832 Benztropine Mesylate 0.5 MG 0800,0 09/15 2200 AC 09/17 PO 0831 Carvedilol 3.125 MG BID 09/14 1000 AC 09/17 PO 0832 Cholecalciferol 2,000 IU DAILY 09/15 1000 AC 09/17 PO 0833 Clopidogrel Bisulfate 75 MG DAILY 09/14 1000 AC 09/17 PO 0833 Docusate Sodium 100 MG BID 09/14 2200 AC 09/17 PO 0832 Ferrous Sulfate 325 MG BID 09/14 1000 AC 09/17 PO 0832 Fluoxetine HCl 40 MG DAILY@0800 09/14 0800 AC 09/17 PO 0832 Furosemide 40 MG DAILY 09/14 1000 AC 09/17 PO 0832 Gemfibrozil 600 MG BID 09/14 1000 AC 09/17 PO 0832 Ibuprofen 400 MG Q6P PRN 09/14 1600 AC 09/15 PO 0956 Isosorbide 30 MG DAILY 09/14 1000 AC 09/17 Mononitrate PO 0832 Levothyroxine Sodium 0.075 MG DAILY AC 09/14 0748 AC 09/17 PO 0711 Lisinopril 2.5 MG DAILY 09/14 1000 AC 09/17 PO 0833 Metformin HCl 500 MG 0800,1700 09/14 0854 AC 09/17 PO 0832 Modafinil 200 MG 8AM 09/14 0800 DC 09/17 PO 0836 Multivitamins 1 TAB DAILY 09/15 1000 AC 09/17 PO 0833 Nicotine 21 MG DAILY 09/14 1206 AC 09/17 TOP 0833 Oxybutynin Chloride 5 MG BID 09/14 1000 AC 09/17 PO 0832 Perphenazine 20 MG AT BEDTIME 09/17 2200 UNVr PO Perphenazine 16 MG AT BEDTIME 09/16 2200 DC 09/16 PO 2137 Perphenazine 12 MG AT BEDTIME 09/15 2200 DC 09/15 PO 2115 Perphenazine 4 MG Q4 HRS NEEDED PRN 09/15 1700 AC 09/16 PO 1133 Polyethylene Glycol 17 GM DAILY 09/14 1957 AC 09/17 PO 0831 Topiramate 100 MG 0800,2200 09/14 0800 AC 09/17 PO 0832 Vital Signs Date Time Temp Pulse Resp B/P B/P Pulse O2 O2 Flow FiO2 Mean Ox Delivery Rate 09/17 0833 61 132/54 09/17 0832 61 132/54 09/17 0832 61 132/54 09/17 0745 96.6 61 132/54 09/16 2137 99.4 72 20 132/64 09/16 2021 99.4 72 132/64 09/16 1537 70 131/76 09/16 1215 78 132/61 ASSESSMENT: Patient was awake and out of bed when I saw her this morning a little bit before 8:00 in the morning. Calm and cooperative. She told me a few childish jokes, as is her normal behavior. She reports that she feels better, with decreased depression and anxiety today after taking a higher dose of perphenazine last night. She denies hearing voices, denies feeling suicidal, denies scratching behavior or any other kind of self harming behavior. She denies having paranoid thoughts that she did yesterday. She says that her head feels more clear than yesterday. Tolerating perphenazine well, to good effect. Depression:3/10; Anxiety:2/10 (with 10 the worst.) Denies suicidal ideation, homicidal ideation, auditory hallucinations, visual hallucinations, paranoid ideation. Patient reports that her appetite is "all right." Speech is well articulated, goal-directed, average in rate, volume and tone. The patient understands the risks/benefits/side effects of the medication and is agreeable to continue taking them. PLAN: Some improvement and progress noted. 1. Increase perphenazine to 20 mg at bedtime. 2. Discontinue Provigil as this may be causing an exacerbation of psychotic symptoms. 3. Social work with try to conduct family meeting by phone with conservator today. Continue with other current management as patient is improving. Continue to provide support and encouragement.
--- NOTE | 2017-09-17 12:01 | SOCIAL WORKER PROG NOTE PSYCH ---
Social Work Progress Note Progress Note Completed P online review for continued stay. Check web for next review date.
[2017-09-17 12:09] VITALS: BP 133/68
[2017-09-17 15:49] VITALS: BP 136/59
--- NOTE | 2017-09-17 17:31 | SOCIAL WORKER PROG NOTE PSYCH ---
Social Work Progress Note Progress Note 10:28am This internal communications writer met with patient. She stated that she was feeling better than yesterday. She denied SI/HI/AH/VH and reported her depression at a 3/10 with worst being a 10. This internal communications writer and patient contacted her aunt/conservator, Cindy Spring, and discussed possible discharge for Friday (as reviewed in the team meeting this morning). Patient is not willing to attend [facility] and would like to return to [facility] for individual therapy, medication management, outpatient groups and case management. MARK's were reviewed for [facility] and [facility]. They were faxed to Cindy at [phone], who faxed them back to [facility]. This internal communications writer discussed CCT with the patient later in the afternoon. She stated that she was not willing to sign the CCT.
[2017-09-17 20:05] VITALS: BP 135/70
[2017-09-18 07:53] VITALS: BP 134/59
[2017-09-18] MEDS ORDERED: BENZTROPINE ME0.5 M1 PO (11:48)
[2017-09-18] MEDS ORDERED: NICOTINE PATCH1 EAC3 TOP (11:48)
[2017-09-18] MEDS ORDERED: PERPHENAZINE8 M1 PO (11:48)
--- NOTE | 2017-09-18 11:50 | CP SOUTH PROGRESS NOTE PSYCH ---
Psych (Inpt) Progress Note Progress Note Include the following elements, when applicable: Involvement in the active treatment of the patient with behavioral observations of the patient and the patient's response to the treatment. Review of the ongoing treatment process in the context of the treatment plan. Indication of how multi-disciplinary staff members are carrying out the treatment plan. Plans for future interventions and recommendations for revision of the treatment plan. Liaison with other physicians/providers. Progress Note: I discussed this patient's progress to date, current mental status, treatment process in the context of the treatment plan, and discharge planning with staff/ team in the daily morning inpatient team meeting. I also met with the patient myself in individual session. A total of 15 minutes was spent with the patient with more than 50% spent in counseling and/or coordination of care. SUBJECTIVE: "I have not heard voices in a couple of days. I have not been scratching myself. I do not have any thoughts of hurting myself. I'd like to go home today." OBJECTIVE: Current Medications Sig/Carla Start time Last Medication Dose Route Stop Time Status Admin Albuterol Sulfate 2 PUF Q4 PRN 09/14 1300 AC INH Aspirin Buffered 325 MG DAILY 09/14 1000 AC 09/18 PO 0758 Atorvastatin Calcium 40 MG DAILY 09/14 1000 AC 09/18 PO 0757 Benztropine Mesylate 0.5 MG 0800,0 09/15 2200 AC 09/18 PO 0757 Carvedilol 3.125 MG BID 09/14 1000 AC 09/18 PO 0757 Cholecalciferol 2,000 IU DAILY 09/15 1000 AC 09/18 PO 0757 Clopidogrel Bisulfate 75 MG DAILY 09/14 1000 AC 09/18 PO 0758 Docusate Sodium 100 MG BID 09/14 2200 AC 09/18 PO 0758 Ferrous Sulfate 325 MG BID 09/14 1000 AC 09/18 PO 0758 Fluoxetine HCl 40 MG DAILY@0800 09/14 0800 AC 09/18 PO 0756 Furosemide 40 MG DAILY 09/14 1000 AC 09/18 PO 0756 Gemfibrozil 600 MG BID 09/14 1000 AC 09/18 PO 0758 Ibuprofen 400 MG Q6P PRN 09/14 1600 AC 09/15 PO 0956 Isosorbide 30 MG DAILY 09/14 1000 AC 09/18 Mononitrate PO 0757 Levothyroxine Sodium 0.075 MG DAILY AC 09/14 0748 AC 09/18 PO 0642 Lisinopril 2.5 MG DAILY 09/14 1000 AC 09/18 PO 0757 Metformin HCl 500 MG 0800,0 09/14 0854 AC 09/18 PO 0756 Multivitamins 1 TAB DAILY 09/15 1000 AC 09/18 PO 0758 Nicotine 21 MG DAILY 09/14 1206 AC 09/18 TOP 0757 Oxybutynin Chloride 5 MG BID 09/14 1000 AC 09/18 PO 0758 Perphenazine 20 MG AT BEDTIME 09/17 2200 AC 09/17 PO 2156 Perphenazine 4 MG Q4 HRS NEEDED PRN 09/15 1700 AC 09/16 PO 1133 Polyethylene Glycol 17 GM DAILY 09/14 1957 AC 09/18 PO 0757 Topiramate 100 MG 0800,0 09/14 0800 AC 09/18 PO 0758 Vital Signs Date Time Temp Pulse Resp B/P B/P Pulse O2 O2 Flow FiO2 Mean Ox Delivery Rate 09/18 756 97.3 61 20 134/59 09/18 756 97.3 61 20 134/59 09/18 756 97.3 61 20 134/59 09/18 0753 97.3 61 134/59 09/18 0007 65 96 09/17 2238 64 96 09/17 2156 75 135/70 09/17 2004 99.7 75 135/70 09/17 1549 70 136/59 09/17 1209 68 133/68 ASSESSMENT: Patient presents this morning calm and cooperative. She was up and out of bed before 8:00 this morning, I found her today in the dining room. She was telling jokes, however stated that she did not feel good. Stated "sometimes I hide behind jokes." Reports feeling depressed and anxious, however without thoughts of suicide or self-harm, and would like to go home today. She says that she would like to attend a [employer] [facility]. States that she feels safe to go home. She reports tolerating perphenazine well, getting a good night sleep last night. Denies suicidal ideation, homicidal ideation, auditory hallucinations, visual hallucinations, paranoid ideation. Patient states and also believes that she will not kill herself. Reports that her appetite is good. States her concentration is also good. Speech is well articulated, goal-directed, average in rate, volume and tone. Flat affect, appears at her baseline. The patient understands the risks/benefits/side effects of the medication and is agreeable to continue taking them. PLAN: 1. We will increase perphenazine to 24 mg at bedtime, as this medication appears to be well tolerated, and her symptoms of auditory hallucinations and self-harm appear to be alleviated. She is sleeping well at night, and is able to wake up in the morning not feeling overly fatigued. 2. We will plan on discharge this afternoon. This was discussed in today's team meeting, and we agree with the patient that she appears improved, and is not a danger to herself or others. Continue with current management as patient is improving. Continue to provide support and encouragement.
--- NOTE | 2017-09-18 12:12 | Patient Discharge Instructions ---
Psych Discharge Inst General Discharge Information Reason for Admission: Recently on [facility], 08/20-08/28, reports she had been feeling well, however this weekend began to have worsening of auditory hallucinations telling her to hurt herself, became overwhelmed and called ambulance to come to ED. Psy Discharge Primary Diag+ Schizoaffective Disorder Psy Discharge Secondary Diag+ Mild intellectual disability;seizure d/o; hearing loss; CAD;CHF;HTN hyperlipidemia;asthma;MOISÉS constipation;GERD;DM; scoliosis; hypothyroidism; obesity;anemia; endometrial cancer. Summary Tests/Major Procedures Lab ALT 78 U/L H 09/02/17 1325 AST 56 U/L H 09/02/17 1325 Amylase < 30 U/L L 06/16/172002 BUN 22 mg/dL H 09/13/17 2242 BUN/Creatinine Ratio 18.3 % 09/13/17 2242 Calcium 10.4 mg/dL H 09/13/172 Cholesterol 171 MG/DL 06/04/17 UNK Cholesterol/HDL Ratio 4 % 06/04/17 UNK Creatinine 1.2 mg/dL H 09/13/172 Estimated GFR 48 ml/min L 09/13/172 Glucose 113 mg/dL H 09/13/172 HDL Cholesterol 43 mg/dL 06/04/17 UNK Hemoglobin A1c 6.2 % H 06/04/17 UNK LDL Cholesterol, Calc 77 mg/dL 06/04/17 UNK Lipase 128 U/L 06/16/172002 Renin 7.32 ng/mL/h H 06/18/17 0800 TSH 1.970 uIU/mL 06/04/17 UNK TSH &T3 &Free T4 Intrp 2.520 uIU/mL 09/13/172 Triglycerides 256 mg/dL H 06/04/17 UNK Hct 33.3 % L 09/13/172 Hgb 11.2 G/DL L 09/13/172 RBC 3.81 /CUMM L 09/13/172 RDW 16.8 % H 09/13/172 WBC 8.0 /CUMM 09/13/172 EKG on September 14, 2017; Sinus rhythm pulse 70. Left ventricular hypertrophy, nonspecific T-wave abnormalities, inferior leads, no significant change from previous. QTC 458. Studies Pending at [place]: None. Patient Instructions Contact Information Your Psychiatrist on [facility] was Bhupinder Cruz MD * If you are experiencing an emergency related to this hospitalization, please call [phone] to contact the treating psychiatrist or the psychiatrist-on- call. * To Request a copy of your medical records, please contact the Medical Records Department at [phone]. * To request results of studies pending at the time of discharge, please call [phone]. * Continue your Medications until directed to stop by your Healthcare provider. General Medication Information Please continue to take your new medications and your continued home medications , unless otherwise indicated on your discharge medication list, or unless directed by your MD or BOOM PUMP OPERATOR to stop them. Special Instructions Diet Regular Activity Normal Other Inst/Recommendations Follow up with your doctors. - Tobacco Use Treatment Offered Post DC Medications Offered: Script Given-See Med List Post DC Tobacco Treatment Plan: [facility] Tx Pgm Program Appt Date: 09/24/17 Program Appt Time: 1600 - EtOH/Drug Use D/O Treatment Offered Post DC Medications Offered: NA-No EtOH/Drug Use D/O Post DC EtOH/SubAbuse TX Plan: NA-No EtOH/Drug Use D/O Metabolic Screening () Not Applicable, patient not on a neuroleptic. OR ([x]) Patient on a neuroleptic(s) . Enter below results for Hemoglobin A1C, and lipid panel if obtained during the last 365 days. BMI: 45.200 Blood Pressure: 134/59 Laboratory Results From [facility] (If applicable): Lab Cholesterol 171 MG/DL 06/04/17 UNK Cholesterol/HDL Ratio 4 % 06/04/17 UNK HDL Cholesterol 43 mg/dL 06/04/17 UNK Hemoglobin A1c 6.2 % H 06/04/17 UNK LDL Cholesterol, Calc 77 mg/dL 06/04/17 UNK Triglycerides 256 mg/dL H 06/04/17 UNK Advance Directives Does the Patient have Medical Advance Directives No/Refused further info Does Pt have Psychiatric Advance Directives? No/Refused further info Does Patient have a Designated Surrogate Decision Maker: Yes Information About Psychiatric Advance Directives Provided? Refused Discharge Plan Post Hospital Treatment Plan: Provider Referral Service Date: 09/19/17 Referred To: [[facility]] Notes: [facility] - Case Management [address], [place] [phone] Group: Friday09/19/17 at 1pm Provider Referral Service Date: 09/19/17 Referred To: [ Care] Notes: [facility] - Case Management [address] [facility], [place] [phone] Medication appointment: 09/19/17, at 12:30pm with Janet Aragon APRN Provider Referral Service Date: 09/23/17 Referred To: [ Care] Notes: Care - Case Management [address] [facility], [place] [phone] Individual therapy: 09/23/17, at 10am with Araceli Langford LCSW Provider Referral Service Date: 09/18/17 Referred To: [[facility]] Notes: [facility] [phone] Services will begin evening, 09/18/17. Patient will be contacted by phone prior to visit.
[2017-09-18 12:19] VITALS: BP 114/54
--- NOTE | 2017-09-18 13:26 | DISCHARGE SUMMARY REPORT-PSYCH ---
Visit Information Visit Dates/Diagnosis' Admission Date: 09/14/17 Discharge Date: 09/18/17 Reason for Admission: Recently on CPS, 08/20-08/28, reports she had been feeling well, however this weekend began to have worsening of auditory hallucinations telling her to hurt herself, became overwhelmed and called ambulance to come to ED. Psy Discharge Primary Diag: Schizoaffective Disorder Psy Discharge Secondary Diag: Mild intellectual disability;seizure d/o; hearing loss; CAD;CHF;HTN hyperlipidemia;asthma;MOISÉS constipation;GERD;DM; scoliosis; hypothyroidism; obesity;anemia; endometrial cancer. Hospital Course Significant Lab Findings: Lab BUN 23 mg/dL H 08/27/17 1453 BUN/Creatinine Ratio 32.9 % H 08/27/17 1453 Creatinine 0.7 mg/dL 08/27/17 1453 Estimated GFR > 60 ml/min 08/27/17 1453 Absolute Basophils 0 /CUMM 08/27/17 1453 Absolute Eosinophils 0.5 /CUMM 08/27/17 1453 Absolute Granulocytes 7.0 /CUMM H 08/27/17 1453 Absolute Lymphocytes 1.7 /CUMM 08/27/17 1453 Absolute Monocytes 1.2 /CUMM H 08/27/17 1453 Basophils % 0.4 % 08/27/17 1453 Eosinophils % 4.6 % 08/27/17 1453 Gran % 67.4 % 08/27/17 1453 Hct 36.5 % L 08/27/17 1453 Hgb 12.1 G/DL L 08/27/17 1453 Lymphocytes % 16.5 % L 08/27/17 1453 MCH 32.5 PG H 08/27/17 1453 MCHC 33.0 G/DL 08/27/17 1453 MCV 98.6 FL H 08/27/17 1453 MPV 8.4 FL 08/27/17 1453 Monocytes % 11.1 % H 08/27/17 1453 Plt Count 315 /CUMM 08/27/17 1453 RBC 3.70 /CUMM L 08/27/17 1453 RDW 14.8 % H 08/27/17 1453 WBC 10.4 /CUMM 08/27/17 1453 Course Complications: None. Consultations: The patient was seen for admission history and physical by Dr. Lyles. Please refer to her H&P for additional information. Allergies: Coded Allergies: santoro (Intermediate, RASH 03/31/17) Penicillins (THROAT CLOSURE 03/31/17) ammonia (UNKNOWN 03/31/17) lindane (ALLERGIC TO KWELL SHAMPOO 03/31/17) lorazepam (THROAT CLOSURE 03/31/17) sodium hypochlorite solution (sodium hypochlorite) (ALLERGIC TO BLEACH (UNKNOWN REACTION) 03/31/17) Hospital Course/TX Response: The patient was monitored on the unit for safety, depression, anxiety, auditory hallucinations and self harming and suicidal ideation. She participated in multimodal treatments on the unit. Abilify and Modafinil were discontinued, and perphenazine was titrated up to 24 mg at bedtime. Benztropine was added as a preventative for extrapyramidal symptoms. Today the day of discharge, she presents as calm and cooperative. She was telling jokes, however stated that she did not feel good. Stated "sometimes I hide behind jokes." Reports feeling depressed and anxious, however without thoughts of suicide or self-harm, and would like to go home today. States that she feels safe to go home. She reports tolerating perphenazine well, getting a good night sleep last night. Denies suicidal ideation, homicidal ideation, auditory hallucinations, visual hallucinations, paranoid ideation. Patient states and also believes that she will not kill herself. Reports that her appetite is good. States her concentration is also good. Speech is well articulated, goal-directed, average in rate, volume and tone. Flat affect, appears at her baseline. The patient understands the risks/benefits/side effects of the medication and is agreeable to continue taking them. Patient reports tolerating her medications well, without complaint. States she feels safe and ready for discharge. Discharge HBIPS - Tobacco Use Treatment Offered Post DC Medications Offered: Script Given-See Med List Post DC Tobacco Treatment Plan: Harish Tobacco Tx Pgm Program Appt Date: 09/24/17 Program Appt Time: 1600 - EtOH/Drug Use D/O Treatment Offered Post DC Medications Offered: NA-No EtOH/Drug Use D/O Post DC EtOH/SubAbuse TX Plan: NA-No EtOH/Drug Use D/O Metabolic Screening - Screen if on a Neuroleptic Medication - Metabolic screening should include: - Blood Pressure, BMI, Glucose or Hgb A1c, & a - Lipid profile from within the past 365 days. Metabolic Screening () Not Applicable, patient not on a neuroleptic. OR ([x]) Patient on a neuroleptic(s) . Enter below results for Hemoglobin A1C, and lipid panel if obtained during the last 365 days. BMI: 45.200 Blood Pressure: 114/54 Laboratory Results From [facility] (If applicable): Lab Cholesterol 171 MG/DL 06/04/17 UNK Cholesterol/HDL Ratio 4 % 06/04/17 UNK HDL Cholesterol 43 mg/dL 06/04/17 UNK Hemoglobin A1c 6.2 % H 06/04/17 UNK LDL Cholesterol, Calc 77 mg/dL 06/04/17 UNK Triglycerides 256 mg/dL H 06/04/17 UNK Discharge Instructions General Discharge Information Multiple Neuroleptics: ([x]) Not Applicable OR Document below three failed attempts at monotherapy, or a plan to taper to monotherapy, or augmentation of Clozapine. () Discharge Diet Regular Discharge Activity Normal DC Disposition: Patient is returning to her home. She is followed by visiting nurse. Referrals Ordered Referrals Provider Referral 09/19/17 For Groups: [ Care] Care - Case Management [address] [place] [address] Group: Friday09/19/17 at 1pm Provider Referral 09/19/17 For Groups: [[facility]] [facility] - Case Management [address] [place] [address] Medication appointment: 09/19/17, at 12:30pm with Janet Aragon APRN Provider Referral 09/23/17 For Groups: [[facility]] [facility] - Case Management [address] [place] [address] Individual therapy: 09/23/17, at 10am with Araceli Langford LCSW Provider Referral 09/18/17 For Groups: [[facility]] [facility] [phone] Services will begin evening, 09/18/17. Patient will be contacted by phone prior to visit. Provider Referral 09/24/17 For Providers: [[facility]] For Groups: [[facility]] [facility] [address] [phone] Next Group: Sunday, September 24, 2017 at 4pm Prescriptions Stop taking the following medications: Aripiprazole (Abilify) 15 MG TABLET ORAL DAILY Qty = 14 Perphenazine (Perphenazine) 8 MG TABLET ORAL AT BEDTIME Qty = 14 Modafinil (Modafinil) 100 MG TABLET ORAL DAILY @8AM Qty = 30 Continue taking these medications: Aspirin (Ecotrin*) 325 MG TABLET. 1 Tablet ORAL DAILY Comments: Last Taken:09/18/17 Time:8am Furosemide (Furosemide) 40 MG TABLET 1 Tablet ORAL DAILY Comments: Last Taken:09/18/17 Time:8am Levothyroxine Sodium (Levothyroxine Sodium) 75 MCG TABLET 1 Tablet ORAL DAILY BEFORE BREAKFAST Comments: Last Taken:09/18/17 Time:7am Nystatin (Nystop) 100,000 UNIT/GRAM POWDER 1 Application On the skin TWICE DAILY as needed for RASHES Comments: NOT TAKEN IN HOSPITAL Colesevelam Hydrochloride (Welchol) 625 MG TABLET 1,875 Milligram ORAL Every night Comments: NOT GIVEN IN THE HOSPITAL ON THIS ADMISSION. Lisinopril (Lisinopril) 2.5 MG TABLET 1 Tablet ORAL DAILY Qty = 30 Comments: Last Taken:09/18/17 Time:8am Ferrous Sulfate (Ferrous Sulfate) 324 MG TABLET.DR 1 Tablet ORAL TWICE DAILY Comments: Last Taken:09/18/17 Time:8am Carvedilol (Coreg) 3.125 MG TABLET 1 Tablet ORAL TWICE DAILY Comments: Last Taken:09/18/17 Time:8am Isosorbide Dinitrate (Isosorbide Dinitrate) 30 MG TABLET 1 Tablet ORAL DAILY Comments: Last Taken:09/18/17 Time:8am Clopidogrel Bisulfate (Plavix) 75 MG TABLET 1 Tablet ORAL DAILY Comments: Last Taken:09/18/17 Time:8am Docusate Sodium (Colace) 100 MG CAPSULE 1 Capsule ORAL TWICE DAILY Comments: Last Taken:09/18/17 Time:8am Atorvastatin Calcium (Atorvastatin Calcium) 40 MG TABLET 1 Tablet ORAL DAILY Qty = 90 Comments: Last Taken:09/18/17 Time:8am Gemfibrozil (Gemfibrozil) 600 MG TABLET 1 Tablet ORAL TWICE DAILY Qty = 60 Comments: Last Taken:09/18/17 Time:8am Polyethylene Glycol 3350 (Polyethylene Glycol 3350) 17 GRAM/DOSE POWDER 17 Gram ORAL as needed for CONSTIPATION Qty = 527 Comments: Last Taken:09/18/17 Time:8am Ibuprofen (Ibuprofen) 800 MG TABLET 1 Tablet ORAL 4XDAILY as needed for PAIN/INFLAMMATION Comments: Last Taken:09/15/17 Time:10am Linaclotide (Linzess) 145 MCG CAPSULE 1 Capsule ORAL DAILY as needed for CONSTIPATION Comments: NOT GIVEN DURING THIS HOSPITAL ADMISSION. Metformin HCl (Metformin HCl) 500 MG TABLET 1 Tablet ORAL TWICE DAILY Comments: Last Taken:09/18/17 Time:8am Multiple Vitamin (Multivitamins) 1 EACH TABLET 1 Tablet ORAL DAILY Comments: Last Taken:09/18/17 Time:8am Nitroglycerin (Nitroglycerin) 0.4 MG TAB.SUBL 1 Tablet SUBLINGUAL As Directed as needed for CHEST PAIN Instructions: 1st sign of attack; may repeat every 5 minutes until relief; if pain persists after 3 tablets in 15 minutes, prompt medical att Comments: NOT GIVEN IN THE HOSPITAL ON THIS ADMISSION. Solifenacin Succinate (Vesicare) 10 MG TABLET 1 Tablet ORAL DAILY Comments: Last Taken:09/18/17 Time:8am Topiramate (Topiramate) 100 MG TABLET 100 Milligram ORAL 0800,2200 Qty = 30 Comments: Last Taken:09/18/17 Time:8am Fluoxetine HCl (Fluoxetine HCl) 20 MG CAPSULE 40 Milligram ORAL DAILY Qty = 30 Comments: Last Taken:09/18/17 Time:8am Albuterol Sulfate (Ventolin Hfa) 90 MCG HFA.AER.AD 2 Puff Inhale through mouth EVERY 4 HOURS NEEDED as needed for SHORTNESS OF BREATH Qty = 1 Comments: NOT TAKEN IN HOSPITAL Cholecalciferol (Vitamin D3) 1,000 UNIT TABLET 2,000 International Unit ORAL DAILY Qty = 30 Comments: Last Taken:09/18/17 Time:8am Start taking the following new medications: Nicotine (Nicotine Patch) 21 MG/24 HOUR PATCH.TD24 21 Milligram On the skin DAILY Qty = 14 No Refills Instructions: Put on new patch in the morning, and remove patch at night. Comments: Last Taken:09/18/17 Time:8am Perphenazine (Perphenazine) 8 MG TABLET 3 Tablet ORAL Every night Qty = 42 No Refills Instructions: 24 MG PO QPM Comments: Last Taken:09/17/17 Time:10pm Benztropine Mesylate (Benztropine Mesylate) 0.5 MG TABLET 1 Tablet ORAL 0800,2200 Qty = 28 No Refills Comments: Last Taken:09/18/17 Time:8am Other Inst/Recommendations Follow up with your doctors. Studies Pending at Discharge None. Copies To: Sonya
--- NOTE | 2017-09-18 17:57 | SOCIAL WORKER PROG NOTE PSYCH ---
Social Work Progress Note Progress Note This mortgage or loan underwriter spoke with Ana at [facility] and the following appointments have been scheduled: - case management: group on 09/19/17 at 1pm - medication management with Janet Liliamnereyda: 09/19/17 at 12:30pm - outpatient group: 09/24/17 at 1pm - individual therapy: 09/23/17 at 10am with Araceli Langford LCSW - Ana was informed that this mortgage or loan underwriter spoke with patient about IOP and CCT, both of which she refused 10:10am This mortgage or loan underwriter met with patient. She expressed interest in discharging today and accepted the above appointments. She denied having any thoughts to harm or kill herself and denied HI/AH/VH. She denied having any thoughts or urges to scrape herself. Patient stated that she completed the safety plan sheet that she was provided by nursing. This mortgage or loan underwriter and patient contacted her aunt/conservator, Cindy Spring, who was also informed of the discharge plans and that this mortgage or loan underwriter will contact [facility] to resume services this evening. Cindy was also informed of the CCT. As patient is not willing to participate at this time and did not want a MARK signed, they were both informed that the patient could speak with Ana at [facility] should she change her mind. Patient stated that she would attempt to reach two friends for possible rides (Karen Wallace or Jaret) and if not then [facility] would be called. (This mortgage or loan underwriter ultimately called [facility] and scheduled a ride for 1:30pm today when she was unable to schedule a ride with her friends). Patient's aunt was agreeable to the plan of her friends or [facility]. [facility] Ride: scheduled for 1:30 today, spoke with [facility], ref: [id number]; guarantees 15 minute arrival [place] (early or late) and will call nursing station upon arrival. This mortgage or loan underwriter spoke with Elaine at [facility] to inform that the patient is discharging today. This mortgage or loan underwriter also spoke with the patient's nurse, at the request of Srinath Payan, to inform him (Roni Avilez RN) of the medication changes. He stated that services would not be able to be provided today. This mortgage or loan underwriter then spoke with Mel Wood, Dba that they were able to resolve the scheduling issue and services would be provided to the patient bibiJanneth Leal was provided with this writers call back number in the event that the W10 and Patient Health Summary were not received. Faxed Referral(s) 1 Referred To: [facility] Transition of Care Documents sent: Health Summary, W10 Faxed to: [facility], attn: Mel Fax #: [phone] Faxed by: Felisa Santacruz [facility] Date faxed: 09/18/17 Time Faxed: [phone] Faxed Referral(s) 2 Referred To: [facility] Transition of Care Documents sent: Health Summary Faxed to: Sonya, attn: Ana Fax #: [phone] Faxed by: Felisa Santacruz [employer]PA[employer] Date faxed: 09/18/17 Time Faxed: [phone]
== END 2017-09-18 13:44 | DRG 885 ==
LOC: ERH 20:40 → ERHI 09-14 08:33 → CP SOUTH 09-14 08:33 → ENTRNSPT 09-14 09:06 → EDTRNSPT 09-14 09:11 → EDTRNSPTSTS 09-14 09:11 → CP SOUTH 09-14 09:16 → CMPTRNSPT 09-14 09:35 → CP SOUTH 09-14 10:15
PROVIDERS: Emergency Medicine
DX: F25.9 Schizoaffective disorder, unspecified (principal); I11.0 Hypertensive heart disease with heart failure; I50.9 Heart failure, unspecified; I25.10 Atherosclerotic heart disease of native coronary artery without angina pectoris; F79 Unspecified intellectual disabilities; G40.909 Epilepsy, unspecified, not intractable, without status epilepticus; H91.90 Unspecified hearing loss, unspecified ear; J45.909 Unspecified asthma, uncomplicated; G47.33 Obstructive sleep apnea (adult) (pediatric); K21.9 Gastro-esophageal reflux disease without esophagitis; M41.9 Scoliosis, unspecified; E03.9 Hypothyroidism, unspecified; K59.00 Constipation, unspecified; E78.5 Hyperlipidemia, unspecified
CPT/HCPCS: 73630-LT; 80307; 93005; 93010; G0480; J3490

== ENCOUNTER 2017-10-28 10:54 | Emergency (ER) | payer OTHER ==
[~2017-10-28] VITALS: Ht 167.6 cm; Wt 121.6 kg
[~2017-10-28 10:54] MED LIST changes: +NICOTINE PATCH1 EAC3 TOP
--- NOTE | 2017-10-28 11:09 | ED AMS/SEIZURE/WEAK/DIZZY ---
History of Present Illness General Chief Complaint: Dizziness Stated Complaint: DIZZY X 4 DAYS Source: patient, old records, EMS Exam Limitations: no limitations Vital Signs & Intake/Output Vital Signs & Intake/Output Vital Signs Date Time Temp Pulse Resp B/P B/P Pulse O2 O2 Flow FiO2 Mean Ox Delivery Rate 10/28 1100 97.8 65 20 123/80 96 Room Air Allergies Coded Allergies: santoro (Intermediate, RASH 03/31/17) Penicillins (THROAT CLOSURE 03/31/17) ammonia (UNKNOWN 03/31/17) lindane (ALLERGIC TO KWELL SHAMPOO 03/31/17) lorazepam (THROAT CLOSURE 03/31/17) sodium hypochlorite solution (sodium hypochlorite) (ALLERGIC TO BLEACH (UNKNOWN REACTION) 03/31/17) Reconcile Medications Albuterol Sulfate (Ventolin Hfa) 90 MCG HFA.AER.AD 2 PUF INH Q4P PRN SHORTNESS OF BREATH Aspirin (Ecotrin*) 325 MG TABLET.DR 1 TAB PO DAILY HEART HEALTH (Reported) Atorvastatin Calcium 40 MG TABLET 1 TAB PO DAILY CHOLESTEROL (Reported) Benztropine Mesylate 0.5 MG TABLET 1 TAB PO 0800,2200 prevention of EPS Carvedilol (Coreg) 3.125 MG TABLET 1 TAB PO BID HEART/BP (Reported) Cholecalciferol (Vitamin D3) 1,000 UNIT TABLET 2,000 IU PO DAILY@0800 supplement Clopidogrel Bisulfate (Plavix) 75 MG TABLET 1 TAB PO DAILY heart health ( Reported) Colesevelam Hydrochloride (Welchol) 625 MG TABLET 1,875 MG PO QPM CHOLESTEROL (Reported) Docusate Sodium (Colace) 100 MG CAPSULE 1 CAP PO BID bowel (Reported) Ferrous Sulfate 324 MG TABLET.DR 1 TAB PO BID SUPPLEMENT (Reported) Fluoxetine HCl 20 MG CAPSULE 40 MG PO DAILY@0800 depression and anxiety Furosemide 40 MG TABLET 1 TAB PO DAILY DIURETIC (Reported) Gemfibrozil 600 MG TABLET 1 TAB PO BID CHOLESTEROL (Reported) Ibuprofen 800 MG TABLET 1 TAB PO 4XDAILY PRN PAIN/INFLAMMATION (Reported) Isosorbide Dinitrate 30 MG TABLET 1 TAB PO DAILY ANGINA (Reported) Levothyroxine Sodium 75 MCG TABLET 1 TAB PO DAILY AC THYROID (Reported) Linaclotide (Linzess) 145 MCG CAPSULE 1 CAP PO DAILY PRN CONSTIPATION ( Reported) Lisinopril 2.5 MG TABLET 1 TAB PO DAILY heart (Reported) Meclizine HCl 25 MG TABLET 1 TAB PO TIDPRN PRN dizziness Metformin HCl 500 MG TABLET 1 TAB PO BID DM (Reported) Multiple Vitamin (Multivitamins) 1 EACH TABLET 1 TAB PO DAILY SUPPLEMENT ( Reported) Nicotine (Nicotine Patch) 21 MG/24 HOUR PATCH.TD24 21 MG TOP DAILY smoking cessation Put on new patch in the morning, and remove patch at night. Nitroglycerin 0.4 MG TAB.SUBL 1 TAB SL AD PRN CHEST PAIN (Reported) 1st sign of attack; may repeat every 5 minutes until relief; if pain persists after 3 tablets in 15 minutes, prompt medical att Perphenazine 8 MG TABLET 3 TAB PO QPM Clear thoughts 24 MG PO QPM Polyethylene Glycol 3350 17 GRAM/DOSE POWDER 17 GM PO PRN CONSTIPATION ( Reported) Solifenacin Succinate (Vesicare) 10 MG TABLET 1 TAB PO DAILY BLADDER ( Reported) Topiramate 100 MG TABLET 100 MG PO 0800,2200 weight loss Triage Note: PT BIBA TO TRIAGE FOR DIZZINESS AND HEADACHE SINCE FRIDAY. DIZZINESS IS WORSE WITH MOVEMENT. DENIES N/V/D. Triage Nurses Notes Reviewed? yes Onset: Gradual Duration: day(s): (4), intermittent Timing: recent history Injury Environment: home Severity: mild Severity Numbers: 4 Modifying Factors: Worsens With: other (head movement). Associated Symptoms: denies HPI: 47-year-old female well-known to this ER with history of coronary artery disease , diabetes and restless leg CHF presents complaining of a four-day history of intermittent room spinning dizziness that is only present with head movement and frontal headache. She denies nausea or vomiting. No recent trauma or head strike and no loss of consciousness. No chest pain palpitations. Lightheadedness. No history of vertigo before. No vision changes vision loss tinnitus. No abdominal pain. No other complaints of fever no chills Past History Travel History Traveled to [place] past 21 day No Medical History Any Pertinent Medical History? 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 History of MRSA: No History of VRE: No History of CDIFF: No Surgical History Surgical History: cholecystectomy, hysterectomy Psychosocial History Who do you live with Patient/Self Services at Home Home Health Aide (5 days a week), Nursing (7 days a week), a nurse administers her medications daily insuring compliance What is your primary language Serbian Tobacco Use: Current Daily Use Daily Tobacco Use Amount/Type: => 5 Cigarettes daily ETOH Use: denies use Illicit Drug Use: denies illicit drug use Family History Family History, If Any: MOTHER FH: cirrhosis Hepatitis C Relation not specified for: *No pertinent family history Hx Contributory? No Review of Systems Review of Systems Constitutional: Reports: see HPI. Comments Review of systems: See HPI, All other systems negative. Constitutional, no chills no fever HEENT: no sore throat no congestion Cardiovascular: No chest pain Skin: no rashes, no change in skin Respiratory: No dyspnea no cough no sputum GI: No nausea no vomiting, no diarrhea Muscle skeletal: No joint pain, no back pain, no neck pain, Neurologic: headache Immunology: No lymphadenopathy Physical Exam Physical Exam General Appearance: well developed/nourished, no apparent distress, alert, awake , comfortable Comments: Well-developed well-nourished person in no acute distress HEENT: Normal EENT exam; PERRL, EOMI, no nystagmus. HEAD is atraumatic. moist mucous membranes. Neck: Supple, no bruit normal range of motion Back: Nontender, no CVA tenderness. Full range of motion Cardiovascular: Regular rate and rhythms no murmurs rubs Respiratory: No respiratory distress. Patient speaking in full complete sentences. Breath sounds clear to auscultation bilaterally: NO W/R/R Extremity: No edema, full range of motion of extremities, 5 out of 5 strength noted to bilateral upper and lower extremities Neuro: Alert oriented x3, motor sensory normal, cranial nerves II through XII grossly intact. There were no obvious focal neurologic abnormalities. Skin: No appreciable rash on exposed skin, skin is warm and dry. Psych: Mood and affect is normal, memory and judgment is normal. Core Measures ACS in differential dx? No CVA/TIA Diagnosis No Sepsis Present: No Sepsis Focused Exam Completed? No Progress Differential Diagnosis: intracranial Hem., intracranial mass/tumor, multiple sclerosis, subarachnoid Hem., vertebrobasilar insuff, VERTIGO Plan of Care: Orders Procedure Date/time Status CT HEAD WO IV CONTRAST 10/28 1116 Active Current Medications Sig/Carla Start time Last Medication Dose Stop Time Status Admin Meclizine HCl 25 MG ONCE ONE 10/28 1130 AC (Antivert) 10/28 1131 Patient medicated meclizine not improving CAT scan ordered. She is otherwise resting in no acute distress requesting something to eat on my evaluation she denies nausea vomiting there is no nystagmus no neurologic symptoms or chest pain. She denies headache at this time. 1255 discussed with the patient her CAT scan finding she reports feeling improved with meclizine ambulatory around the emergency room with steady gait. Return precautions were discussed at length she feels comfortable to discharge she will follow up with her primary care physician this week. Diagnostic Imaging: Viewed by Me: CT Scan. Discussed w/RAD: CT Scan. Radiology Impression: PATIENT: DAKOTA ESCOBEDO PRESENT AGE: 47 PATIENT ACCOUNT NO: [id number] : 71 LOCATION: [facility] ORDERING PHYSICIAN: Jake HERNANDEZ SERVICE DATE: 10/28/17 EXAM TYPE: CAT - CT HEAD WO IV CONTRAST EXAMINATION: CT HEAD WITHOUT CONTRAST CLINICAL INFORMATION: Evaluate for acute intracranial hemorrhage. COMPARISON: CT head 02/2015. TECHNIQUE: Contiguous axial imaging was performed from the skull base to vertex without intravenous administration of contrast. DLP: 635.28 mGy-cm FINDINGS: There is no acute intracranial hemorrhage or abnormal extra-axial collection. No intracranial mass effect or midline shift. Lateral and third ventricles are normal. No hydrocephalus. Vargas-white matter differentiation is grossly preserved and there is no evidence of acute territorial infarct. The calvarium and skull base are intact. Mastoid air cells and middle ear cavities are well-aerated. Visualized paranasal sinuses are well aerated. IMPRESSION: Unremarkable CT scan of the head. No evidence of acute territorial infarct or hemorrhage. DICTATED BY: Aleksey Dowd MD DATE/TIME DICTATED:10/28/171242 PROFESSOR OF EDUCATION:DAVID DATE/TIME TRANSCRIBED:10/28/171242 CONFIDENTIAL, DO NOT COPY WITHOUT APPROPRIATE AUTHORIZATION. <Electronically signed in Other Vendor System> SIGNED BY: Aleksey Dowd MD 10/28/17 1249 Initial ED EKG: none Departure Departure Time of Disposition: 1251 Disposition: HOME OR SELF CARE Condition: Stable Clinical Impression Primary Impression: Vertigo Referrals: Milly Ortega APRN (PCP/Family) Additional Instructions: meclizine for dizziness ibuprofen for headache. Follow-up with your primary care physician this week. Return anytime sooner with any concerns. Departure Forms: Customer Survey General Discharge Information Prescriptions: Current Visit Scripts Meclizine HCl 1 TAB PO TIDPRN PRN dizziness #15 TAB
--- NOTE | 2017-10-28 12:49 | CT SCAN REPORT ---
EXAMINATION: CT HEAD WITHOUT CONTRAST CLINICAL INFORMATION: Evaluate for acute intracranial hemorrhage. COMPARISON: CT head 03/14/2015. TECHNIQUE: Contiguous axial imaging was performed from the skull base to vertex without intravenous administration of contrast. DLP: 635.28 mGy-cm FINDINGS: There is no acute intracranial hemorrhage or abnormal extra-axial collection. No intracranial mass effect or midline shift. Lateral and third ventricles are normal. No hydrocephalus. Vargas-white matter differentiation is grossly preserved and there is no evidence of acute territorial infarct. The calvarium and skull base are intact. Mastoid air cells and middle ear cavities are well-aerated. Visualized paranasal sinuses are well aerated. IMPRESSION: Unremarkable CT scan of the head. No evidence of acute territorial infarct or hemorrhage.
[2017-10-28] MEDS ORDERED: MECLIZINE HCL25 MG PO (12:52)
[2017-10-28 13:02] VITALS: BP 125/78
== END 2017-10-28 13:17 ==
LOC: ERH 10:54
DX: R42 Dizziness and giddiness (principal)

== ENCOUNTER 2017-12-03 20:02 | Emergency (ER) | payer OTHER ==
[~2017-12-03 20:02] MED LIST changes: +ARIPIPRAZOLE5 M1 PO; +PERPHENAZINE4 M1 PO
[2017-12-03 20:40] LABS: ABSOLUTE BASOPHIL COUNT 0 /CUMM (0.0-0.2); ABSOLUTE EOSINOPHIL COUNT 0.2 /CUMM (0.0-0.7); ABSOLUTE GRANULOCYTE CT 5.6 /CUMM (1.4-6.5); ABSOLUTE LYMPH COUNT 1.4 /CUMM (1.2-3.4); ABSOLUTE MONOCYTE COUNT 0.4 /CUMM (0.10-0.60); BASOPHIL % 0.5 % (0.0-2.0); EOSINOPHIL % 2.5 % (0-5); GRANULOCYTE % 73.7 % (42.2-75.2); HEMATOCRIT 30.9 % (37-47); MEAN CORPUSCULAR HGB 28.8 PG (27.0-31.0); MEAN CORPUSCULAR HGB CONC 33.3 G/DL (33.0-37.0); MEAN CORPUSCULAR VOLUME 86.6 FL (81.0-99.0); MEAN PLATELET VOLUME 8.6 FL (7.4-10.4); PLATELET COUNT 259 /CUMM (130-400); RBC DISTRIBUTION WIDTH 17.6 % (11.5-14.5); RED BLOOD CELL CT 3.56 /CUMM (4.20-5.40); WHITE BLOOD CELL COUNT 7.6 /CUMM (4.8-10.8)
--- NOTE | 2017-12-03 22:22 | ED DYSPNEA/ASTHMA COMPLAINT ---
History of Present Illness General Chief Complaint: Wheezing/Asthma Stated Complaint: BIBA, ASTHMA Source: patient, old records, EMS Exam Limitations: no limitations Vital Signs & Intake/Output Vital Signs & Intake/Output Vital Signs Date Time Temp Pulse Resp B/P B/P Pulse O2 O2 Flow FiO2 Mean Ox Delivery Rate 12/04 0101 98.0 71 18 117/65 95 Room Air 12/04 0010 94 12/03 2312 98 12/03 2214 96 Nasal 2.0L Cannula 12/04 2119 77 20 97 Nasal Cannula 12/03 2005 98.8 80 22 136/83 96 Room Air Allergies Coded Allergies: santoro (Intermediate, RASH 03/31/17) Penicillins (THROAT CLOSURE 03/31/17) ammonia (UNKNOWN 03/31/17) lindane (ALLERGIC TO KWELL SHAMPOO 03/31/17) lorazepam (THROAT CLOSURE 03/31/17) sodium hypochlorite solution (sodium hypochlorite) (ALLERGIC TO BLEACH (UNKNOWN REACTION) 03/31/17) Reconcile Medications Albuterol Sulfate (Ventolin Hfa) 90 MCG HFA.AER.AD 2 PUF INH Q4P PRN SHORTNESS OF BREATH Aripiprazole 5 MG TABLET 1 TAB PO DAILY MENTAL HEALTH (Reported) Aspirin (Ecotrin*) 325 MG TABLET.DR 1 TAB PO DAILY HEART HEALTH (Reported) Atorvastatin Calcium 40 MG TABLET 1 TAB PO DAILY CHOLESTEROL (Reported) Benztropine Mesylate 0.5 MG TABLET 1 TAB PO 0800,2200 prevention of EPS Carvedilol (Coreg) 3.125 MG TABLET 1 TAB PO BID HEART/BP (Reported) Cholecalciferol (Vitamin D3) 1,000 UNIT TABLET 2,000 IU PO DAILY@0800 supplement Clopidogrel Bisulfate (Plavix) 75 MG TABLET 1 TAB PO DAILY heart health ( Reported) Colesevelam Hydrochloride (Welchol) 625 MG TABLET 3 TAB PO QPM CHOLESTEROL ( Reported) Docusate Sodium (Colace) 100 MG CAPSULE 1 CAP PO BID bowel (Reported) Ferrous Sulfate 324 MG TABLET.DR 1 TAB PO BID SUPPLEMENT (Reported) Fluoxetine HCl 20 MG CAPSULE 40 MG PO DAILY@0800 depression and anxiety Furosemide 40 MG TABLET 1 TAB PO DAILY DIURETIC (Reported) Gemfibrozil 600 MG TABLET 1 TAB PO BID CHOLESTEROL (Reported) Ibuprofen 800 MG TABLET 1 TAB PO 4XDAILY PRN PAIN/INFLAMMATION (Reported) Isosorbide Dinitrate 30 MG TABLET 1 TAB PO DAILY ANGINA (Reported) Levothyroxine Sodium 75 MCG TABLET 1 TAB PO DAILY AC THYROID (Reported) Linaclotide (Linzess) 145 MCG CAPSULE 1 CAP PO DAILY PRN CONSTIPATION ( Reported) Lisinopril 2.5 MG TABLET 1 TAB PO DAILY heart (Reported) Meclizine HCl 25 MG TABLET 1 TAB PO TIDPRN PRN dizziness Metformin HCl 500 MG TABLET 1 TAB PO BID DM (Reported) Multiple Vitamin (Multivitamins) 1 EACH TABLET 1 TAB PO DAILY SUPPLEMENT ( Reported) Nitroglycerin 0.4 MG TAB.SUBL 1 TAB SL AD PRN CHEST PAIN (Reported) 1st sign of attack; may repeat every 5 minutes until relief; if pain persists after 3 tablets in 15 minutes, prompt medical att Perphenazine 8 MG TABLET 2 TAB PO QPM MENTAL HEALTH (Reported) Perphenazine 4 MG TABLET 1 TAB PO QPM MENTAL HEALTH (Reported) Polyethylene Glycol 3350 17 GRAM/DOSE POWDER 17 GM PO PRN CONSTIPATION ( Reported) Prednisone 20 MG TABLET 1 TAB PO BID asthma Solifenacin Succinate (Vesicare) 10 MG TABLET 1 TAB PO DAILY BLADDER ( Reported) Topiramate 100 MG TABLET 100 MG PO 0800,2200 weight loss Core Measure Meds Pre-Hospital aspirin Triage Note: PT TO TRIAGE C/O SOB SINCE FRIDAY WITH NONPRODUCTIVE COUGH. PT SATTING 96% ON RA, PLACED ON 2L NC PER PT REQUEST PT STATES "I FEEL BETTER WITH THE OXYGEN ON." STATES PAIN IN CENTER OF CHEST WHEN TAKING DEEP BREATHS. RHONCHI NOTED IN ALL LUNG SANCHEZ. Triage Nurses Notes Reviewed? yes Onset: Last week Duration: day(s):, continues in ED Timing: recent history Severity: moderate Activities at Onset: rest Prior Episodes/Possible Cause: occasional episodes, illness exposure Modifying Factors: Improves With: rest. Worsens With: movement. Associated Symptoms: cough, wheezing LMP (ages 10-50): unknown : No Patient currently breastfeeds: No HPI: 5 days prior to admission patient complains of nasal congestion nonproductive cough increasing wheezing. She denies fever chills nausea vomiting diarrhea abdominal pain chest pain headache dysuria rash bleeding. Past History Travel History Traveled to [place] past 21 day No Medical History Any Pertinent Medical History? 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 No Review of Systems Review of Systems Constitutional: Reports: no symptoms. EENTM: Reports: see HPI, nasal congestion. Respiratory: Reports: see HPI, cough, wheezing. Denies: sputum production. Cardiovascular: Reports: no symptoms. GI: Reports: no symptoms. Genitourinary: Reports: no symptoms. Musculoskeletal: Reports: no symptoms. Skin: Reports: no symptoms. Neurological/Psychological: Reports: no symptoms. Hematologic/Endocrine: Reports: no symptoms. Immunologic/Allergic: Reports: no symptoms. All Other Systems: Reviewed and Negative Physical Exam Physical Exam General Appearance: well developed/nourished, alert, awake, anxious, moderate distress, obese Head: atraumatic, normal appearance Eyes: Bilateral: normal appearance, PERRL, EOMI. Ears, Nose, Throat: hearing grossly normal, nasal congestion, moist mucus membranes Neck: normal inspection, supple, full range of motion, no midline tenderness Respiratory: chest non-tender, decreased breath sounds, wheezing Cardiovascular: regular rate/rhythm, normal peripheral pulses, norml femoral pulses equa Peripheral Pulses: 4+ carotid (R), 4+ carotid (L) Gastrointestinal: normal bowel sounds, soft, non-tender, no organomegaly Extremities: normal inspection, normal capillary refill, normal range of motion, no edema Neurologic/Psych: no motor/sensory deficits, awake, alert, oriented x 3, normal gait, normal mood/affect, epic cupid specialists II-XII nml as tested Skin: intact, normal color, warm/dry Lymphatic: no anterior cervical krissy Core Measures ACS in differential dx? No CVA/TIA Diagnosis No Sepsis Present: No Sepsis Focused Exam Completed? No Progress Differential Diagnosis: asthma, bronchitis, COPD Plan of Care: Orders Procedure Date/time Status COMPREHENSIVE METABOLIC PANEL 12/03 2008 Complete CBC WITHOUT DIFFERENTIAL 12/03 2008 Complete EKG 12/03 2004 Active Laboratory Tests 12/03/174: Anion Gap 14, Estimated GFR 53 L, BUN/Creatinine Ratio 21.8, Glucose 112 H, Calcium 9.3, Total Bilirubin 0.3, AST 35, ALT 53 H, Alkaline Phosphatase 107, Total Protein 6.7, Albumin 3.9, Globulin 2.8, Albumin/Globulin Ratio 1.4, CBC w Diff NO MAN DIFF REQ, RBC 3.56 L, MCV 86.6, MCH 28.8, MCHC 33.3, RDW 17.6 H, MPV 8.6, Gran % 73.7, Lymphocytes % 17.9 L, Monocytes % 5.4, Eosinophils % 2.5, Basophils % 0.5, Absolute Granulocytes 5.6, Absolute Lymphocytes 1.4, Absolute Monocytes 0.4, Absolute Eosinophils 0.2, Absolute Basophils 0 Initial ED EKG: none Departure Departure Time of Disposition: 56 Disposition: HOME OR SELF CARE Condition: Stable Clinical Impression Primary Impression: Asthma with acute exacerbation in adult Referrals: Milly Ortega APRN (PCP/Family) Departure Forms: Customer Survey General Discharge Information Prescriptions: Current Visit Scripts Prednisone 1 TAB PO BID #10 TAB Critical Care Note Critical Care Note Critical Care Time: non-applicable
[2017-12-04] MEDS ORDERED: PREDNISONE20 M1 PO ×2 (00:59→01:00)
[2017-12-04 01:01] VITALS: BP 117/65
== END 2017-12-04 01:11 ==
LOC: ERH 20:02
PROVIDERS: Emergency Medicine
DX: J45.901 Unspecified asthma with (acute) exacerbation (principal)
CPT/HCPCS: 93005; 93010

== ENCOUNTER 2017-12-08 11:00 | Emergency (ER) | payer OTHER ==
[~2017-12-08] VITALS: Ht 168.9 cm; Wt 113.4 kg
[~2017-12-08 11:00] MED LIST changes: +PREDNISONE20 M1 PO
--- NOTE | 2017-12-08 12:37 | ED GENERAL ADULT ---
History of Present Illness General Chief Complaint: General Adult Stated Complaint: PT STATES "I FEEL NUMB" Source: patient Exam Limitations: no limitations Vital Signs & Intake/Output Vital Signs & Intake/Output Vital Signs Date Time Temp Pulse Resp B/P B/P Pulse O2 O2 Flow FiO2 Mean Ox Delivery Rate 12/08 1245 98.3 62 20 99/52 98 12/08 1103 97.3 72 18 117/70 97 Room Air Allergies Coded Allergies: santoro (Intermediate, RASH 03/31/17) Penicillins (THROAT CLOSURE 03/31/17) ammonia (UNKNOWN 03/31/17) lindane (ALLERGIC TO KWELL SHAMPOO 03/31/17) lorazepam (THROAT CLOSURE 03/31/17) sodium hypochlorite solution (sodium hypochlorite) (ALLERGIC TO BLEACH (UNKNOWN REACTION) 03/31/17) Reconcile Medications Albuterol Sulfate (Ventolin Hfa) 90 MCG HFA.AER.AD 2 PUF INH Q4P PRN SHORTNESS OF BREATH Aripiprazole 5 MG TABLET 1 TAB PO DAILY MENTAL HEALTH (Reported) Aspirin (Ecotrin*) 325 MG TABLET.DR 1 TAB PO DAILY HEART HEALTH (Reported) Atorvastatin Calcium 40 MG TABLET 1 TAB PO DAILY CHOLESTEROL (Reported) Benztropine Mesylate 0.5 MG TABLET 1 TAB PO 0800,2200 prevention of EPS Carvedilol (Coreg) 3.125 MG TABLET 1 TAB PO BID HEART/BP (Reported) Cholecalciferol (Vitamin D3) 1,000 UNIT TABLET 2,000 IU PO DAILY@0800 supplement Clopidogrel Bisulfate (Plavix) 75 MG TABLET 1 TAB PO DAILY heart health ( Reported) Colesevelam Hydrochloride (Welchol) 625 MG TABLET 3 TAB PO QPM CHOLESTEROL ( Reported) Docusate Sodium (Colace) 100 MG CAPSULE 1 CAP PO BID bowel (Reported) Ferrous Sulfate 324 MG TABLET.DR 1 TAB PO BID SUPPLEMENT (Reported) Fluoxetine HCl 20 MG CAPSULE 40 MG PO DAILY@0800 depression and anxiety Furosemide 40 MG TABLET 1 TAB PO DAILY DIURETIC (Reported) Gemfibrozil 600 MG TABLET 1 TAB PO BID CHOLESTEROL (Reported) Ibuprofen 800 MG TABLET 1 TAB PO 4XDAILY PRN PAIN/INFLAMMATION (Reported) Isosorbide Dinitrate 30 MG TABLET 1 TAB PO DAILY ANGINA (Reported) Levothyroxine Sodium 75 MCG TABLET 1 TAB PO DAILY AC THYROID (Reported) Linaclotide (Linzess) 145 MCG CAPSULE 1 CAP PO DAILY PRN CONSTIPATION ( Reported) Lisinopril 2.5 MG TABLET 1 TAB PO DAILY heart (Reported) Meclizine HCl 25 MG TABLET 1 TAB PO TIDPRN PRN dizziness Metformin HCl 500 MG TABLET 1 TAB PO BID DM (Reported) Multiple Vitamin (Multivitamins) 1 EACH TABLET 1 TAB PO DAILY SUPPLEMENT ( Reported) Nitroglycerin 0.4 MG TAB.SUBL 1 TAB SL AD PRN CHEST PAIN (Reported) 1st sign of attack; may repeat every 5 minutes until relief; if pain persists after 3 tablets in 15 minutes, prompt medical att Perphenazine 8 MG TABLET 2 TAB PO QPM MENTAL HEALTH (Reported) Perphenazine 4 MG TABLET 1 TAB PO QPM MENTAL HEALTH (Reported) Polyethylene Glycol 3350 17 GRAM/DOSE POWDER 17 GM PO PRN CONSTIPATION ( Reported) Prednisone 20 MG TABLET 1 TAB PO BID asthma Solifenacin Succinate (Vesicare) 10 MG TABLET 1 TAB PO DAILY BLADDER ( Reported) Topiramate 100 MG TABLET 100 MG PO 0800,2200 weight loss Triage Note: PT TO ER WITH COMPLAINTS THAT SHE HAS A COUGH THAT WON'T GO AWAY, PT WAS STARTED ON PREDNISONE FOR THE SAME. ALSO COMPLAINS THAT HER LEGS AND ARMS HAVE BEEN TINGLING. " STATES THAT I JUST DON'T FEEL WELL". NIDDM FS 125. Triage Nurses Notes Reviewed? yes HPI: Patient is a 47-year-old female with past medical history history as outlined below who presents today with cough. She is well-known to providers in this emergency department for her multiple prior visits and her recidivism, usually for nonspecific complaints which when not secondary to organic medical disease, responded well to reassurance. She states that this cough syndrome has been present for the past 7 days. She smokes one pack per day and denies any productive mucus. She also has a secondary complaint of nonspecific and diffuse "numbness" which does not fit a specific neurologic pattern and thus does not seem to fit a strokelike syndrome. Past History Travel History Traveled to [place] past 21 day No Medical History Any Pertinent Medical History? see below for history Neurological: restless leg syndrome, seizure EENT: hearing loss Cardiovascular: CAD, CHF, hypertension, hyperlipidemia Respiratory: asthma, COPD, obstructive sleep apnea Gastrointestinal: constipation, GERD Hepatic: NONE Renal: NONE Musculoskeletal: SCOLIOSIS Psychiatric: anxiety, depression, schizo affective disorder Endocrine: diabetes, hypothyroidism, obesity Blood Disorders: anemia Cancer(s): endometrial cancer METROLOGY ENGINEER/Reproductive: NONE History of MRSA: No History of VRE: No History of CDIFF: No Surgical History Surgical History: cholecystectomy, hysterectomy Psychosocial History Who do you live with Patient/Self Services at Home Home Health Aide (5 days a week), Nursing (7 days a week), a nurse administers her medications daily insuring compliance What is your primary language [place] Tobacco Use: Never used ETOH Use: denies use Illicit Drug Use: denies illicit drug use Family History Family History, If Any: MOTHER FH: cirrhosis Hepatitis C Relation not specified for: *No pertinent family history Hx Contributory? No Review of Systems Review of Systems Constitutional: Reports: see HPI. Denies: chills, diaphoresis, fever, malaise, weakness. EENTM: Reports: no symptoms. Respiratory: Reports: see HPI, cough, wheezing. Denies: sputum production, stridor. Cardiovascular: Reports: no symptoms. GI: Reports: no symptoms. Genitourinary: Reports: no symptoms. Musculoskeletal: Reports: no symptoms. Skin: Reports: no symptoms. Neurological/Psychological: Reports: no symptoms. Hematologic/Endocrine: Reports: no symptoms. Immunologic/Allergic: Reports: no symptoms. All Other Systems: Reviewed and Negative Physical Exam Physical Exam General Appearance: well developed/nourished, no apparent distress, obese Comments: HEENT: Inspection of the head reveals a normocephalic cranium with no signs of trauma. Ophtho: Extraocular muscles are intact and pupils are equal and reactive to light bilaterally with no afferent pupillary defect. The sclera are noninjected , and there is no obvious discharge. Neck: The trachea is midline, there is no obvious asymmetry or mass over the thyroid, and there is no midline cervical spine tenderness Respiratory: Mild bilateral expiratory wheezing diffusely with scattered soft rhonchi, no crackles or focal findings. The patient exhibits no signs of labored breathing. Cardiac: Regular rhythm and non-tachycardic without appreciable murmurs on auscultation. No obvious JVD. GI: Examination of the abdomen reveals no significant focal tenderness in any of the four quadrants. There is negative Penaloza's sign, negative McBurney's point tenderness, negative Fazal sign, negative Fernandez-Gill sign, and no signs of peritonitis whatsoever on percussion or deep palpation. The skin is intact with no sign of trauma or infection. : Deferred Neuro: The patient is oriented to person, place, time, and situation, with no obvious focal motor deficits. There were no sensory deficits, and the patient exhibit purposeful movement of all 4 extremities. Cranial nerves II through XII are intact, and gait is normal. Behavioral: Calm and cooperative Dermatologic: Dermatologic examination reveals no diffuse rashes or exanthems, no petechiae, no ecchymoses, and no other signs of erythema or infection. Core Measures ACS in differential dx? No CVA/TIA Diagnosis: No Sepsis Present: No Sepsis Focused Exam Completed? No Progress Differential Diagnoses I considered the following diagnoses in my evaluation of the patient: Chronic bronchitis, acute bronchitis, pneumonia, pneumothorax, ACS, among multiple other possibilities Plan of Care: Orders Procedure Date/time Status XRY-CHEST XRAY, TWO VIEWS 12/08 1232 Active Current Medications Sig/Carla Start time Last Medication Dose Stop Time Status Admin Albuterol Sulfate 3 ML ONCE ONE 12/08 1245 UNVr (Proventil) 12/08 1246 Ipratropium [place] 2.5 ML ONCE ONE 12/08 1245 UNVr (Atrovent) 12/08 1246 Initial ED EKG: none Comments: Patient presents today for nonspecific cough in the setting of tobacco abuse. I obtained a chest x-ray which did not show evidence of obvious focal lobar pneumonia. I provided a DuoNeb nebulizer with excellent effect an improvement in the patient's symptoms. She agrees to follow-up with her primary physician in the outpatient setting. Stable at time of discharge. FINDINGS: The cardiac silhouette is not enlarged. The mediastinal and hilar contours are unremarkable. There are neither pleural effusions nor pneumothoraces. There are no consolidations. The osseous structures are stable with intact spinal fusion hardware noted and stable residual scoliosis. IMPRESSION: No evidence for acute disease. DICTATED BY: Johnnie Culp MD Departure Departure Time of Disposition: 6 Disposition: HOME OR SELF CARE Condition: Stable Clinical Impression Primary Impression: Cough Referrals: Milly Ortega APRN (PCP/Family) Additional Instructions: Your chest x-ray did not show any evidence of pneumonia. Please follow-up with your primary physician for reassessment. Departure Forms: Customer Survey General Discharge Information Critical Care Note Critical Care Note Critical Care Time: non-applicable
--- NOTE | 2017-12-08 13:41 | RADIOLOGY REPORT ---
EXAMINATION: CHEST 2 VIEWS CLINICAL INFORMATION: Cough. COMPARISON: 02/25/2017. TECHNIQUE: PA and lateral views of the chest were obtained. FINDINGS: The cardiac silhouette is not enlarged. The mediastinal and hilar contours are unremarkable. There are neither pleural effusions nor pneumothoraces. There are no consolidations. The osseous structures are stable with intact spinal fusion hardware noted and stable residual scoliosis. IMPRESSION: No evidence for acute disease.
[2017-12-08 14:28] VITALS: BP 102/60
== END 2017-12-08 14:32 ==
LOC: ERH 11:00
DX: R05 Cough (principal)
CPT/HCPCS: 1263; 71046

== ENCOUNTER 2018-03-31 14:44 | Emergency (ER) | payer OTHER ==
--- NOTE | 2018-03-31 15:56 | ED PSYCHIATRIC COMPLAINT ---
History of Present Illness General Chief Complaint: Psychiatric Related Complaint Stated Complaint: BIBA +SI Source: patient, old records Exam Limitations: no limitations Vital Signs & Intake/Output Vital Signs & Intake/Output Vital Signs Date Time Temp Pulse Resp B/P B/P Pulse O2 O2 Flow FiO2 Mean Ox Delivery Rate 03/31 1955 98.8 74 18 150/90 99 03/31 1732 98.8 82 16 123/66 100 Room Air 03/31 1452 98.4 88 18 140/91 98 Room Air ED Intake and Output 04/01 0000 03/31 1200 Intake Total 0 Output Total Balance 0 Intake, Oral 0 Allergies Coded Allergies: santoro (Intermediate, RASH 03/31/17) Penicillins (THROAT CLOSURE 03/31/17) ammonia (UNKNOWN 03/31/17) lindane (ALLERGIC TO KWELL SHAMPOO 03/31/17) lorazepam (THROAT CLOSURE 03/31/17) sodium hypochlorite solution (sodium hypochlorite) (ALLERGIC TO BLEACH (UNKNOWN REACTION) 03/31/17) Reconcile Medications Albuterol Sulfate (Ventolin Hfa) 90 MCG HFA.AER.AD 2 PUF INH Q4P PRN SHORTNESS OF BREATH Aripiprazole 5 MG TABLET 1 TAB PO DAILY MENTAL HEALTH (Reported) Aspirin (Ecotrin*) 325 MG TABLET.DR 1 TAB PO DAILY HEART HEALTH (Reported) Atorvastatin Calcium 40 MG TABLET 1 TAB PO DAILY CHOLESTEROL (Reported) Benztropine Mesylate 0.5 MG TABLET 1 TAB PO 0800,2200 prevention of EPS Carvedilol (Coreg) 3.125 MG TABLET 1 TAB PO BID HEART/BP (Reported) Cholecalciferol (Vitamin D3) 1,000 UNIT TABLET 2,000 IU PO DAILY@0800 supplement Clopidogrel Bisulfate (Plavix) 75 MG TABLET 1 TAB PO DAILY heart health ( Reported) Colesevelam Hydrochloride (Welchol) 625 MG TABLET 3 TAB PO QPM CHOLESTEROL ( Reported) Cyclobenzaprine HCl 10 MG TABLET 1 TAB PO 4 TIMES/DAY PRN MUSCLE SPASM Docusate Sodium (Colace) 100 MG CAPSULE 1 CAP PO BID bowel (Reported) Ferrous Sulfate 324 MG TABLET.DR 1 TAB PO BID SUPPLEMENT (Reported) Fluoxetine HCl 20 MG CAPSULE 40 MG PO DAILY@0800 depression and anxiety Furosemide 40 MG TABLET 1 TAB PO DAILY DIURETIC (Reported) Gemfibrozil 600 MG TABLET 1 TAB PO BID CHOLESTEROL (Reported) Ibuprofen 800 MG TABLET 1 TAB PO 4XDAILY PRN PAIN/INFLAMMATION (Reported) Ibuprofen 600 MG TABLET 1 TAB PO TID PRN muscle spasm/pain with food Isosorbide Dinitrate 30 MG TABLET 1 TAB PO DAILY ANGINA (Reported) Levothyroxine Sodium 75 MCG TABLET 1 TAB PO DAILY AC THYROID (Reported) Linaclotide (Linzess) 145 MCG CAPSULE 1 CAP PO DAILY PRN CONSTIPATION ( Reported) Lisinopril 2.5 MG TABLET 1 TAB PO DAILY heart (Reported) Meclizine HCl 25 MG TABLET 1 TAB PO TIDPRN PRN dizziness Metformin HCl 500 MG TABLET 1 TAB PO BID DM (Reported) Multiple Vitamin (Multivitamins) 1 EACH TABLET 1 TAB PO DAILY SUPPLEMENT ( Reported) Nitroglycerin 0.4 MG TAB.SUBL 1 TAB SL AD PRN CHEST PAIN (Reported) 1st sign of attack; may repeat every 5 minutes until relief; if pain persists after 3 tablets in 15 minutes, prompt medical att Perphenazine 8 MG TABLET 2 TAB PO QPM MENTAL HEALTH (Reported) Perphenazine 4 MG TABLET 1 TAB PO QPM MENTAL HEALTH (Reported) Polyethylene Glycol 3350 17 GRAM/DOSE POWDER 17 GM PO PRN CONSTIPATION ( Reported) Prednisone 20 MG TABLET 1 TAB PO BID asthma Solifenacin Succinate (Vesicare) 10 MG TABLET 1 TAB PO DAILY BLADDER ( Reported) Topiramate 100 MG TABLET 100 MG PO 0800,2200 weight loss Triage Note: 48 YO FEMALE BIBA FROM HOME FOR +SI. PT REPORTS "I WANT TO JUMP OFF A BRIDGE, THERE IS TO MUCH GOING ON RIGHT NOW" PT CALM AND COOPERATIVE. SECUIRTY AT BEDSIDE FOR WANDING. Triage Nurses Notes Reviewed? yes Onset: Gradual Duration: hour(s): Timing: single episode today Severity: moderate HPI: 48yo female with hx of depression, antibiotics, DM, CAD, CHF, HTN BIBA to ED complaining of suicidal ideation beginning today. Patient states that she is thinking of jumping [place] [address]. Patient reports one prior suicide attempt in the past involving overdose. Patient reports worsening depression today as well. She states that she did not take her psychiatric medication today, she missed her nurse. Patient typically follows up with outpatient BH. Patient also reports midline low back pain which radiates down right leg towards ankle which she has had intermittently for about one month. She reports paresthesias of her feet bilaterally. She denies recent trauma or fall. She denies HI, access to firearms, drug or alcohol use. (Fabby Sosa) Past History Travel History Traveled to [place] past 21 day No Medical History Any Pertinent Medical History? see below for history Neurological: restless leg syndrome, seizure EENT: hearing loss Cardiovascular: CAD, CHF, hypertension, hyperlipidemia Respiratory: asthma, COPD, obstructive sleep apnea Gastrointestinal: constipation, GERD Hepatic: NONE Renal: NONE Musculoskeletal: SCOLIOSIS Psychiatric: anxiety, depression, schizo affective disorder Endocrine: diabetes, hypothyroidism, obesity Blood Disorders: anemia Cancer(s): endometrial cancer MEDICATION ADMINISTRATION PROFESSIONAL/Reproductive: NONE History of MRSA: No History of VRE: No History of CDIFF: No Surgical History Surgical History: cholecystectomy, hysterectomy Psychosocial History Who do you live with Patient/Self Services at Home Home Health Aide (5 days a week), Nursing (7 days a week), a nurse administers her medications daily insuring compliance What is your primary language Upper Sorbian Tobacco Use: Never used Family History Family History, If Any: MOTHER FH: cirrhosis Hepatitis C Relation not specified for: *No pertinent family history Hx Contributory? No (Fabby Sosa) Review of Systems Review of Systems Constitutional: Reports: no symptoms. EENTM: Reports: no symptoms. Respiratory: Reports: no symptoms. Cardiovascular: Reports: no symptoms. GI: Reports: no symptoms. Genitourinary: Reports: no symptoms. Musculoskeletal: Reports: see HPI. Skin: Reports: no symptoms. Neurological/Psychological: Reports: see HPI. Hematologic/Endocrine: Reports: no symptoms. Immunologic/Allergic: Reports: no symptoms. All Other Systems: Reviewed and Negative (Fabby Sosa) Physical Exam Physical Exam General Appearance: well developed/nourished, no apparent distress, alert, awake Head: atraumatic, normal appearance Eyes: Bilateral: normal appearance. Ears, Nose, Throat: hearing grossly normal Neck: normal inspection, supple, full range of motion Respiratory: normal breath sounds, no respiratory distress, lungs clear Cardiovascular: regular rate/rhythm Gastrointestinal: soft, non-tender, obese Extremities: normal range of motion Neurological/Psychiatric: awake, alert, normal mood/affect, strength 5/5 equal bilateral lower extremities Behavoir/Eye Contact/Speech: cooperative Thoughts/Hallucinations: normal thought pattern Skin: intact, normal color, warm/dry SAD PERSONS SAD PERSONS Response Value Age <19 or >45 years? yes 1 Depression/Hopelessness? yes 2 Previous Attempts/Psych Care yes 1 Organized/Serious Attempt yes 2 Stated Future Intent? yes 2 Total 8 SAD PERSONS Done? yes (Dari HERNANDEZ,Fabby Hassan) Progress Differential Diagnosis: drug intoxication, drug overdose, drug withdrawal, electrolyte abnormality, fracture, disc degeneration, sciatica Plan of Care: Orders Procedure Date/time Status Regular Diet 03/31 D Active Continuous Observation Monitor 03/31 153 Active URINE 03/31 153 Complete URINE DRUG SCREEN FOR ER ONLY 03/31 153 Complete URINALYSIS 03/31 1537 Complete ETHANOL 03/31 1537 Complete COMPREHENSIVE METABOLIC PANEL 03/31 1537 Complete CBC WITHOUT DIFFERENTIAL 03/31 1537 Complete ED CRISIS PSYCH CONSULT 03/31 153 Active Laboratory Tests 03/31/18 1650: Anion Gap 9, Estimated GFR > 60, BUN/Creatinine Ratio 16.7, Glucose 94, Calcium 9.9, Total Bilirubin 0.1 L, AST 67 H, ALT 72 H, Alkaline Phosphatase 83, Total Protein 6.4, Albumin 4.1, Globulin 2.3, Albumin/Globulin Ratio 1.8, CBC w Diff NO MAN DIFF REQ, RBC 4.10 L, MCV 86.8, MCH 28.9, MCHC 33.3, RDW 17.7 H, MPV 9.0, Gran % 58.9, Lymphocytes % 30.4, Monocytes % 5.8, Eosinophils % 4.4, Basophils % 0.5, Absolute Granulocytes 3.7, Absolute Lymphocytes 1.9, Absolute Monocytes 0.4, Absolute Eosinophils 0.3, Absolute Basophils 0, Serum Alcohol < 10.0 03/31/18 1620: Urine Opiates Screen < 100, Methadone Screen 43, Barbiturate Screen < 60, Ur Phencyclidine Scrn < 6.00, Amphetamines Screen < 100, U Benzodiazepines Scrn < 85, Urine Cocaine Screen < 50, Urine Cannabis Screen < 5.00, Urine Color YEL, Urine Clarity CLEAR, Urine pH 6.5, Ur Specific [place] 1.015, Urine Protein NEG, Urine Ketones NEG, Urine Nitrite NEG, Urine Bilirubin NEG, Urine Urobilinogen 0.2, Ur Leukocyte Esterase NEG, Ur Microscopic EXAM NOT REQUIRED, Urine Hemoglobin NEG, Urine Glucose NEG, Urine Test NEGATIVE Patient's x-ray results are stable, degenerative changes however no acute findings. Patient is able to ambulate without difficulty, she lays in stretcher in no acute distress. Patient is afebrile. Back pain most consistent with radicular/sciatic symptoms. Patient has hx of scoliosis and extensive multilevel spinal surgery. Labs and urine drug screen are pending prior to crisis evaluation. The patient was signed out to MARY Saunders pending labs and crisis evaluation and disposition. (Fabby Sosa) March 31, 2018 at 8 PM Patient signed out to me by MARY Chapin Patient is a 48-year-old female who presented with suicidal ideation. She was signed out to me with crisis eval pending. Patient was seen and evaluated by [facility] who has cleared the patient for discharge at this time. She will follow- up with [facility] for reevaluation tomorrow. Given strict return precautions. Janelle Saunders PA-C (Janelle El) Diagnostic Imaging: Viewed by Me: Radiology Read. Discussed w/RAD: Radiology Read. Radiology Impression: PATIENT: DAKOTA ESCOBEDO PRESENT AGE: 48 PATIENT ACCOUNT NO: [id number] : 71 LOCATION: [facility] ORDERING PHYSICIAN: Fabby HERNANDEZ SERVICE DATE: 03/31/18 EXAM TYPE: RAD - XRY-LUMBOSACRAL SPINE 4 VIEWS EXAMINATION: XR LUMBOSACRAL SPINE CLINICAL INFORMATION: Low back pain radiating down left leg. COMPARISON: 2016 TECHNIQUE: Lumbosacral spine, 4 views FINDINGS: The visualized components of the thoracolumbar spinal fusion construct remain intact; the hardware extends inferiorly to the L3 level. No hardware loosening or fracture. There is chronic dextroscoliosis of the partially visualized thoracic spine. Within the lumbar spine, there is chronic, mild disc space narrowing and osteophyte formation of L3-L4 and L4-L5. At L5-S1, there is chronic degenerative disc space narrowing, traction osteophyte formation, L5 spondylolysis and 0.5 cm grade 1 anterolisthesis of L5 on S1. Note that the CT images of 06/16/2017 demonstrated left sided neural foraminal stenosis at L5-S1 due to the vertebral subluxation and encroachment of the bulging, degenerated disc on the exiting left L5 nerve root. The visualized pelvic bones are intact. The sacroiliac joints are normal. IMPRESSION: - No acute findings within the degenerated lumbar spine compared to 12/17/2016. - Chronic L5 spondylolysis with grade 1 anterolisthesis of L5 on S1. - Chronic discovertebral degenerative changes of L3-L4, L4-L5 and L5-S1 (worst at L5-S1). DICTATED BY: Kong Flower MD DATE/TIME DICTATED:03/31/181642 REBEAMER:DAVID DATE/TIME TRANSCRIBED:03/31/181642 CONFIDENTIAL, DO NOT COPY WITHOUT APPROPRIATE AUTHORIZATION. <Electronically signed in Other Vendor System> SIGNED BY: Kong Flower MD 03/31/181654 Hand-Off Endorsed To: Janelle El Endorsed Time: 1754 Pending: consult, labs (Fabby Sosa) Departure Departure Condition: Stable Clinical Impression Primary Impression: Suicidal ideations Secondary Impressions: Back pain Departure Forms: Customer Survey General Discharge Information (Fabby Sosa) Departure Disposition: HOME OR SELF CARE Referrals: Milly Ortega APRN (PCP/Family) Additional Instructions: Follow up with Care tomorrow for re-evaluation. Return to the emergency department for any new or worsening symptoms. (Janelle El) PA/WELL LOGGER Co-Sign Statement Statement: ED Attending supervision documentation- [] I saw and evaluated the patient. I have also reviewed all the pertinent lab results and diagnostic results. I agree with the findings and the plan of care as documented in the PA's/WELL LOGGER's documentation. [x] I have reviewed the ED Record and agree with the PA's/WELL LOGGER's documentation. [] Additions or exceptions (if any) to the PAs/WELL LOGGER's note and plan are summarized below: [] (Concepcion LARSON,Bhupinder Leigh)
--- NOTE | 2018-03-31 16:55 | RADIOLOGY REPORT ---
EXAMINATION: XR LUMBOSACRAL SPINE CLINICAL INFORMATION: Low back pain radiating down left leg. COMPARISON: 12/17/2016 TECHNIQUE: Lumbosacral spine, 4 views FINDINGS: The visualized components of the thoracolumbar spinal fusion construct remain intact; the hardware extends inferiorly to the L3 level. No hardware loosening or fracture. There is chronic dextroscoliosis of the partially visualized thoracic spine. Within the lumbar spine, there is chronic, mild disc space narrowing and osteophyte formation of L3-L4 and L4-L5. At L5-S1, there is chronic degenerative disc space narrowing, traction osteophyte formation, L5 spondylolysis and 0.5 cm grade 1 anterolisthesis of L5 on S1. Note that the CT images of 06/16/2017 demonstrated left sided neural foraminal stenosis at L5-S1 due to the vertebral subluxation and encroachment of the bulging, degenerated disc on the exiting left L5 nerve root. The visualized pelvic bones are intact. The sacroiliac joints are normal. IMPRESSION: - No acute findings within the degenerated lumbar spine compared to 12/17/2016. - Chronic L5 spondylolysis with grade 1 anterolisthesis of L5 on S1. - Chronic discovertebral degenerative changes of L3-L4, L4-L5 and L5-S1 (worst at L5-S1).
[2018-03-31 19:12] LABS: ABSOLUTE BASOPHIL COUNT 0 /CUMM (0.0-0.2); ABSOLUTE EOSINOPHIL COUNT 0.3 /CUMM (0.0-0.7); ABSOLUTE GRANULOCYTE CT 3.7 /CUMM (1.4-6.5); ABSOLUTE LYMPH COUNT 1.9 /CUMM (1.2-3.4); ABSOLUTE MONOCYTE COUNT 0.4 /CUMM (0.10-0.60); BASOPHIL % 0.5 % (0.0-2.0); EOSINOPHIL % 4.4 % (0-5); GRANULOCYTE % 58.9 % (42.2-75.2); HEMATOCRIT 35.6 % (37-47); MEAN CORPUSCULAR HGB 28.9 PG (27.0-31.0); MEAN CORPUSCULAR HGB CONC 33.3 G/DL (33.0-37.0); MEAN CORPUSCULAR VOLUME 86.8 FL (81.0-99.0); PLATELET COUNT 225 /CUMM (130-400); RBC DISTRIBUTION WIDTH 17.7 % (11.5-14.5); WHITE BLOOD CELL COUNT 6.4 /CUMM (4.8-10.8)
[2018-03-31 19:55] VITALS: BP 150/90
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
== END 2018-03-31 20:43 ==
LOC: ERH 14:44
PROVIDERS: Physician Assistant
DX: R45.851 Suicidal ideations (principal); M54.5 Low back pain; F32.9 Major depressive disorder, single episode, unspecified; R20.2 Paresthesia of skin; I50.9 Heart failure, unspecified; I10 Essential (primary) hypertension; I25.10 Atherosclerotic heart disease of native coronary artery without angina pectoris
CPT/HCPCS: 72110; 80307; 81003; 81025; G0463; G0480